=== PATIENT | female | born 1950 | race Caucasian/White ===

== ENCOUNTER → 2016-07-30 | Outpatient (CLI) | payer BC ==
[2016-07-30 15:39] LABS: Blood Urea Nitrogen 6 mg/dL (7-17); Non-African American GFR(MDRD) >60 (>60 ml/min/1.73 sqM)
--- NOTE | 2016-07-30 16:38 | CT ---
EXAMINATION TYPE: CT abdomen wo/w con DATE OF EXAM: 07/30/2016 4:19 PM COMPARISON: NONE HISTORY: 65-year-old female, abdominal pain and renal mass. Renal mass seen on outside ultrasound. TECHNIQUE: Contiguous axial scanning of the abdomen and pelvis before and after administration of 100 ml Omnipaque 300 IV contrast. Delayed images through the kidneys and coronal/sagittal reconstructio ns performed. CT DLP: 669.9 mGycm Automated exposure control for dose reduction was used. FINDINGS: Heart is normal size without pericardial effusion. Coronary vessel calcifications are present and are remarkable for coronary artery disease. Lung bases clear without pleural effusion. Liver shows a lobulated 1.4 cm cyst in the left hepatic lobe. Otherwise, no focal liver lesion. No bi liary ductal dilatation. Portal venous system is patent. There is nearly peripheral calcification of the gallbladder fundus and body without any abnormal gall bladder distention. Adrenal glands, spleen, and pancreas appear within normal limits. There is delayed excretion of contrast from both kidneys. A couple subcentimeter hypodense lesions wi thin both kidneys are too small for accurate CT characterization and probably represent cysts. There is a 1.2 cm hypodensity medial upper to mid pole left kidney suggestive of a cyst. No suspicious kevin l mass. Bilateral extrarenal pelves are noted. No dilated small bowel, free fluid, or free air. Normal appendix. Mild diverticulosis within the transverse colon without pericolonic inflammatory change. Scattered nonenlarged and mildly enlarged mesenteric lymph nodes measure up to 8 mm, nonspecific. Postsurgical changes of prior ventral abdominal wall hernia repair with mesh. Bones: Degenerative changes in the lower lumbar spine. Grade 1 anterolisthesis at L4-L5 from hypertro phic facet arthropathy. No osseous destructive process. IMPRESSION: 1. DEVELOPING PORCELAIN GALLBLADDER. CONSIDER SURGICAL CONSULTATION FOR ANY POTENTIAL FURTHER MANAGEM ENT. 2. A 1.2 CM MEDIAL UPPER TO MID POLE LEFT RENAL CYST. 3. ADDITIONAL TINY SUBCENTIMETER HYPODENSITIES ARE PRESENT IN BOTH KIDNEYS AND ARE TOO SMALL FOR ACCU RATE CT CHARACTERIZATION BUT ALSO LIKELY REPRESENT CYSTS. NO SUSPICIOUS MASS SEEN. 4. MILD TRANSVERSE COLONIC DIVERTICULOSIS WITHOUT ACUTE DIVERTICULITIS IN 5. A FEW SCATTERED NONENLARGED AND MILDLY ENLARGED MESENTERIC LYMPH NODES ARE PROBABLY REACTIVE/POST INFLAMMATORY.
== END ==
LOC: RADCTMAIN 14:49
PROVIDERS: ATTEND Family Medicine
DX: N28.1 Cyst of kidney, acquired (principal); K57.30 Diverticulosis of large intestine without perforation or abscess without bleeding; R60.0 Localized edema
CPT/HCPCS: 82565; 84520; 74170; 36415; Q9967

== ENCOUNTER 2016-09-03 07:56 | Day surgery (SDC) | payer BC ==
[2016-08-31 16:20] VITALS: BMI 25.4
[~2016-09-03 07:56] MED LIST: DEXAMETHASONE SOD PHOSPHATE 10 MG/ML 1 ML VIAL IV ONE; HEPARIN SODIUM,PORCINE 5,000 UNIT/ML 1 ML VIAL SQ ONE; LACTATED RINGERS 1,000 ML IV SCH; MIDAZOLAM 2 MG/2 ML VIAL IV PRN; ONDANSETRON 4 MG/2 ML VIAL IVP ONE; ceFAZolin 2 GM in SODIUM CHLORIDE 0.9% 100 ML IVPB ONE
--- NOTE | 2016-09-03 07:59 | P.GSHP ---
History of Present Illness H&P Date: 09/03/16 Chief Complaint: Right upper quadrant pain This is a 65-year-old female who presents today for laparoscopic cholecystectomy. Patient had epigastric and right upper quadrant pain. Her recent CAT scan shows a porcelain gallbladder. Patient presents today for laparoscopic cholecystectomy for chronic cholecystitis. - Constitutional Constitutional: Reports as per HPI Past Medical History Past Medical History: Coronary Artery Disease (CAD), Chest Pain / Angina, Diabetes Mellitus, Eye Disorder, Hyperlipidemia, Hypertension, Osteoarthritis ( OA) Additional Past Medical History / Comment(s): GLAUCOMA, HX OF BELLS PALSY NIDDM , SKIN LESIONS REMOVED (UNSURE IF CANCER), RECENT LOW IRON. History of Any Multi-Drug Resistant Organisms: None Reported Past Surgical History: Heart Catheterization, Heart Catheterization With Stent, Hysterectomy Additional Past Surgical History / Comment(s): 05/07/15 PTCA with stent ., 04/07 Cardiac cath . INCISIONAL HERNIA REPAIR, SKIN LESIONS REMOVED, COLOLOSCOPY Past Anesthesia/Blood Transfusion Reactions: No Reported Reaction Additional Past Anesthesia/Blood Transfusion Reaction / Comment(s): Pt has never received blood. Date of Last Stent Placement:: 05/07/2015 Past Psychological History: No Psychological Hx Reported Additional Psychological History / Comment(s): . Smoking Status: Former smoker Past Alcohol Use History: None Reported Additional Past Alcohol Use History / Comment(s): QUIT SMOKING APPROX 30 YRS AGO. SMOKED 10-15 YRS, 1 PPD OR LESS. Past Drug Use History: None Reported - Past Family History Brother(s) Family Medical History: Cancer Additional Family Medical History / Comment(s): COLON CANCER Sister(s) Family Medical History: Cancer Additional Family Medical History / Comment(s): COLON CANCER Medications and Allergies Home Medications Medication Instructions Recorded Confirmed Type Atenolol 50 mg PO DAILY 04/03/15 08/31/16 History Lisinopril 20 mg PO DAILY 04/03/15 08/31/16 History [place]-3 Fatty Acids/Fish Oil [Fish 1 tab PO DAILY 04/03/15 08/31/16 History Oil 1,000 mg Softgel] Raloxifene HCl [Evista] 60 mg PO DAILY 04/03/15 08/31/16 History metFORMIN HCL [Metformin HCl] 850 mg PO DAILY@1000,2200 04/03/15 08/31/16 History sitaGLIPtin [Januvia] 50 mg PO QAM 04/03/15 08/31/16 History Aspirin [Adult Low Dose Aspirin EC] 81 mg PO DAILY 08/31/16 08/31/16 History Atorvastatin [Lipitor] 40 mg PO HS 08/31/16 08/31/16 History Clopidogrel Bisulfate [Plavix] 75 mg PO DAILY 08/31/16 08/31/16 History Ergocalciferol (Vitamin D2) 50,000 unit PO WEEKLY 08/31/16 08/31/16 History [Vitamin D2] Ferrous Sulfate [Feosol] 325 mg PO DAILY 08/31/16 08/31/16 History Naproxen Sodium [Aleve] 220 mg PO DAILY PRN 08/31/16 08/31/16 History Timolol 0.5% Ophth Soln [Timoptic 1 drop BOTH EYES DAILY 08/31/16 08/31/16 History 0.5% Ophth Soln] Allergies Allergy/AdvReac Type Severity Reaction Status Date / Time codeine Allergy Nausea & Verified 08/31/16 15:29 Vomiting Surgical - Exam - General well developed - Eyes PERRL - ENT normal pinna - Neck no masses - Respiratory normal expansion - Abdomen Abdomen: soft, non tender Assessment and Plan Plan: Chronic cholelithiasis, porcelain gallbladder. We'll perform laparoscopic cholecystectomy. The risk of open cholecystectomy is been discussed with patient.
[2016-09-03 08:41] LABS: Glucose,Whole Blood 131 mg/dL (75-99)
[2016-09-03] MEDS ORDERED: BUPIVACAIN-EPI 0.25%-1:200,000 30 ML VIAL SQ ONE ×3 (08:55→09:40)
[2016-09-03] MEDS ORDERED: fentaNYL (PF) 50 MCG/ML 2 ML AMP ONE (09:03)
[2016-09-03] MEDS ORDERED: LIDOCAINE 1% INJ 10MG/ML (20 ML MDV) ONE (09:03)
[2016-09-03] MEDS ORDERED: ROCURONIUM BROMIDE 10 MG/ML 10 ML VIAL IV ONE (09:03)
[2016-09-03] MEDS ORDERED: PROPOFOL 10 MG/ML 20 ML VIAL IV ONE (09:03)
[2016-09-03] MEDS ORDERED: ePHEDrine 50 MG/ML 1 ML AMP ONE (09:03)
[2016-09-03] MEDS ORDERED: GLYCOPYRROLATE 0.2 MG/ML 2 ML VIAL ONE (09:03)
[2016-09-03] MEDS ORDERED: MIDAZOLAM 2 MG/2 ML VIAL ONE (09:03)
[2016-09-03] MEDS ORDERED: NEOSTIGMINE 1 MG/ML 10 ML VIAL ONE (09:03)
[2016-09-03] MEDS ORDERED: SUCCINYLCHOLINE CHLORIDE 100 MG/5 ML SYR IV ONE (09:03)
--- NOTE | 2016-09-03 10:02 | P.OP ---
Date of Procedure: 09/03/16 Preoperative Diagnosis: Cholecystitis Postoperative Diagnosis: Cholecystitis Procedure(s) Performed: Laparoscopic cholecystectomy Anesthesia: DELMI Surgeon: Mao Austin Estimated Blood Loss (ml): 5 Pathology: other (Gallbladder) Condition: stable Disposition: PACU Description of Procedure: The patient was placed on the operating table. The patient received a general endotracheal tube anesthesia. The patients abdomen was prepped and draped in the usual sterile fashion. Through an infraumbilical stab incision, the fascia of the anterior abdominal wall was grasped with a pair of Kochers and then the Veress needle was placed in the peritoneal cavity. Position of the Veress needle was confirmed with positive drop test. The abdomen was then insufflated. After adequate insufflation, the 10 mm trocar was placed in the peritoneal cavity. Following this the laparoscope was placed in the peritoneal cavity. The patient was placed in the head-up, right side up position and then a 5 mm trocar was placed in the right lateral and right subcostal position under direct visualization. A 8 mm trocar was placed in the epigastric position. The gallbladder was grasped in the fundus and infundibulum. The gallbladder was calcified. Traction on the gallbladder was placed in the lateral and the cephalad positions. The triangle of Calot was visualized.. The cystic duct was bluntly dissected until the union of the cystic duct and common bile duct was seen. The cystic duct was then divided and sealed with the Harmonic scissors. A PDS Endoloop was then placed throughout the cystic duct stump. The cystic artery divided and sealed with the Harmonic scissors. The gallbladder was then removed from the liver bed using Harmonic scissors. The gallbladder was then extracted through the epigastric port site. Operative field was checked for any bleeding spots and Harmonic scissors was used to coagulate the liver bed. The abdomen was irrigated. The trocars were removed. The skin was closed using interrupted 3- 0 Vicryl suture. Dermabond dressing were applied. The patient tolerated the procedure well.
[2016-09-03 10:26] VITALS: TEMP 97.4
[2016-09-03] MEDS: HYDROmorphone 1 MG/ML 1 ML SYRINGE IVP PRN ×2 (10:33→10:48)
[2016-09-03] MEDS ORDERED: HYDROcodone/APAP 7.5-325MG 1 EACH TAB PO ONE (12:16)
[2016-09-03 12:18] VITALS: RESP 16
[2016-09-03 13:34] VITALS: PULSE 83
[2016-09-03 14:01] VITALS: BP 150/68
== END 2016-09-03 14:21 | disposition home or self-care (01) ==
LOC: OR 07:56
PROVIDERS: ATTEND Surgery
DX: K80.10 Calculus of gallbladder with chronic cholecystitis without obstruction (principal); K82.8 Other specified diseases of gallbladder; I25.119 Atherosclerotic heart disease of native coronary artery with unspecified angina pectoris; Z95.5 Presence of coronary angioplasty implant and graft; I10 Essential (primary) hypertension; E78.00 Pure hypercholesterolemia, unspecified; E78.5 Hyperlipidemia, unspecified; E11.9 Type 2 diabetes mellitus without complications; Z79.84 Long term (current) use of oral hypoglycemic drugs; Z79.02 Long term (current) use of antithrombotics/antiplatelets; Z79.82 Long term (current) use of aspirin; Z79.1 Long term (current) use of non-steroidal anti-inflammatories (NSAID); Z79.899 Other long term (current) drug therapy; Z88.5 Allergy status to narcotic agent; Z87.891 Personal history of nicotine dependence
CPT/HCPCS: 88304; 47562; J2250; J1644; J1100; J2710; J0690; J2405; J2001; J3010; J1170; J0330; J2704

== ENCOUNTER → 2018-05-29 | Outpatient (CLI) | payer BC ==
--- NOTE | 2018-06-01 11:29 | MM ---
Reason for exam: screening (asymptomatic). Last mammogram was performed 2 years and 10 months ago. History: Patient is postmenopausal. Family history of breast cancer in maternal aunt. Excisional biopsy of the right breast, December 13, 2000. Physical Findings: A clinical breast exam by your physician is recommended on an annual basis and results should be correlated with mammographic findings. MG Screening Mammo w CAD Bilateral CC and MLO view(s) were taken. Prior study comparison: July 24, 2015, bilateral MG 3d screening mammo w/cad. November 08, 2013, bilateral MG screening mammo w CAD. There are benign appearing round dystrophic calcifications bilaterally. Asymmetric breast tissue in the left breast central position, stable. There is no discrete abnormality. ASSESSMENT: Benign, BI-RAD 2 RECOMMENDATION: Routine screening mammogram of both breasts in 1 year.
== END | disposition home or self-care (01) ==
LOC: RADMAMWWP 09:48
PROVIDERS: ATTEND Family Medicine
DX: Z12.31 Encounter for screening mammogram for malignant neoplasm of breast (principal)
CPT/HCPCS: 77067

== ENCOUNTER 2019-05-28 16:00 | Emergency (ER) | payer BC, MEDICARE ==
[2019-05-28 16:25] VITALS: RESP 18; TEMP 97.9
--- NOTE | 2019-05-28 16:50 | ED ---
General Adult HPI - General Chief complaint: Extremity Injury, Lower Stated complaint: rt ankle pain Time Seen by Provider: 05/28/19 16:29 Source: patient, RN notes reviewed Mode of arrival: wheelchair Limitations: no limitations - History of Present Illness Initial comments: 68-year-old female presents to the emergency department for a chief complaint of right ankle pain. Patient states that several years ago she had a hairline fracture of the right ankle. States that from time to time her ankle "acts up." Patient states it seems to be doing it again. States this started about 4 days ago. There was any better but then seemed to worsen again. States it is painful to walk on. States is causing pain in the lateral aspect of her foot as well. She denies fevers or chills.Patient has no other complaints at this time including shortness of breath, chest pain, abdominal pain, nausea or vomiting, headache, or visual changes. - Related Data Home Medications Medication Instructions Recorded Confirmed Atenolol 50 mg PO DAILY 04/03/15 05/07/19 Lisinopril 20 mg PO DAILY 04/03/15 05/07/19 [place]-3 Fatty Acids/Fish Oil [Fish 1 tab PO DAILY 04/03/15 05/07/19 Oil 1,000 mg Softgel] Raloxifene HCl [Evista] 60 mg PO DAILY 04/03/15 05/07/19 metFORMIN HCL [Metformin HCl] 850 mg PO DAILY@1000,2200 04/03/15 05/07/19 sitaGLIPtin [Januvia] 50 mg PO DAILY 04/03/15 05/07/19 Aspirin [Adult Low Dose Aspirin EC] 81 mg PO DAILY 08/31/16 05/07/19 Atorvastatin [Lipitor] 40 mg PO HS 08/31/16 05/07/19 Clopidogrel Bisulfate [Plavix] 75 mg PO DAILY 08/31/16 05/07/19 Ferrous Sulfate [Feosol] 325 mg PO DAILY 08/31/16 05/07/19 Tretinoin [Tretinoin 0.05%] 1 applic TOPICAL HS 05/07/19 05/07/19 Vitamin D3 50,000iu 50,000 unit PO COOK 05/07/19 05/07/19 Previous Rx's Medication Instructions Recorded Cephalexin [Keflex] 500 mg PO Q6HR 10 Days #40 cap 05/28/19 Allergies Allergy/AdvReac Type Severity Reaction Status Date / Time codeine Allergy Nausea & Verified 05/28/19 16:25 Vomiting Review of Systems ROS Statement: Those systems with pertinent positive or pertinent negative responses have been documented in the HPI. ROS Other: All systems not noted in ROS Statement are negative. Past Medical History Past Medical History: Coronary Artery Disease (CAD), Chest Pain / Angina, Diabetes Mellitus, Eye Disorder, Hyperlipidemia, Hypertension, Osteoarthritis (OA) Additional Past Medical History / Comment(s): HX OF BELLS PALSY, anemia, frequent diarrhea recently, not as much recently, thinks might have a "blockage" History of Any Multi-Drug Resistant Organisms: None Reported Past Surgical History: Heart Catheterization, Heart Catheterization With Stent, Hernia Repair, Hysterectomy Additional Past Surgical History / Comment(s): INCISIONAL HERNIA REPAIR, SKIN LESIONS REMOVED, COLOLOSCOPY, Bilateral cataract surgery 2016 Past Anesthesia/Blood Transfusion Reactions: No Reported Reaction Additional Past Anesthesia/Blood Transfusion Reaction / Comment(s): Pt has never received blood. Date of Last Stent Placement:: 05/07/2015 Past Psychological History: No Psychological Hx Reported Smoking Status: Former smoker Past Alcohol Use History: None Reported Past Drug Use History: None Reported - Past Family History Brother(s) Family Medical History: Cancer Additional Family Medical History / Comment(s): COLON CANCER Sister(s) Family Medical History: Cancer Additional Family Medical History / Comment(s): COLON CANCER Father Family Medical History: Coronary Artery Disease (CAD), Myocardial Infarction (SC) Additional Family Medical History / Comment(s): Father at age 67yrs and pt thinks cause of was a SC. Mother Family Medical History: Coronary Artery Disease (CAD) Additional Family Medical History / Comment(s): Mother at age 78 or 79yrs of heart disease. General Exam Limitations: no limitations General appearance: alert, in no apparent distress Head exam: Present: atraumatic, normocephalic, normal inspection Eye exam: Present: normal appearance, PERRL, EOMI. Absent: scleral icterus, conjunctival injection, periorbital swelling ENT exam: Present: normal exam, mucous membranes moist Neck exam: Present: normal inspection, full ROM. Absent: tenderness, meningismus, lymphadenopathy Respiratory exam: Present: normal lung sounds bilaterally. Absent: respiratory distress, wheezes, rales, rhonchi, stridor Cardiovascular Exam: Present: regular rate, normal rhythm, normal heart sounds. Absent: systolic murmur, diastolic murmur, rubs, gallop, clicks Extremities exam: Present: full ROM (patient has some limited plantar and dorsiflexion of the irght ankle senconday to pain but is able to plantar and dorsi flex about 20 degrees), normal capillary refill (cap refill < 2 seconds, DP pulse 2+ in RLE), other (sensation intact RLE). Absent: tenderness, pedal edema, joint swelling (mild edema of the lateral right ankle with minimal erythema. ), calf tenderness Course Vital Signs 05/28/19 16:23 Temperature 97.9 F Pulse Rate 79 Respiratory 18 Rate Blood Pressure 154/77 O2 Sat by Pulse 100 Oximetry Medical Decision Making - Medical Decision Making X-ray of the right foot shows some osteoarthritis without fracture. X-ray of the right ankle shows minimal soft tissue swelling over the lateral malleolus without fracture seen. I think this is likely an exacerbation of patient's ongoing chronic intermittent ankle pain. However there is some erythema. Patient is afebrile, I do not think this is a septic joint as it is minimally edematous, minimally erythematous through however patient will be treated for a possible cellulitis. She will follow up with primary care in 1-2 days. She'll return here if she has any worsening symptoms. Disposition Clinical Impression: Ankle pain, right Disposition: HOME SELF-CARE Condition: Good Instructions (If sedation given, give patient instructions): Ankle Sprain (ED) Additional Instructions: please follow up with your doctor this week. Please take antibiotic as directed. Take Motrin and Tylenol for pain. Return to the emergency department if you have any worsening symptoms. Prescriptions: Cephalexin [Keflex] 500 mg PO Q6HR 10 Days #40 cap Is patient prescribed a controlled substance at d/c from ED?: No Referrals: Dariela Sofia DO [Primary Care Provider] - 1-2 days Time of Disposition: 17:51
--- NOTE | 2019-05-28 17:14 | XR ---
EXAMINATION TYPE: XR foot complete RT DATE OF EXAM: 05/28/2019 COMPARISON: NONE HISTORY: Foot and ankle pain TECHNIQUE: 3 views FINDINGS: There is moderate plantar calcaneal spurring. There is spurring at the talonavicular joint. Metatarsals are intact. There is mild spurring at the first MP joint. I see no fracture nor dislocat ion. IMPRESSION: There is some osteoarthritis. Calcaneal spurring. No fracture seen.
--- NOTE | 2019-05-28 17:15 | XR ---
EXAMINATION TYPE: XR ankle complete RT DATE OF EXAM: 05/28/2019 COMPARISON: NONE HISTORY: Ankle pain TECHNIQUE: 3 views FINDINGS: Ankle mortise is anatomic. I see no fracture nor dislocation. Joint spaces are fairly kaylee l. IMPRESSION: Minimal soft tissue swelling over the lateral malleolus. No fracture seen.
[2019-05-28 18:08] VITALS: BP 148/70; PULSE 72
== END 2019-05-28 18:08 | disposition home or self-care (01) ==
LOC: EC 16:00
DX: M25.571 Pain in right ankle and joints of right foot (principal); M25.471 Effusion, right ankle; M19.071 Primary osteoarthritis, right ankle and foot; I25.10 Atherosclerotic heart disease of native coronary artery without angina pectoris; E11.9 Type 2 diabetes mellitus without complications; E78.5 Hyperlipidemia, unspecified; I10 Essential (primary) hypertension; D64.9 Anemia, unspecified; Z87.81 Personal history of (healed) traumatic fracture; Z95.818 Presence of other cardiac implants and grafts; Z95.5 Presence of coronary angioplasty implant and graft; Z87.891 Personal history of nicotine dependence; Z79.84 Long term (current) use of oral hypoglycemic drugs; Z79.82 Long term (current) use of aspirin; Z79.02 Long term (current) use of antithrombotics/antiplatelets; Z79.899 Other long term (current) drug therapy; Z88.5 Allergy status to narcotic agent
CPT/HCPCS: 99283

== ENCOUNTER → 2020-03-10 | Outpatient (CLI) | payer BC ==
--- NOTE | 2020-03-11 11:01 | MM ---
Reason for exam: screening (asymptomatic). Last mammogram was performed 1 year and 9 months ago. History: Patient is postmenopausal. Family history of breast cancer in maternal aunt. Excisional biopsy of the right breast, December 13, 2000. Physical Findings: A clinical breast exam by your physician is recommended on an annual basis and results should be correlated with mammographic findings. MG Screening Mammo w CAD Bilateral CC and MLO view(s) were taken. Prior study comparison: May 29, 2018, bilateral MG screening mammo w CAD. July 24, 2015, bilateral MG 3d screening mammo w/cad. There are scattered fibroglandular densities. Finding #1: There is a 20 mm irregular mass located 7 cm from the nipple in the lower inner quadrant, middle position of the right breast. Finding #2: There are typically benign round calcifications in both breasts. Asymmetric breast tissue left breast is stable. New finding since May 29, 2018 and July 24, 2015. ASSESSMENT: Incomplete: need additional imaging evaluation, BI-RAD 0 RECOMMENDATION: Special view mammogram and ultrasound of the right breast. [facility] will attempt to contact patient to return for supplemental views and ultrasound.
== END | disposition home or self-care (01) ==
LOC: RADMAMWWP 11:19
PROVIDERS: ATTEND Family Medicine
DX: Z12.31 Encounter for screening mammogram for malignant neoplasm of breast (principal)
CPT/HCPCS: 77067

== ENCOUNTER → 2020-03-27 | Outpatient (CLI) | payer BC ==
--- NOTE | 2020-04-01 10:36 | MM ---
Reason for exam: additional evaluation requested from abnormal screening. Last mammogram was performed 1 month ago. History: Patient is postmenopausal. Family history of breast cancer in maternal aunt. Excisional biopsy of the right breast, December 13, 2000. Physical Findings: Nurse did not find any significant physical abnormalities on exam. MG Work Up Mamm w CAD RT Spot compression CC, spot compression MLO, and LM view(s) were taken of the right breast. Prior study comparison: March 10, 2020, bilateral MG screening mammo w CAD. May 29, 2018, bilateral MG screening mammo w CAD. Focal asymmetry 20mm lower inner quadrant middle depth persists on additional spot views well seen on true lateral. New from 2018 and older. These results were verbally communicated with the patient and result sheet given to the patient on 03/27/20. ASSESSMENT: Incomplete: need additional imaging evaluation, BI-RAD 0 RECOMMENDATION: Ultrasound of the right breast.
--- NOTE | 2020-04-01 10:38 | USB ---
Reason for exam: additional evaluation requested from abnormal screening. History: Patient is postmenopausal. Family history of breast cancer in maternal aunt. Excisional biopsy of the right breast, December 13, 2000. US Breast Workup Limited RT Right limited breast ultrasound including focal area of concern, retroareolar and axilla demonstrates no cystic or solid lesion seen. Area increased density suspected skin based lateral view. Patient history of trauma and bruise resolving. Suspect resolved bruise. These results were verbally communicated with the patient and result sheet given to the patient on 03/27/20. ASSESSMENT: Probably benign, BI-RAD 3 RECOMMENDATION: Follow-up diagnostic mammogram of the right breast in 3 months.
== END | disposition home or self-care (01) ==
LOC: RADMAMWWP 10:26
PROVIDERS: ATTEND Family Medicine
DX: R92.8 Other abnormal and inconclusive findings on diagnostic imaging of breast (principal)
CPT/HCPCS: 77065

== ENCOUNTER → 2020-07-01 | Outpatient (CLI) | payer BC ==
--- NOTE | 2020-07-01 10:51 | MM ---
Reason for exam: follow-up at short interval from prior study. Last mammogram was performed 3 months ago. History: Patient is postmenopausal. Family history of breast cancer in maternal aunt. Excisional biopsy of the right breast, December 13, 2000. Took hormonal contraceptives for 3 years beginning at age 22. Physical Findings: Nurse did not find any significant physical abnormalities on exam. MG Diagnostic Mammo w CAD JYOTI Bilateral CC and MLO view(s) were taken. Prior study comparison: March 27, 2020, right breast MG work up mamm w CAD RT. March 10, 2020, bilateral MG screening mammo w CAD. The breast tissue is heterogeneously dense. This may lower the sensitivity of mammography. Density right breast is improved. Stable appearance left breast. No significant new findings when compared with previous films. These results were verbally communicated with the patient and result sheet given to the patient on 07/01/20. ASSESSMENT: Benign, BI-RAD 2 RECOMMENDATION: Return to routine screening mammogram schedule for both breasts. Back on schedule for March 2021. Manage patient on a clinical basis.
== END | disposition home or self-care (01) ==
LOC: RADMAMWWP 09:24
PROVIDERS: ATTEND Family Medicine
DX: R92.8 Other abnormal and inconclusive findings on diagnostic imaging of breast (principal)
CPT/HCPCS: 77066

== ENCOUNTER 2021-01-01 09:32 | Inpatient (IN) | payer BC ==
[2021-01-01] MEDS ORDERED: SODIUM CHLORIDE 0.9% 1,000 ML IV STA ×2 (09:55)
--- NOTE | 2021-01-01 10:10 | ED ---
Nausea/Vomiting/Diarrhea HPI - General Chief complaint: Nausea/Vomiting/Diarrhea Stated complaint: Vomiting&Diarrhea/not able to urinate Time Seen by Provider: 01/01/21 09:39 Source: patient, RN notes reviewed Mode of arrival: ambulatory Limitations: no limitations - History of Present Illness Initial comments: This is a 70-year-old female who presents with complaints of 2-3 days of nausea vomiting and diarrhea decreased oral intake she states she had decreased bowel movements no decreased urine output no abdominal pains this time she is not nauseated at this time. She did have some episodes of lightheadedness when she tries to walk or get up from a sitting or supine position. She has had some chills feeling hot and cold but no overt sweats he recently just finished antibiotics for a nasal infection. Other current complaints or modifying fa ctors MD complaint: nausea, vomiting, diarrhea - Related Data Home Medications Medication Instructions Recorded Confirmed Raloxifene HCl [Evista] 60 mg PO DAILY 04/03/15 01/01/21 atenoloL [Atenolol] 50 mg PO DAILY 04/03/15 01/01/21 lisinopriL [Lisinopril] 20 mg PO DAILY 04/03/15 01/01/21 metFORMIN HCL [Metformin HCl] 425 mg PO BID 04/03/15 01/01/21 sitaGLIPtin [Januvia] 50 mg PO DAILY 04/03/15 01/01/21 Aspirin [Adult Low Dose Aspirin EC] 81 mg PO DAILY 08/31/16 01/01/21 Atorvastatin [Lipitor] 40 mg PO HS 08/31/16 01/01/21 Clopidogrel Bisulfate [Plavix] 75 mg PO DAILY 08/31/16 01/01/21 Ferrous Sulfate [Feosol] 325 mg PO DAILY 08/31/16 01/01/21 Tretinoin [Tretinoin 0.05%] 1 applic TOPICAL HS 05/07/19 01/01/21 Ergocalciferol [Vitamin D2 (1250 1,250 mcg PO COOK 01/01/21 01/01/21 Mcg = 44972 Iu)] Allergies Allergy/AdvReac Type Severity Reaction Status Date / Time codeine AdvReac Nausea & Verified 01/01/21 11:08 Vomiting Review of Systems ROS Statement: Those systems with pertinent positive or pertinent negative responses have been documented in the HPI. ROS Other: All systems not noted in ROS Statement are negative. Past Medical History Past Medical History: Coronary Artery Disease (CAD), Chest Pain / Angina, Diabetes Mellitus, Eye Disorder, Hyperlipidemia, Hypertension, Osteoarthritis (OA) Additional Past Medical History / Comment(s): HX OF BELLS PALSY, anemia, frequent diarrhea recently, not as much recently, thinks might have a "blockage" History of Any Multi-Drug Resistant Organisms: None Reported Past Surgical History: Heart Catheterization, Heart Catheterization With Stent, Hernia Repair, Hysterectomy Additional Past Surgical History / Comment(s): INCISIONAL HERNIA REPAIR, SKIN LESIONS REMOVED, COLOLOSCOPY, Bilateral cataract surgery 2017 Past Anesthesia/Blood Transfusion Reactions: No Reported Reaction Additional Past Anesthesia/Blood Transfusion Reaction / Comment(s): Pt has never received blood. Date of Last Stent Placement:: 05/07/2015 Past Psychological History: No Psychological Hx Reported Smoking Status: Former smoker Past Alcohol Use History: None Reported Past Drug Use History: None Reported - Past Family History Brother(s) Family Medical History: Cancer Additional Family Medical History / Comment(s): COLON CANCER Sister(s) Family Medical History: Cancer Additional Family Medical History / Comment(s): COLON CANCER Father Family Medical History: Coronary Artery Disease (CAD), Myocardial Infarction ([place]) Additional Family Medical History / Comment(s): Father at age 67yrs and pt thinks cause of was a [place]. Mother Family Medical History: Coronary Artery Disease (CAD) Additional Family Medical History / Comment(s): Mother at age 78 or 79yrs of heart disease. General Exam - General Exam Comments Initial Comments: This is a well-developed well-nourished awake alert oriented 3 female Limitations: no limitations General appearance: alert, in no apparent distress Head exam: Present: atraumatic, normocephalic, normal inspection Eye exam: Present: normal appearance, PERRL, EOMI. Absent: scleral icterus, co njunctival injection, periorbital swelling ENT exam: Present: mucous membranes dry Neck exam: Present: normal inspection. Absent: tenderness, meningismus, lymphadenopathy Respiratory exam: Present: normal lung sounds bilaterally. Absent: respiratory distress, wheezes, rales, rhonchi, stridor Cardiovascular Exam: Present: regular rate, normal rhythm, normal heart sounds. Absent: systolic murmur, diastolic murmur, rubs, gallop, clicks GI/Abdominal exam: Present: soft, normal bowel sounds. Absent: distended, tenderness, guarding, rebound, rigid, bruit, pulsatile mass Extremities exam: Present: normal inspection, full ROM, normal capillary refill. Absent: tenderness, pedal edema, joint swelling, calf tenderness Back exam: Present: normal inspection Neurological exam: Present: alert, oriented X3, CN II-XII intact Psychiatric exam: Present: normal affect, normal mood Skin exam: Present: warm, dry, intact, normal color. Absent: rash Course Vital Signs 01/01/21 01/01/21 01/01/21 09:34 11:01 11:57 Temperature 97.7 F Pulse Rate 80 71 69 Respiratory 18 18 22 Rate Blood Pressure 124/78 124/55 118/61 O2 Sat by Pulse 97 98 100 Oximetry Medical Decision Making - Medical Decision Making I did discuss findings with patient family and with Dr. Zamora. Patient will be admitted for IV fluids and further inpatient care she does demonstrate evidence of dehydration and pancreatitis as well as hyponatremia - Lab Data Result diagrams: 01/01/21 10:06 01/01/21 10:06 Lab Results 01/01/21 01/01/21 01/01/21 Range/Units 10:06 10:06 10:06 WBC 7.4 (3.8-10.6) k/uL RBC 4.45 (3.80-5.40) m/uL Hgb 13.3 (11.4-16.0) gm/dL Hct 38.9 (34.0-46.0) % MCV 87.4 (80.0-100.0) fL MCH 29.8 (25.0-35.0) pg MCHC 34.1 (31.0-37.0) g/dL RDW 13.2 (11.5-15.5) % Plt Count 313 (150-450) k/uL MPV 7.0 Neutrophils % 72 % Lymphocytes % 21 % Monocytes % 5 % Eosinophils % 1 % Basophils % 1 % Neutrophils # 5.4 (1.3-7.7) k/uL Lymphocytes # 1.5 (1.0-4.8) k/uL Monocytes # 0.3 (0-1.0) k/uL Eosinophils # 0.1 (0-0.7) k/uL Basophils # 0.1 (0-0.2) k/uL Sodium 124 L (137-145) mmol/L Potassium 5.0 (3.5-5.1) mmol/L Chloride 95 L (98-107) mmol/L Carbon Dioxide 15 L (22-30) mmol/L Anion Gap 14 mmol/L BUN 16 (7-17) mg/dL Creatinine 1.28 H (0.52-1.04) mg/dL Est GFR (CKD-EPI)AfAm 49 (>60 ml/min/1.73 sqM) Est GFR (CKD-EPI)NonAf 42 (>60 ml/min/1.73 sqM) Glucose 131 H (74-99) mg/dL Calcium 10.0 (8.4-10.2) mg/dL Total Bilirubin 0.3 (0.2-1.3) mg/dL AST 32 (14-36) U/L ALT 22 (4-34) U/L Alkaline Phosphatase 93 (38-126) U/L Total Protein 7.4 (6.3-8.2) g/dL Albumin 4.5 (3.5-5.0) g/dL Amylase 152 H (30-110) U/L Lipase 1202 H (23-300) U/L Urine Color Yellow Urine Appearance Turbid H (Clear) Urine pH 6.0 (5.0-8.0) Ur Specific [place] 1.016 (1.001-1.035) Urine Protein Negative (Negative) Urine Glucose (UA) Negative (Negative) Urine Ketones 1+ H (Negative) Urine Blood Moderate H (Negative) Urine Nitrite Negative (Negative) Urine Bilirubin Negative (Negative) Urine Urobilinogen <2.0 (<2.0) mg/dL Ur Leukocyte Esterase Small H (Negative) Urine RBC 1 (0-5) /hpf Urine WBC 6 H (0-5) /hpf Ur Squamous Epith Cells <1 (0-4) /hpf Uric Acid Crystals Many H (None) /hpf Urine Mucus Rare H (None) /hpf - Radiology Data Radiology results: report reviewed (Imaging and report reviewed no acute findings), image reviewed Disposition Clinical Impression: Acute pancreatitis, Gastroenteritis, Hyponatremia syndrome, Dehydration Disposition: ADMITTED IP TO THIS [facility] Condition: Fair Referrals: Dariela Sofia DO [Primary Care Provider] - 1-2 days
[2021-01-01 10:22] LABS: Basophils # (A) 0.1 k/uL (0-0.2); Basophils % (A) 1 %; Eosinophils # (A) 0.1 k/uL (0-0.7); Eosinophils % (A) 1 %; HCT 38.9 % (34.0-46.0); HGB 13.3 gm/dL (11.4-16.0); Lymphocytes # (A) 1.5 k/uL (1.0-4.8); Lymphocytes % (A) 21 %; MCH 29.8 pg (25.0-35.0); MCHC 34.1 g/dL (31.0-37.0); MCV 87.4 fL (80.0-100.0); Monocytes # (A) 0.3 k/uL (0-1.0); Monocytes % (A) 5 %; Neutrophils # (A) 5.4 k/uL (1.3-7.7); Neutrophils % (A) 72 %; Platelet Count 313 k/uL (150-450); RBC 4.45 m/uL (3.80-5.40); RDW 13.2 % (11.5-15.5); WBC 7.4 k/uL (3.8-10.6)
[2021-01-01 10:34] LABS: Albumin 4.5 g/dL (3.5-5.0); Total Bilirubin 0.3 mg/dL (0.2-1.3); Total Protein 7.4 g/dL (6.3-8.2)
[2021-01-01 10:46] LABS: Appearance,Urine Turbid (Clear); Bilirubin,Urine Negative (Negative); Blood,Urine Moderate (Negative); Color,Urine Yellow; Glucose,Urine (UA) Negative (Negative); Ketones,Urine 1+ (Negative); Leukocyte Esterase,Urine Small (Negative); Mucus,Urine Rare /hpf; Nitrite,Urine Negative (Negative); Protein,Urine Negative (Negative); RBC,Urine 1 /hpf (0-5); Specific Gravity,Urine 1.016 (1.001-1.035); Squamous Epithelial Cell,Urine <1 /hpf (0-4); Uric Acid Crystals,Urine Many /hpf; Urobilinogen,Urine <2.0 mg/dL (<2.0); WBC,Urine 6 /hpf (0-5)
--- NOTE | 2021-01-01 10:59 | XR ---
EXAMINATION TYPE: XR KUB DATE OF EXAM: 01/01/2021 Comparison: 05/06/2019 Clinical History: 70 year-old female abdominal pain Findings: No evidence for free intraperitoneal air. A few scattered air-fluid levels within the colon without significant stool burden. No dilated small bowel loops or differential air-fluid levels. Multiple coils from prior mesh repair. Impression: A few scattered air-fluid levels within the colon suggesting liquid stool possibly from enteritis or ileus. No evidence for free air or bowel obstruction.
[2021-01-01] MEDS ORDERED: ONDANSETRON 4 MG/2 ML VIAL IVP PRN (12:30)
[2021-01-01] MEDS ORDERED: NALOXONE 0.4 MG/ML 1 ML VIAL IV PRN (12:30)
[2021-01-01] MEDS: SODIUM CHLORIDE 0.9% 1,000 ML IV SCH ×2 (12:38→21:29)
[2021-01-01 16:40] LABS: Glucose,Whole Blood 90 mg/dL (75-99)
[2021-01-01] MEDS: INSULIN ASPART (NovoLOG) 100 UNIT/ML VIAL SQ SCH ×2 (17:04→21:29)
[2021-01-01 20:37] LABS: Glucose,Whole Blood 120 mg/dL (75-99)
[2021-01-01] MEDS: ATORVASTATIN 40 MG TAB PO SCH (21:29)
[2021-01-01] MEDS: TRETINOIN TOPICAL SCH (21:30)
[2021-01-02] MEDS: SODIUM CHLORIDE 0.9% 1,000 ML IV SCH ×3 (01:08→19:07)
[2021-01-02 07:22] LABS: Glucose,Whole Blood 86 mg/dL (75-99)
[2021-01-02] MEDS: INSULIN ASPART (NovoLOG) 100 UNIT/ML VIAL SQ SCH ×4 (08:49→20:42)
[2021-01-02] MEDS: FERROUS SULFATE 325 MG TAB PO SCH (08:55)
[2021-01-02] MEDS: ASPIRIN 81 MG PO SCH (08:55)
[2021-01-02] MEDS: RALOXIFENE 60 MG TAB PO SCH (08:56)
[2021-01-02] MEDS: CLOPIDOGREL 75 MG TAB PO SCH (08:56)
[2021-01-02] MEDS ORDERED: atenoloL 50 MG TAB PO SCH (09:00)
[2021-01-02] MEDS ORDERED: lisinopriL 20 MG TAB PO SCH (09:00)
[2021-01-02 11:35] LABS: Glucose,Whole Blood 87 mg/dL (75-99)
[2021-01-02 16:26] LABS: Glucose,Whole Blood 78 mg/dL (75-99)
[2021-01-02 20:36] LABS: Glucose,Whole Blood 136 mg/dL (75-99)
[2021-01-02] MEDS: ATORVASTATIN 40 MG TAB PO SCH (20:59)
[2021-01-02] MEDS: TRETINOIN TOPICAL SCH (20:59)
--- NOTE | 2021-01-03 01:07 | P.HPIM ---
History of Present Illness H&P Date: 01/02/21 Chief Complaint: nausea, vomiting, diarrhea Sangeeta Reid is a 70 yo F with PMH of CAD, HTN, T2DM who presented to the ED complaining of continued nausea, vomiting and diarrhea over the past few days. She complains that ever since she was treated for a sinus infection with bactrim she had become nauseated and has had diarrhea multiple times daily. She became concerned about dehydration and persistent vomiting and diarrhea so came to the ED. She denies fever, chills, sweats, bloody stool or hematemesis. On presentation vitals stable, labs with Cr 1.30, lipase 1500, Na 124. Review of Systems All systems: negative Constitutional: Reports malaise, Reports weakness, Denies chills, Denies fever Eyes: denies blurred vision, denies pain Ears, nose, mouth and throat: Denies headache, Denies sore throat Cardiovascular: Denies chest pain, Denies shortness of breath Respiratory: Denies cough Gastrointestinal: Reports as per HPI, Reports diarrhea, Reports nausea, Reports vomiting, Denies abdominal pain Genitourinary: Denies dysuria, Denies hematuria Musculoskeletal: Denies myalgias Integumentary: Denies pruritus, Denies rash Neurological: Denies numbness, Denies weakness Psychiatric: Denies anxiety, Denies depression Endocrine: Denies fatigue, Denies weight change Past Medical History Past Medical History: Coronary Artery Disease (CAD), Chest Pain / Angina, Diabetes Mellitus, Eye Disorder, Hyperlipidemia, Hypertension, Osteoarthritis (OA) Additional Past Medical History / Comment(s): HX OF BELLS PALSY, anemia, frequent diarrhea recently, not as much recently, thinks might have a "blockage" History of Any Multi-Drug Resistant Organisms: None Reported Past Surgical History: Heart Catheterization, Heart Catheterization With Stent, Hernia Repair, Hysterectomy Additional Past Surgical History / Comment(s): INCISIONAL HERNIA REPAIR, SKIN LESIONS REMOVED, COLOLOSCOPY, Bilateral cataract surgery 2017 Past Anesthesia/Blood Transfusion Reactions: No Reported Reaction Additional Past Anesthesia/Blood Transfusion Reaction / Comment(s): Pt has never received blood. Date of Last Stent Placement:: 05/07/2015 Past Psychological History: No Psychological Hx Reported Additional Psychological History / Comment(s): . Smoking Status: Former smoker Past Alcohol Use History: None Reported Additional Past Alcohol Use History / Comment(s): QUIT SMOKING APPROX 30 YRS AGO. SMOKED 10-15 YRS, 1 PPD OR LESS. Past Drug Use History: None Reported - Past Family History Brother(s) Family Medical History: Cancer Additional Family Medical History / Comment(s): COLON CANCER Sister(s) Family Medical History: Cancer Additional Family Medical History / Comment(s): COLON CANCER Father Family Medical History: Coronary Artery Disease (CAD), Myocardial Infarction ([place]) Additional Family Medical History / Comment(s): Father at age 67yrs and pt thinks cause of was a [place]. Mother Family Medical History: Coronary Artery Disease (CAD) Additional Family Medical History / Comment(s): Mother at age 78 or 79yrs of heart disease. Medications and Allergies Home Medications Medication Instructions Recorded Confirmed Type Raloxifene HCl [Evista] 60 mg PO DAILY 04/03/15 01/01/21 History atenoloL [Atenolol] 50 mg PO DAILY 04/03/15 01/01/21 History lisinopriL [Lisinopril] 20 mg PO DAILY 04/03/15 01/01/21 History metFORMIN HCL [Metformin HCl] 425 mg PO BID 04/03/15 01/01/21 History sitaGLIPtin [Januvia] 50 mg PO DAILY 04/03/15 01/01/21 History Aspirin [Adult Low Dose Aspirin EC] 81 mg PO DAILY 08/31/16 01/01/21 History Atorvastatin [Lipitor] 40 mg PO HS 08/31/16 01/01/21 History Clopidogrel Bisulfate [Plavix] 75 mg PO DAILY 08/31/16 01/01/21 History Ferrous Sulfate [Feosol] 325 mg PO DAILY 08/31/16 01/01/21 History Tretinoin [Tretinoin 0.05%] 1 applic TOPICAL HS 05/07/19 01/01/21 History Ergocalciferol [Vitamin D2 (1250 1,250 mcg PO COOK 01/01/21 01/01/21 History Mcg = 92840 Iu)] Allergies Allergy/AdvReac Type Severity Reaction Status Date / Time codeine AdvReac Nausea & Verified 01/01/21 11:08 Vomiting Physical Exam Vitals: Vital Signs Temp Pulse Resp BP Pulse Ox 01/02/21 19:44 70 16 01/02/21 19:23 97.9 F 72 18 102/64 98 01/02/21 14:00 97.6 F 70 16 112/70 99 01/02/21 07:53 97.8 F 66 16 112/67 99 01/02/21 02:15 97.5 F L 64 18 100/45 100 Intake and Output 01/02/21 01/02/21 01/03/21 14:59 22:59 06:59 Intake Total 200 Balance 200 Intake: Oral 200 Other: Voiding Method Toilet # Voids 1 1 # Bowel Movements 1 Gen: well developed, well nourished, NAD. Vitals reviewed HEENT: normocephalic, atraumatic, mucus membranes moist Neck: supple, no JVD, no thyromegaly CV: RRR, no murmur. Pulses 2+ Lungs: normal effort, clear throughout Abd: soft, nontender, non distended Neuro: alert and oriented x3, no focal deficit Skin: warm and dry Results CBC & Chem 7: 01/01/21 10:06 01/01/21 10:06 Labs: Abnormal Lab Results - Last 24 Hours (Table) 01/02/21 Range/Units 20:34 POC Glucose (mg/dL) 136 H (75-99) mg/dL Thrombosis Risk Factor Assmnt - Choose All That Apply Each Factor Represents 1 point: Obesity (BMI >25) Each Risk Factor Represents 2 Points: Age 61-74 years Thrombosis Risk Factor Assessment Total Risk Factor Score: 3 Thrombosis Risk Factor Assessment Level: Moderate Risk Assessment and Plan Plan: 1. Acute kidney injury, secondary to volume depletion. Admit, start IV fluids, check C diff antigen. Zofran prn. Clear liquid diet. Follow labs 2. Acute pancreatitis. Suspect secondary to vomiting. Continue to monitor 3. T2DM. Accucheck, sliding scale 4. HTN. Continue atenolol
[2021-01-03] MEDS: SODIUM CHLORIDE 0.9% 1,000 ML IV SCH ×3 (05:03→16:13)
[2021-01-03 06:47] LABS: Glucose,Whole Blood 92 mg/dL (75-99)
[2021-01-03] MEDS: INSULIN ASPART (NovoLOG) 100 UNIT/ML VIAL SQ SCH ×4 (07:23→20:47)
[2021-01-03 07:41] LABS: Basophils % (A) 0 %; Eosinophils # (A) 0.1 k/uL (0-0.7); Eosinophils % (A) 2 %; HGB 11.4 gm/dL (11.4-16.0); Lymphocytes # (A) 1.2 k/uL (1.0-4.8); Lymphocytes % (A) 26 %; MCHC 34.5 g/dL (31.0-37.0); MCV 89.8 fL (80.0-100.0); Monocytes # (A) 0.3 k/uL (0-1.0); Monocytes % (A) 7 %; Neutrophils # (A) 2.8 k/uL (1.3-7.7); Neutrophils % (A) 64 %; Platelet Count 197 k/uL (150-450); RBC 3.67 m/uL (3.80-5.40); RDW 13.4 % (11.5-15.5); WBC 4.5 k/uL (3.8-10.6)
[2021-01-03 07:50] LABS: African American GFR (CKD) >90 (>60 ml/min/1.73 sqM); Anion Gap 6 mmol/L; Blood Urea Nitrogen 3 mg/dL (7-17); Calcium 8.6 mg/dL (8.4-10.2); Carbon Dioxide 19 mmol/L (22-30); Chloride 108 mmol/L (98-107); Glucose 109 mg/dL (74-99); Lipase 1205 U/L (23-300); Magnesium 1.2 mg/dL (1.6-2.3); Non-African American GFR(CKD) >90 (>60 ml/min/1.73 sqM); Potassium 4.5 mmol/L (3.5-5.1); Sodium 133 mmol/L (137-145)
[2021-01-03] MEDS ORDERED: Magnesium Replacement Protocol 1 EACH MISC MISCELLANE PRN (08:15)
[2021-01-03] MEDS: CLOPIDOGREL 75 MG TAB PO SCH (08:52)
[2021-01-03] MEDS: RALOXIFENE 60 MG TAB PO SCH (08:52)
[2021-01-03] MEDS: ASPIRIN 81 MG PO SCH (08:52)
[2021-01-03] MEDS: atenoloL 25 MG TAB PO SCH (08:52)
[2021-01-03] MEDS: FERROUS SULFATE 325 MG TAB PO SCH (08:52)
[2021-01-03 11:40] LABS: Glucose,Whole Blood 100 mg/dL (75-99)
[2021-01-03 16:39] LABS: Glucose,Whole Blood 86 mg/dL (75-99)
[2021-01-03 20:45] LABS: Glucose,Whole Blood 139 mg/dL (75-99)
[2021-01-03] MEDS: TRETINOIN TOPICAL SCH (21:08)
[2021-01-03] MEDS: ATORVASTATIN 40 MG TAB PO SCH (21:08)
--- NOTE | 2021-01-03 23:01 | P.PN ---
Subjective This is a pleasant 70 years old female with past medical history of hypertension, hyperlipidemia, coronary artery disease status post stent placemen t. Osteoarthritis. She is a patient of Dr. Zamora Presents because of vomiting and diarrhea. She had 2 loose stool yesterday but no bowel movement this morning no vomiting. No abdominal pain and her abdomen looks soft. Patient reports history of recent sinusitis infection where she was treated with Bactrim for 10 days. On admission her KUB was showing enteritis versus ileus Patient's is already tolerating liquid diet which we will continue Repeat KUB in the morning Low magnesium replaced per protocol. No fever or leukocytosis of so far C. diff is negative Objective - Vital Signs Vital signs: Vital Signs Temp 97.5 F L 01/03/21 20:00 Pulse 75 01/03/21 20:15 Resp 16 01/03/21 20:15 BP 112/68 01/03/21 20:00 Pulse Ox 99 01/03/21 20:00 Intake & Output 01/03/21 01/03/21 01/04/21 06:59 18:59 06:59 Intake Total 200 200 Balance 200 200 Intake: Oral 200 200 Other: Voiding Method Toilet Toilet # Voids 2 2 2 - Exam GENERAL: The patient is alert and oriented x3, not in any acute distress. Well developed, well nourished. HEENT: Pupils are round and equally reacting to light. EOMI. No scleral icterus. No conjunctival pallor. Normocephalic, atraumatic. No pharyngeal erythema. No thyromegaly. CARDIOVASCULAR: S1 and S2 present. No murmurs, rubs, or gallops. PULMONARY: Chest is clear to auscultation, no wheezing or crackles. ABDOMEN: Soft, nontender, nondistended, normoactive bowel sounds. No palpable organomegaly. MUSCULOSKELETAL: No joint swelling or deformity. EXTREMITIES: No cyanosis, clubbing, or pedal edema. NEUROLOGICAL: Gross neurological examination did not reveal any focal deficits. SKIN: No rashes. no petechiae. - Labs CBC & Chem 7: 01/03/21 07:28 01/03/21 07:28 Labs: Abnormal Lab Results - Last 24 Hours (Table) 01/03/21 01/03/21 01/03/21 Range/Units 07: 07: 11:39 RBC 3.67 L (3.80-5.40) m/uL Hct 33.0 L (34.0-46.0) % Sodium 133 L (137-145) mmol/L Chloride 108 H (98-107) mmol/L Carbon Dioxide 19 L (22-30) mmol/L BUN 3 L (7-17) mg/dL Glucose 109 H (74-99) mg/dL POC Glucose (mg/dL) 100 H (75-99) mg/dL Magnesium 1.2 L (1.6-2.3) mg/dL Lipase 1205 H (23-300) U/L 01/03/21 Range/Units 20:44 RBC (3.80-5.40) m/uL Hct (34.0-46.0) % Sodium (137-145) mmol/L Chloride (98-107) mmol/L Carbon Dioxide (22-30) mmol/L BUN (7-17) mg/dL Glucose (74-99) mg/dL POC Glucose (mg/dL) 139 H (75-99) mg/dL Magnesium (1.6-2.3) mg/dL Lipase (23-300) U/L Assessment and Plan Assessment: Acute gastroenteritis, possible ileus Hypomagnesemia Recent history of sinusitis treated with Bactrim for 10 days Patient Hyperlipidemia History of osteoarthritis Diabetes mellitus History of coronary artery disease status post stenting Plan: A pleasant 70 trace old female who presents with acute gastroenteritis, possible ileus, she is tolerating liquid diet Abdomen soft with no pain and we will repeat KUB in the morning Labs the morning Labs and medication were reviewed.. Continue same treatment. Continue with symptomatic treatment. Resume home medication. Monitor lytes and vitals. DVT and GI prophylaxis. Further recommendationsas per clinical course of the patient DVT prophylaxis: Subcutaneous heparin GI Prophylaxis: Pepcid PT/OT: Pending Prognosis is guarded
[2021-01-04] MEDS: SODIUM CHLORIDE 0.9% 1,000 ML IV SCH ×2 (03:43→20:28)
[2021-01-04 06:48] LABS: Glucose,Whole Blood 131 mg/dL (75-99)
--- NOTE | 2021-01-04 07:26 | XR ---
EXAMINATION TYPE: XR KUB DATE OF EXAM: 01/04/2021 COMPARISON: 01/01/2021 HISTORY: Enteritis TECHNIQUE: One view abdominal series FINDINGS: The osseous structures are intact. The bowel gas pattern is nonspecific. Lung bases are clear. Posts urgical changes are seen. IMPRESSION: 1. Nonspecific abdomen.
[2021-01-04] MEDS: INSULIN ASPART (NovoLOG) 100 UNIT/ML VIAL SQ SCH ×4 (08:26→20:34)
[2021-01-04] MEDS: CLOPIDOGREL 75 MG TAB PO SCH (08:39)
[2021-01-04] MEDS: atenoloL 25 MG TAB PO SCH (08:39)
[2021-01-04] MEDS: FERROUS SULFATE 325 MG TAB PO SCH (08:39)
[2021-01-04] MEDS: ASPIRIN 81 MG PO SCH (08:39)
[2021-01-04] MEDS: HEPARIN SODIUM,PORCINE/PF 5,000 UNIT/0.5 ML SYRINGE SQ SCH ×2 (08:39→20:35)
[2021-01-04] MEDS: FAMOTIDINE 20 MG/2 ML VIAL IV SCH ×2 (08:39→20:34)
[2021-01-04] MEDS: RALOXIFENE 60 MG TAB PO SCH (08:40)
[2021-01-04] MEDS ORDERED: ERGOCALCIFEROL 1,250 MCG (50,000 IU) CAPSULE PO SCH (09:00)
[2021-01-04 10:17] LABS: Basophils # (A) 0.03 X 10*3/uL (0.00-0.10); Basophils % (A) 0.7 %; Eosinophils # (A) 0.07 X 10*3/uL (0.04-0.35); Eosinophils % (A) 1.6 %; HCT 30.9 % (37.2-46.3); HGB 10.2 g/dL (12.0-15.0); Lymphocytes # (A) 1.48 X 10*3/uL (0.90-5.00); Lymphocytes % (A) 34.8 %; MCH 29.5 pg (27.0-32.0); MCV 89.3 fL (80.0-97.0); Mean Platelet Volume 9.4 fL (9.5-12.2); Monocytes # (A) 0.27 X 10*3/uL (0.20-1.00); Monocytes % (A) 6.4 %; Neutrophils # (A) 2.39 X 10*3/uL (1.80-7.70); Neutrophils % (A) 56.3 %; Platelet Count 176 X 10*3/uL (140-440); RBC 3.46 X 10*6/uL (4.10-5.20); RDW 13.5 % (11.5-14.5); WBC 4.25 X 10*3/uL (4.50-10.00)
[2021-01-04 11:44] LABS: Glucose,Whole Blood 104 mg/dL (75-99)
[2021-01-04 11:47] LABS: ALT 16 U/L (8-44); AST 17 U/L (13-35); African American GFR (CKD) 106.3 (60.0-200.0); Alkaline Phosphatase 69 U/L (41-126); Blood Urea Nitrogen <5.0 mg/dL (9.0-27.0); Calcium 8.6 mg/dL (8.7-10.3); Carbon Dioxide 24.1 mmol/L (21.6-31.8); Chloride 107 mmol/L (96-109); Glucose 129 mg/dL (70-110); Magnesium 1.1 mg/dL (1.5-2.4); Non-African American GFR(CKD) 91.7 (60.0-200.0); Potassium 4.2 mmol/L (3.5-5.5); Sodium 136 mmol/L (135-145); Total Bilirubin 0.2 mg/dL (0.3-1.2); Total Protein 5.4 g/dL (6.2-8.2)
[2021-01-04 17:24] LABS: Glucose,Whole Blood 105 mg/dL (75-99)
[2021-01-04 20:25] LABS: Glucose,Whole Blood 165 mg/dL (75-99)
[2021-01-04] MEDS: ATORVASTATIN 40 MG TAB PO SCH (20:34)
[2021-01-04] MEDS: TRETINOIN TOPICAL SCH (20:35)
--- NOTE | 2021-01-04 21:29 | P.PN ---
Subjective This is a pleasant 70 years old female with past medical history of hypertension, hyperlipidemia, coronary artery disease status post stent placemen t. Osteoarthritis. She is a patient of Dr. Zamora Presents because of vomiting and diarrhea. She had 2 loose stool yesterday but no bowel movement this morning no vomiting. No abdominal pain and her abdomen looks soft. Patient reports history of recent sinusitis infection where she was treated with Bactrim for 10 days. On admission her KUB was showing enteritis versus ileus Patient's is already tolerating liquid diet which we will continue Repeat KUB in the morning Low magnesium replaced per protocol. No fever or leukocytosis of so far C. diff is negative 01/05/2021 Patient with no abdominal pain or vomiting, she is tolerating liquid diet and can be advanced further today. She does still have to lose bowel movement yesterday. KUB is unremarkable Labs showed low magnesium at 1.1. Lipase ordered and is pending. Hemoglobin is slightly trending down 13, 11, 10. Patient remains on normal sinus at 50 mL/h however patient has no IV line as staff tried to reinitiating and she has difficulty veins. No PICC line staff available on the weekend . Discussed with staff to keep trying However patient looks currently stable vitals. Check labs in the morning Objective - Vital Signs Vital signs: Vital Signs Temp 95.9 F L 01/04/21 14:27 Pulse 76 01/04/21 14:27 Resp 18 01/04/21 14:27 BP 138/80 01/04/21 14:27 Pulse Ox 99 01/04/21 14:27 Intake & Output 01/03/21 01/04/21 01/04/21 18:59 06:59 18:59 Intake Total 200 200 Balance 200 200 Intake: Oral 200 200 Other: Voiding Method Toilet # Voids 2 1 - Exam GENERAL: The patient is alert and oriented x3, not in any acute distress. Well developed, well nourished. HEENT: Pupils are round and equally reacting to light. EOMI. No scleral icterus. No conjunctival pallor. Normocephalic, atraumatic. No pharyngeal erythema. No thyromegaly. CARDIOVASCULAR: S1 and S2 present. No murmurs, rubs, or gallops. PULMONARY: Chest is clear to auscultation, no wheezing or crackles. ABDOMEN: Soft, nontender, nondistended, normoactive bowel sounds. No palpable organomegaly. MUSCULOSKELETAL: No joint swelling or deformity. EXTREMITIES: No cyanosis, clubbing, or pedal edema. NEUROLOGICAL: Gross neurological examination did not reveal any focal deficits. SKIN: No rashes. no petechiae. - Labs CBC & Chem 7: 01/04/21 06:33 01/04/21 06:33 Labs: Abnormal Lab Results - Last 24 Hours (Table) 01/03/21 01/04/21 01/04/21 Range/Units 20:44 06:33 06:33 WBC 4.25 L (4.50-10.00) X 10*3/uL RBC 3.46 L (4.10-5.20) X 10*6/uL Hgb 10.2 L (12.0-15.0) g/dL Hct 30.9 L (37.2-46.3) % MPV 9.4 L (9.5-12.2) fL BUN <5.0 L (9.0-27.0) mg/dL Glucose 129 H (70-110) mg/dL POC Glucose (mg/dL) 139 H (75-99) mg/dL Calcium 8.6 L (8.7-10.3) mg/dL Magnesium 1.1 L (1.5-2.4) mg/dL Total Bilirubin 0.2 L (0.3-1.2) mg/dL Total Protein 5.4 L (6.2-8.2) g/dL Albumin 3.40 L (3.80-4.90) g/dL 01/04/21 01/04/21 Range/Units 06:47 11:42 WBC (4.50-10.00) X 10*3/uL RBC (4.10-5.20) X 10*6/uL Hgb (12.0-15.0) g/dL Hct (37.2-46.3) % MPV (9.5-12.2) fL BUN (9.0-27.0) mg/dL Glucose (70-110) mg/dL POC Glucose (mg/dL) 131 H 104 H (75-99) mg/dL Calcium (8.7-10.3) mg/dL Magnesium (1.5-2.4) mg/dL Total Bilirubin (0.3-1.2) mg/dL Total Protein (6.2-8.2) g/dL Albumin (3.80-4.90) g/dL Assessment and Plan Assessment: Acute gastroenteritis, possible ileus Hypomagnesemia Recent history of sinusitis treated with Bactrim for 10 days Patient Hyperlipidemia History of osteoarthritis Diabetes mellitus History of coronary artery disease status post stenting Plan: A pleasant 70 trace old female who presents with acute gastroenteritis, possible ileus, she is tolerating liquid diet Abdomen soft with no pain and we will repeat KUB in the morning Labs the morning Labs and medication were reviewed.. Continue same treatment. Continue with symptomatic treatment. Resume home medication. Monitor lytes and vitals. DVT and GI prophylaxis. Further recommendationsas per clinical course of the patient DVT prophylaxis: Subcutaneous heparin GI Prophylaxis: Pepcid PT/OT: Pending Prognosis is guarded
[2021-01-05 07:38] LABS: Glucose,Whole Blood 134 mg/dL (75-99)
[2021-01-05] MEDS: ASPIRIN 81 MG PO SCH (08:14)
[2021-01-05] MEDS: FERROUS SULFATE 325 MG TAB PO SCH (08:14)
[2021-01-05] MEDS: atenoloL 25 MG TAB PO SCH (08:14)
[2021-01-05] MEDS: CLOPIDOGREL 75 MG TAB PO SCH (08:14)
[2021-01-05] MEDS: RALOXIFENE 60 MG TAB PO SCH (08:14)
[2021-01-05] MEDS: INSULIN ASPART (NovoLOG) 100 UNIT/ML VIAL SQ SCH ×4 (08:14→20:14)
[2021-01-05] MEDS: FAMOTIDINE 20 MG/2 ML VIAL IV SCH ×2 (08:14→20:15)
[2021-01-05] MEDS: HEPARIN SODIUM,PORCINE/PF 5,000 UNIT/0.5 ML SYRINGE SQ SCH ×2 (08:15→20:04)
[2021-01-05 11:29] LABS: Anion Gap 5.1 mmol/L (4.00-12.00); Calcium 8.8 mg/dL (8.7-10.3); Carbon Dioxide 25.9 mmol/L (21.6-31.8); Non-African American GFR(CKD) 87.2 (60.0-200.0); Potassium 4.3 mmol/L (3.5-5.5)
[2021-01-05 11:54] LABS: Glucose,Whole Blood 109 mg/dL (75-99)
[2021-01-05 12:50] LABS: Basophils # (A) 0.05 X 10*3/uL (0.00-0.10); Basophils % (A) 0.9 %; Eosinophils # (A) 0.12 X 10*3/uL (0.04-0.35); Eosinophils % (A) 2.3 %; HCT 33.2 % (37.2-46.3); HGB 10.6 g/dL (12.0-15.0); Lymphocytes # (A) 1.67 X 10*3/uL (0.90-5.00); Lymphocytes % (A) 31.5 %; MCH 28.4 pg (27.0-32.0); MCHC 31.9 g/dL (32.0-37.0); Mean Platelet Volume 9.8 fL (9.5-12.2); Monocytes # (A) 0.34 X 10*3/uL (0.20-1.00); Monocytes % (A) 6.4 %; Neutrophils % (A) 58.5 %; Platelet Count 178 X 10*3/uL (140-440); RBC 3.73 X 10*6/uL (4.10-5.20); RDW 13.4 % (11.5-14.5)
--- NOTE | 2021-01-05 12:55 | P.PN ---
Subjective This is a pleasant 70 years old female with past medical history of hypertension, hyperlipidemia, coronary artery disease status post stent placemen t. Osteoarthritis. She is a patient of Dr. Zamora Presents because of vomiting and diarrhea. She had 2 loose stool yesterday but no bowel movement this morning no vomiting. No abdominal pain and her abdomen looks soft. Patient reports history of recent sinusitis infection where she was treated with Bactrim for 10 days. On admission her KUB was showing enteritis versus ileus Patient's is already tolerating liquid diet which we will continue Repeat KUB in the morning Low magnesium replaced per protocol. No fever or leukocytosis of so far C. diff is negative 01/04/2021 Patient with no abdominal pain or vomiting, she is tolerating liquid diet and can be advanced further today. She does still have to lose bowel movement yesterday. KUB is unremarkable Labs showed low magnesium at 1.1. Lipase ordered and is pending. Hemoglobin is slightly trending down 13, 11, 10. Patient remains on normal sinus at 50 mL/h however patient has no IV line as staff tried to reinitiating and she has difficulty veins. No PICC line staff available on the weekend . Discussed with staff to keep trying However patient looks currently stable vitals. Check labs in the morning 01/05/2021 Patient still with diarrhea yesterday although it's i less loose . No abdominal pain. Tolerating diet well. Labs from today showing stable BMP, lipase is improved down to 189. cbc was done and her hemoglobin was trending down 13 down to 10 yesterday. Also no magnesium done. Add magnesium to the lab, yesterday was 1.[address] staff to place an IV line. So we can replace magnesium Monitor hemoglobin and magnesium tomorrow Possible discharge in 24-48 hours if she keeps improving Objective - Vital Signs Vital signs: Vital Signs Temp 97.9 F 01/05/21 07:00 Pulse 66 01/05/21 07:00 Resp 16 01/05/21 07:00 BP 124/65 01/05/21 07:00 Pulse Ox 99 01/05/21 07:00 Intake & Output 01/04/21 01/05/21 01/05/21 18:59 06:59 18:59 Intake Total 200 200 Balance 200 200 Intake: Oral 200 200 Other: Voiding Method Toilet # Voids 1 # Bowel Movements 1 - Exam GENERAL: The patient is alert and oriented x3, not in any acute distress. Well developed, well nourished. HEENT: Pupils are round and equally reacting to light. EOMI. No scleral icterus. No conjunctival pallor. Normocephalic, atraumatic. No pharyngeal erythema. No thyromegaly. CARDIOVASCULAR: S1 and S2 present. No murmurs, rubs, or gallops. PULMONARY: Chest is clear to auscultation, no wheezing or crackles. ABDOMEN: Soft, nontender, nondistended, normoactive bowel sounds. No palpable organomegaly. MUSCULOSKELETAL: No joint swelling or deformity. EXTREMITIES: No cyanosis, clubbing, or pedal edema. NEUROLOGICAL: Gross neurological examination did not reveal any focal deficits. SKIN: No rashes. no petechiae. - Labs CBC & Chem 7: 01/05/21 06:55 01/05/21 06:55 Labs: Abnormal Lab Results - Last 24 Hours (Table) 01/04/21 01/04/21 01/05/21 Range/Units 17:23 20:23 06:55 RBC 3.73 L (4.10-5.20) X 10*6/uL Hgb 10.6 L (12.0-15.0) g/dL Hct 33.2 L (37.2-46.3) % MCHC 31.9 L (32.0-37.0) g/dL Sodium (135-145) mmol/L BUN (9.0-27.0) mg/dL BUN/Creatinine Ratio (12.00-20.00) Ratio Glucose (70-110) mg/dL POC Glucose (mg/dL) 105 H 165 H (75-99) mg/dL Lipase (14-63) U/L 01/05/21 01/05/21 01/05/21 Range/Units 06:55 07:25 11:45 RBC (4.10-5.20) X 10*6/uL Hgb (12.0-15.0) g/dL Hct (37.2-46.3) % MCHC (32.0-37.0) g/dL Sodium 134 L (135-145) mmol/L BUN 7.0 L (9.0-27.0) mg/dL BUN/Creatinine Ratio 10.00 L (12.00-20.00) Ratio Glucose 128 H (70-110) mg/dL POC Glucose (mg/dL) 134 H 109 H (75-99) mg/dL Lipase 189 H (14-63) U/L Assessment and Plan Assessment: Acute gastroenteritis, possible ileus Hypomagnesemia Recent history of sinusitis treated with Bactrim for 10 days Patient Hyperlipidemia History of osteoarthritis Diabetes mellitus History of coronary artery disease status post stenting Plan: A pleasant 70 trace old female who presents with acute gastroenteritis, possible ileus, she is tolerating liquid diet Get the IV line and replace magnesium intravenously via discussed with staff Monitor hemoglobin and magnesium/potassium and creatinine tomorrow Labs the morning Labs and medication were reviewed.. Continue same treatment. Continue with symptomatic treatment. Resume home medication. Monitor lytes and vitals. DVT and GI prophylaxis. Further recommendationsas per clinical course of the patient DVT prophylaxis: Subcutaneous heparin GI Prophylaxis: Pepcid PT/OT: Pending Prognosis is guarded
[2021-01-05] MEDS: MAGNESIUM SULFATE-D5W PMX 1 GM in DEXTROSE/WATER 1 100ML.BAG IVPB SCH ×3 (15:20→18:57)
[2021-01-05 17:17] LABS: Glucose,Whole Blood 97 mg/dL (75-99)
[2021-01-05] MEDS: SODIUM CHLORIDE 0.9% 1,000 ML IV SCH (18:58)
[2021-01-05] MEDS: TRETINOIN TOPICAL SCH (20:04)
[2021-01-05 20:08] LABS: Glucose,Whole Blood 223 mg/dL (75-99)
[2021-01-05] MEDS: ATORVASTATIN 40 MG TAB PO SCH (20:30)
[2021-01-06 05:31] LABS: Potassium 4.1 mmol/L (3.5-5.1)
[2021-01-06 05:32] LABS: African American GFR (CKD) >90 (>60 ml/min/1.73 sqM); Anion Gap 5 mmol/L; Blood Urea Nitrogen 9 mg/dL (7-17); Calcium 8.6 mg/dL (8.4-10.2); Carbon Dioxide 24 mmol/L (22-30); Chloride 102 mmol/L (98-107); Glucose 116 mg/dL (74-99); Magnesium 1.9 mg/dL (1.6-2.3); Non-African American GFR(CKD) >90 (>60 ml/min/1.73 sqM); Sodium 131 mmol/L (137-145)
[2021-01-06 05:46] LABS: Basophils % (A) 1 %; Eosinophils # (A) 0.1 k/uL (0-0.7); Eosinophils % (A) 2 %; HCT 31.2 % (34.0-46.0); HGB 10.7 gm/dL (11.4-16.0); Lymphocytes # (A) 1.6 k/uL (1.0-4.8); Lymphocytes % (A) 36 %; MCH 30.4 pg (25.0-35.0); MCHC 34.3 g/dL (31.0-37.0); MCV 88.5 fL (80.0-100.0); Mean Platelet Volume 6.6; Monocytes # (A) 0.2 k/uL (0-1.0); Monocytes % (A) 3 %; Neutrophils # (A) 2.5 k/uL (1.3-7.7); Neutrophils % (A) 57 %; Platelet Count 189 k/uL (150-450); RBC 3.52 m/uL (3.80-5.40); RDW 14.4 % (11.5-15.5); WBC 4.5 k/uL (3.8-10.6)
[2021-01-06 06:47] LABS: Glucose,Whole Blood 108 mg/dL (75-99)
[2021-01-06] MEDS: INSULIN ASPART (NovoLOG) 100 UNIT/ML VIAL SQ SCH (06:47)
[2021-01-06] MEDS: ASPIRIN 81 MG PO SCH (08:49)
[2021-01-06] MEDS: FERROUS SULFATE 325 MG TAB PO SCH (08:49)
[2021-01-06] MEDS: RALOXIFENE 60 MG TAB PO SCH (08:49)
[2021-01-06] MEDS: FAMOTIDINE 20 MG/2 ML VIAL IV SCH (08:50)
[2021-01-06 08:51] VITALS: BP 154/79; RESP 18; TEMP 98.7
[2021-01-06] MEDS: HEPARIN SODIUM,PORCINE/PF 5,000 UNIT/0.5 ML SYRINGE SQ SCH (08:55)
[2021-01-06 09:25] VITALS: PULSE 65
[2021-01-06] MEDS: atenoloL 25 MG TAB PO SCH (09:25)
[2021-01-06] MEDS: CLOPIDOGREL 75 MG TAB PO SCH (09:25)
[2021-01-06] MEDS ORDERED: SODIUM CHLORIDE TAB 1 GM TAB PO STA (10:50)
--- NOTE | 2021-01-07 16:20 | P.DS ---
Providers Date of admission: 01/01/21 12:30 Expected date of discharge: 01/06/21 Attending physician: Drew Zamora MD Primary care physician: Dariela Sofia [facility] Course: Final Diagnoses: Acute pancreatitis, suspect secondary to vomiting, improved Acute gastroenteritis, improved Acute renal failure secondary to volume depletion, resolved Diabetes mellitus type 2 Hypertension Hypomagnesemia, currently 1.9 post supplement. CAD, history of stent Hospital course:Sangeeta Reid is a 70 yo F with PMH of CAD, HTN, T2DM who presented to the ED complaining of continued nausea, vomiting and diarrhea over the past few days. She complains that ever since she was treated for a sinus infection with bactrim she had become nauseated and has had diarrhea multiple times daily. She became concerned about dehydration and persistent vomiting and diarrhea so came to the ED. She denies fever, chills, sweats, bloody stool or hematemesis. On presentation vitals stable, labs with Cr 1.30, lipase 1500, Na 124. C. difficile colitis ruled out. Maintained on IV fluid hydration. Lipase down to 189, sodium 131. Tolerating diet, denies nausea vomiting or diarrhea. Denies abdominal pain. Denies chest pain, palpitations or shortness of breath. Significant clinical improvement. Patient will be discharged home today in a stable condition with guarded prognosis. The impression and plan of care has been dictated as directed. : I performed a history and examination of this patient, discussed the same with the dictator. I agree with the dictator's note ,documented as a scribe. Any additional findings or plans will be noted. Patient Condition at Discharge: Stable Plan - Discharge Summary New Discharge Prescriptions: New atenoloL [Tenormin] 25 mg PO DAILY #30 tab Lactobacillus Acidophilus [Acidophilus Probiotic] 1 each PO DAILY #30 capsule Continue sitaGLIPtin [Januvia] 50 mg PO DAILY metFORMIN HCL [Metformin HCl] 425 mg PO BID Raloxifene HCl [Evista] 60 mg PO DAILY lisinopriL [Lisinopril] 20 mg PO DAILY atenoloL [Atenolol] 50 mg PO DAILY Atorvastatin [Lipitor] 40 mg PO HS Ferrous Sulfate [Feosol] 325 mg PO DAILY Clopidogrel Bisulfate [Plavix] 75 mg PO DAILY Aspirin [Adult Low Dose Aspirin EC] 81 mg PO DAILY Tretinoin [Tretinoin 0.05%] 1 applic TOPICAL HS Ergocalciferol [Vitamin D2 (1250 Mcg = 86301 Iu)] 1,250 mcg PO COOK Discharge Medication List Raloxifene HCl [Evista] 60 mg PO DAILY 04/03/15 [History] atenoloL [Atenolol] 50 mg PO DAILY 04/03/15 [History] lisinopriL [Lisinopril] 20 mg PO DAILY 04/03/15 [History] metFORMIN HCL [Metformin HCl] 425 mg PO BID 04/03/15 [History] sitaGLIPtin [Januvia] 50 mg PO DAILY 04/03/15 [History] Aspirin [Adult Low Dose Aspirin EC] 81 mg PO DAILY 08/31/16 [History] Atorvastatin [Lipitor] 40 mg PO HS 08/31/16 [History] Clopidogrel Bisulfate [Plavix] 75 mg PO DAILY 08/31/16 [History] Ferrous Sulfate [Feosol] 325 mg PO DAILY 08/31/16 [History] Tretinoin [Tretinoin 0.05%] 1 applic TOPICAL HS 05/07/19 [History] Ergocalciferol [Vitamin D2 (1250 Mcg = 37405 Iu)] 1,250 mcg PO COOK 01/01/21 [History] Lactobacillus Acidophilus [Acidophilus Probiotic] 1 each PO DAILY #30 capsule 01/06/21 [Rx] atenoloL [Tenormin] 25 mg PO DAILY #30 tab 01/06/21 [Rx] Follow up Appointment(s)/Referral(s): Drew Zamora MD [STAFF PHYSICIAN] - 01/09/21 10:30 am Patient Instructions/Handouts: High Fiber Diet (DC) Activity/Diet/Wound Care/Special Instructions: Fiber intake, increase, ( see Fiber DIet sheet) drink fliuds. activity as tolerated. follow up as planned. call the office earlier for return or worsening of the symptoms that brought you here, or any concerns. good hand washing Discharge Disposition: HOME SELF-CARE
== END 2021-01-06 11:53 | disposition home or self-care (01) | DRG 388 ==
LOC: EC 09:32 → 4SSUR 12:30 → 6NMEDSUR 13:20 → 4SSUR 13:22 → 6PED 01-05 17:50
PROVIDERS: ADMIT Family Medicine; ATTEND Family Medicine
DX: K56.7 Ileus, unspecified (principal); K85.90 Acute pancreatitis without necrosis or infection, unspecified; E87.1 Hypo-osmolality and hyponatremia; N17.9 Acute kidney failure, unspecified; I25.10 Atherosclerotic heart disease of native coronary artery without angina pectoris; E11.9 Type 2 diabetes mellitus without complications; E78.5 Hyperlipidemia, unspecified; E83.42 Hypomagnesemia; K43.2 Incisional hernia without obstruction or gangrene; K52.9 Noninfective gastroenteritis and colitis, unspecified; I10 Essential (primary) hypertension; M19.90 Unspecified osteoarthritis, unspecified site; E86.0 Dehydration; Z95.5 Presence of coronary angioplasty implant and graft; Z90.710 Acquired absence of both cervix and uterus; Z87.891 Personal history of nicotine dependence; Z82.49 Family history of ischemic heart disease and other diseases of the circulatory system; Z80.0 Family history of malignant neoplasm of digestive organs; Z79.899 Other long term (current) drug therapy; Z79.84 Long term (current) use of oral hypoglycemic drugs; Z79.82 Long term (current) use of aspirin; Z79.02 Long term (current) use of antithrombotics/antiplatelets
CPT/HCPCS: 36415; 74018; 80048; 80053; 81001; 82150; 83690; 83735; 85025; 87324; 96360; 96361; 99285

== ENCOUNTER 2021-06-14 23:57 | Emergency (ER) | payer BC, OTHER ==
[2021-06-15 01:22] VITALS: TEMP 98.6
[2021-06-15] MEDS ORDERED: ONDANSETRON 4 MG/2 ML VIAL IVP STA (01:59)
[2021-06-15] MEDS ORDERED: PANTOPRAZOLE 40 MG/10 ML VIAL IVP STA (01:59)
[2021-06-15] MEDS ORDERED: SODIUM CHLORIDE 0.9% 1,000 ML IV STA (01:59)
[2021-06-15 03:07] LABS: Basophils % (A) 0 %; Eosinophils # (A) 0.2 k/uL (0-0.7); Eosinophils % (A) 2 %; HCT 34.2 % (34.0-46.0); HGB 11.2 gm/dL (11.4-16.0); Lymphocytes # (A) 1.5 k/uL (1.0-4.8); Lymphocytes % (A) 15 %; MCH 30.3 pg (25.0-35.0); MCHC 32.9 g/dL (31.0-37.0); MCV 92.1 fL (80.0-100.0); Mean Platelet Volume 7.3; Monocytes # (A) 0.5 k/uL (0-1.0); Monocytes % (A) 5 %; Neutrophils # (A) 7.6 k/uL (1.3-7.7); Neutrophils % (A) 78 %; Platelet Count 254 k/uL (150-450); RBC 3.71 m/uL (3.80-5.40); RDW 12.1 % (11.5-15.5); WBC 9.8 k/uL (3.8-10.6)
[2021-06-15 03:12] LABS: Appearance,Urine Clear (Clear); Bacteria,Urine Rare /hpf; Bilirubin,Urine Negative (Negative); Blood,Urine Moderate (Negative); Color,Urine Light Yellow; Glucose,Urine (UA) Negative (Negative); Ketones,Urine Negative (Negative); Leukocyte Esterase,Urine Moderate (Negative); Nitrite,Urine Negative (Negative); Protein,Urine Negative (Negative); RBC,Urine 3 /hpf (0-5); Specific Gravity,Urine 1.003 (1.001-1.035); Squamous Epithelial Cell,Urine 1 /hpf (0-4); Urobilinogen,Urine <2.0 mg/dL (<2.0); WBC,Urine 7 /hpf (0-5)
[2021-06-15] MEDS ORDERED: cefTRIAXone IN SWFI 1,000 MG/10 ML SYRINGE IVP STA (03:16)
[2021-06-15 03:20] LABS: INR 0.9 (<1.2); Partial Thromboplastin Time 22.5 sec (22.0-30.0); Prothrombin Time 9.5 sec (9.0-12.0)
[2021-06-15 03:54] LABS: ALT 18 U/L (4-34); AST 24 U/L (14-36); African American GFR (CKD) >90 (>60 ml/min/1.73 sqM); Albumin 3.9 g/dL (3.5-5.0); Alkaline Phosphatase 88 U/L (38-126); Anion Gap 10 mmol/L; Blood Urea Nitrogen 6 mg/dL (7-17); Calcium 9.5 mg/dL (8.4-10.2); Carbon Dioxide 23 mmol/L (22-30); Chloride 98 mmol/L (98-107); Glucose 135 mg/dL (74-99); Lipase 357 U/L (23-300); Non-African American GFR(CKD) 88 (>60 ml/min/1.73 sqM); Potassium 3.9 mmol/L (3.5-5.1); Sodium 131 mmol/L (137-145); Total Bilirubin 0.8 mg/dL (0.2-1.3); Total Protein 6.8 g/dL (6.3-8.2)
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
[2021-06-15 04:21] VITALS: BP 148/84; PULSE 78; RESP 18
== END 2021-06-15 04:25 | disposition home or self-care (01) ==
LOC: EC 23:57
DX: Z04.3 Encounter for examination and observation following other accident (principal); G89.11 Acute pain due to trauma; I25.10 Atherosclerotic heart disease of native coronary artery without angina pectoris; E11.9 Type 2 diabetes mellitus without complications; E78.5 Hyperlipidemia, unspecified; I10 Essential (primary) hypertension; M19.90 Unspecified osteoarthritis, unspecified site; Z79.84 Long term (current) use of oral hypoglycemic drugs; Z79.82 Long term (current) use of aspirin; Z79.02 Long term (current) use of antithrombotics/antiplatelets; Z88.5 Allergy status to narcotic agent; Z90.710 Acquired absence of both cervix and uterus; Z87.891 Personal history of nicotine dependence
CPT/HCPCS: 99283; 96374; 96375; 96361; 36415; 86900; 86901; 80053; 83690; 84484; 85025; 85610; 85730; 86850; 82272; 81001; J2405; C9113

== ENCOUNTER → 2022-03-03 | Outpatient (CLI) | payer BC, MEDICARE ==
--- NOTE | 2022-03-04 08:25 | MM ---
Reason for Exam: Screening (asymptomatic). Last mammogram was performed 1 year(s) and 8 month(s) ago. Patient History: Menarche at age 13. First Full-Term at age 27. Left ovary removed at age 58. Right ovary removed at age 58. Hysterectomy at age 58. Postmenopausal. Hormonal Contraceptives for 3 years from age 22 until age 24. Maternal aunt had breast cancer, age 45. Maternal aunt had breast cancer, age 55. Risk Values: Jaja 5 year model risk: 1.8%. NCI Lifetime model risk: 4.6%. Prior Study Comparison: 03/10/2020 Bilateral Screening Mammogram, [facility]. 03/27/2020 Right Diagnostic Mammogram, [facility]. 07/01/2020 Bilateral Diagnostic Mammogram, [facility]. Tissue Density: The breast tissue is heterogeneously dense. This may lower the sensitivity of mammography. Findings: Analyzed By CAD. There is no suspicious group of microcalcifications or new suspicious mass in either breast. Overall Assessment: Negative, BI-RAD 1 Management: Screening Mammogram of both breasts in 1 year. A clinical breast exam by your physician is recommended on an annual basis and results should be correlated with mammographic findings. Electronically signed and approved by: Genaro Chahal M.D. Radiologis
== END | disposition home or self-care (01) ==
LOC: RADMAMWWP 14:29
PROVIDERS: ATTEND Family Medicine
DX: Z12.31 Encounter for screening mammogram for malignant neoplasm of breast (principal)
CPT/HCPCS: 77067

== ENCOUNTER 2023-10-17 20:07 | Observation (INO) | payer BC, MEDICARE ==
--- NOTE | 2023-10-17 20:31 | ED ---
Chest Pain HPI - General Source: patient, RN notes reviewed Mode of arrival: ambulatory Limitations: no limitations <Pat Kurtz - Last Filed: 10/17/23 20:31> <Deborah Moctezuma - Last Filed: 10/18/23 15:49> - General Chief Complaint: Chest Pain Stated Complaint: Chest pains Time Seen by Provider: 10/17/23 20:31 - History of Present Illness Initial Comments: Note: 73-year-old female presenting to the ER with a chief complaint of chest pain. She states she woke up with this chest pain this morning. Denies any shortness of breath, nausea, vomiting, diaphoresis, dizziness or lightheadedness. She does have a history of cardiac stents and follows up with Dr. Flores. (Pat Kurtz) 73-year-old female past medical history of coronary artery disease who presents emergency department reporting chest pain. Patient states she awoke this morning and had chest pain. It is located substernally and radiates through to her back. States that it has been intermittent throughout the day. She does have a history of coronary disease and follows with Dr. Flores. States that she is never had a heart attack or any chest pain previously. She denies associated fevers, chills or cough. No shortness of breath. She has not taken anything for the pain. She does take a baby aspirin a day. Patient's is currently in the ICU. She is unsure if the stress from her is what is causing her to have pain. She denies any numbness, tingling or weakness in her extremities. No provocative factors. No other alleviating, precipitating or modifying factors (Deborah Moctezuma) - Related Data Home Medications Medication Instructions Recorded Confirmed Raloxifene HCl [Evista] 60 mg PO DAILY 04/03/15 10/18/23 atenoloL [Atenolol] 50 mg PO DAILY 04/03/15 10/18/23 lisinopriL [Lisinopril] 20 mg PO DAILY 04/03/15 10/18/23 sitaGLIPtin [Januvia] 50 mg PO DAILY 04/03/15 10/18/23 Atorvastatin [Lipitor] 40 mg PO HS 08/31/16 10/18/23 Clopidogrel Bisulfate [Plavix] 75 mg PO DAILY 08/31/16 10/18/23 Ferrous Sulfate [Feosol] 325 mg PO DAILY 08/31/16 10/18/23 Tretinoin [Tretinoin 0.05%] 1 applic TOPICAL HS 05/07/19 10/18/23 Ergocalciferol [Vitamin D2 (1250 1,250 mcg PO WEEKLY 01/01/21 10/18/23 Mcg = 88771 Iu)] Aspirin 81 mg PO DAILY 10/18/23 10/18/23 Fish Oil/Dha/Epa [Fish Oil 1,200 1 cap PO DAILY 10/18/23 10/18/23 mg Fish Oil] Lactobacillus Acidophilus 1 cap PO DAILY 10/18/23 10/18/23 [Acidophilus Probiotic] metFORMIN HCL 500 mg PO AC-BID 10/18/23 10/18/23 Allergies Allergy/AdvReac Type Severity Reaction Status Date / Time codeine AdvReac Nausea & Verified 10/18/23 11:22 Vomiting Review of Systems ROS Other: All systems not noted in ROS Statement are negative. <Pat Kurtz - Last Filed: 10/17/23 20:31> ROS Other: All systems not noted in ROS Statement are negative. <Deborah Moctezuma - Last Filed: 10/18/23 15:49> ROS Statement: Those systems with pertinent positive or pertinent negative responses have been documented in the HPI. Past Medical History Past Medical History: Coronary Artery Disease (CAD), Chest Pain / Angina, Diabetes Mellitus, Eye Disorder, Hyperlipidemia, Hypertension, Osteoarthritis (OA) Additional Past Medical History / Comment(s): HX OF BELLS PALSY, anemia, frequent diarrhea recently, not as much recently, thinks might have a "blockage" History of Any Multi-Drug Resistant Organisms: None Reported Past Surgical History: Heart Catheterization, Heart Catheterization With Stent, Hernia Repair, Hysterectomy Additional Past Surgical History / Comment(s): INCISIONAL HERNIA REPAIR, SKIN LESIONS REMOVED, COLOLOSCOPY, Bilateral cataract surgery 2017 Past Anesthesia/Blood Transfusion Reactions: No Reported Reaction Additional Past Anesthesia/Blood Transfusion Reaction / Comment(s): Pt has never received blood. Date of Last Stent Placement:: 05/07/2015 Past Psychological History: No Psychological Hx Reported Smoking Status: Former smoker Past Alcohol Use History: None Reported Past Drug Use History: None Reported - Past Family History Brother(s) Family Medical History: Cancer Additional Family Medical History / Comment(s): COLON CANCER Sister(s) Family Medical History: Cancer Additional Family Medical History / Comment(s): COLON CANCER Father Family Medical History: Coronary Artery Disease (CAD), Myocardial Infarction (MS) Additional Family Medical History / Comment(s): Father at age 67yrs and pt thinks cause of was a MS. Mother Family Medical History: Coronary Artery Disease (CAD) Additional Family Medical History / Comment(s): Mother at age 78 or 79yrs of heart disease. <Pat Kurtz - Last Filed: 10/17/23 20:31> General Exam Limitations: no limitations <Pat Kurtz - Last Filed: 10/17/23 20:31> General appearance: alert, in no apparent distress Head exam: Present: atraumatic, normocephalic, normal inspection Eye exam: Present: normal appearance, PERRL, EOMI. Absent: scleral icterus, conjunctival injection, periorbital swelling ENT exam: Present: normal exam, mucous membranes moist Neck exam: Present: normal inspection. Absent: tenderness, meningismus, lymphadenopathy Respiratory exam: Present: normal lung sounds bilaterally. Absent: respiratory distress, wheezes, rales, rhonchi, stridor Cardiovascular Exam: Present: regular rate, normal rhythm, normal heart sounds. Absent: systolic murmur, diastolic murmur, rubs, gallop, clicks GI/Abdominal exam: Present: soft, normal bowel sounds. Absent: distended, tenderness, guarding, rebound, rigid Extremities exam: Present: normal inspection, full ROM, normal capillary refill. Absent: tenderness, pedal edema, joint swelling, calf tenderness Back exam: Present: normal inspection Neurological exam: Present: alert, oriented X3, CN II-XII intact Psychiatric exam: Present: normal affect, normal mood Skin exam: Present: warm, dry, intact, normal color. Absent: rash <Deborah Moctezuma - Last Filed: 10/18/23 15:49> - General Exam Comments Initial Comments: Visual Physical Exam Vital signs reviewed General: Well-appearing, nontoxic, no acute distress. Head: Normocephalic, atraumatic Eyes: PERRLA, EOMI ENT: Airway patent Chest: Nonlabored breathing Skin: No visual rash, normal skin tone Neuro: Alert and oriented 3 Musculoskeletal: No gross abnormalities (Pat Kurtz) Course Vital Signs 10/17/23 10/18/23 10/18/23 20:24 02:47 03:30 Temperature 98.8 F Pulse Rate 75 60 65 Respiratory 18 12 22 Rate Blood Pressure 116/102 103/53 137/66 O2 Sat by Pulse 98 95 95 Oximetry 10/18/23 10/18/23 10/18/23 04:30 05:30 06:26 Temperature Pulse Rate 58 L 57 L 56 L Respiratory 12 12 17 Rate Blood Pressure 126/63 135/60 136/59 O2 Sat by Pulse 95 95 98 Oximetry 10/18/23 10/18/23 10/18/23 07:00 08:00 09:00 Temperature Pulse Rate 64 62 63 Respiratory 16 18 16 Rate Blood Pressure 136/59 136/59 161/68 O2 Sat by Pulse 97 98 Oximetry Chest Pain MDM <Pat Kurtz - Last Filed: 10/17/23 20:31> <Deborah Moctezuma - Last Filed: 10/18/23 15:49> - MDM I performed the quick note portion of this chart. Electronically signed by Pat Kurtz PA-C (Pat Kurtz) Was pt. sent in by a medical professional or institution ([facility], ORTHOTIST/PROSTHETIST, urgent care, hospital, or retirement...) When possible be specific @ -No Did you speak to anyone other than the patient for history (EMS, parent, family, police, friend...)? What history was obtained from this source @ -No Did you review nursing and triage notes (agree or disagree)? Why? @ -I reviewed and agree with nursing and triage notes Were old charts reviewed (outside hosp., previous admission, EMS record, old EKG, old radiological studies, urgent care reports/EKG's, retirement records)? Report findings @ -I reviewed a cardiac catheterization that the patient had in 2014. It did demonstrate multivessel disease Differential Diagnosis (chest pain, altered mental status, abdominal pain women, abdominal pain men, vaginal bleeding, weakness, fever, dyspnea, syncope, headache, dizziness, GI bleed, back pain, seizure, CVA, palpatations, mental health, musculoskeletal)? @ -Differential Chest Pain: Stable Angina, Unstable Angina, STEMI, NSTEMI Aortic Dissection, Pneumothorax, Musculoskeletal, Esophageal Spasm GERD, Cholecystitis, Pancreatitis, Zoster, this is not meant to be an all-inclusive list. EKG interpreted by me (3pts min.). @ -Yes and demonstrates sinus rhythm with a rate of 65. [place] interval 182. QRS 119. QTc of 386. No acute ST segment elevations. Mild ST depression in lead II. Incomplete right bundle kalpana block X-rays interpreted by me (1pt min.). @ -Yes and demonstrates no acute process CT interpreted by me (1pt min.). @ -None done U/S interpreted by me (1pt. min.). @ -None done What testing was considered but not performed or refused? (CT, X-rays, U/S, labs)? Why? @ -None What meds were considered but not given or refused? Why? @ -None Did you discuss the management of the patient with other professionals (professionals i.e. , PA, ORTHOTIST/PROSTHETIST, lab, RT, psych nurse, forensic social worker, system development manager, teacher, department of natural resources officer, case monitor)? Give summary @ -I spoke with Dr. Bangura in regards to the patient. He will accept the patient as an admission for chest pain rule out. I also spoke with the live in housekeeper to ensure that the patient would not be able to go visit her in the ICU. She will not be allowed after hours to see him as he is stable and therefore do feel that the patient should be admitted to the hospital for management of her own symptoms Was smoking cessation discussed for >3mins.? @ -No Was critical care preformed (if so, how long)? @ -No Were there social determinants of health that impacted care today? How? (Homelessness, low income, unemployed, alcoholism, drug addiction, transportation, low edu. Level, literacy, decrease access to med. care, senior living, rehab)? @ -No Was there de-escalation of care discussed even if they declined (Discuss DNR or withdrawal of care, Hospice)? DNR status @ -No What co-morbidities impacted this encounter? (DM, HTN, Smoking, COPD, CAD, Cancer, CVA, ARF, Chemo, Hep., AIDS, mental health diagnosis, sleep apnea, morbid obesity)? @ -Coronary artery disease Was patient admitted / discharged? Hospital course, mention meds given and route, prescriptions, significant lab abnormalities, going to OR and other pertinent info. @ -Upon arrival patient was seen and evaluated in room 11. Thorough history and physical exam was performed. IV is established. Laboratory studies are conducted. Chest x-ray was performed. Patient does have intermittent pain. She was given 324 mg of chewable aspirin. Due to patient's advanced coronary disease known in the past I did recommend admission for cardiology evaluation. Patient was agreeable to this. I spoke with Dr. Bangura who is willing to admit the patient. Cardiology will be placed on consult Undiagnosed new problem with uncertain prognosis? @ -Yes Drug Therapy requiring intensive monitoring for toxicity (Heparin, Nitro, Insulin, Cardizem)? @ -No Were any procedures done? @ -No Diagnosis/symptom? @ -Acute chest pain, possible ACS, history of coronary artery disease Acute, or Chronic, or Acute on Chronic? @Acute Uncomplicated (without systemic symptoms) or Complicated (systemic symptoms)? @Complicated Side effects of treatment? @ -No Exacerbation, Progression, or Severe Exacerbation? @ -No Poses a threat to life or bodily function? How? (Chest pain, [place], MS, pneumonia, PE, COPD, DKA, ARF, appy, cholecystitis, CVA, Diverticulitis, Homicidal, Suicidal, threat to staff... and all critical care pts) @ -Yes as patient does present with chest pain which may be due to acute coronary disease (Deborah Moctezuma) Disposition <Pat Kurtz - Last Filed: 10/17/23 20:31> Is patient prescribed a controlled substance at d/c from ED?: No Time of Disposition: 02:47 Decision to Admit Reason: Admit from EC Decision Date: 10/18/23 Decision Time: 02:47 <Deborah Moctezuma - Last Filed: 10/18/23 15:49> Clinical Impression: Hypomagnesemia, Chest pain Disposition: ADMITTED IP TO THIS HOSP Condition: Stable
[2023-10-17 20:51] LABS: Basophils % (A) 1 %; Eosinophils # (A) 0.1 k/uL (0-0.7); Eosinophils % (A) 2 %; HCT 36.6 % (34.0-46.0); Lymphocytes # (A) 1.9 k/uL (1.0-4.8); Lymphocytes % (A) 27 %; MCH 30.2 pg (25.0-35.0); MCHC 32.9 g/dL (31.0-37.0); MCV 91.8 fL (80.0-100.0); Mean Platelet Volume 7.6; Monocytes # (A) 0.4 k/uL (0-1.0); Monocytes % (A) 6 %; Neutrophils # (A) 4.5 k/uL (1.3-7.7); Neutrophils % (A) 64 %; Platelet Count 191 k/uL (150-450); RBC 3.98 m/uL (3.80-5.40); RDW 12.5 % (11.5-15.5)
[2023-10-17 21:08] LABS: ALT 18 U/L (4-34); AST 25 U/L (14-36); African American GFR (CKD) >90 (>60 ml/min/1.73 sqM); Albumin 3.8 g/dL (3.5-5.0); Alkaline Phosphatase 75 U/L (38-126); Anion Gap 8 mmol/L; Blood Urea Nitrogen 9 mg/dL (7-17); Calcium 9.6 mg/dL (8.4-10.2); Carbon Dioxide 22 mmol/L (22-30); Chloride 102 mmol/L (98-107); Glucose 86 mg/dL (74-99); INR 0.9 (<1.2); Magnesium 1.4 mg/dL (1.6-2.3); Non-African American GFR(CKD) 85 (>60 ml/min/1.73 sqM); Partial Thromboplastin Time 23.8 sec (22.0-30.0); Potassium 3.7 mmol/L (3.5-5.1); Prothrombin Time 10.3 sec (10.0-12.5); Sodium 132 mmol/L (137-145); Total Bilirubin 0.6 mg/dL (0.2-1.3); Total Protein 6.7 g/dL (6.3-8.2)
--- NOTE | 2023-10-17 21:31 | XR ---
EXAMINATION TYPE: XR chest 2V DATE OF EXAM: 10/17/2023 9:10 PM CLINICAL INDICATION:Female, 73 years old with history of Chest Pain; [facility] COMPARISON: Chest radiographs from 05/06/2019 TECHNIQUE: XR chest 2V Frontal and lateral views of the chest. FINDINGS: Lungs/Pleura: There is no evidence of pleural effusion, focal consolidation, or pneumothorax. Pulmonary vascularity: Unremarkable. Heart/mediastinum: Cardiomediastinal silhouette is unremarkable. Musculoskeletal: No acute osseous pathology. IMPRESSION: No acute cardiopulmonary disease/process.
[2023-10-18] MEDS ORDERED: NALOXONE 0.4 MG/ML 1 ML VIAL IV PRN (02:47)
[2023-10-18] MEDS: ASPIRIN 81 MG PO STA (04:09)
[2023-10-18] MEDS: MAGNESIUM SULFATE-D5W PMX 1 GM in DEXTROSE/WATER 1 100ML.BAG IVPB SCH (04:10)
[2023-10-18] MEDS ORDERED: CAFFEINE CITRATE 60 MG/3 ML VIAL IV PRN (08:08)
[2023-10-18] MEDS ORDERED: AMINOPHYLLINE 500 MG/20 ML VIAL IV PRN (08:08)
[2023-10-18] MEDS ORDERED: REGADENOSON 0.4 MG/5 ML SYRINGE IV PRN (08:08)
[2023-10-18 08:31] LABS: Glucose,Whole Blood 111 mg/dL (70-110)
--- NOTE | 2023-10-18 12:21 | NM ---
EXAMINATION TYPE: NM stress lexiscan cardiolite DATE OF EXAM: 10/18/2023 COMPARISON: NONE CLINICAL INDICATION: Female, 73 years old with history of chest pain; TECHNIQUE: After the intravenous administration of 10.03 mCi Tc 99m Sestamibi - Cardiolite resting S PECT images acquired 70 minutes post injection. The patient received 0.4mg Lexiscan, 24.9 mCi Tc 99m Sestamibi - Stress images obtained [address] injection FINDINGS: Review of stress and rest SPECT images demonstrates a small area of reversible ischemia apical septal wall. Otherwise homogeneous distribution radiotracer. Gated analysis shows normal wall motion with a n estimated left ventricular ejection fraction of 59 %. IMPRESSION: small area of reversible ischemia apical septal wall.
--- NOTE | 2023-10-18 13:53 | CA ---
Lexiscan Nuclear Stress Test Report Name: Sangeeta Reid Exam Date: 10/18/2023 10:22 Exam Location: [facility] Stress Ht (in): 61 Wt (lb): 134 BSA: 1.59 Ordering Phys: Janett Quinones Referring Phys: [id number], Technologist: Lorenzo Bhatia Age: 73 Gender: F : 1950 Procedure CPT: Indications: Reflex order-Stress test ICD-10 Codes: Patient History: Medications: SEE CHART Meds past 24 hrs: Pretest Chest Pain: STRESS TEST Lexiscan Protocol Exercise Duration (min:sec): 02:[address] Depressions (mm): Angina Score: Durán Score: Resting HR (bpm): 64 Peak HR (bpm): 82 Resting BP (mmHg): 141 / 67 Peak BP (mmHg): 172 / 92 MPHR: 146 Target HR: 124 % MPHR: 56 METS: 1.0 Total Dose: Peak Dose: Atropine: Double Product: 57353 BP Response: Stress Termination: PROTOCOL COMPLETE Stress Symptoms: NO SYMPTOMS Stress Summary: ECG ANALYSIS Resting ECG: Sinus rhythm. Right bundle branch block. No arrhythmias. Nonspecific ST-T abnormality. Stress ECG: No ECG changes from baseline with Lexiscan infusion. CONCLUSIONS No ECG evidence of ischemia with Lexiscan infusion. Nuclear test results to follow. Dr. Casimiro Albright MD (Electronically Signed) Final Date: 18 Oct 2023 13:52
[2023-10-18] MEDS ORDERED: NITROGLYCERIN SL TABS 0.4 MG TAB SUBLINGUAL PRN (14:27)
[2023-10-18] MEDS ORDERED: ALPRAZolam 0.5 MG TAB PO PRN (14:27)
[2023-10-18] MEDS ORDERED: ALPRAZolam 0.25 MG TAB PO PRN (14:27)
--- NOTE | 2023-10-18 14:33 | P.CRDCN ---
History of Present Illness Consult date: 10/18/23 Consult reason: chest pain History of present illness: History of present illness: This is a 73-year-old female patient of Dr. JT Flores with past medical history of coronary artery disease status post PCI, hypertension, hyperlipidemia, diabetes mellitus type 2. We have been asked to evaluate the patient for chest pain. Patient gives history that she woke up yesterday with chest pain that lasted all day. She spends her day visiting her in the intensive care unit and she continued to have the pain and it did not seem to change. She can feel it with deep breathing and later in the day she could feel it into her back. She denies shortness of breath. No dizziness or lightheadedness, no syncopal episodes, no palpitations, no lower extremity edema. No PND. She denies having any wheezing. No blood in her stools. No history of stroke or seizure. She denies having pain with activity. She feels that the pain may be related to stress. She is never had this type pain before. Patient states that she was visiting her who is currently in the intensive care unit. Patient is seen today in the emergency center waiting for bed on the observation unit. EKG sinus rhythm with right bundle branch block Chest x-ray: No acute finding. Lexiscan Cardiolite stress test revealed small area of reversible ischemia in the apical septal wall. Laboratory studies: Sodium 132, BUN 9, creatinine 0.71. Magnesium 1.4. Troponin negative x 3. Home cardiac medications: Aspirin 81 mg daily, atenolol 50 mg daily, atorvastatin 40 mg at bedtime, Plavix 75 mg daily, ferrous sulfate 325 mg daily, lisinopril 20 mg daily Cardiolite stress test performed in the office on 10/20/2021 revealed fair exercise capacity with inconclusive stress test by EKG criteria because of resting EKG changes. Normal MPI with normal ejection fraction without stress- induced ischemia. Echocardiogram performed in the office on 08/03/2021 revealed EF 55%. Trace aortic regurgitation. Trace to mild mitral regurgitation. Trace tricuspid regurgitation. PASP 21 mmHg. Cardiac catheterization on 04/07/2015 revealed EF 65%. RCA stenosis 50%. LAD free of significant disease. Circumflex marginal 70% stenosis and continuation of circumflex at the OM origin has 50% stenosis. On 05/07/2015, patient underwent PTCA and stenting of the complex bifurcation lesion in circumflex. Drug-eluting stent in the OM and PTCA of the main circumflex. FFR of the ostial RCA lesion was normal at 0.84. Review Of Systems: At the time of my exam: CONSTITUTIONAL: Denies fever or chills. HEENT: Denies blurred vision, vision changes, or eye pain. Denies hemoptysis CARDIOVASCULAR: Denies chest pain. Denies orthopnea. Denies PND. Denies palpitations RESPIRATORY: Denies shortness of breath. GASTROINTESTINAL: Denies abdominal pain. Denies nausea or vomiting. HEMATOLOGIC: Denies bleeding disorders. GENITOURINARY: Denies any blood in urine. SKIN: Denies pruitis. Denies rash. Physical examination: Gen: This is a 73-year-old female in no acute distress. VS: reviewed, blood pressure 136/59, heart rate 56, pulse ox 95% on room air. HEENT: Head is atraumatic, normocephalic. Pupils equal, round. Sclerae is anicteric. NECK: Supple. No JVD. LUNGS: Clear to auscultation. No wheezes or rhonchi. No intercostal retractions. HEART: Regular rate and rhythm. soft systolic murmur. ABDOMEN: Soft No tenderness. EXTREMITIES: No pedal edema. No calf tenderness. NEUROLOGICAL: Patient is awake, alert and oriented x3. Assessment: Chest pain, acute coronary syndrome ruled out Abnormal Lexiscan stress test History of coronary artery disease status post PCI Hypertension Hyperlipidemia Diabetes mellitus type 2 Plan: Resume patient's home cardiac medications Obtain 2-D echocardiogram and Doppler study to assess cardiac structure and function Schedule patient for cardiac catheterization tomorrow with Dr. JT Flores. N.p.o. after midnight Start patient on IV fluids 0.9 normal saline at 75 cc/h Further recommendations to follow based upon clinical course Nurse practitioner note has been reviewed, I agree with documented findings and plan of care. Patient was seen and examined. Past Medical History Past Medical History: Coronary Artery Disease (CAD), Chest Pain / Angina, Diabetes Mellitus, Eye Disorder, Hyperlipidemia, Hypertension, Osteoarthritis (OA) Additional Past Medical History / Comment(s): HX OF BELLS PALSY, anemia, frequent diarrhea recently, not as much recently, thinks might have a "blockage" History of Any Multi-Drug Resistant Organisms: None Reported Past Surgical History: Heart Catheterization, Heart Catheterization With Stent, Hernia Repair, Hysterectomy Additional Past Surgical History / Comment(s): INCISIONAL HERNIA REPAIR, SKIN LESIONS REMOVED, COLOLOSCOPY, Bilateral cataract surgery 2016 Past Anesthesia/Blood Transfusion Reactions: No Reported Reaction Additional Past Anesthesia/Blood Transfusion Reaction / Comment(s): Pt has never received blood. Date of Last Stent Placement:: 05/07/2015 Past Psychological History: No Psychological Hx Reported Smoking Status: Former smoker Past Alcohol Use History: None Reported Past Drug Use History: None Reported - Past Family History Brother(s) Family Medical History: Cancer Additional Family Medical History / Comment(s): COLON CANCER Sister(s) Family Medical History: Cancer Additional Family Medical History / Comment(s): COLON CANCER Father Family Medical History: Coronary Artery Disease (CAD), Myocardial Infarction (PR) Additional Family Medical History / Comment(s): Father at age 67yrs and pt thinks cause of was a PR. Mother Family Medical History: Coronary Artery Disease (CAD) Additional Family Medical History / Comment(s): Mother at age 78 or 79yrs of heart disease. Medications and Allergies Home Medications Medication Instructions Recorded Confirmed Type Raloxifene HCl [Evista] 60 mg PO DAILY 04/03/15 10/18/23 History atenoloL [Atenolol] 50 mg PO DAILY 04/03/15 10/18/23 History lisinopriL [Lisinopril] 20 mg PO DAILY 04/03/15 10/18/23 History sitaGLIPtin [Januvia] 50 mg PO DAILY 04/03/15 10/18/23 History Atorvastatin [Lipitor] 40 mg PO HS 08/31/16 10/18/23 History Clopidogrel Bisulfate [Plavix] 75 mg PO DAILY 08/31/16 10/18/23 History Ferrous Sulfate [Feosol] 325 mg PO DAILY 08/31/16 10/18/23 History Tretinoin [Tretinoin 0.05%] 1 applic TOPICAL HS 05/07/19 10/18/23 History Ergocalciferol [Vitamin D2 (1250 1,250 mcg PO WEEKLY 01/01/21 10/18/23 History Mcg = 74011 Iu)] Aspirin 81 mg PO DAILY 10/18/23 10/18/23 History Fish Oil/Dha/Epa [Fish Oil 1,200 1 cap PO DAILY 10/18/23 10/18/23 History mg Fish Oil] Lactobacillus Acidophilus 1 cap PO DAILY 10/18/23 10/18/23 History [Acidophilus Probiotic] metFORMIN HCL 500 mg PO AC-BID 10/18/23 10/18/23 History Allergies Allergy/AdvReac Type Severity Reaction Status Date / Time codeine AdvReac Nausea & Verified 10/18/23 11:22 Vomiting Physical Exam Vitals: Vital Signs Temp Pulse Resp BP Pulse Ox 10/18/23 06:26 56 L 17 136/59 98 10/18/23 05:30 57 L 12 135/60 95 10/18/23 04:30 58 L 12 126/63 95 10/18/23 03:30 65 22 137/66 95 10/18/23 02:47 60 12 103/53 95 10/17/23 20:24 98.8 F 75 18 116/102 98 Intake and Output 10/17/23 10/18/23 10/18/23 22:59 06:59 14:59 Other: Weight 60.781 kg Results 10/17/23 20:43 10/17/23 20:43 Cardiac Enzymes 10/17/23 10/17/23 10/18/23 Range/Units 20:43 20:43 00:19 AST 25 (14-36) U/L Troponin I <0.012 <0.012 (0.000-0.034) ng/mL Coagulation 10/17/23 Range/Units 20:43 PT 10.3 (10.0-12.5) sec APTT 23.8 (22.0-30.0) sec CBC 10/17/23 Range/Units 20:43 WBC 7.0 (3.8-10.6) k/uL RBC 3.98 (3.80-5.40) m/uL Hgb 12.0 (11.4-16.0) gm/dL Hct 36.6 (34.0-46.0) % Plt Count 191 (150-450) k/uL Comprehensive Metabolic Panel 10/17/23 Range/Units 20:43 Sodium 132 L (137-145) mmol/L Potassium 3.7 (3.5-5.1) mmol/L Chloride 102 (98-107) mmol/L Carbon Dioxide 22 (22-30) mmol/L BUN 9 (7-17) mg/dL Creatinine 0.71 (0.52-1.04) mg/dL Glucose 86 (74-99) mg/dL Calcium 9.6 (8.4-10.2) mg/dL AST 25 (14-36) U/L ALT 18 (4-34) U/L Alkaline Phosphatase 75 (38-126) U/L Total Protein 6.7 (6.3-8.2) g/dL Albumin 3.8 (3.5-5.0) g/dL Current Medications Generic Name Dose Route Start Last Admin Trade Name Freq PRN Reason Stop Dose Admin Naloxone HCl 0.2 mg 10/18/23 02:47 Naloxone 0.4 Mg/Ml 1 Ml Vial IV Q2M PRN Opioid Reversal Intake and Output 10/17/23 10/18/23 10/18/23 22:59 06:59 14:59 Other: Weight 60.781 kg 10/17/23 20:43 10/17/23 20:43
[2023-10-18] MEDS ORDERED: DEXTROSE 50% SYRINGE 50 ML IVP PRN ×2 (14:41)
[2023-10-18] MEDS: HEPARIN SODIUM,PORCINE 5,000 UNIT/ML 1 ML VIAL SQ SCH (14:43)
[2023-10-18] MEDS: SODIUM CHLORIDE 0.9% 1,000 ML IV SCH (14:46)
[2023-10-18] MEDS: PANTOPRAZOLE 40 MG/10 ML VIAL IVP SCH (14:52)
--- NOTE | 2023-10-18 14:55 | P.HPIM ---
History of Present Illness H&P Date: 10/18/23 Chief Complaint: Chest pain This is a 73-year-old female presented to the ER with complaints of chest pain in a patient with family history of CAD, history of CAD with stents x 2, prior nicotine dependence quit 20 to 30 years ago, hypertension, hyperlipidemia, diabetes mellitus type 2. Reports she has been under enormous stress as her patient is hospitalized, in the ICU. Reports she woke up yesterday morning with midsternal chest pain yesterday, worsened with deep inspiration lasting throughout the day,eventually radiated to her back. Chest pain is reproducible. Denies worsening with exertion. denies lightheadedness dizziness or focal deficits. Denies shortness of breath. Denies palpitations. EKG sinus rhythm with bundle branch block, chest x-ray nonacute, troponins negative x 3. Hematology, coagulation panels unremarkable. Magnesium 1.4, supplemented. S odium 132, potassium 3.7, renal function stable. Evaluated by cardiology and scheduled for stress test. Review of Systems ROS Statement: Those systems with pertinent positive or pertinent negative responses have been documented in the HPI. ROS Other: All systems not noted in ROS Statement are negative. Past Medical History Past Medical History: Coronary Artery Disease (CAD), Chest Pain / Angina, Diabetes Mellitus, Eye Disorder, Hyperlipidemia, Hypertension, Osteoarthritis (O A) Additional Past Medical History / Comment(s): HX OF [place], anemia, frequent diarrhea recently, not as much recently, thinks might have a "blockage" History of Any Multi-Drug Resistant Organisms: None Reported Past Surgical History: Heart Catheterization, Heart Catheterization With Stent, Hernia Repair, Hysterectomy Additional Past Surgical History / Comment(s): INCISIONAL HERNIA REPAIR, SKIN LESIONS REMOVED, COLOLOSCOPY, Bilateral cataract surgery 2017 Past Anesthesia/Blood Transfusion Reactions: No Reported Reaction Additional Past Anesthesia/Blood Transfusion Reaction / Comment(s): Pt has never received blood. Date of Last Stent Placement:: 05/07/2015 Past Psychological History: No Psychological Hx Reported Smoking Status: Former smoker Past Alcohol Use History: None Reported Past Drug Use History: None Reported - Past Family History Brother(s) Family Medical History: Cancer Additional Family Medical History / Comment(s): COLON CANCER Sister(s) Family Medical History: Cancer Additional Family Medical History / Comment(s): COLON CANCER Father Family Medical History: Coronary Artery Disease (CAD), Myocardial Infarction (SC) Additional Family Medical History / Comment(s): Father at age 67yrs and pt thinks cause of was a SC. Mother Family Medical History: Coronary Artery Disease (CAD) Additional Family Medical History / Comment(s): Mother at age 78 or 79yrs of heart disease. Medications and Allergies Home Medications Medication Instructions Recorded Confirmed Type Raloxifene HCl [Evista] 60 mg PO DAILY 04/03/15 10/18/23 History atenoloL [Atenolol] 50 mg PO DAILY 04/03/15 10/18/23 History lisinopriL [Lisinopril] 20 mg PO DAILY 04/03/15 10/18/23 History sitaGLIPtin [Januvia] 50 mg PO DAILY 04/03/15 10/18/23 History Atorvastatin [Lipitor] 40 mg PO HS 08/31/16 10/18/23 History Clopidogrel Bisulfate [Plavix] 75 mg PO DAILY 08/31/16 10/18/23 History Ferrous Sulfate [Feosol] 325 mg PO DAILY 08/31/16 10/18/23 History Tretinoin [Tretinoin 0.05%] 1 applic TOPICAL HS 05/07/19 10/18/23 History Ergocalciferol [Vitamin D2 (1250 1,250 mcg PO WEEKLY 01/01/21 10/18/23 History Mcg = 47104 Iu)] Aspirin 81 mg PO DAILY 10/18/23 10/18/23 History Fish Oil/Dha/Epa [Fish Oil 1,200 1 cap PO DAILY 10/18/23 10/18/23 History mg Fish Oil] Lactobacillus Acidophilus 1 cap PO DAILY 10/18/23 10/18/23 History [Acidophilus Probiotic] metFORMIN HCL 500 mg PO AC-BID 10/18/23 10/18/23 History Allergies Allergy/AdvReac Type Severity Reaction Status Date / Time codeine AdvReac Nausea & Verified 10/18/23 11:22 Vomiting Physical Exam Vitals: Vital Signs Temp Pulse Resp BP Pulse Ox 10/18/23 09:00 63 16 161/68 98 10/18/23 08:00 62 18 136/59 10/18/23 07:00 64 16 136/59 97 10/18/23 06:26 56 L 17 136/59 98 10/18/23 05:30 57 L 12 135/60 95 10/18/23 04:30 58 L 12 126/63 95 10/18/23 03:30 65 22 137/66 95 10/18/23 02:47 60 12 103/53 95 10/17/23 20:24 98.8 F 75 18 116/102 98 Intake and Output 10/17/23 10/18/23 10/18/23 22:59 06:59 14:59 Other: Weight 60.781 kg Gen: Alert and oriented x 3, sitting up in chair, teary-eyed ,NAD. Vitals reviewed HEENT: normocephalic, atraumatic, mucus membranes moist Neck: supple, no JVD, no thyromegaly CV: RRR, systolic murmur. Pulses 2+ Lungs: normal effort, clear throughout Abd: soft, nontender, non distended Neuro: alert and oriented x3, no focal deficit Skin: warm and dry Results CBC & Chem 7: 10/17/23 20:43 10/17/23 20:43 Labs: Abnormal Lab Results - Last 24 Hours (Table) 10/17/23 10/18/23 Range/Units 20:43 08:30 Sodium 132 L (137-145) mmol/L POC Glucose (mg/dL) 111 H (70-110) mg/dL Magnesium 1.4 L (1.6-2.3) mg/dL Assessment and Plan Assessment: Chest pain, reproducible, troponins negative x 3, stress test pending CAD history of stents x 2 Family history of CAD Prior nicotine dependence, quit 20 to 30 years ago Significant stress, patient is admitted in the ICU Hypertension Diabetes mellitus type 2 Plan: Continue on current medication regimen ,monitoring and symptomatic treatment. Evaluated by cardiology, echo ordered, scheduled for stress test thi s morning. Potential discharge home later today pending stress test results, final DC recommendations and clearance per cardiology. The impression and plan of care has been dictated as directed. : I performed a history and examination of this patient, discussed the same with the dictator. I agree with the dictator's note ,documented as a scribe. Any additional findings or plans will be noted.
[2023-10-18 14:59] LABS: Glucose,Whole Blood 121 mg/dL (70-110)
[2023-10-18] MEDS: INSULIN ASPART (NovoLOG) 100 UNIT/ML VIAL SQ SCH (15:06)
[2023-10-18] MEDS ORDERED: metFORMIN 500 MG TAB PO SCH (17:30)
[2023-10-18 20:57] LABS: Glucose,Whole Blood 137 mg/dL (70-110)
[2023-10-18] MEDS: ATORVASTATIN 40 MG TAB PO SCH (21:46)
[2023-10-18] MEDS ORDERED: SODIUM CHLORIDE 0.9% 1,000 ML IV SCH (22:00)
[2023-10-19 03:17] LABS: Glucose,Whole Blood 89 mg/dL (70-110)
[2023-10-19 05:52] LABS: Glucose,Whole Blood 110 mg/dL (70-110)
[2023-10-19] MEDS: ASPIRIN 325 MG TAB PO ONE (06:47)
[2023-10-19] MEDS: ATORVASTATIN 80 MG TAB PO ONE (06:47)
[2023-10-19] MEDS ORDERED: HEPARIN SODIUM,PORCINE (1 ML) 2,500 UNIT in SODIUM CHLORIDE 0.9% 250 ML IRRIGATION PRN (07:00)
[2023-10-19] MEDS ORDERED: HEPARIN SODIUM,PORCINE 10,000 UNIT in SODIUM CHLORIDE 0.9% 1,000 ML IRRIGATION PRN (07:00)
--- NOTE | 2023-10-19 07:05 | CA ---
Transthoracic Echo Report Name: Sangeeta Reid Age: 73 Gender: F : 1950 Exam Date: 10/18/2023 11:59 Exam Location: [facility] Ht (in): 61 Wt (lb): 134 Ordering Physician: Janett Quinones Attending/Referring Phys: [id number], Joni Director Print Porsha Crabtree RDCS Procedure CPT: Indications: LVF Cardiac Hx: Technical Quality: Fair Contrast 1: Total Dose (mL): Contrast 2: Total Dose (mL): MEASUREMENTS (Male / Female) Normal Values 2D ECHO LV Diastolic Diameter PLAX 3.4 cm 4.2 - 5.9 / 3.9 - 5.3 cm LV Systolic Diameter PLAX 2.4 cm IVS Diastolic Thickness 1.2 cm 0.6 - 1.0 / 0.6 - 0.9 cm LVPW Diastolic Thickness 1.2 cm 0.6 - 1.0 / 0.6 - 0.9 cm LV Relative Wall Thickness 0.7 RV Internal Dim ED PLAX 2.8 cm LVOT Diameter 1.5 cm LA Volume 54.9 cm??? 18 - 58 / 22 - 52 cm??? LA Volume Index 33.6 cm???/m??? 16 - 28 cm???/m??? M-MODE Aortic Root Diameter MM 2.5 cm LA Systolic Diameter MM 4.0 cm LA Ao Ratio MM 1.6 AV Cusp Separation MM 1.4 cm DOPPLER AV Peak Velocity 160.2 cm/s AV Peak Gradient 10.3 mmHg AV Mean Velocity 100.7 cm/s AV Mean Gradient 4.7 mmHg AV Velocity Time Integral 37.9 cm LVOT Peak Velocity 97.0 cm/s LVOT Peak Gradient 3.8 mmHg LVOT Velocity Time Integral 27.6 cm LVOT Stroke Volume 46.7 cm??? LVOT Stroke Volume Index 29.3 ml/m??? LVOT Cardiac Index 1660.3 cm???/min???m??? AV Area Cont Eq vti 1.2 cm??? AV Area Cont Eq pk 1.0 cm??? MV Area PHT 4.4 cm??? Mitral E Point Velocity 80.8 cm/s Mitral A Point Velocity 94.8 cm/s Mitral E to A Ratio 0.9 MV Deceleration Time 174.3 ms MV E' Velocity 8.3 cm/s Mitral E to MV E' Ratio 9.8 TR Peak Velocity 212.3 cm/s TR Peak Gradient 18.0 mmHg Right Ventricular Systolic Press 23.0 mmHg FINDINGS Left Ventricle Mildly increased left ventricular wall thickness. Left ventricular cavity size normal. No obvious regional wall motion abnormalities. Left ventricular ejection fraction is estimated at 55-60 %. Normal left ventricular diastolic filling pattern. Right Ventricle Normal right ventricular size and function. Right ventricular systolic pressure within normal limits. Right Atrium Normal right atrial size. Left Atrium Mildly increased left atrial volume. Mitral Valve Structurally normal mitral valve. Mitral valve thickened. Mitral annular calcification. Mild mitral regurgitation. Aortic Valve Trileaflet aortic valve. No aortic valve stenosis or regurgitation. Thickened aortic valve without stenosis. Tricuspid Valve Structurally normal tricuspid valve. Mild tricuspid regurgitation. Pulmonic Valve Structurally normal pulmonic valve. Pericardium No thickening/calcification of the pericardium. Aorta Normal size aortic root and proximal ascending aorta. CONCLUSIONS 1. Normal left ventricular size and systolic function 2. Mild mitral and tricuspid regurgitation Previewed by: Dr. Casimiro Albright MD (Electronically Signed) Final Date: 19 Oct 2023 07:04
[2023-10-19] MEDS: RALOXIFENE 60 MG TAB PO SCH (09:26)
[2023-10-19] MEDS: CLOPIDOGREL 75 MG TAB PO SCH (09:27)
[2023-10-19] MEDS: atenoloL 50 MG TAB PO SCH (09:27)
[2023-10-19] MEDS: lisinopriL 20 MG TAB PO SCH (09:27)
[2023-10-19] MEDS: ASPIRIN 81 MG PO SCH (09:31)
[2023-10-19] MEDS: IV FLUID CONTINUATION 1,000 ML IV ONE (10:26)
[2023-10-19] MEDS ORDERED: VERAPAMIL 2.5 MG/ML 2 ML AMP ONE (10:29)
[2023-10-19] MEDS ORDERED: LIDOCAINE 1% INJ 10MG/ML (20 ML MDV) ONE (10:29)
[2023-10-19] MEDS ORDERED: HEPARIN SODIUM 1,000 UN/ML (10ML VL) ONE (10:37)
[2023-10-19] MEDS: MIDAZOLAM 2 MG/2 ML VIAL IVP ONE (10:41)
[2023-10-19] MEDS: LIDOCAINE 1% INJ 10MG/ML (20 ML MDV) SQ ONE (10:47)
[2023-10-19] MEDS: VERAPAMIL SYRINGE (5 MG/10 ML) INTRAARTER ONE (10:50)
[2023-10-19] MEDS: HEPARIN SODIUM 1,000 UN/ML (10ML VL) IVP ONE (10:56)
[2023-10-19] MEDS: IOPAMIDOL-370 100ML BTL INJ ONE (11:17)
--- NOTE | 2023-10-19 11:42 | P.PN ---
Subjective Progress Note Date: 10/19/23 10/18/23 This is a 73-year-old female presented to the ER with complaints of chest pain in a patient with family history of CAD, history of CAD with stents x 2, prior nicotine dependence quit 20 to 30 years ago, hypertension, hyperlipidemia, diabetes mellitus type 2. Reports she has been under enormous s tress as her patient is hospitalized, in the ICU. Reports she woke up yesterday morning with midsternal chest pain yesterday, worsened with deep inspiration lasting throughout the day,eventually radiated to her back. Chest pain is reproducible. Denies worsening with exertion. denies lightheadedness dizziness or focal deficits. Denies shortness of breath. Denies palpitations. EKG sinus rhythm with bundle branch block, chest x-ray nonacute, troponins negative x 3. Hematology, coagulation panels unremarkable. Magnesium 1.4, supplemented. Sodium 132, potassium 3.7, renal function stable. Evaluated by cardiology and scheduled for stress test. 10/19/2023 Lexiscan stress test reported small area of reversible ischemia in the apical septal wall, scheduled for cardiac catheterization this morning. Mild left chest pain. Family at bedside. Significant stress, as is in the ICU. Offered antianxiety medication, Xanax, patient declined. Afebrile. Maintaining O2 sats in the high 90s on room air. Labs pending. Objective - Vital Signs Vital signs: Vital Signs Temp 98.0 F 10/19/23 07:00 Pulse 65 10/19/23 07:00 Resp 16 10/19/23 07:00 BP 159/65 10/19/23 07:00 Pulse Ox 99 10/19/23 07:00 FiO2 Intake & Output 10/18/23 10/19/23 10/19/23 18:59 06:59 18:59 Intake Total 350 Balance 350 Weight 60.781 kg Intake: IV 350 Other: # Voids 2 - Exam Gen: Alert and oriented x 3, sitting up in bed, teary-eyed ,NAD. Vitals reviewed HEENT: normocephalic, atraumatic, conjunctivae normal Neck: supple, no JVD CV: RRR, systolic murmur. Pulses 2+ Lungs: normal effort, clear throughout Abd: soft, nontender, non distended Neuro: Cranial nerves II through XII grossly intact, no focal deficit Skin: warm and dry - Labs CBC & Chem 7: 10/17/23 20:43 10/17/23 20:43 Labs: Abnormal Lab Results - Last 24 Hours (Table) 10/18/23 10/18/23 Range/Units 14:58 20:55 POC Glucose (mg/dL) 121 H 137 H (70-110) mg/dL Assessment and Plan Assessment: Chest pain, reproducible, troponins negative x 3, abnormal Lexiscan stress test, cardiac catheterization pending. CAD history of stents x 2 Family history of CAD Prior nicotine dependence, quit 20 to 30 years ago Significant stress, patient is admitted in the ICU Hypertension Diabetes mellitus type 2 Plan: Continue on current medication regimen ,monitoring and symptomatic treatment. Cardiac catheterization pending. Labs pending. Family at bedside, questions and support given. The impression and plan of care has been dictated as directed. : I performed a history and examination of this patient, discussed the same with the dictator. I agree with the dictator's note ,documented as a scribe. Any additional findings or plans will be noted.
--- NOTE | 2023-10-19 11:46 | P.CARDCATH ---
Date of Procedure: 10/19/23 Description of Procedure: History: This patient is 73 years of age and has type 2 diabetes hypertension hyperlipidemia and known CAD for which he underwent stenting of the obtuse marginal branch of the circumflex and PTCA of the groove branch of the circumflex. This was in May 2015. She has done well since then and had a negative stress test about 2 years ago. She came into the hospital with episodes of chest pain with negative troponins and stress test revealed anteroapical septal reversible defect with preserved contractility. She was advised to cardiac catheter given her previous PCI and significant risk factor profile and an abnormal stress test. Risks and benefits options were discussed with the patient at length. She understood all details and wished to proceed with the procedure Patient was referred for cardiac catheterization to evaluate for CAD. Procedure Details: The risks, benefits, complications, treatment options, and expected outcomes were discussed with the patient. The patient and/or family concurred with the proposed plan, giving informed consent. Patient was brought to the ammunition assembly laborer after IV hydration was begun and oral premedication was given. Patient was further sedated with midazolam. Patient was prepped and draped in the usual manner. Under strict aseptic precautions and local anesthesia a 6 [place] introducer was placed in the right radial artery. Using a JL 3/5 and a JR 4/0 catheters I performed coronary angiography and the same JR catheter was used to check LV pressures and LV gram was not performed. After the procedure was completed the sheaths and catheters were all removed. Hemostasis was achieved with TR band. Saturation in the fingers of the right hand was about 94%. Moderate conscious sedation time was 24 minutes. Patient's oxygen saturation hemodynamics and EKG were monitored closely. Findings: Hemodynamics: Left ventricle end-diastolic pressure was about 10 mmHg without any gradient across aortic valve Left Main: This is a short vessel the ostium and proximal portion has a 70% narrowing. With a 6 [place] catheter there was significant dampening noted and also in the cranial projection there is a 70% lesion immediately after the ostium. Additionally the size and caliber of left main is actually less than the LAD or circumflex. All these 3 findings suggest that we have not at least a 70% left main lesion and would require surgery. LAD: Fair caliber vessel extends along the anterior wall in the midportion gives off a good-sized diagonal branch and after the diagonal branch there is about a 60% narrowing in the LAD and the caliber then improves and runs all the way to the apex. Just before the origin of the diagonal branch also there is mild narrowing noted. LAD therefore has a 60% mid lesion after the diagonal branch. CIRC: Nondominant vessel previously stented in the obtuse marginal and the groove branch was dilated. Obtuse marginal that was stented 9 years ago is widely patent and the mid circumflex after the groove branch which continues as a posterolateral branch has about a 60% narrowing. This independent lesion in the mid circumflex that supplies the posterolateral branch argues that another graft may be necessary to the circumflex.. RCA: Dominant vessel with a to 50% lesions in the mid and distal portion just before bifurcation. These tandem lesions are moderate. LV: Not performed Closure Device: TR band Complications: None Estimated Blood Loss: Minimal Impression: Normal left frontal end-diastolic pressure. No gradient across aortic valve. Right dominant system with to 50% tandem lesions in the mid and distal RCA. Left main has a 70% ostial and proximal lesion with 60% mid LAD lesion and a 60 to 70% mid circumflex lesion after the obtuse marginal branch. Pre Procedure Diagnosis: Unstable angina with CAD Final Post Procedure Diagnosis: Unstable angina with CAD Recommendation: I am recommending urgent aortocoronary bypass surgery with a PACHECO to LAD, probably vein graft to the 2 branches of circumflex the obtuse marginal and the distal posterolateral branch and also graft to the RCA branch probably the PDA. Advised urgent aortocoronary bypass surgery and consult placed for Dr. Schmitt. I spoke to the nurse practitioner Lurdes Ybarra. I will hold Plavix, continue aspirin increase the statin and also seek pulmonary input prior to her surgery. I discussed the findings in detail with the patient and her [id number]. Patient's unfortunately is in the ICU. Complications: None; patient tolerated the procedure well. Disposition: 6 N.- hemodynamically stable. Condition: Stable Discharge Disposition: Aortocoronary bypass surgery urgently on this hospitalization. Will hold Plavix.
[2023-10-19 12:22] LABS: Glucose,Whole Blood 170 mg/dL (70-110)
[2023-10-19] MEDS: LINAGLIPTIN 5 MG TABLET PO SCH (12:40)
[2023-10-19] MEDS: POTASSIUM CHLORIDE ER 20 MEQ TAB.ER PO STA (12:40)
--- NOTE | 2023-10-19 14:00 | US ---
EXAMINATION TYPE: US vein mapping BIL DATE OF EXAM: 10/19/2023 1:41 PM COMPARISON: NONE CLINICAL INDICATION: Female, 73 years old with history of preop cardiac surgery; SIDE PERFORMED: Bilateral TECHNIQUE: Lower extremity saphenous vein is examined and measured utilizing real time linear array sonography. Patient History: Heart Disease: Yes Previous DVT: Unknown Vascular Surgery: No Discoloration: No Hypertension: Yes Diabetes: Unknown Paralysis: No Varicosities: No Edema: No DUPLEX FINDINGS: Greater Saphenous: Color flow seen Lesser Saphenous: Color flow seen Measurements in mm: Right Greater Saphenous: Groin: 5.6 x 4.6 mm High Thigh: 3.7 x 2.8 mm Mid Thigh: 1.9 x 1.9 mm Above Knee: 1.8 x 1.8 mm Knee: 1.8 x 1.5 mm Below Knee: 2.1 x 2.0 mm Mid Calf: 1.5 x 1.0 mm At Ankle: Too small to measure Right Lesser Saphenous: Knee: 4.2 x 3.7 mm Below Knee: 3.9 x 3.8 mm Left Greater Saphenous: Groin: 3.9 x 3.4 mm High Thigh: 2.8 x 2.4 mm Mid Thigh: 2.4 x 2.3 mm Above Knee: 2.6 x 1.8 mm Knee: 2.3 x 1.7 mm Below Knee: 1.6 x 0.9 mm Mid Calf: Too small to measure At Ankle: Too small to measure Left Lesser Saphenous: Knee: 2.9 x 2.9 mm IMPRESSION: 1. Bilateral GSV measurements listed above. 2. Performing surgeon to determine viability as conduit.
--- NOTE | 2023-10-19 14:02 | US ---
EXAMINATION TYPE: Pre-Operative Non-Invasive Evaluation of the hand for Potential Radial Artery Chana , Measurements only DATE OF EXAM: 10/19/2023 1:41 PM CLINICAL INDICATION: Female, 73 years old with history of measurements only; SIDE PERFORMED: Left TECHNIQUE: Radial artery is measured utilizing real time linear array sonography. Dominant hand: Right Duplex Findings: Radial Artery: Color flow seen Measurements in mm, transverse view: Left Radial: Proximal: 1.9 x 1.4 mm Mid: 1.9 x 1.3 mm Distal: 2.2 x 1.7 mm IMPRESSION: 1. Bilateral Radial artery measurements listed above. 2. Performing surgeon to determine viability as conduit.
--- NOTE | 2023-10-19 14:02 | US ---
EXAMINATION TYPE: US carotid duplex BILAT DATE OF EXAM: 10/19/2023 COMPARISON: NONE CLINICAL INDICATION: Female, 73 years old with history of preop cardiac surgery; HTN- controlled with meds TECHNIQUE: Carotid duplex ultrasound examination. Indirect Doppler criteria was utilized. FINDINGS: EXAM MEASUREMENTS: RIGHT: Peak Systolic Velocity (PSV) cm/sec ----- Right CCA: 62.5 ----- Right ICA: 136.6 ----- Right ECA: 123.7 ICA/CCA ratio: 2.2 RIGHT: End Diastole cm/sec ----- Right CCA: 16.2 ----- Right ICA: 38.1 ----- Right ECA: 13.7 LEFT: Peak Systolic Velocity (PSV) cm/sec ----- Left CCA: 55.5 ----- Left ICA: 215.1 ----- Left ECA: 106.0 ICA/CCA ratio: 3.9 LEFT: End Diastole cm/sec ----- Left CCA: 10.1 ----- Left ICA: 43.2 ----- Left ECA: 18.7 VERTEBRALS (direction of flow): Right Vertebral: Antegrade Left Vertebral: Antegrade Rhythm: Normal REGULATOR TESTER NOTES: Plaque in right bulb and ECA. Wall thickening seen. Bilateral distal ICA curves. IMPRESSION: 50-69% stenosis bilateral internal carotid arteries suggested Criteria for Assigning % of Stenosis / Diameter reduction (Estimation based on the indirect measurements of the internal carotid artery velocities (ICA PSV). 1. Normal (no stenosis)=ICA PSV < 125 cm/s: ratio < 2.0: ICA EDV<40 cm/s. 2. Less than 50% stenosis=ICA PSV < 125 cm/s: ratio < 2.0: ICA EDV<40 cm/s. 3. 50 to 69% stenosis=ICA PSV of 125 to 230 cm/s: ration 2.0 ? 4.0: ICA EDV 40-100 cm/s. 4. Greater than 70% stenosis to near occlusion= ICA PSV > 230 cm/s: ratio > 4.0: ICA EDV > 100 cm/s. 5. Near occlusion= ICA PSV velocities may be low or undetectable: variable ratio and ICA EDV. 6. Total occlusion=unable to detect flow.
--- NOTE | 2023-10-19 14:31 | P.CNPUL ---
History of Present Illness Consult date: 10/19/23 Requesting physician: Yevgeniy Richardson Reason for consult: other (Mechanical ventilator/critical care management) Chief complaint: Chest pain History of present illness: This is a 73-year-old female patient with a known history of coronary artery disease and previous stent placement, diabetes mellitus, hypertension, hyperlipidemia, former smoker who presented to the emergency room on 10/17/2023 with complaints of chest pain. Echocardiogram revealed preserved left ventricular systolic function and no significant valvular abnormalities. Troponins were negative. She did undergo stress testing which revealed reversible ischemia and a subsequent cardiac catheterization was performed today and she was found to have 50% tandem lesions in the mid and distal RCA. Left main with a 70% ostial and proximal lesion, 60% mid LAD lesion and 60 to 70% mid circumflex lesion. She was recommended urgent coronary artery bypass surgery. She is currently on a heparin drip. Normal saline at 75 MLS per hour. She is seen today in consultation on the regular medical floor. She is awake and alert in no acute distress. Sitting up in bed. Maintaining good O2 saturations in the 90s on room air. She denies any chest pain currently. No shortness of breath, cough or congestion. She is not on any inhalers or oxygen in the outpatient setting. White count 7.0. Hemoglobin 12.0. Platelets 191. Sodium 132. Potassium 3.7. Bicarb 22. BUN 9. Creatinine 0.71. Glucose 170. Chest x-ray revealed no acute cardiopulmonary process. Further workup is pending. Review of Systems REVIEW OF SYSTEMS: CONSTITUTIONAL: Denies any recent significant weight loss or weight gain. EYES: Denies change in vision. EARS, NOSE, MOUTH, THROAT: Denies headaches, denies sore throat. CARDIOVASCULAR: Positive for chest pain, no palpitations or syncopal episodes. RESPIRATORY: Denies shortness of breath, cough, congestion or hemoptysis. GASTROINTESTINAL: Denies change in appetite, denies abdominal pain GENITOURINARY: Denies hematuria, denies infections. MUSKULOSKELETAL: Denies pain, denies swelling. INTEGUMENTARY: Denies rash, denies eczema. NEUROLOGICAL: Denies recent memory loss, no recent seizure activity. PSYCHIATRIC: Denies anxiety, denies depression. HEMATOLOGIC/LYMPHATIC: Denies anemia, denies enlarged lymph nodes. Past Medical History Past Medical History: Coronary Artery Disease (CAD), Chest Pain / Angina, Diabetes Mellitus, Eye Disorder, Hyperlipidemia, Hypertension, Osteoarthritis (OA) Additional Past Medical History / Comment(s): HX OF BELLS PALSY, anemia, frequent diarrhea recently, not as much recently, thinks might have a "blockage" History of Any Multi-Drug Resistant Organisms: None Reported Past Surgical History: Heart Catheterization With Stent, Hernia Repair, Hysterectomy Additional Past Surgical History / Comment(s): INCISIONAL HERNIA REPAIR, SKIN LESIONS REMOVED, COLOLOSCOPY, Bilateral cataract surgery 2016 Past Anesthesia/Blood Transfusion Reactions: No Reported Reaction Additional Past Anesthesia/Blood Transfusion Reaction / Comment(s): Pt has never received blood. Date of Last Stent Placement:: 05/07/2015 Past Psychological History: No Psychological Hx Reported Additional Psychological History / Comment(s): . Smoking Status: Former smoker Past Alcohol Use History: None Reported Additional Past Alcohol Use History / Comment(s): QUIT SMOKING APPROX 30 YRS AGO. SMOKED 10-15 YRS, 1 PPD OR LESS. Past Drug Use History: None Reported - Past Family History Brother(s) Family Medical History: Cancer Additional Family Medical History / Comment(s): COLON CANCER Sister(s) Family Medical History: Cancer Additional Family Medical History / Comment(s): COLON CANCER Father Family Medical History: Coronary Artery Disease (CAD), Myocardial Infarction ([place]) Additional Family Medical History / Comment(s): Father at age 67yrs and pt thinks cause of was a [place]. Mother Family Medical History: Coronary Artery Disease (CAD) Additional Family Medical History / Comment(s): Mother at age 78 or 79yrs of heart disease. Medications and Allergies Home Medications Medication Instructions Recorded Confirmed Type Raloxifene HCl [Evista] 60 mg PO DAILY 04/03/15 10/18/23 History atenoloL [Atenolol] 50 mg PO DAILY 04/03/15 10/18/23 History lisinopriL [Lisinopril] 20 mg PO DAILY 04/03/15 10/18/23 History sitaGLIPtin [Januvia] 50 mg PO DAILY 04/03/15 10/18/23 History Atorvastatin [Lipitor] 40 mg PO HS 08/31/16 10/18/23 History Clopidogrel Bisulfate [Plavix] 75 mg PO DAILY 08/31/16 10/18/23 History Ferrous Sulfate [Feosol] 325 mg PO DAILY 08/31/16 10/18/23 History Tretinoin [Tretinoin 0.05%] 1 applic TOPICAL HS 05/07/19 10/18/23 History Ergocalciferol [Vitamin D2 (1250 1,250 mcg PO WEEKLY 01/01/21 10/18/23 History Mcg = 62363 Iu)] Aspirin 81 mg PO DAILY 10/18/23 10/18/23 History Fish Oil/Dha/Epa [Fish Oil 1,200 1 cap PO DAILY 10/18/23 10/18/23 History mg Fish Oil] Lactobacillus Acidophilus 1 cap PO DAILY 10/18/23 10/18/23 History [Acidophilus Probiotic] metFORMIN HCL 500 mg PO AC-BID 10/18/23 10/18/23 History Allergies Allergy/AdvReac Type Severity Reaction Status Date / Time codeine AdvReac Nausea & Verified 10/18/23 11:22 Vomiting Physical Exam Vitals: Vital Signs Temp Pulse Pulse Resp BP BP Pulse Ox 10/19/23 07:00 98.0 F 65 16 159/65 99 10/19/23 02:39 97.6 F 63 16 148/71 98 10/18/23 18:51 97.5 F L 66 16 157/75 98 10/18/23 18:49 77 18 128/70 98 Intake and Output 10/18/23 10/19/23 10/19/23 22:59 06:59 14:59 Intake Total 350 Balance 350 Intake: IV 350 Other: # Voids 1 2 Weight 60.781 kg GENERAL EXAM: Alert, very pleasant 73-year-old female, on room air, currently comfortable in no apparent distress. HEAD: Normocephalic. EYES: Normal reaction of pupils, equal size. NOSE: Clear with pink turbinates. THROAT: No erythema or exudates. NECK: No masses, no JVD. CHEST: No chest wall deformity. LUNGS: Equal air entry with no crackles, wheeze, rhonchi or dullness. CVS: S1 and S2 normal with no audible murmur, regular rhythm. ABDOMEN: No hepatosplenomegaly, normal bowel sounds, no guarding or rigidity. SPINE: No scoliosis or deformity SKIN: No rashes CENTRAL NERVOUS SYSTEM: No focal deficits, tone is normal in all 4 extremities. EXTREMITIES: There is no peripheral edema. No clubbing, no cyanosis. Peripheral pulses are intact. Results - Laboratory Findings CBC and BMP: 10/17/23 20:43 10/17/23 20:43 PT/INR, D-dimer PT 10.3 sec (10.0-12.5) 10/17/23 20:43 INR 0.9 (<1.2) 10/17/23 20:43 Abnormal lab findings: Abnormal Labs 10/17/23 10/18/23 10/18/23 20:43 08:30 14:58 Sodium 132 L POC Glucose (mg/dL) 111 H 121 H Magnesium 1.4 L 10/18/23 10/19/23 20:55 12:20 Sodium POC Glucose (mg/dL) 137 H 170 H Magnesium - Diagnostic Findings Chest x-ray: image reviewed Assessment and Plan Assessment: Chest pain in a patient found to have significant triple-vessel disease and plan is for coronary artery bypass surgery History of coronary disease with previous stent placement of the circumflex 2014 Former smoker of approximately 15 years at 1 pack/day Hypertension Hyperlipidemia Diabetes mellitus Plan: The patient was seen and evaluated Chest x-ray, labs and medications reviewed Bedside spirometry pending Former smoker, not on inhalers or oxygen Educated regarding the importance of the incentive spirometer We will continue to follow and make further recommendations based on her clinical status I have personally seen and examined the patient, performed the documentation and the assessment and plan as written. Number of minutes spent on the visit: 20.
--- NOTE | 2023-10-19 15:02 | P.GSCN ---
History of Present Illness Consult date: 10/19/23 Reason for Consult: Coronary artery disease with left main disease Requesting physician: Finesse Flores History of present illness: This is a 73-year-old female who follows outpatient with nurse practitioner Jaelyn Maciel for primary care and Dr. Flores for cardiology. She has a previous medical history of coronary artery disease with previous PCI, hypertension, hyperlipidemia, type 2 diabetes, previous tobacco dependence, and family history of coronary artery disease. She presented to [facility] with complaints of midsternal intermittent chest pain with radiation to her back. Denies shortness of breath, nausea, lightheadedness, or any other associated aggravating or alleviating symptoms. Denies ever having this type of chest pain before. Chest x-ray demonstrated no acute cardiopulmonary process. EKG demonstrated sinus rhythm, rate 65 bpm. Lab work on admission was unremarkable except magnesium 1.4 and sodium 132. Troponins were negative x 3. She was admitted for evaluation and treatment with consultation placed to cardiology. Stress test was completed which demonstrated a small area of reversible ischemia on the apical septal wall. In addition she had an echocardiogram which revealed normal left ventricular systolic function with EF 55 to 60%, mild mitral regurgitation and mild tricuspid regurgitation. She was recommended to undergo heart catheterization which was completed today by Dr. Flores and which revealed ostial and proximal left main stenosis 70%, mid LAD stenosis 60% after the diagonal branch, posterolateral branch of the circumflex with 66% stenosis, OM branch stent from 9 years ago was widely patent, and mid and distal RCA lesions of 50%. Due to the significant finding of left main disease consultation was placed to Dr. Schmitt from cardiothoracic surgery for surgical revascularization recommendations. Review of Systems Review of systems was completed and was negative except as noted - Cardiovascular Reports as per HPI, Reports chest pain Past Medical History Past Medical History: Coronary Artery Disease (CAD), Chest Pain / Angina, Diabetes Mellitus, Eye Disorder, Hyperlipidemia, Hypertension, Osteoarthritis (OA) Additional Past Medical History / Comment(s): HX OF BELLS PALSY, anemia, frequent diarrhea recently, not as much recently, thinks might have a "blockage" History of Any Multi-Drug Resistant Organisms: None Reported Past Surgical History: Heart Catheterization With Stent, Hernia Repair, Hysterectomy Additional Past Surgical History / Comment(s): INCISIONAL HERNIA REPAIR, SKIN LESIONS REMOVED, COLOLOSCOPY, Bilateral cataract surgery 2017 Past Anesthesia/Blood Transfusion Reactions: No Reported Reaction Additional Past Anesthesia/Blood Transfusion Reaction / Comm: Pt has never rece ived blood. Date of Last Stent Placement:: 05/07/2015 Past Psychological History: No Psychological Hx Reported Additional Psychological History / Comment(s): . Smoking Status: Former smoker Past Alcohol Use History: None Reported Additional Past Alcohol Use History / Comment(s): QUIT SMOKING APPROX 30 YRS AGO. SMOKED 10-15 YRS, 1 PPD OR LESS. Past Drug Use History: None Reported - Past Family History Brother(s) Family Medical History: Cancer Additional Family Medical History / Comment(s): COLON CANCER Sister(s) Family Medical History: Cancer Additional Family Medical History / Comment(s): COLON CANCER Father Family Medical History: Coronary Artery Disease (CAD), Myocardial Infarction ([place]) Additional Family Medical History / Comment(s): Father at age 67yrs and pt thinks cause of was a [place]. Mother Family Medical History: Coronary Artery Disease (CAD) Additional Family Medical History / Comment(s): Mother at age 78 or 79yrs of heart disease. Medications and Allergies Home Medications Medication Instructions Recorded Confirmed Type Raloxifene HCl [Evista] 60 mg PO DAILY 04/03/15 10/18/23 History atenoloL [Atenolol] 50 mg PO DAILY 04/03/15 10/18/23 History lisinopriL [Lisinopril] 20 mg PO DAILY 04/03/15 10/18/23 History sitaGLIPtin [Januvia] 50 mg PO DAILY 04/03/15 10/18/23 History Atorvastatin [Lipitor] 40 mg PO HS 08/31/16 10/18/23 History Clopidogrel Bisulfate [Plavix] 75 mg PO DAILY 08/31/16 10/18/23 History Ferrous Sulfate [Feosol] 325 mg PO DAILY 08/31/16 10/18/23 History Tretinoin [Tretinoin 0.05%] 1 applic TOPICAL HS 05/07/19 10/18/23 History Ergocalciferol [Vitamin D2 (1250 1,250 mcg PO WEEKLY 01/01/21 10/18/23 History Mcg = 02616 Iu)] Aspirin 81 mg PO DAILY 10/18/23 10/18/23 History Fish Oil/Dha/Epa [Fish Oil 1,200 1 cap PO DAILY 10/18/23 10/18/23 History mg Fish Oil] Lactobacillus Acidophilus 1 cap PO DAILY 10/18/23 10/18/23 History [Acidophilus Probiotic] metFORMIN HCL 500 mg PO AC-BID 10/18/23 10/18/23 History Allergies Allergy/AdvReac Type Severity Reaction Status Date / Time codeine AdvReac Nausea & Verified 10/18/23 11:22 Vomiting Surgical - Exam Vital Signs Temp Pulse Resp BP Pulse Ox 98.8 F 75 18 116/102 98 10/17/23 20:24 10/17/23 20:24 10/17/23 20:24 10/17/23 20:24 10/17/23 20:24 CONSTITUTIONAL: Awake and alert, appears comfortable, cooperative, well- developed, well-nourished, no pain, no acute distress EYES: Pupils equal, round, reactive to light, normal ocular movement ENT: Moist mucous membranes without oral lesions present NECK: No masses, no bruits, trachea midline RESPIRATORY: Lungs sounds clear to auscultation bilaterally. Respirations even, nonlabored. Currently on room air with oxygen saturation 99%. Strong cough. No chest wall deformities. No clubbing or cyanosis present CARDIOVASCULAR: S1, S2 present. Regular rate and rhythm, sinus rhythm on telemetry. Palpable peripheral pulses bilaterally. No edema present. No calf pain or tenderness noted GASTROINTESTINAL: Abdomen soft, nontender, nondistended without masses or organomegaly noted. There is no rebound or guarding present. Active bowel sounds present 4 quadrants. GENITOURINARY: Deferred INTEGUMENTARY: Skin is warm and dry with evidence of good perfusion. NEUROLOGIC: Cranial nerves II through XII intact, normal coordination, no obvious motor or sensory deficits, speech is normal MUSKULOSKELETAL: Able to move all extremities, strength equal bilaterally, normal posture PSYCHIATRIC: Alert and oriented to person place and time, appropriate affect, intact judgment and insight CLINICAL FRAILTY SCORE: 3 Results - Labs 10/17/23 20:43 10/17/23 20:43 Abnormal Lab Results - Last 24 Hours (Table) 10/18/23 10/18/23 10/19/23 Range/Units 14:58 20:55 12:20 POC Glucose (mg/dL) 121 H 137 H 170 H (70-110) mg/dL - Imaging Chest x-ray: report reviewed, image reviewed EKG: image reviewed Additional studies: Heart catheterization films reviewed Assessment and Plan Assessment: Coronary artery disease with previous PCI, on chronic Plavix, last dose 10/19/23 Chest pain, secondary to above History of hypertension Hyperlipidemia, treated Type 2 diabetes Previous tobacco dependence Family history of coronary artery disease Plan: The patient was seen and examined sitting up in the bed on the observation unit with multiple family members present. Chart/diagnostics reviewed. The case will be discussed in detail with Dr. Schmitt. The usual perioperative course of open-heart surgery was discussed with the patient and her family, risks and mike efits were reviewed, all questions were answered. The patient does consent to surgery. Preoperative testing was initiated. Once completed we will calculate STS risk score and discuss with the patient. Will complete 5 m walk test. Continue aspirin, statin, beta-leo therapy. Patient is on chronic Plavix, last dose this morning, will need to be off of Plavix for 5 to 7 days prior to any surgical intervention. Aggressive risk factor management. Medical management of other comorbidities per internal medicine, cardiology. Will consult pulmonology for clearance. More recommendations to follow. Thank you Dr. Flores for this consult. We will continue to follow along with you and make further recommendations as appropriate. I have personally seen and examined the patient, performed the documentation and the assessment and plan as written. Number of minutes spent on the visit: 30. KYLE Peres
--- NOTE | 2023-10-19 15:52 | CT ---
EXAMINATION TYPE: CT chest wo con DATE OF EXAM: 10/19/2023 COMPARISON: HISTORY: pre-op CT DLP: 288.[address] of the chest was performed with lung and mediastinal window settings submitted. The la ck of contrast limits evaluation of the vascular, mediastinal and parenchymal structures including th e upper abdomen. LUNGS: The lungs are clear and free of infiltrate. No atelectasis. No pulmonary nodule or mass is de tected. No pleural effusion. No CT evidence of interstitial lung disease. MEDIASTINUM/AKI: Thoracic aorta is of normal caliber with limited evaluation given lack of contrast . The heart is mildly enlarged. Mild aortic valvular calcifications. Coronary artery calcification seen moderate in degree. No evidence for mediastinal mass. No lymph nodes greater than 1cm. UPPER ABDOMEN: No significant abnormality is seen. OTHER: No significant other abnormality. IMPRESSION: 1. The heart is mildly enlarged. Mild aortic valvular calcifications.
[2023-10-19 17:22] LABS: Glucose,Whole Blood 111 mg/dL (70-110)
[2023-10-19] MEDS: INSULIN ASPART (NovoLOG) 100 UNIT/ML VIAL SQ SCH (17:26)
--- NOTE | 2023-10-19 20:06 | US ---
EXAMINATION TYPE: US arterial LE single level DATE OF EXAM: 10/19/2023 7:54 PM CLINICAL INDICATION: Female, 73 years old with history of Preop; Preop open heart History of: Smoker: Prev 37yrs ago Hypertension: Yes Diabetic: Yes Hyperlipidemia: Yes TIA/CVA: No Previous Vascular Surgery: 2 stents in heart CAD: No [place]: No Vascular Ulcers: No Claudication: No Gangrene: No Right Brachial Pressure: deferred due to heart cath Left Brachial Pressure: 152 Ankle-Brachial Indices: Right: 1.2 Left: 1.26 (Vessel hardening > 1.4; Normal 0.9 - 1.4, Moderate 0.7 - 0.9, Severe 0.5-0.7) IMPRESSION: Normal ABIs bilaterally.
[2023-10-19 21:09] LABS: Glucose,Whole Blood 116 mg/dL (70-110)
[2023-10-19] MEDS: ATORVASTATIN 80 MG TAB PO SCH (21:16)
[2023-10-20 05:04] LABS: Basophils % (A) 0 %; Eosinophils # (A) 0.1 k/uL (0-0.7); Eosinophils % (A) 1 %; HCT 33.8 % (34.0-46.0); HGB 11.3 gm/dL (11.4-16.0); Lymphocytes # (A) 1.1 k/uL (1.0-4.8); Lymphocytes % (A) 18 %; MCH 30.9 pg (25.0-35.0); MCHC 33.5 g/dL (31.0-37.0); MCV 92.2 fL (80.0-100.0); Mean Platelet Volume 7.7; Monocytes # (A) 0.4 k/uL (0-1.0); Monocytes % (A) 6 %; Neutrophils # (A) 4.4 k/uL (1.3-7.7); Neutrophils % (A) 74 %; Platelet Count 127 k/uL (150-450); RBC 3.66 m/uL (3.80-5.40); RDW 12.7 % (11.5-15.5); WBC 5.9 k/uL (3.8-10.6)
[2023-10-20 05:23] LABS: African American GFR (CKD) >90 (>60 ml/min/1.73 sqM); Anion Gap 4 mmol/L; Blood Urea Nitrogen 6 mg/dL (7-17); Calcium 8.5 mg/dL (8.4-10.2); Carbon Dioxide 24 mmol/L (22-30); Chloride 106 mmol/L (98-107); Glucose 120 mg/dL (74-99); Non-African American GFR(CKD) >90 (>60 ml/min/1.73 sqM); Potassium 3.6 mmol/L (3.5-5.1); Sodium 134 mmol/L (137-145)
--- NOTE | 2023-10-20 07:24 | P.PN ---
Progress Note - Text Progress Note Date: 10/20/23 HPI: [This lady came into the hospital with chest pain and had a positive stress test with anteroapical septal ischemia. Coronary angiogram revealed a left main stenosis of 70% both at the ostium and in the proximal portion. Additionally she has a 50 to 60% mid LAD lesion. There is also a lesion involving the mid circumflex after the obtuse marginal that was stented. Right coronary artery has 2 tandem 50% lesions and is a dominant vessel. I recommended aortocoronary bypass surgery urgently but patient is on Plavix we will therefore wait 4 days and I will await input from Dr. Schmitt who will see the patient today. She is hemodynamically stable no chest pain resting comfortably. Platelet count is slightly low at 127. I do not think this is an issue we will continue subcu heparin and other antianginal medications. Will increase activity in the room. Patient has diabetes hypertension hyperlipidemia previous PCI of circumflex. PHYSICIAL EXAM: [Vitals are stable no JVD S1-S2 heard normally short systolic murmur lungs are clear abdomen and lower extremities exam is unremarkable. Central nervous system grossly within normal limits.]. IMPRESSION: 1. [Unstable angina with left main lesion advised urgent aortocoronary bypass surgery]. 2. [History of circumflex marginal PCI in 2015]. 3. [Benign hypertension]. 4. [Type 2 diabetes on oral agents with a hemoglobin A1c of less than 7.0]. 5. [Hypercholesterolemia]. RECOMMENDATIONS: [Await input from Dr. Schmitt. I have requested pulmonary evaluation as well. Will continue current medications and proceed with aortocoronary bypass surgery with grafts to LAD, 2 graft to the circumflex and possibly to the RCA. LV function is normal by echo. Same medical regimen].
--- NOTE | 2023-10-20 07:26 | P.PN ---
Subjective Progress Note Date: 10/20/23 Principal diagnosis: Coronary artery disease/left main disease with previous PCI on chronic Plavix, bilateral internal carotid stenosis 50 to 69%. History of hypertension, hyperli pidemia, type 2 diabetes, previous tobacco dependence and family history of coronary artery disease The patient was seen and examined this morning ambulating in her room without difficulty. Denies any further chest pain, denies shortness of breath. She was able to spend several hours in her 's room yesterday who was made hospice last night. She is very teary-eyed when talking about him and is concerned about having surgery during what might be his demise. 5 m walk test completed this morning, #1 4.72 sec, # 2 4.28 sec, #3 3.68 sec which patient tolerated well. STS risk was calculated and patient would be considered low risk for operative mortality, however due to family and social issues with her being made hospice her risk for significant depression and grieving does increase her risk. Remains in sinus rhythm, hemodynamically stable although a bit on the hypertensive side. No other new concerns. Objective - Vital Signs Vital signs: Vital Signs Temp 98.0 F 10/20/23 04:00 Pulse 65 10/20/23 04:00 Resp 19 10/20/23 04:00 BP 166/76 10/20/23 04:00 Pulse Ox 94 L 10/20/23 04:00 FiO2 Intake & Output 10/19/23 10/20/23 10/20/23 18:59 06:59 18:59 Intake Total 1068 1330 Output Total 22 Balance 1068 1308 Weight 57.3 kg Intake: IV 350 Intake, IV Titration 600 600 Amount Sodium Chloride 0.9% 1, 600 600 000 ml @ 75 mls/hr IV . [id number] ANAHI Rx#:[id number] Oral 118 730 Output: Urine 22 Other: Voiding Method Toilet # Voids 1 - Exam CONSTITUTIONAL: Appears comfortable, cooperative, no acute distress RESPIRATORY: Lungs sounds diminished bilaterally. Respirations even, nonlabored. Currently on room air with oxygen saturation 94%. Able to achieve 1500 mL on incentive spirometry. Strong cough. CARDIOVASCULAR: S1, S2 present. Regular rate and rhythm, sinus rhythm on telemetry. Palpable peripheral pulses bilaterally. No edema present. No calf pain or tenderness noted GASTROINTESTINAL: Abdomen soft, nontender, nondistended. Active bowel sounds present 4 quadrants. Tolerating diet. GENITOURINARY: Continues to void INTEGUMENTARY: Skin is warm and dry NEUROLOGIC: Cranial nerves II through XII intact MUSKULOSKELETAL: Able to move all extremities, strength equal bilaterally, gait normal PSYCHIATRIC: Alert and oriented to person place and time, appropriate affect, intact judgment and insight - Allied health notes Allied health notes reviewed: nursing - Labs CBC & Chem 7: 10/20/23 04:14 10/20/23 04:14 Labs: Abnormal Lab Results - Last 24 Hours (Table) 10/19/23 10/19/23 10/19/23 Range/Units 11:43 12:20 17:20 RBC (3.80-5.40) m/uL Hgb (11.4-16.0) gm/dL Hct (34.0-46.0) % Plt Count (150-450) k/uL Sodium (137-145) mmol/L BUN (7-17) mg/dL Glucose (74-99) mg/dL POC Glucose (mg/dL) 170 H 111 H (70-110) mg/dL Hemoglobin A1c 6.2 H (<=6.0) % 10/19/23 10/20/23 10/20/23 Range/Units 21:06 04:14 04:14 RBC 3.66 L (3.80-5.40) m/uL Hgb 11.3 L (11.4-16.0) gm/dL Hct 33.8 L (34.0-46.0) % Plt Count 127 L (150-450) k/uL Sodium 134 L (137-145) mmol/L BUN 6 L (7-17) mg/dL Glucose 120 H (74-99) mg/dL POC Glucose (mg/dL) 116 H (70-110) mg/dL Hemoglobin A1c (<=6.0) % - Imaging and Cardiology CT scan - chest: report reviewed, image reviewed All preoperative testing reviewed Assessment and Plan Assessment: Coronary artery disease with previous PCI, on chronic Plavix, last dose 10/19/23 Chest pain, secondary to above Bilateral internal carotid stenosis 50 to 69% History of hypertension Hyperlipidemia, treated Type 2 diabetes, hemoglobin A1c 6.2% Previous tobacco dependence, FEV1 78% of predicted Family history of coronary artery disease Plan: Continue to maximize medical therapy with aspirin, statin, beta-leo. Needs tighter blood pressure control, would want patient off CESILIA/ARB for 48 hours preoperative to reduce risk of vasoplegia Continue to hold Plavix, patient needs to be off Plavix for 7 days prior to surgical intervention Increase activity, ambulate as tolerated Encourage incentive spirometry use Pulmonology consulted for clearance, appreciate recommendations Aggressive risk factor management Medical management of other comorbidities per internal medicine, cardiology More recommendations to follow once Dr. Schmitt has seen the patient
[2023-10-20 08:56] LABS: Hepatitis A Antibody IgM Nonreactive (Nonreactive); Hepatitis B Core IgM Nonreactive (Nonreactive); Hepatitis B Surface Antigen Nonreactive (Nonreactive); Hepatitis C IgG Antibody Nonreactive (Nonreactive)
[2023-10-20 09:17] LABS: Chol/HDL Ratio 2.53 Ratio; LDL Cholesterol,Calculated 45.8 mg/dL (0.0-131.0); VLDL Calculation 14.12 mg/dL (5.00-40.00)
--- NOTE | 2023-10-20 09:53 | P.PN ---
Subjective Progress Note Date: 10/20/23 This is a 73-year-old female patient with a known history of coronary artery disease and previous stent placement, diabetes mellitus, hypertension, hyperlipidemia, former smoker who presented to the emergency room on 10/17/2023 with complaints of chest pain. Echocardiogram revealed preserved left ventricu lar systolic function and no significant valvular abnormalities. Troponins were negative. She did undergo stress testing which revealed reversible ischemia and a subsequent cardiac catheterization was performed today and she was found to have 50% tandem lesions in the mid and distal RCA. Left main with a 70% ostial and proximal lesion, 60% mid LAD lesion and 60 to 70% mid circumflex lesion. Sh e was recommended urgent coronary artery bypass surgery. She is currently on a heparin drip. Normal saline at 75 MLS per hour. She is seen today in consultation on the regular medical floor. She is awake and alert in no acute distress. Sitting up in bed. Maintaining good O2 saturations in the 90s on room air. She denies any chest pain currently. No shortness of breath, cough or congestion. She is not on any inhalers or oxygen in the outpatient setting. White count 7.0. Hemoglobin 12.0. Platelets 191. Sodium 132. Potassium 3.7. Bicarb 22. BUN 9. Creatinine 0.71. Glucose 170. Chest x-ray revealed no acute cardiopulmonary process. Further workup is pending. The patient is seen today October 20, 2023 in follow-up in the intensive care unit. She was transferred there so she could be near her who is in the ICU and was placed in hospice yesterday. She is currently sitting up in a chair. Awake and alert in no acute distress. Maintaining O2 saturations in the 90s on room air. She denies any chest pain, shortness of breath cough or congestion. White count 5.9. Hemoglobin 11.3. Platelets 127. Sodium 134. Potassium 3.6. Bicarb 24. BUN 6. Creatinine 0.60. Hepatitis screen was negative. Revealed mild cardiomegaly and mild aortic valvular calcifications. Lung shaffer were clear. Heparin for DVT prophylaxis. Bedside spirometry revealed an FEV1 value of 1.48 L which is 78% of predicted. Inhaling approximately 1500 mL on the incentive spirometer. Objective - Vital Signs Vital signs: Vital Signs Temp 98.4 F 10/20/23 08:00 Pulse 68 10/20/23 08:00 Resp 18 10/20/23 08:00 BP 152/70 10/20/23 08:00 Pulse Ox 98 10/20/23 08:00 FiO2 Intake & Output 10/19/23 10/20/23 10/20/23 18:59 06:59 18:59 Intake Total 1068 1330 Output Total 22 Balance 1068 1308 Weight 57.3 kg Intake: IV 350 Intake, IV Titration 600 600 Amount Sodium Chloride 0.9% 1, 600 600 000 ml @ 75 mls/hr IV . [id number] ANAHI Rx#:[id number] Oral 118 730 Output: Urine 22 Other: Voiding Method Toilet # Voids 1 - Exam GENERAL EXAM: Alert, pleasant 73-year-old female, on room air, sitting up in a chair, comfortable in no apparent distress. HEAD: Normocephalic. EYES: Normal reaction of pupils, equal size. NOSE: Clear with pink turbinates. THROAT: No erythema or exudates. NECK: No masses, no JVD. CHEST: No chest wall deformity. LUNGS: Equal air entry with no crackles, wheeze, rhonchi or dullness. CVS: S1 and S2 normal with no audible murmur, regular rhythm. ABDOMEN: No hepatosplenomegaly, normal bowel sounds, no guarding or rigidity. SPINE: No scoliosis or deformity SKIN: No rashes CENTRAL NERVOUS SYSTEM: No focal deficits, tone is normal in all 4 extremities. EXTREMITIES: There is no peripheral edema. No clubbing, no cyanosis. Peripheral pulses are intact. - Labs CBC & Chem 7: 10/20/23 04:14 10/20/23 04:14 Labs: Abnormal Lab Results - Last 24 Hours (Table) 10/19/23 10/19/23 10/19/23 Range/Units 11:43 12:20 17:20 RBC (3.80-5.40) m/uL Hgb (11.4-16.0) gm/dL Hct (34.0-46.0) % Plt Count (150-450) k/uL Sodium (137-145) mmol/L BUN (7-17) mg/dL Glucose (74-99) mg/dL POC Glucose (mg/dL) 170 H 111 H (70-110) mg/dL Hemoglobin A1c 6.2 H (<=6.0) % HDL Cholesterol (40.00-60.00) mg/dL 10/19/23 10/20/23 10/20/23 Range/Units 21:06 04:14 04:14 RBC 3.66 L (3.80-5.40) m/uL Hgb 11.3 L (11.4-16.0) gm/dL Hct 33.8 L (34.0-46.0) % Plt Count 127 L (150-450) k/uL Sodium 134 L (137-145) mmol/L BUN 6 L (7-17) mg/dL Glucose 120 H (74-99) mg/dL POC Glucose (mg/dL) 116 H (70-110) mg/dL Hemoglobin A1c (<=6.0) % HDL Cholesterol 39.10 L (40.00-60.00) mg/dL Assessment and Plan Assessment: Chest pain in a patient found to have significant triple-vessel disease and plan is for coronary artery bypass surgery History of coronary disease with previous stent placement of the circumflex 2015 Former smoker of approximately 15 years at 1 pack/day. FEV1 value 1.48 L or 78% of predicted Hypertension Hyperlipidemia Diabetes mellitus Plan: The patient was seen and evaluated CT scan of the chest, labs and medications reviewed Bedside spirometry reviewed Working well with the incentive spirometer We will continue to follow I have personally seen and examined the patient, performed the documentation and the assessment and plan as written. Number of minutes spent on the visit: 10.
[2023-10-20 12:54] LABS: Glucose,Whole Blood 108 mg/dL (70-110)
[2023-10-20] MEDS: amLODIPine 5 MG TAB PO STA (13:46)
[2023-10-20 17:10] LABS: Glucose,Whole Blood 118 mg/dL (70-110)
[2023-10-20 20:41] LABS: Glucose,Whole Blood 129 mg/dL (70-110)
[2023-10-21 06:19] LABS: HCT 36.3 % (34.0-46.0); HGB 11.6 gm/dL (11.4-16.0); MCH 29.6 pg (25.0-35.0); MCV 92.4 fL (80.0-100.0); Mean Platelet Volume 7.5; Platelet Count 164 k/uL (150-450); RBC 3.93 m/uL (3.80-5.40); RDW 12.6 % (11.5-15.5)
[2023-10-21 06:33] LABS: African American GFR (CKD) >90 (>60 ml/min/1.73 sqM); Anion Gap 5 mmol/L; Blood Urea Nitrogen 7 mg/dL (7-17); Calcium 8.8 mg/dL (8.4-10.2); Carbon Dioxide 23 mmol/L (22-30); Chloride 105 mmol/L (98-107); Glucose 127 mg/dL (74-99); Non-African American GFR(CKD) >90 (>60 ml/min/1.73 sqM); Potassium 3.7 mmol/L (3.5-5.1); Sodium 133 mmol/L (137-145)
[2023-10-21 06:51] LABS: Glucose,Whole Blood 139 mg/dL (70-110)
--- NOTE | 2023-10-21 07:25 | P.PN ---
Subjective Progress Note Date: 10/21/23 Principal diagnosis: Coronary artery disease/left main disease with previous PCI on chronic Plavix, bilateral internal carotid stenosis 50 to 69%. History of hypertension, hyperli pidemia, type 2 diabetes, previous tobacco dependence and family history of coronary artery disease The patient was seen and examined this morning sitting up in a chair about to eat breakfast. Denies any further chest pain, denies shortness of breath, does complain of some left sided back pain which she attributes to sleeping in such an uncomfortable bed. She has able to spend time with in her who was made hospice. She is very teary-eyed when talking about him and is concerned about having surgery during what might be his demise. Remains in sinus rhythm, hemodynamically stable although hypertensive. The patient was seen yesterday by Dr. Schmitt with recommendations for surgery, however he is going to reevaluate every day as to timing of surgery due to patient's concern over her 's current poor health status. No other new concerns. Objective - Vital Signs Vital signs: Vital Signs Temp 98 F 10/21/23 04:00 Pulse 75 10/21/23 04:00 Resp 16 10/21/23 04:00 BP 160/81 10/21/23 04:00 Pulse Ox 98 10/21/23 04:00 FiO2 Intake & Output 10/20/23 10/21/23 10/21/23 18:59 06:59 18:59 Intake Total 500 240 Balance 500 240 Weight 59.1 kg Intake: Oral 500 240 Other: Voiding Method Toilet Toilet # Voids 3 1 - Exam CONSTITUTIONAL: Appears comfortable, cooperative, no acute distress RESPIRATORY: Lungs sounds diminished bilaterally. Respirations even, nonlabored. Currently on room air with oxygen saturation 98%. Able to achieve 1000 mL on incentive spirometry. Strong cough. CARDIOVASCULAR: S1, S2 present. Regular rate and rhythm, sinus rhythm on telemetry. Palpable peripheral pulses bilaterally. No edema present. No calf pain or tenderness noted GASTROINTESTINAL: Abdomen soft, nontender, nondistended. Active bowel sounds present 4 quadrants. Tolerating diet. GENITOURINARY: Continues to void INTEGUMENTARY: Skin is warm and dry NEUROLOGIC: Cranial nerves II through XII intact MUSKULOSKELETAL: Able to move all extremities, strength equal bilaterally, gait normal PSYCHIATRIC: Alert and oriented to person place and time, appropriate affect, intact judgment and insight - Labs CBC & Chem 7: 10/21/23 05:58 10/21/23 05:58 Labs: Abnormal Lab Results - Last 24 Hours (Table) 10/20/23 10/20/23 10/20/23 Range/Units 04:14 17:08 20:39 Sodium (137-145) mmol/L Glucose (74-99) mg/dL POC Glucose (mg/dL) 118 H 129 H (70-110) mg/dL HDL Cholesterol 39.10 L (40.00-60.00) mg/dL 10/21/23 10/21/23 Range/Units 05:58 06:49 Sodium 133 L (137-145) mmol/L Glucose 127 H (74-99) mg/dL POC Glucose (mg/dL) 139 H (70-110) mg/dL HDL Cholesterol (40.00-60.00) mg/dL Microbiology - Last 24 Hours (Table) 10/19/23 16:00 Nasal Screen MRSA/MSSA - Final Nasal Swab Assessment and Plan Assessment: Coronary artery disease with previous PCI, on chronic Plavix, last dose 10/19/23 Chest pain, secondary to above Bilateral internal carotid stenosis 50 to 69% History of hypertension Hyperlipidemia, treated Type 2 diabetes, hemoglobin A1c 6.2% Previous tobacco dependence, FEV1 78% of predicted Family history of coronary artery disease Plan: Continue to maximize medical therapy with aspirin, statin, beta-leo. Needs tighter blood pressure control, however would want patient off CESILIA/ARB for 48 hours preoperative to reduce risk of vasoplegia Continue to hold Plavix, patient needs to be off Plavix for 7 days prior to surgical intervention Increase activity, ambulate as tolerated Encourage incentive spirometry use Aggressive risk factor management Medical management of other comorbidities per internal medicine, cardiology Timing of surgery to be determined
[2023-10-21] MEDS: amLODIPine 5 MG TAB PO SCH (09:01)
--- NOTE | 2023-10-21 09:06 | P.PN ---
Subjective Progress Note Date: 10/21/23 HPI: [This lady has hypertension hyperlipidemia type 2 diabetes previous stenting of circumflex marginal. She also has developed chest pain and has an abnormal stress test cardiac cath revealed left main disease in addition to stenosis in the mid LAD as well as in the mid circumflex. Advised multivessel bypass discussed with the Dr. Schmitt. Patient's unfortunately is not doing well he is in hospice. She is also on Plavix and surgery hopefully will be performed on Tuesday or so. Hemodynamically stable same medical regimen platelet count has improved]. PHYSICIAL EXAM: [Vitals are stable no JVD S1-S2 heard normally short systolic murmur clear lungs abdomen and lower EXTR exam is unremarkable]. IMPRESSION: 1. [CAD with significant progression with left main disease as well]. 2. [Benign hypertension]. 3. [Type 2 diabetes]. 4. [Hypercholesterolemia]. 5. []. RECOMMENDATIONS: [Continue current medications and aortocoronary bypass surgery hopefully on Tuesday.]. Objective - Vital Signs Vital signs: Vital Signs Temp 98 F 10/21/23 04:00 Pulse 75 10/21/23 04:00 Resp 16 10/21/23 04:00 BP 160/81 10/21/23 04:00 Pulse Ox 98 10/21/23 04:00 FiO2 Intake & Output 10/20/23 10/21/23 10/21/23 18:59 06:59 18:59 Intake Total 500 240 Balance 500 240 Weight 59.1 kg Intake: Oral 500 240 Other: Voiding Method Toilet Toilet # Voids 3 1 - Labs CBC & Chem 7: 10/21/23 05:58 10/21/23 05:58 Labs: Abnormal Lab Results - Last 24 Hours (Table) 10/20/23 10/20/23 10/20/23 Range/Units 04:14 17:08 20:39 Sodium (137-145) mmol/L Glucose (74-99) mg/dL POC Glucose (mg/dL) 118 H 129 H (70-110) mg/dL HDL Cholesterol 39.10 L (40.00-60.00) mg/dL 10/21/23 10/21/23 Range/Units 05:58 06:49 Sodium 133 L (137-145) mmol/L Glucose 127 H (74-99) mg/dL POC Glucose (mg/dL) 139 H (70-110) mg/dL HDL Cholesterol (40.00-60.00) mg/dL Microbiology - Last 24 Hours (Table) 10/19/23 16:00 Nasal Screen MRSA/MSSA - Final Nasal Swab
--- NOTE | 2023-10-21 10:52 | P.PN ---
Subjective Progress Note Date: 10/21/23 This is a 73-year-old female patient with a known history of coronary artery disease and previous stent placement, diabetes mellitus, hypertension, hyperlipidemia, former smoker who presented to the emergency room on 10/17/2023 with complaints of chest pain. Echocardiogram revealed preserved left ventricu lar systolic function and no significant valvular abnormalities. Troponins were negative. She did undergo stress testing which revealed reversible ischemia and a subsequent cardiac catheterization was performed today and she was found to have 50% tandem lesions in the mid and distal RCA. Left main with a 70% ostial and proximal lesion, 60% mid LAD lesion and 60 to 70% mid circumflex lesion. Sh e was recommended urgent coronary artery bypass surgery. She is currently on a heparin drip. Normal saline at 75 MLS per hour. She is seen today in consultation on the regular medical floor. She is awake and alert in no acute distress. Sitting up in bed. Maintaining good O2 saturations in the 90s on room air. She denies any chest pain currently. No shortness of breath, cough or congestion. She is not on any inhalers or oxygen in the outpatient setting. White count 7.0. Hemoglobin 12.0. Platelets 191. Sodium 132. Potassium 3.7. Bicarb 22. BUN 9. Creatinine 0.71. Glucose 170. Chest x-ray revealed no acute cardiopulmonary process. Further workup is pending. The patient is seen today October 20, 2023 in follow-up in the intensive care unit. She was transferred there so she could be near her who is in the ICU and was placed in hospice yesterday. She is currently sitting up in a chair. Awake and alert in no acute distress. Maintaining O2 saturations in the 90s on room air. She denies any chest pain, shortness of breath cough or congestion. White count 5.9. Hemoglobin 11.3. Platelets 127. Sodium 134. Potassium 3.6. Bicarb 24. BUN 6. Creatinine 0.60. Hepatitis screen was negative. Revealed mild cardiomegaly and mild aortic valvular calcifications. Lung shaffer were clear. Heparin for DVT prophylaxis. Bedside spirometry revealed an FEV1 value of 1.48 L which is 78% of predicted. Inhaling approximately 1500 mL on the incentive spirometer. The patient is seen today October 21, 2023 in follow-up in the intensive care unit. She is currently up in a chair. Awake and alert in no acute distress. Maintaining O2 saturations in the 90s on room air. White count 6.0. Hemoglobin 11.6. Platelets 164. Sodium 133. Potassium 3.7. Bicarb 23. BUN 7. Creatinine 0.57. Glucose 127. Objective - Vital Signs Vital signs: Vital Signs Temp 98 F 10/21/23 04:00 Pulse 75 10/21/23 04:00 Resp 16 10/21/23 04:00 BP 160/81 10/21/23 04:00 Pulse Ox 98 10/21/23 04:00 FiO2 Intake & Output 10/20/23 10/21/23 10/21/23 18:59 06:59 18:59 Intake Total 500 240 Balance 500 240 Weight 59.1 kg Intake: Oral 500 240 Other: Voiding Method Toilet Toilet # Voids 3 1 - Exam GENERAL EXAM: Alert, 73-year-old female, on room air, up in a chair, in no apparent distress. HEAD: Normocephalic. EYES: Normal reaction of pupils, equal size. NOSE: Clear with pink turbinates. THROAT: No erythema or exudates. NECK: No masses, no JVD. CHEST: No chest wall deformity. LUNGS: Equal air entry with no crackles, wheeze, rhonchi or dullness. CVS: S1 and S2 normal with no audible murmur, regular rhythm. ABDOMEN: No hepatosplenomegaly, normal bowel sounds, no guarding or rigidity. SPINE: No scoliosis or deformity SKIN: No rashes CENTRAL NERVOUS SYSTEM: No focal deficits, tone is normal in all 4 extremities. EXTREMITIES: There is no peripheral edema. No clubbing, no cyanosis. Peripheral pulses are intact. - Labs CBC & Chem 7: 10/21/23 05:58 10/21/23 05:58 Labs: Abnormal Lab Results - Last 24 Hours (Table) 10/20/23 10/20/23 10/21/23 Range/Units 17:08 20:39 05:58 Sodium 133 L (137-145) mmol/L Glucose 127 H (74-99) mg/dL POC Glucose (mg/dL) 118 H 129 H (70-110) mg/dL 10/21/23 Range/Units 06:49 Sodium (137-145) mmol/L Glucose (74-99) mg/dL POC Glucose (mg/dL) 139 H (70-110) mg/dL Microbiology - Last 24 Hours (Table) 10/19/23 16:00 Nasal Screen MRSA/MSSA - Final Nasal Swab Assessment and Plan Assessment: Chest pain in a patient found to have significant triple-vessel disease and plan is for coronary artery bypass surgery History of coronary disease with previous stent placement of the circumflex 2015 Former smoker of approximately 15 years at 1 pack/day. FEV1 value 1.48 L or 78% of predicted Hypertension Hyperlipidemia Diabetes mellitus Plan: The patient was seen and evaluated Labs and medications reviewed Working well with the incentive spirometer Plan is for bypass surgery next week We will continue to follow I have personally seen and examined the patient, performed the documentation and the assessment and plan as written. Number of minutes spent on the visit: 10.
[2023-10-21 11:42] LABS: Glucose,Whole Blood 156 mg/dL (70-110)
--- NOTE | 2023-10-21 13:58 | P.PN ---
Subjective Progress Note Date: 10/20/23 10/18/23 This is a 73-year-old female presented to the ER with complaints of chest pain in a patient with family history of CAD, history of CAD with stents x 2, prior nicotine dependence quit 20 to 30 years ago, hypertension, hyperlipidemia, diabetes mellitus type 2. Reports she has been under enormous s tress as her patient is hospitalized, in the ICU. Reports she woke up yesterday morning with midsternal chest pain yesterday, worsened with deep inspiration lasting throughout the day,eventually radiated to her back. Chest pain is reproducible. Denies worsening with exertion. denies lightheadedness dizziness or focal deficits. Denies shortness of breath. Denies palpitations. EKG sinus rhythm with bundle branch block, chest x-ray nonacute, troponins negative x 3. Hematology, coagulation panels unremarkable. Magnesium 1.4, supplemented. Sodium 132, potassium 3.7, renal function stable. Evaluated by cardiology and scheduled for stress test. 10/19/2023 Lexiscan stress test reported small area of reversible ischemia in the apical septal wall, scheduled for cardiac catheterization this morning. Mild left chest pain. Family at bedside. Significant stress, as is in the ICU. Offered antianxiety medication, Xanax, patient declined. Afebrile. Maintaining O2 sats in the high 90s on room air. Labs pending. 10/20/2023 echo reported normal LV function, EF 55 to 60%, completed cardiac catheterization yesterday reporting ostial and proximal left main stenosis 70%, mid LAD stenosis 60% after the diagonal branch, posterolateral branch of the circumflex with 66% stenosis, OM branch stent from 9 years ago was widely patent, and mid and distal RCA lesions of 50%, recommended urgent CABG. Evaluated by cardiothoracic surgery, recommendations noted. Plavix remains on hold, sitting up in chair, telemetry sinus rhythm. Ongoing minimal chest pain, denies shortness of breath. Incentive spirometer up to 1500. maintaining O2 sats in the 90s on room air. Chest CT reported mildly enlarged heart, mild aortic valvular calcifications.Actively grieving, was made hospice last night, residing in the ICU-a couple rooms over from patient, facilitating her to visit. Currently being evaluated for CABG. afebrile, normal WBC, hemoglobin 11.3, platelets 127, electrolytes and renal function stable. Hepatitis screen negative. Objective - Vital Signs Vital signs: Vital Signs Temp 98.2 F 10/20/23 16:00 Pulse 72 10/20/23 16:00 Resp 18 10/20/23 16:00 BP 144/80 10/20/23 16:00 Pulse Ox 98 10/20/23 08:00 FiO2 Intake & Output 10/19/23 10/20/23 10/20/23 18:59 06:59 18:59 Intake Total 1068 1330 500 Output Total 22 Balance 1068 1308 500 Weight 57.3 kg Intake: IV 350 Intake, IV Titration 600 600 Amount Sodium Chloride 0.9% 1, 600 600 000 ml @ 75 mls/hr IV . [id number] ANAHI Rx#:[id number] Oral 118 730 500 Output: Urine 22 Other: Voiding Method Toilet Toilet # Voids 1 3 - Exam Gen: Alert and oriented x 3, sitting up in chair, teary-eyed ,NAD. Vitals r eviewed HEENT: normocephalic, atraumatic, conjunctivae normal Neck: supple, no JVD CV: RRR, systolic murmur. Pulses 2+ Lungs: normal effort, clear throughout Abd: soft, nontender, non distended Neuro: Cranial nerves II through XII grossly intact, no focal deficit Skin: warm and dry - Labs CBC & Chem 7: 10/21/23 05:58 10/21/23 05:58 Labs: Abnormal Lab Results - Last 24 Hours (Table) 10/19/23 10/19/23 10/20/23 Range/Units 11:43 21:06 04:14 RBC (3.80-5.40) m/uL Hgb (11.4-16.0) gm/dL Hct (34.0-46.0) % Plt Count (150-450) k/uL Sodium 134 L (137-145) mmol/L BUN 6 L (7-17) mg/dL Glucose 120 H (74-99) mg/dL POC Glucose (mg/dL) 116 H (70-110) mg/dL Hemoglobin A1c 6.2 H (<=6.0) % HDL Cholesterol 39.10 L (40.00-60.00) mg/dL 10/20/23 10/20/23 Range/Units 04:14 17:08 RBC 3.66 L (3.80-5.40) m/uL Hgb 11.3 L (11.4-16.0) gm/dL Hct 33.8 L (34.0-46.0) % Plt Count 127 L (150-450) k/uL Sodium (137-145) mmol/L BUN (7-17) mg/dL Glucose (74-99) mg/dL POC Glucose (mg/dL) 118 H (70-110) mg/dL Hemoglobin A1c (<=6.0) % HDL Cholesterol (40.00-60.00) mg/dL Microbiology - Last 24 Hours (Table) 10/19/23 16:00 Nasal Screen MRSA/MSSA - Final Nasal Swab Assessment and Plan Assessment: Chest pain, reproducible, troponins negative x 3, abnormal Lexiscan stress test, cardiac catheterization reported significant triple-vessel disease including 70% left main stenosis, Actively grieving, in ICU, transitioned into hospice last night. CAD history of stents x 2 Family history of CAD Prior nicotine dependence, quit 20 to 30 years ago Significant stress, patient is admitted in the ICU Hypertension Diabetes mellitus type 2 Plan: Continue on current medication regimen ,monitoring and symptomatic treatment. Aggressive pulmonary toileting. Continue holding Plavix. Maintain supportive care. Cardiothoracic surgery evaluating timing of surgery secondary to 's poor prognosis. The impression and plan of care has been dictated as directed. : I performed a history and examination of this patient, discussed the same with the dictator. I agree with the dictator's note ,documented as a scribe. Any additional findings or plans will be noted.
[2023-10-21 16:37] LABS: Glucose,Whole Blood 180 mg/dL (70-110)
[2023-10-21] MEDS: ACETAMINOPHEN TAB 325 MG TAB PO PRN (17:09)
--- NOTE | 2023-10-21 17:51 | P.PN ---
Subjective Progress Note Date: 10/21/23 10/18/23 This is a 73-year-old female presented to the ER with complaints of chest pain in a patient with family history of CAD, history of CAD with stents x 2, prior nicotine dependence quit 20 to 30 years ago, hypertension, hyperlipidemia, diabetes mellitus type 2. Reports she has been under enormous s tress as her patient is hospitalized, in the ICU. Reports she woke up yesterday morning with midsternal chest pain yesterday, worsened with deep inspiration lasting throughout the day,eventually radiated to her back. Chest pain is reproducible. Denies worsening with exertion. denies lightheadedness dizziness or focal deficits. Denies shortness of breath. Denies palpitations. EKG sinus rhythm with bundle branch block, chest x-ray nonacute, troponins negative x 3. Hematology, coagulation panels unremarkable. Magnesium 1.4, supplemented. Sodium 132, potassium 3.7, renal function stable. Evaluated by cardiology and scheduled for stress test. 10/19/2023 Lexiscan stress test reported small area of reversible ischemia in the apical septal wall, scheduled for cardiac catheterization this morning. Mild left chest pain. Family at bedside. Significant stress, as is in the ICU. Offered antianxiety medication, Xanax, patient declined. Afebrile. Maintaining O2 sats in the high 90s on room air. Labs pending. 10/20/2023 echo reported normal LV function, EF 55 to 60%, completed cardiac catheterization yesterday reporting ostial and proximal left main stenosis 70%, mid LAD stenosis 60% after the diagonal branch, posterolateral branch of the circumflex with 66% stenosis, OM branch stent from 9 years ago was widely patent, and mid and distal RCA lesions of 50%, recommended urgent CABG. Evaluated by cardiothoracic surgery, recommendations noted. Plavix remains on hold, sitting up in chair, telemetry sinus rhythm. Ongoing minimal chest pain, denies shortness of breath. Incentive spirometer up to 1500. maintaining O2 sats in the 90s on room air. Chest CT reported mildly enlarged heart, mild aortic valvular calcifications.Actively grieving, was made hospice last night, residing in the ICU-a couple rooms over from patient, facilitating her to visit. Currently being evaluated for CABG. afebrile, normal WBC, hemoglobin 11.3, platelets 127, electrolytes and renal function stable. Hepatitis screen negative. 10/21/2023 hemodynamically stable. Denies chest pain, palpitations or shortness of breath. Maintaining O2 sats in the 90s on room air. Afebrile, normal WBC. Hemoglobin 11.6, platelets 164, electrolytes within normal limits, bicarb 23, BUN 7, creatinine 0.57. Blood sugars controlled. CABG date not yet set. Patient's continues on hospice in the ICU. Objective - Vital Signs Vital signs: Vital Signs Temp 98 F 10/21/23 04:00 Pulse 75 10/21/23 04:00 Resp 16 10/21/23 04:00 BP 160/81 10/21/23 04:00 Pulse Ox 98 10/21/23 04:00 FiO2 Intake & Output 10/20/23 10/21/23 10/21/23 18:59 06:59 18:59 Intake Total 500 240 Balance 500 240 Weight 59.1 kg Intake: Oral 500 240 Other: Voiding Method Toilet Toilet Toilet # Voids 3 1 - Exam Gen: Alert and oriented x 3, sitting up in chair, teary-eyed ,NAD. Vitals reviewed HEENT: normocephalic, atraumatic, conjunctivae normal Neck: supple, no JVD CV: RRR, systolic murmur. Pulses 2+ Lungs: normal effort, clear throughout Abd: soft, nontender, non distended Neuro: Cranial nerves II through XII grossly intact, no focal deficit Skin: warm and dry - Labs CBC & Chem 7: 10/21/23 05:58 10/21/23 05:58 Labs: Abnormal Lab Results - Last 24 Hours (Table) 10/20/23 10/21/23 10/21/23 Range/Units 20:39 05:58 06:49 Sodium 133 L (137-145) mmol/L Glucose 127 H (74-99) mg/dL POC Glucose (mg/dL) 129 H 139 H (70-110) mg/dL 10/21/23 10/21/23 Range/Units 11:40 16:34 Sodium (137-145) mmol/L Glucose (74-99) mg/dL POC Glucose (mg/dL) 156 H 180 H (70-110) mg/dL Microbiology - Last 24 Hours (Table) 10/19/23 16:00 Nasal Screen MRSA/MSSA - Final Nasal Swab Assessment and Plan Assessment: Chest pain, reproducible, troponins negative x 3, abnormal Lexiscan stress test, cardiac catheterization reported significant triple-vessel disease, left main, LAD, circumflex. Actively grieving, in ICU, transitioned into hospice last night. CAD history of stents x 2 Family history of CAD Prior nicotine dependence, quit 20 to 30 years ago Significant stress, patient is admitted in the ICU Hypertension Diabetes mellitus type 2 Plan: Continue on current medication regimen ,monitoring and symptomatic treatment. Aggressive pulmonary toileting, incentive spirometer reinforced. Continue holding Plavix. Maintain supportive care. Patient is actively grieving -cardiothoracic surgery evaluating timing of surgery secondary to 's poor prognosis. The impression and plan of care has been dictated as directed. : I performed a history and examination of this patient, discussed the same with the dictator. I agree with the dictator's note ,documented as a scribe. Any additional findings or plans will be noted.
[2023-10-21 21:17] LABS: Glucose,Whole Blood 177 mg/dL (70-110)
[2023-10-21] MEDS: SENNOSIDES-DOCUSATE SODIUM 1 EACH TAB PO SCH (21:17)
[2023-10-22 06:47] LABS: Glucose,Whole Blood 132 mg/dL (70-110)
--- NOTE | 2023-10-22 07:22 | P.PN ---
Subjective Progress Note Date: 10/22/23 Principal diagnosis: Coronary artery disease/left main disease with previous PCI on chronic Plavix, bilateral internal carotid stenosis 50 to 69%. History of hypertension, hyperli pidemia, type 2 diabetes, previous tobacco dependence and family history of coronary artery disease The patient was seen and examined this morning sitting up in a chair about to eat breakfast. Denies any further chest pain, denies shortness of breath, does complain of some left sided back pain which she attributes to sleeping in such an uncomfortable bed. She has able to spend time with in her who was made hospice and was started on morphine drip this morning. She is very teary- eyed when talking about him and is concerned about having surgery during what might be his demise. Remains in sinus rhythm, hemodynamically stable. The patient was seen by Dr. Schmitt with recommendations for surgery, at this time we are tentatively planning on surgery Tuesday, however he is going to reevaluate every day due to patient's concern over her 's current poor health status. No other new concerns. Objective - Vital Signs Vital signs: Vital Signs Temp 97.7 F 10/22/23 04:00 Pulse 67 10/22/23 04:00 Resp 16 10/22/23 04:00 BP 139/65 10/22/23 04:00 Pulse Ox 94 L 10/22/23 04:00 FiO2 Intake & Output 10/21/23 10/22/23 10/22/23 18:59 06:59 18:59 Intake Total 600 Balance 600 Weight 58.06 kg Intake: Oral 600 Other: Voiding Method Toilet Toilet # Voids 3 2 - Exam CONSTITUTIONAL: Appears comfortable, cooperative, no acute distress RESPIRATORY: Lungs sounds diminished bilaterally. Respirations even, nonlab ored. Currently on room air with oxygen saturation 94%. Able to achieve 1000- 1500 mL on incentive spirometry. Strong cough. CARDIOVASCULAR: S1, S2 present. Regular rate and rhythm, sinus rhythm on telemetry. Palpable peripheral pulses bilaterally. No edema present. No calf pain or tenderness noted GASTROINTESTINAL: Abdomen soft, nontender, nondistended. Active bowel sounds present 4 quadrants. Tolerating diet. GENITOURINARY: Continues to void INTEGUMENTARY: Skin is warm and dry NEUROLOGIC: Cranial nerves II through XII intact MUSKULOSKELETAL: Able to move all extremities, strength equal bilaterally, gait normal PSYCHIATRIC: Alert and oriented to person place and time, appropriate affect, intact judgment and insight - Labs CBC & Chem 7: 10/21/23 05:58 10/21/23 05:58 Labs: Abnormal Lab Results - Last 24 Hours (Table) 10/21/23 10/21/23 10/21/23 Range/Units 11:40 16:34 21:16 POC Glucose (mg/dL) 156 H 180 H 177 H (70-110) mg/dL 10/22/23 Range/Units 06:46 POC Glucose (mg/dL) 132 H (70-110) mg/dL Assessment and Plan Assessment: Coronary artery disease with previous PCI, on chronic Plavix, last dose 10/19/23 Chest pain, secondary to above Bilateral internal carotid stenosis 50 to 69% History of hypertension Hyperlipidemia, treated Type 2 diabetes, hemoglobin A1c 6.2% Previous tobacco dependence, FEV1 78% of predicted Family history of coronary artery disease Plan: Continue to maximize medical therapy with aspirin, statin, beta-leo. Needs tighter blood pressure control, however would want patient off CESILIA/ARB for 48 hours preoperative to reduce risk of vasoplegia Continue to hold Plavix, patient needs to be off Plavix for 7 days prior to surgical intervention Increase activity, ambulate as tolerated Encourage incentive spirometry use Aggressive risk factor management Medical management of other comorbidities per internal medicine, cardiology Tentatively anticipate surgery Tuesday, but will reevaluate every day based on condition of the patient's
--- NOTE | 2023-10-22 11:22 | P.PN ---
Subjective Progress Note Date: 10/22/23 This is a 73-year-old female patient with a known history of coronary artery disease and previous stent placement, diabetes mellitus, hypertension, hyperlipidemia, former smoker who presented to the emergency room on 10/17/2023 with complaints of chest pain. Echocardiogram revealed preserved left ventricu lar systolic function and no significant valvular abnormalities. Troponins were negative. She did undergo stress testing which revealed reversible ischemia and a subsequent cardiac catheterization was performed today and she was found to have 50% tandem lesions in the mid and distal RCA. Left main with a 70% ostial and proximal lesion, 60% mid LAD lesion and 60 to 70% mid circumflex lesion. Sh e was recommended urgent coronary artery bypass surgery. She is currently on a heparin drip. Normal saline at 75 MLS per hour. She is seen today in consultation on the regular medical floor. She is awake and alert in no acute distress. Sitting up in bed. Maintaining good O2 saturations in the 90s on room air. She denies any chest pain currently. No shortness of breath, cough or congestion. She is not on any inhalers or oxygen in the outpatient setting. White count 7.0. Hemoglobin 12.0. Platelets 191. Sodium 132. Potassium 3.7. Bicarb 22. BUN 9. Creatinine 0.71. Glucose 170. Chest x-ray revealed no acute cardiopulmonary process. Further workup is pending. The patient is seen today October 20, 2023 in follow-up in the intensive care unit. She was transferred there so she could be near her who is in the ICU and was placed in hospice yesterday. She is currently sitting up in a chair. Awake and alert in no acute distress. Maintaining O2 saturations in the 90s on room air. She denies any chest pain, shortness of breath cough or congestion. White count 5.9. Hemoglobin 11.3. Platelets 127. Sodium 134. Potassium 3.6. Bicarb 24. BUN 6. Creatinine 0.60. Hepatitis screen was negative. Revealed mild cardiomegaly and mild aortic valvular calcifications. Lung shaffer were clear. Heparin for DVT prophylaxis. Bedside spirometry revealed an FEV1 value of 1.48 L which is 78% of predicted. Inhaling approximately 1500 mL on the incentive spirometer. The patient is seen today October 21, 2023 in follow-up in the intensive care unit. She is currently up in a chair. Awake and alert in no acute distress. Maintaining O2 saturations in the 90s on room air. White count 6.0. Hemoglobin 11.6. Platelets 164. Sodium 133. Potassium 3.7. Bicarb 23. BUN 7. Creatinine 0.57. Glucose 127. The patient is seen today October 22, 2023 in follow-up in the intensive care unit. She is sitting up in a chair. Awake and alert in no acute distress. Continues to maintain good O2 saturations in the 90s on room air. Glucose 132. Continues to work with the incentive spirometer. She remains on heparin for DVT prophylaxis. Objective - Vital Signs Vital signs: Vital Signs Temp 98.5 F 10/22/23 08:00 Pulse 73 10/22/23 08:00 Resp 18 10/22/23 08:00 BP 139/54 10/22/23 08:00 Pulse Ox 97 10/22/23 08:00 FiO2 Intake & Output 10/21/23 10/22/23 10/22/23 18:59 06:59 18:59 Intake Total 600 Balance 600 Weight 58.06 kg Intake: Oral 600 Other: Voiding Method Toilet Toilet Toilet # Voids 3 2 - Exam GENERAL EXAM: Alert, pleasant 73-year-old female, on room air, up in a chair, in no distress. HEAD: Normocephalic. EYES: Normal reaction of pupils, equal size. NOSE: Clear with pink turbinates. THROAT: No erythema or exudates. NECK: No masses, no JVD. CHEST: No chest wall deformity. LUNGS: Equal air entry with no crackles, wheeze, rhonchi or dullness. CVS: S1 and S2 normal with no audible murmur, regular rhythm. ABDOMEN: No hepatosplenomegaly, normal bowel sounds, no guarding or rigidity. SPINE: No scoliosis or deformity SKIN: No rashes CENTRAL NERVOUS SYSTEM: No focal deficits, tone is normal in all 4 extremities. EXTREMITIES: There is no peripheral edema. No clubbing, no cyanosis. Pe ripheral pulses are intact. - Labs CBC & Chem 7: 10/21/23 05:58 10/21/23 05:58 Labs: Abnormal Lab Results - Last 24 Hours (Table) 10/21/23 10/21/23 10/21/23 Range/Units 11:40 16:34 21:16 POC Glucose (mg/dL) 156 H 180 H 177 H (70-110) mg/dL 10/22/23 Range/Units 06:46 POC Glucose (mg/dL) 132 H (70-110) mg/dL Assessment and Plan Assessment: Chest pain in a patient found to have significant triple-vessel disease and plan is for coronary artery bypass surgery History of coronary disease with previous stent placement of the circumflex 2014 Former smoker of approximately 15 years at 1 pack/day. FEV1 value 1.48 L or 78% of predicted Hypertension Hyperlipidemia Diabetes mellitus Plan: The patient was seen and evaluated Medications reviewed Plan is for bypass surgery possibly October 26, 2023 Remains stable and on room air We will continue to follow I have personally seen and examined the patient, performed the documentation and the assessment and plan as written. Number of minutes spent on the visit: 10.
[2023-10-22 11:41] LABS: Glucose,Whole Blood 124 mg/dL (70-110)
[2023-10-22 16:46] LABS: Glucose,Whole Blood 119 mg/dL (70-110)
--- NOTE | 2023-10-22 18:11 | P.PN ---
Subjective Progress Note Date: 10/22/23 HPI: [This lady has hypertension hyperlipidemia type 2 diabetes previous stenting of circumflex marginal. She also has developed chest pain and has an abnormal stress test cardiac cath revealed left main disease in addition to stenosis in the mid LAD as well as in the mid circumflex. Advised multivessel bypass discussed with the Dr. Schmitt. Patient's unfortunately is not doing well he is in hospice. She is also on Plavix and surgery hopefully will be performed on Tuesday or so. Progress note 10/22/2023 Patient is doing well from cardiovascular standpoint. No reported chest pain chest pressure at this time. Hemodynamically stable on current medical regimen. PHYSICIAL EXAM: [Vitals are stable no JVD S1-S2 heard normally short systolic murmur clear lungs abdomen and lower EXTR exam is unremarkable]. IMPRESSION: 1. [CAD with significant progression with left main disease as well]. 2. [Benign hypertension]. 3. [Type 2 diabetes]. 4. [Hypercholesterolemia]. RECOMMENDATIONS: [Continue current medications and aortocoronary bypass surgery hopefully on Tuesday.]. Objective - Vital Signs Vital signs: Vital Signs Temp 98.4 F 10/22/23 16:00 Pulse 77 10/22/23 16:00 Resp 16 10/22/23 16:00 BP 128/65 10/22/23 16:00 Pulse Ox 100 10/22/23 16:00 FiO2 Intake & Output 10/21/23 10/22/23 10/22/23 18:59 06:59 18:59 Intake Total 600 300 Balance 600 300 Weight 58.06 kg Intake: Oral 600 300 Other: Voiding Method Toilet Toilet Toilet # Voids 3 2 2 - Labs CBC & Chem 7: 10/21/23 05:58 10/21/23 05:58 Labs: Abnormal Lab Results - Last 24 Hours (Table) 10/21/23 10/22/23 10/22/23 Range/Units 21:16 06:46 11:39 POC Glucose (mg/dL) 177 H 132 H 124 H (70-110) mg/dL 10/22/23 Range/Units 16:44 POC Glucose (mg/dL) 119 H (70-110) mg/dL
[2023-10-22 21:05] LABS: Glucose,Whole Blood 130 mg/dL (70-110)
--- NOTE | 2023-10-23 05:21 | P.PN ---
Subjective Progress Note Date: 10/23/23 HPI: [This lady has hypertension hyperlipidemia type 2 diabetes previous stenting of circumflex marginal. She also has developed chest pain and has an abnormal stress test cardiac cath revealed left main disease in addition to stenosis in the mid LAD as well as in the mid circumflex. Advised multivessel bypass discussed with the Dr. Schmitt. Patient's unfortunately is not doing well he is in hospice. She is also on Plavix and surgery hopefully will be performed on Tuesday or so. Progress note 10/22/2023 Patient is doing well from cardiovascular standpoint. No reported chest pain chest pressure at this time. Hemodynamically stable on current medical regimen. 10/23/23 Patient seen and examined at bedside this a.m. Patient denies any chest pain chest pressure. Patient is hemodynamically stable. PHYSICIAL EXAM: [Vitals are stable no JVD S1-S2 heard normally short systolic murmur clear lungs abdomen and lower EXTR exam is unremarkable]. IMPRESSION: 1. [CAD with significant progression with left main disease as well]. 2. [Benign hypertension]. 3. [Type 2 diabetes]. 4. [Hypercholesterolemia]. RECOMMENDATIONS: Continue current cardiac medications without any changes Tentative plan to have CT surgery on Tuesday Objective - Vital Signs Vital signs: Vital Signs Temp 98.4 F 10/23/23 04:00 Pulse 57 L 10/23/23 04:00 Resp 16 10/23/23 04:00 BP 143/60 10/23/23 04:00 Pulse Ox 98 10/23/23 04:00 FiO2 Intake & Output 10/22/23 10/22/23 10/23/23 06:59 18:59 06:59 Intake Total 300 Balance 300 Weight 58.06 kg Intake: Oral 300 Other: Voiding Method Toilet Toilet Toilet # Voids 2 2 1 - Labs CBC & Chem 7: 10/21/23 05:58 10/21/23 05:58 Labs: Abnormal Lab Results - Last 24 Hours (Table) 10/22/23 10/22/23 10/22/23 Range/Units 06:46 11:39 16:44 POC Glucose (mg/dL) 132 H 124 H 119 H (70-110) mg/dL 10/22/23 Range/Units 21:03 POC Glucose (mg/dL) 130 H (70-110) mg/dL
[2023-10-23 06:28] LABS: Glucose,Whole Blood 123 mg/dL (70-110)
--- NOTE | 2023-10-23 07:20 | P.PN ---
Subjective Progress Note Date: 10/23/23 Principal diagnosis: Coronary artery disease/left main disease with previous PCI on chronic Plavix, bilateral internal carotid stenosis 50 to 69%. History of hypertension, hyperli pidemia, type 2 diabetes, previous tobacco dependence and family history of coronary artery disease The patient was seen and examined this morning sitting up in a chair about to eat breakfast. Denies any chest pain, denies shortness of breath, does complain of some left sided back pain which she attributes to sleeping in such an uncomfortable bed but which is a little better today. She has able to spend time with in her who was made hospice. She is very teary-eyed when talking about him and is concerned about having surgery during what might be his demise. Remains in sinus rhythm, hemodynamically stable. The patient was seen by Dr. Schmitt with recommendations for surgery, at this time we are tentatively planning on surgery Tuesday, however he is going to reevaluate every day due to patient's concern over her 's current poor health status. No other new concerns. Objective - Vital Signs Vital signs: Vital Signs Temp 98.4 F 10/23/23 04:00 Pulse 57 L 10/23/23 04:00 Resp 16 10/23/23 04:00 BP 143/60 10/23/23 04:00 Pulse Ox 98 10/23/23 04:00 FiO2 Intake & Output 10/22/23 10/23/23 10/23/23 18:59 06:59 18:59 Intake Total 300 Balance 300 Weight 58.513 kg Intake: Oral 300 Other: Voiding Method Toilet Toilet # Voids 2 1 - Exam CONSTITUTIONAL: Appears comfortable, cooperative, no acute distress RESPIRATORY: Lungs sounds diminished bilaterally. Respirations even, nonlabored. Currently on room air with oxygen saturation 98%. Able to achieve 1251-8911 mL on incentive spirometry. Strong cough. CARDIOVASCULAR: S1, S2 present. Regular rate and rhythm, sinus rhythm on telemetry. Palpable peripheral pulses bilaterally. No edema present. No calf pain or tenderness noted GASTROINTESTINAL: Abdomen soft, nontender, nondistended. Active bowel sounds present 4 quadrants. Tolerating diet. GENITOURINARY: Continues to void INTEGUMENTARY: Skin is warm and dry NEUROLOGIC: Cranial nerves II through XII intact MUSKULOSKELETAL: Able to move all extremities, strength equal bilaterally, gait normal PSYCHIATRIC: Alert and oriented to person place and time, appropriate affect, intact judgment and insight - Allied health notes Allied health notes reviewed: nursing - Labs CBC & Chem 7: 10/21/23 05:58 10/21/23 05:58 Labs: Abnormal Lab Results - Last 24 Hours (Table) 10/22/23 10/22/23 10/22/23 Range/Units 11:39 16:44 21:03 POC Glucose (mg/dL) 124 H 119 H 130 H (70-110) mg/dL 10/23/23 Range/Units 06:27 POC Glucose (mg/dL) 123 H (70-110) mg/dL Assessment and Plan Assessment: Coronary artery disease with previous PCI, on chronic Plavix, last dose 10/19/23 Chest pain, secondary to above Bilateral internal carotid stenosis 50 to 69% History of hypertension Hyperlipidemia, treated Type 2 diabetes, hemoglobin A1c 6.2% Previous tobacco dependence, FEV1 78% of predicted Family history of coronary artery disease Plan: Continue to maximize medical therapy with aspirin, statin, beta-leo. Needs tighter blood pressure control, however would want patient off CESILIA/ARB for 48 hours preoperative to reduce risk of vasoplegia Continue to hold Plavix, patient needs to be off Plavix for 7 days prior to surgical intervention, last dose 10/19/23 Increase activity, ambulate as tolerated Encourage incentive spirometry use Aggressive risk factor management Medical management of other comorbidities per internal medicine, cardiology Tentatively anticipate surgery Tuesday, but will reevaluate every day based on condition of the patient's
--- NOTE | 2023-10-23 11:12 | P.PN ---
Subjective Progress Note Date: 10/23/23 Principal diagnosis: Coronary artery disease. This is a 73-year-old female patient with a known history of coronary artery disease and previous stent placement, diabetes mellitus, hypertension, hyperlipidemia, former smoker who presented to the emergency room on 10/17/2023 with complaints of chest pain. Echocardiogram revealed preserved left ventricular systolic function and no significant valvular abnormalities. Troponins were negative. She did undergo stress testing which revealed reversible ischemia and a subsequent cardiac catheterization was performed today and she was found to have 50% tandem lesions in the mid and distal RCA. Left main with a 70% ostial and proximal lesion, 60% mid LAD lesion and 60 to 70% mid circumflex lesion. She was recommended urgent coronary artery bypass surgery. She is currently on a heparin drip. Normal saline at 75 MLS per hour. She is seen today in consultation on the regular medical floor. She is awake and alert in no acute distress. Sitting up in bed. Maintaining good O2 saturations in the 90s on room air. She denies any chest pain currently. No shortness of breath, cough or congestion. She is not on any inhalers or oxygen in the outpatient setting. White count 7.0. Hemoglobin 12.0. Platelets 191. Sodium 132. Potassium 3.7. Bicarb 22. BUN 9. Creatinine 0.71. Glucose 170. Chest x-ray revealed no acute cardiopulmonary process. Further workup is pending. The patient is seen today October 20, 2023 in follow-up in the intensive care unit. She was transferred there so she could be near her who is in the ICU and was placed in hospice yesterday. She is currently sitting up in a chair. Awake and alert in no acute distress. Maintaining O2 saturations in the 90s on room air. She denies any chest pain, shortness of breath cough or congestion. White count 5.9. Hemoglobin 11.3. Platelets 127. Sodium 134. Potassium 3.6. Bicarb 24. BUN 6. Creatinine 0.60. Hepatitis screen was negative. Revealed mild cardiomegaly and mild aortic valvular calcifications. Lung shaffer were clear. Heparin for DVT prophylaxis. Bedside spirometry revealed an FEV1 value of 1.48 L which is 78% of predicted. Inhaling approximately 1500 mL on the incentive spirometer. The patient is seen today October 21, 2023 in follow-up in the intensive care unit. She is currently up in a chair. Awake and alert in no acute distress. Maintaining O2 saturations in the 90s on room air. White count 6.0. Hemoglobin 11.6. Platelets 164. Sodium 133. Potassium 3.7. Bicarb 23. BUN 7. Creatinine 0.57. Glucose 127. The patient is seen today October 22, 2023 in follow-up in the intensive care unit. She is sitting up in a chair. Awake and alert in no acute distress. Continues to maintain good O2 saturations in the 90s on room air. Glucose 132. Continues to work with the incentive spirometer. She remains on heparin for DVT prophylaxis. Progress note dated October 23, 2023. The patient is seen today in room 259. She is on room air. No IV fluids. The patient will likely have open heart surgery this week, maybe on Tuesday. Her , is currently in hospice care, in the intensive care unit, but has not yet passed. The patient herself is doing very well. She has no specific complaints. She denies any shortness of breath, cough, wheezing, chest tightness, phlegm production, chest pain, chest pressure, palpitations, etc. No new labs today other than a glucose of 123. Objective - Vital Signs Vital signs: Vital Signs Temp 98.6 F 10/23/23 08:00 Pulse 76 10/23/23 08:00 Resp 16 10/23/23 08:00 BP 131/52 10/23/23 08:00 Pulse Ox 99 10/23/23 08:00 FiO2 Intake & Output 10/22/23 10/23/23 10/23/23 18:59 06:59 18:59 Intake Total 300 Balance 300 Weight 58.513 kg Intake: Oral 300 Other: Voiding Method Toilet Toilet Toilet # Voids 2 1 - Exam No acute distress, oriented 3. Room air saturation is 99%. HEENT examination is grossly unremarkable. Mucous membranes are moist. No oral lesions. Neck supple. Full range of motion. No adenopathy thyromegaly or neck vein distention. Cardiovascular examination reveals regular rhythm rate. S1-S2 normal. No S3 or S4. No discernible murmur noted. Heart rate is 76 bpm. Lungs reveal clear breath sounds. Breath sounds are equal bilaterally. No adventitious lung sounds including wheezes rhonchi or crackles. Abdomen soft bowel sounds are heard. No masses or tenderness. Extremities are intact. No cyanosis clubbing or edema. Skin is without rash or lesion. Neurologic examination is brief but nonfocal. - Labs CBC & Chem 7: 10/21/23 05:58 10/21/23 05:58 Labs: Abnormal Lab Results - Last 24 Hours (Table) 10/22/23 10/22/23 10/22/23 Range/Units 11:39 16:44 21:03 POC Glucose (mg/dL) 124 H 119 H 130 H (70-110) mg/dL 10/23/23 Range/Units 06:27 POC Glucose (mg/dL) 123 H (70-110) mg/dL Assessment and Plan Assessment: Chest pain in a patient found to have significant triple-vessel disease. History of coronary disease with previous stent placement of the circumflex 2015. Former smoker of approximately 15 years at 1 pack/day. FEV1 value 1.48 L or 78% of predicted. Hypertension. Hyperlipidemia. Diabetes mellitus. Plan: Plan dated October 23, 2023. The patient herself is doing very well. She denies any cardiac symptoms, or respiratory symptoms. She is waiting for surgery, which may occur on Tuesday. Her , is in room 261, and hospice care, i.e. comfort care. The patient's has not yet . Labs, x-rays, and medications are reviewed. We will continue to follow the patient. No additional recommendations are made. Prognosis is guarded. Time with Patient: Less than 30
[2023-10-23 11:35] LABS: Glucose,Whole Blood 102 mg/dL (70-110)
[2023-10-23 16:13] LABS: Glucose,Whole Blood 124 mg/dL (70-110)
[2023-10-23 20:14] LABS: Glucose,Whole Blood 166 mg/dL (70-110)
[2023-10-23 20:31] VITALS: RESP 16
[2023-10-24 06:47] LABS: Glucose,Whole Blood 130 mg/dL (70-110)
[2023-10-24 07:18] LABS: African American GFR (CKD) >90 (>60 ml/min/1.73 sqM); Anion Gap 6 mmol/L; Blood Urea Nitrogen 9 mg/dL (7-17); Calcium 9.1 mg/dL (8.4-10.2); Carbon Dioxide 25 mmol/L (22-30); Chloride 102 mmol/L (98-107); Glucose 117 mg/dL (74-99); Magnesium 1.6 mg/dL (1.6-2.3); Non-African American GFR(CKD) >90 (>60 ml/min/1.73 sqM); Potassium 3.8 mmol/L (3.5-5.1); Sodium 133 mmol/L (137-145)
--- NOTE | 2023-10-24 08:51 | P.PN ---
Subjective Progress Note Date: 10/24/23 Principal diagnosis: Coronary artery disease The patient is a pleasant 73-year-old female patient with coronary artery disease as well as hypertension and dyslipidemia who was diagnosed recently with severe symptomatic disease based on heart catheterization was performed by Dr. Flores and the initial plan is to undergo an open heart surgery/CABG this coming Tuesday but unfortunately the patient has been dealing with her who is not doing well. November 01, 2023 The patient was seen and evaluated this morning. She is asymptomatic. She is hemodynamically stable. She has been getting up and around with no cardiac symptoms of any chest pain or chest discomfort or shortness of breath. Currently she is on aspirin and she is on statin and she is on beta-leo. The initial plan is to undergo the open heart surgery this coming Tuesday but I think now the plan has changed for the patient tentatively to go home and have it done as an outpatient because she has been dealing with her who is not doing well. The examination is remarkable for regular rhythm with a systolic murmur and clear breathing sounds bilaterally and no edema was noted Assessment Coronary artery disease as described above Hypertension Dyslipidemia Plan Continue the current medical regimen Open heart surgery probably as an outpatient Objective - Vital Signs Vital signs: Vital Signs Temp 98.4 F 10/24/23 04:00 Pulse 64 10/24/23 04:00 Resp 16 10/24/23 04:00 BP 132/54 10/24/23 04:00 Pulse Ox 98 10/24/23 04:00 FiO2 Intake & Output 10/23/23 10/24/23 10/24/23 18:59 06:59 18:59 Weight 55.7 kg Other: Voiding Method Toilet Toilet # Voids 2 2 # Bowel Movements 1 1 - Labs CBC & Chem 7: 10/21/23 05:58 10/24/23 05:52 Labs: Abnormal Lab Results - Last 24 Hours (Table) 10/23/23 10/23/23 10/24/23 Range/Units 16:11 20:13 05:52 Sodium 133 L (137-145) mmol/L Glucose 117 H (74-99) mg/dL POC Glucose (mg/dL) 124 H 166 H (70-110) mg/dL 10/24/23 Range/Units 06:45 Sodium (137-145) mmol/L Glucose (74-99) mg/dL POC Glucose (mg/dL) 130 H (70-110) mg/dL
[2023-10-24 09:14] LABS: HCT 34.5 % (34.0-46.0); MCH 30.8 pg (25.0-35.0); MCV 96.3 fL (80.0-100.0); Mean Platelet Volume 8.2; Platelet Count 149 k/uL (150-450); RBC 3.59 m/uL (3.80-5.40); RDW 12.6 % (11.5-15.5); WBC 5.9 k/uL (3.8-10.6)
--- NOTE | 2023-10-24 09:46 | P.PN ---
Subjective Progress Note Date: 10/22/23 10/18/23 This is a 73-year-old female presented to the ER with complaints of chest pain in a patient with family history of CAD, history of CAD with stents x 2, prior nicotine dependence quit 20 to 30 years ago, hypertension, hyperlipidemia, diabetes mellitus type 2. Reports she has been under enormous s tress as her patient is hospitalized, in the ICU. Reports she woke up yesterday morning with midsternal chest pain yesterday, worsened with deep inspiration lasting throughout the day,eventually radiated to her back. Chest pain is reproducible. Denies worsening with exertion. denies lightheadedness dizziness or focal deficits. Denies shortness of breath. Denies palpitations. EKG sinus rhythm with bundle branch block, chest x-ray nonacute, troponins negative x 3. Hematology, coagulation panels unremarkable. Magnesium 1.4, supplemented. Sodium 132, potassium 3.7, renal function stable. Evaluated by cardiology and scheduled for stress test. 10/19/2023 Lexiscan stress test reported small area of reversible ischemia in the apical septal wall, scheduled for cardiac catheterization this morning. Mild left chest pain. Family at bedside. Significant stress, as is in the ICU. Offered antianxiety medication, Xanax, patient declined. Afebrile. Maintaining O2 sats in the high 90s on room air. Labs pending. 10/20/2023 echo reported normal LV function, EF 55 to 60%, completed cardiac catheterization yesterday reporting ostial and proximal left main stenosis 70%, mid LAD stenosis 60% after the diagonal branch, posterolateral branch of the circumflex with 66% stenosis, OM branch stent from 9 years ago was widely patent, and mid and distal RCA lesions of 50%, recommended urgent CABG. Evaluated by cardiothoracic surgery, recommendations noted. Plavix remains on hold, sitting up in chair, telemetry sinus rhythm. Ongoing minimal chest pain, denies shortness of breath. Incentive spirometer up to 1500. maintaining O2 sats in the 90s on room air. Chest CT reported mildly enlarged heart, mild aortic valvular calcifications.Actively grieving, was made hospice last night, residing in the ICU-a couple rooms over from patient, facilitating her to visit. Currently being evaluated for CABG. afebrile, normal WBC, hemoglobin 11.3, platelets 127, electrolytes and renal function stable. Hepatitis screen negative. 10/21/2023 hemodynamically stable. Denies chest pain, palpitations or shortness of breath. Maintaining O2 sats in the 90s on room air. Afebrile, normal WBC. Hemoglobin 11.6, platelets 164, electrolytes within normal limits, bicarb 23, BUN 7, creatinine 0.57. Blood sugars controlled. CABG date not yet set. Patient's continues on hospice in the ICU. 10/22/2023 Patient is in the MICU. Currently able to sit in the chair. Complains of back soreness. No complaints of chest pain or shortness of breath. No nausea vomiting or abdominal pain. Was able to ambulate in the room. Currently on room air. No fever no chills. No other acute overnight issues. CT surgery and cardiology and pulmonary is on board. No new laboratory data today. Current medications reviewed. Objective - Vital Signs Vital signs: Vital Signs Temp 98.5 F 10/22/23 08:00 Pulse 73 10/22/23 08:00 Resp 18 10/22/23 08:00 BP 139/54 10/22/23 08:00 Pulse Ox 97 10/22/23 08:00 FiO2 Intake & Output 10/21/23 10/22/23 10/22/23 18:59 06:59 18:59 Intake Total 600 Balance 600 Weight 58.06 kg Intake: Oral 600 Other: Voiding Method Toilet Toilet Toilet # Voids 3 2 - Exam - Exam Gen: Alert and oriented x 3, sitting up in chair, teary-eyed ,NAD. Vitals reviewed HEENT: normocephalic, atraumatic, conjunctivae normal Neck: supple, no JVD CV: RRR, systolic murmur. Pulses 2+ Lungs: normal effort, clear throughout Abd: soft, nontender, non distended Neuro: Cranial nerves II through XII grossly intact, no focal deficit Skin: warm and dry - Labs CBC & Chem 7: 10/24/23 05:52 10/24/23 05:52 Labs: Abnormal Lab Results - Last 24 Hours (Table) 10/21/23 10/21/23 10/21/23 Range/Units 11:40 16:34 21:16 POC Glucose (mg/dL) 156 H 180 H 177 H (70-110) mg/dL 10/22/23 Range/Units 06:46 POC Glucose (mg/dL) 132 H (70-110) mg/dL Assessment and Plan Assessment: Cardiac chest pain, troponins negative x 3, abnormal Lexiscan stress test, cardiac catheterization reported significant triple-vessel disease, left main, LAD, circumflex. Actively grieving, in ICU, transitioned into hospice last night. CAD history of stents x 2 Family history of CAD Prior nicotine dependence, quit 20 to 30 years ago Significant stress, patient is admitted in the ICU Hypertension Diabetes mellitus type 2 Plan: Continue on current medication regimen ,monitoring and symptomatic treatment. Aggressive pulmonary toileting, incentive spirometer reinforced. Continue holding Plavix. Maintain supportive care. Patient is actively grievin g -cardiothoracic surgery evaluating timing of surgery secondary to 's poor prognosis.
--- NOTE | 2023-10-24 09:48 | P.PN ---
Subjective Progress Note Date: 10/23/23 10/18/23 This is a 73-year-old female presented to the ER with complaints of chest pain in a patient with family history of CAD, history of CAD with stents x 2, prior nicotine dependence quit 20 to 30 years ago, hypertension, hyperlipidemia, diabetes mellitus type 2. Reports she has been under enormous s tress as her patient is hospitalized, in the ICU. Reports she woke up yesterday morning with midsternal chest pain yesterday, worsened with deep inspiration lasting throughout the day,eventually radiated to her back. Chest pain is reproducible. Denies worsening with exertion. denies lightheadedness dizziness or focal deficits. Denies shortness of breath. Denies palpitations. EKG sinus rhythm with bundle branch block, chest x-ray nonacute, troponins negative x 3. Hematology, coagulation panels unremarkable. Magnesium 1.4, supplemented. Sodium 132, potassium 3.7, renal function stable. Evaluated by cardiology and scheduled for stress test. 10/19/2023 Lexiscan stress test reported small area of reversible ischemia in the apical septal wall, scheduled for cardiac catheterization this morning. Mild left chest pain. Family at bedside. Significant stress, as is in the ICU. Offered antianxiety medication, Xanax, patient declined. Afebrile. Maintaining O2 sats in the high 90s on room air. Labs pending. 10/20/2023 echo reported normal LV function, EF 55 to 60%, completed cardiac catheterization yesterday reporting ostial and proximal left main stenosis 70%, mid LAD stenosis 60% after the diagonal branch, posterolateral branch of the circumflex with 66% stenosis, OM branch stent from 9 years ago was widely patent, and mid and distal RCA lesions of 50%, recommended urgent CABG. Evaluated by cardiothoracic surgery, recommendations noted. Plavix remains on hold, sitting up in chair, telemetry sinus rhythm. Ongoing minimal chest pain, denies shortness of breath. Incentive spirometer up to 1500. maintaining O2 sats in the 90s on room air. Chest CT reported mildly enlarged heart, mild aortic valvular calcifications.Actively grieving, was made hospice last night, residing in the ICU-a couple rooms over from patient, facilitating her to visit. Currently being evaluated for CABG. afebrile, normal WBC, hemoglobin 11.3, platelets 127, electrolytes and renal function stable. Hepatitis screen negative. 10/21/2023 hemodynamically stable. Denies chest pain, palpitations or shortness of breath. Maintaining O2 sats in the 90s on room air. Afebrile, normal WBC. Hemoglobin 11.6, platelets 164, electrolytes within normal limits, bicarb 23, BUN 7, creatinine 0.57. Blood sugars controlled. CABG date not yet set. Patient's continues on hospice in the ICU. 10/22/2023 Patient is in the MICU. Currently able to sit in the chair. Complains of back soreness. No complaints of chest pain or shortness of breath. No nausea vomiting or abdominal pain. Was able to ambulate in the room. Currently on room air. No fever no chills. No other acute overnight issues. CT surgery and cardiology and pulmonary is on board. No new laboratory data today. 10/23/2023 Patient is able to walk in the room. Awake alert and orient x 3. No chest pain or shortness of breath. Currently on room air. No nausea vomiting or abdominal pain or diarrhea. No other acute overnight issues. Cardiac surgery is planning for CABG tentatively on Tuesday. Patient's is also in the ICU and currently in hospice care. Laboratory data reviewed. Blood sugar is controlled. Current medications reviewed. Objective - Vital Signs Vital signs: Vital Signs Temp 98.6 F 10/23/23 08:00 Pulse 76 10/23/23 08:00 Resp 16 10/23/23 08:00 BP 131/52 10/23/23 08:00 Pulse Ox 99 10/23/23 08:00 FiO2 Intake & Output 10/22/23 10/23/23 10/23/23 18:59 06:59 18:59 Intake Total 300 Balance 300 Weight 58.513 kg Intake: Oral 300 Other: Voiding Method Toilet Toilet Toilet # Voids 2 1 - Exam - Exam Gen: Alert and oriented x 3, sitting up in chair, teary-eyed ,NAD. Vitals reviewed HEENT: normocephalic, atraumatic, conjunctivae normal Neck: supple, no JVD CV: RRR, systolic murmur. Pulses 2+ Lungs: normal effort, clear throughout Abd: soft, nontender, non distended Neuro: Cranial nerves II through XII grossly intact, no focal deficit Skin: warm and dry - Labs CBC & Chem 7: 10/24/23 05:52 10/24/23 05:52 Labs: Abnormal Lab Results - Last 24 Hours (Table) 10/22/23 10/22/23 10/23/23 Range/Units 16:44 21:03 06:27 POC Glucose (mg/dL) 119 H 130 H 123 H (70-110) mg/dL Assessment and Plan Assessment: Cardiac chest pain, troponins negative x 3, abnormal Lexiscan stress test, cardiac catheterization reported significant triple-vessel disease, left main, LAD, circumflex. Actively grieving, in ICU, transitioned into hospice last night. CAD history of stents x 2 Family history of CAD Prior nicotine dependence, quit 20 to 30 years ago Significant stress, patient is admitted in the ICU Hypertension Diabetes mellitus type 2 Plan: Continue on current medication regimen ,monitoring and symptomatic treatment. Aggressive pulmonary toileting, incentive spirometer reinforced. Continue holding Plavix. Continue with insulin sliding scale. Maintain supportive care. Patient is actively grieving -cardiothoracic surgery evaluating timing of surgery secondary to 's poor prognosis. Continue to monitor closely.
--- NOTE | 2023-10-24 09:56 | XR ---
EXAMINATION TYPE: XR chest 1V portable DATE OF EXAM: 10/24/2023 COMPARISON: 10/17/2023 INDICATION: Preop CABG TECHNIQUE: Single frontal view of the chest is obtained. FINDINGS: The heart size is normal. The pulmonary vasculature is normal. The lungs are clear. IMPRESSION: 1. No acute pulmonary process.
--- NOTE | 2023-10-24 10:00 | P.PN ---
Subjective Progress Note Date: 10/24/23 Principal diagnosis: Coronary artery disease/left main disease with previous PCI on chronic Plavix, bilateral internal carotid stenosis 50 to 69%. History of hypertension, hyperli pidemia, type 2 diabetes, previous tobacco dependence and family history of coronary artery disease. The patient was seen and examined in follow-up today October 24, 2023 at her bedside in the intensive care unit. She is currently sitting up to the bedside chair, is awake, alert, oriented x 3 and is in no acute apparent distress. Denies any complaints of chest pain or shortness of breath at this time, although complains of some lower back pain which she contributes to being less active and sitting in the chair. She remains hemodynamically stable and is currently on no inotropic or pressor support. Her is on hospice and is currently in the room across the dahl from her room. She is quite emotional about her and is concerned about having surgery on Tuesday not knowing her will make it to Tuesday. She is tentatively scheduled for coronary artery bypass grafting surgery on Thursday, October 26, 2023 to be performed by Dr. Schmitt. The surgery will be reevaluated according to her 's health status. Oxygen saturations are 98% on room air and she has been afebrile in the last 24 hours. Objective - Vital Signs Vital signs: Vital Signs Temp 98.4 F 10/24/23 04:00 Pulse 64 10/24/23 04:00 Resp 16 10/24/23 04:00 BP 132/54 10/24/23 04:00 Pulse Ox 98 10/24/23 04:00 FiO2 Intake & Output 10/23/23 10/24/23 10/24/23 18:59 06:59 18:59 Weight 55.7 kg Other: Voiding Method Toilet Toilet # Voids 2 2 # Bowel Movements 1 1 - Exam CONSTITUTIONAL: Appears comfortable, cooperative, no acute distress RESPIRATORY: Lungs sounds essentially clear throughout. Respirations symmetrical, nonlabored. Currently on room air with oxygen saturation 98%. Able to achieve 8805-8039 mL on her incentive spirometry. Strong cough. CARDIOVASCULAR: S1, S2 present. Regular rate and rhythm, sinus rhythm on telem etry. Palpable peripheral pulses bilaterally. No edema present. No calf pain or tenderness noted GASTROINTESTINAL: Abdomen soft, nontender, nondistended. Active bowel sounds present 4 quadrants. Tolerating diet. GENITOURINARY: Continues to void INTEGUMENTARY: Skin is warm and dry, no evidence of clubbing or cyanosis. NEUROLOGIC: Cranial nerves II through XII intact, no focal deficits. MUSKULOSKELETAL: Able to move all extremities, strength equal bilaterally, gait normal. PSYCHIATRIC: Alert and oriented to person place and time, appropriate affect, intact judgment and insight. - Allied health notes Allied health notes reviewed: nursing - Labs CBC & Chem 7: 10/24/23 05:52 10/24/23 05:52 Labs: Abnormal Lab Results - Last 24 Hours (Table) 10/23/23 10/23/23 10/24/23 Range/Units 16:11 20:13 05:52 RBC 3.59 L (3.80-5.40) m/uL Hgb 11.0 L (11.4-16.0) gm/dL Plt Count 149 L (150-450) k/uL Sodium (137-145) mmol/L Glucose (74-99) mg/dL POC Glucose (mg/dL) 124 H 166 H (70-110) mg/dL 10/24/23 10/24/23 Range/Units 05:52 06:45 RBC (3.80-5.40) m/uL Hgb (11.4-16.0) gm/dL Plt Count (150-450) k/uL Sodium 133 L (137-145) mmol/L Glucose 117 H (74-99) mg/dL POC Glucose (mg/dL) 130 H (70-110) mg/dL - Imaging and Cardiology Chest x-ray: report reviewed, image reviewed Assessment and Plan Assessment: Coronary artery disease with previous PCI, on chronic Plavix, last dose 10/19/23 Chest pain, secondary to above Bilateral internal carotid stenosis 50 to 69% History of hypertension Hyperlipidemia, treated Type 2 diabetes, hemoglobin A1c 6.2% Previous tobacco dependence, FEV1 78% of predicted Family history of coronary artery disease Plan: Continue to maximize medical therapy with aspirin, statin, and beta-leo. Needs tight blood pressure control, however would want patient off CESILIA/ARB for 48 hours preoperative to reduce risk of vasoplegia. Continue to hold Plavix, patient needs to be off Plavix for 7 days prior to surgical intervention, last dose 10/19/23. Increase activity, ambulate as tolerated. Out of bed for all meals. Encourage incentive spirometry use 10 times every hour while awake. Aggressive risk factor management. Medical management of other comorbidities per internal medicine, and cardiology. Tentatively anticipate surgery Tuesday, but will reevaluate every day based on condition of the patient's . More recommendations to follow based on patient's clinical course. Time with Patient: Greater than 30
[2023-10-24 12:21] VITALS: BP 134/58; TEMP 97.4
[2023-10-24 12:23] VITALS: BMI 23.2
--- NOTE | 2023-10-24 13:54 | P.PN ---
Subjective Progress Note Date: 10/24/23 This is a 73-year-old female patient with a known history of coronary artery disease and previous stent placement, diabetes mellitus, hypertension, hyperlipidemia, former smoker who presented to the emergency room on 10/17/2023 with complaints of chest pain. Echocardiogram revealed preserved left ventric ular systolic function and no significant valvular abnormalities. Troponins were negative. She did undergo stress testing which revealed reversible ischemia and a subsequent cardiac catheterization was performed today and she was found to have 50% tandem lesions in the mid and distal RCA. Left main with a 70% ostial and proximal lesion, 60% mid LAD lesion and 60 to 70% mid circumflex lesion. She was recommended urgent coronary artery bypass surgery. On today's evaluation of 10/24/2023, the patient has no specific complaints. She is on room air oxygen. Awake and alert and she is free of any chest pain. Denies having any chest pain or shortness of breath. She is having some lower back pain. She is able to ambulate. She is hemodynamically stable and she is on no pressors at this point in time. The patient is scheduled to undergo coronary bypass surgery on 10/26/2023. The patient has multivessel coronary artery disease and the patient has undergone previous PCI and the patient was taking Plavix and the last dose was on 10/19/2023. She has bilateral internal carotid artery stenosis in the range of 50 to 69% the patient also has hypertension hyperlipidemia and diabetes mellitus with an HbA1c of 6.2. Preop FEV1 is more than 70% of predicted. Labs from today show a white cell count of 5.9 with a hemoglobin of 11, BUN is 9 with a creatinine of 0.7 and sodium is at 133. No other complaints otherwise for now. She remains on aspirin 81 mg p.o. daily, atenolol 50 mg p.o. daily, high-dose statin with Lipitor 80 mg p.o. daily, and she is also on Zestril 20 mg p.o. daily and NovoLog/scale coverage. Objective - Vital Signs Vital signs: Vital Signs Temp 98.4 F 10/24/23 04:00 Pulse 64 10/24/23 04:00 Resp 16 10/24/23 04:00 BP 132/54 10/24/23 04:00 Pulse Ox 98 10/24/23 04:00 FiO2 Intake & Output 10/23/23 10/24/23 10/24/23 18:59 06:59 18:59 Weight 55.7 kg Other: Voiding Method Toilet Toilet # Voids 2 2 # Bowel Movements 1 1 - Exam GENERAL EXAM: Alert, pleasant 73-year-old female, on room air, up in a chair, in no distress. HEAD: Normocephalic. EYES: Normal reaction of pupils, equal size. NOSE: Clear with pink turbinates. THROAT: No erythema or exudates. NECK: No masses, no JVD. CHEST: No chest wall deformity. LUNGS: Equal air entry with no crackles, wheeze, rhonchi or dullness. CVS: S1 and S2 normal with no audible murmur, regular rhythm. ABDOMEN: No hepatosplenomegaly, normal bowel sounds, no guarding or rigidity. SPINE: No scoliosis or deformity SKIN: No rashes CENTRAL NERVOUS SYSTEM: No focal deficits, tone is normal in all 4 extremities. EXTREMITIES: There is no peripheral edema. No clubbing, no cyanosis. Peripheral pulses are intact. - Labs CBC & Chem 7: 10/24/23 05:52 10/24/23 05:52 Labs: Abnormal Lab Results - Last 24 Hours (Table) 10/23/23 10/23/23 10/24/23 Range/Units 16:11 20:13 05:52 RBC 3.59 L (3.80-5.40) m/uL Hgb 11.0 L (11.4-16.0) gm/dL Plt Count 149 L (150-450) k/uL Sodium (137-145) mmol/L Glucose (74-99) mg/dL POC Glucose (mg/dL) 124 H 166 H (70-110) mg/dL 10/24/23 10/24/23 Range/Units 05:52 06:45 RBC (3.80-5.40) m/uL Hgb (11.4-16.0) gm/dL Plt Count (150-450) k/uL Sodium 133 L (137-145) mmol/L Glucose 117 H (74-99) mg/dL POC Glucose (mg/dL) 130 H (70-110) mg/dL Assessment and Plan Plan: Chest pain in a patient found to have significant triple-vessel disease and plan is for coronary artery bypass surgery, surgery is being planned on 10/26/2023. Clinically stable. Hemodynamically stable. She is free of any chest pain. History of coronary disease with previous stent placement of the circumflex 2015 Former smoker of approximately 15 years at 1 pack/day. FEV1 value 1.48 L or 78% of predicted Hypertension Hyperlipidemia Diabetes mellitus type II Bilateral carotid artery stenosis in the order of 50 to 69%, asymptomatic Plan: Keep the patient off Plavix Continue aspirin Continue atenolol and Zestril Continue statins and the patient is currently on 80 mg of Lipitor Plan is for bypass surgery possibly October 26, 2023 Remains stable and on room air We will continue to follow
[2023-10-24 15:19] VITALS: PULSE 72
== END 2023-10-24 15:37 | disposition home or self-care (01) ==
LOC: EC 20:07 → 6NMEDSUR 10-18 02:49 → 2SICU 10-19 17:05
PROVIDERS: ADMIT Family Medicine; ATTEND Family Medicine
DX: I25.110 Atherosclerotic heart disease of native coronary artery with unstable angina pectoris (principal); E83.42 Hypomagnesemia; I45.10 Unspecified right bundle-branch block; Z79.899 Other long term (current) drug therapy; Z80.0 Family history of malignant neoplasm of digestive organs; Z82.49 Family history of ischemic heart disease and other diseases of the circulatory system; Z90.710 Acquired absence of both cervix and uterus; Z95.1 Presence of aortocoronary bypass graft; Z95.5 Presence of coronary angioplasty implant and graft; Z79.84 Long term (current) use of oral hypoglycemic drugs; Z79.82 Long term (current) use of aspirin; Z79.02 Long term (current) use of antithrombotics/antiplatelets
CPT/HCPCS: 96365; 96366; 96372 ×11; 96375 ×2; 99285; 36415 ×2; 94150; 93005; 93017; 93306; 93458; 80061; 80053; 80048 ×3; 80074; 84443; 83690; 83735 ×3; 84484 ×2; 85025 ×2; 85027 ×2; 85610; 85730; 87070; 83036; 71045; 71046; 93931; 93970; 93922; 93880; 71250; 78452; G0378 ×8; C1769 ×3; C1894; A9500; J2250; J1644 ×8; J2001; J3475; J2785; C9113 ×7; Q9967

== ENCOUNTER 2023-10-29 08:07 | Observation (INO) | payer MEDICARE ==
--- NOTE | 2023-10-29 08:15 | ED ---
General Adult HPI - General Chief complaint: Back Pain/Injury Stated complaint: Chest Pain Time Seen by Provider: 10/29/23 08:15 Source: patient Mode of arrival: ambulatory Limitations: no limitations - History of Present Illness Initial comments: 73-year-old female with past medical history of coronary artery disease, diabetes who presents emergency department reporting back pain radiating to her left arm. States that she had pain previously like this and was hospitalized. Cardiac workup demonstrated that she had triple-vessel disease and required bypass. Patient was scheduled for surgery on the however her and she had to plan his . States that he was buried yesterday. States that the pain that was previously intermittent has now become constant. It is not reproducible with movement. She has not taken anything for the pain. Patient has a follow-up appointment on the however is concerned that as the pain has become constant that she needed to be evaluated sooner. She denies any shortness of breath. No other alleviating, precipitating or modifying factors - Related Data Home Medications Medication Instructions Recorded Confirmed Raloxifene HCl [Evista] 60 mg PO DAILY 04/03/15 10/29/23 atenoloL [Atenolol] 50 mg PO DAILY 04/03/15 10/29/23 lisinopriL [Lisinopril] 20 mg PO DAILY 04/03/15 10/29/23 sitaGLIPtin [Januvia] 50 mg PO DAILY 04/03/15 10/29/23 Atorvastatin [Lipitor] 40 mg PO HS 08/31/16 10/29/23 Clopidogrel Bisulfate [Plavix] 75 mg PO DAILY 08/31/16 10/29/23 Ferrous Sulfate [Feosol] 325 mg PO DAILY 08/31/16 10/29/23 Tretinoin [Tretinoin 0.05%] 1 applic TOPICAL HS 05/07/19 10/29/23 Ergocalciferol [Vitamin D2 (1250 1,250 mcg PO Q7D 01/01/21 10/29/23 Mcg = 53090 Iu)] Aspirin 81 mg PO DAILY 10/18/23 10/29/23 Fish Oil/Dha/Epa [Fish Oil 1,200 1 cap PO DAILY 10/18/23 10/29/23 mg Fish Oil] Lactobacillus Acidophilus 1 cap PO DAILY 10/18/23 10/29/23 [Acidophilus Probiotic] metFORMIN HCL 500 mg PO AC-BID 10/18/23 10/29/23 Allergies Allergy/AdvReac Type Severity Reaction Status Date / Time codeine AdvReac Nausea & Verified 10/29/23 12:57 Vomiting Review of Systems ROS Statement: Those systems with pertinent positive or pertinent negative responses have been documented in the HPI. ROS Other: All systems not noted in ROS Statement are negative. Past Medical History Past Medical History: Coronary Artery Disease (CAD), Chest Pain / Angina, Di abetes Mellitus, Eye Disorder, Hyperlipidemia, Hypertension, Osteoarthritis (OA) Additional Past Medical History / Comment(s): HX OF [place], anemia, frequent diarrhea recently, not as much recently, thinks might have a "blockage" History of Any Multi-Drug Resistant Organisms: None Reported Past Surgical History: Heart Catheterization With Stent, Hernia Repair, Hysterectomy Additional Past Surgical History / Comment(s): INCISIONAL HERNIA REPAIR, SKIN LESIONS REMOVED, COLOLOSCOPY, Bilateral cataract surgery 2016 Past Anesthesia/Blood Transfusion Reactions: No Reported Reaction Additional Past Anesthesia/Blood Transfusion Reaction / Comment(s): Pt has never received blood. Date of Last Stent Placement:: 05/07/2015 Past Psychological History: No Psychological Hx Reported Smoking Status: Former smoker Past Alcohol Use History: None Reported Past Drug Use History: None Reported - Past Family History Brother(s) Family Medical History: Cancer Additional Family Medical History / Comment(s): COLON CANCER Sister(s) Family Medical History: Cancer Additional Family Medical History / Comment(s): COLON CANCER Father Family Medical History: Coronary Artery Disease (CAD), Myocardial Infarction (KS) Additional Family Medical History / Comment(s): Father at age 67yrs and pt thinks cause of was a [place]. Mother Family Medical History: Coronary Artery Disease (CAD) Additional Family Medical History / Comment(s): Mother at age 78 or 79yrs of heart disease. General Exam Limitations: no limitations General appearance: alert, in no apparent distress Head exam: Present: atraumatic, normocephalic, normal inspection Eye exam: Present: normal appearance, PERRL, EOMI. Absent: scleral icterus, conjunctival injection, periorbital swelling ENT exam: Present: normal exam, mucous membranes moist Neck exam: Present: normal inspection. Absent: tenderness, meningismus, lymphadenopathy Respiratory exam: Present: normal lung sounds bilaterally. Absent: respiratory distress, wheezes, rales, rhonchi, stridor Cardiovascular Exam: Present: regular rate, normal rhythm, normal heart sounds. Absent: systolic murmur, diastolic murmur, rubs, gallop, clicks GI/Abdominal exam: Present: soft, normal bowel sounds. Absent: distended, tenderness, guarding, rebound, rigid Extremities exam: Present: normal inspection, full ROM, normal capillary refill. Absent: tenderness, pedal edema, joint swelling, calf tenderness Back exam: Present: normal inspection Neurological exam: Present: alert, oriented X3, CN II-XII intact Psychiatric exam: Present: normal affect, normal mood Skin exam: Present: warm, dry, intact, normal color. Absent: rash Course Vital Signs 10/29/23 10/29/23 10/29/23 08:08 08:34 08:53 Temperature 98.1 F 98.2 F Pulse Rate 84 84 76 Respiratory 18 16 16 Rate Blood Pressure 118/53 131/64 O2 Sat by Pulse 90 L 98 99 Oximetry 10/29/23 10/29/23 10/29/23 10:08 12:00 14:32 Temperature 97.9 F Pulse Rate 81 76 74 Respiratory 16 16 16 Rate Blood Pressure 126/68 136/75 135/74 O2 Sat by Pulse 100 100 98 Oximetry Medical Decision Making - Medical Decision Making Was pt. sent in by a medical professional or institution (Dr. PA, RESEARCH LAB ASSISTANT, urgent care, hospital, or penitentiary...) When possible be specific @ -No Did you speak to anyone other than the patient for history (EMS, parent, family, police, friend...)? What history was obtained from this source @ -No Did you review nursing and triage notes (agree or disagree)? Why? @ -I reviewed and agree with nursing and triage notes Were old charts reviewed (outside hosp., previous admission, EMS record, old EKG, old radiological studies, urgent care reports/EKG's, penitentiary records)? Report findings @ -I reviewed patient's previous admission to include her surgical consult on the which demonstrated that she needed a bypass Differential Diagnosis (chest pain, altered mental status, abdominal pain women, abdominal pain men, vaginal bleeding, weakness, fever, dyspnea, syncope, headache, dizziness, GI bleed, back pain, seizure, CVA, palpatations, mental health, musculoskeletal)? @ -Differential Back Pain: Strain, zoster, cauda equina syndrome, epidural abscess, vertebral osteomyelitis, discitis, fracture, subluxation, disc herniation, DJD, spinal stenosis, dissection, AAA, pancreatitis, peptic ulcer disease, pyelonephritis, kidney stone, this is not meant to be an all-inclusive list. Differential Chest Pain: Stable Angina, Unstable Angina, STEMI, NSTEMI Aortic Dissection, Pneumothorax, Musculoskeletal, Esophageal Spasm GERD, Cholecystitis, Pancreatitis, Zoster, this is not meant to be an all-inclusive list. EKG interpreted by me (3pts min.). @ -Yes and demonstrates sinus rhythm with a rate of 88. OK interval 155. QRS 122. QTc of 409. No acute ST segment elevations or depressions X-rays interpreted by me (1pt min.). @ -None done CT interpreted by me (1pt min.). @ -None done U/S interpreted by me (1pt. min.). @ -None done What testing was considered but not performed or refused? (CT, X-rays, U/S, labs)? Why? @ -None What meds were considered but not given or refused? Why? @ -None Did you discuss the management of the patient with other professionals (professionals i.e. , PA, RESEARCH LAB ASSISTANT, lab, RT, psych nurse, social worker health services, boiler plant operator, teacher, chief accounting officer, welfare case worker)? Give summary @ -Spoke with Dr. Ernst. Will have cardiothoracic's and cardiology see the patient to see if they want to do the procedure any such sooner Was smoking cessation discussed for >3mins.? @ -No Was critical care preformed (if so, how long)? @ -No Were there social determinants of health that impacted care today? How? (Homelessness, low income, unemployed, alcoholism, drug addiction, transportation, low edu. Level, literacy, decrease access to med. care, correction, rehab)? @ -No Was there de-escalation of care discussed even if they declined (Discuss DNR or withdrawal of care, Hospice)? DNR status @ -No What co-morbidities impacted this encounter? (DM, HTN, Smoking, COPD, CAD, Cancer, CVA, ARF, Chemo, Hep., AIDS, mental health diagnosis, sleep apnea, morbid obesity)? @ -Coronary artery disease Was patient admitted / discharged? Hospital course, mention meds given and route, prescriptions, significant lab abnormalities, going to OR and other pe rtinent info. @ -Upon arrival patient seen and evaluated in room 23. Thorough history and physical exam was performed. Patient reports stating that she is having persistent pain in her back which radiates to her arm. States her arm is throbbing. States that she has had the symptoms with her recent evaluation and was told that she needed bypass surgery. She had a lead to plan her 's . Patient was yesterday and she is now available to have the surgery. States that her symptoms have become constant where previously they were intermittent. I did repeat laboratory studies. Offered admission to see if they want to proceed with her surgery at this time. Patient agreeable to this plan and was admitted Undiagnosed new problem with uncertain prognosis? @ -No Drug Therapy requiring intensive monitoring for toxicity (Heparin, Nitro, Insulin, Cardizem)? @ -No Were any procedures done? @ -No Diagnosis/symptom? @ -Acute back pain, acute left arm pain, known coronary disease Acute, or Chronic, or Acute on Chronic? @ -Acute Uncomplicated (without systemic symptoms) or Complicated (systemic symptoms)? @ -Complicated Side effects of treatment? @ -No Exacerbation, Progression, or Severe Exacerbation? @ -No Poses a threat to life or bodily function? How? (Chest pain, [place], [place], pneumonia, PE, COPD, DKA, ARF, appy, cholecystitis, CVA, Diverticulitis, Homicidal, Suicida l, threat to staff... and all critical care pts) @ -Yes as patient is awaiting bypass at this time - Lab Data Result diagrams: 10/30/23 06:13 10/30/23 06:13 Lab Results 10/29/23 10/29/23 10/29/23 Range/Units 09:16 09:16 09:16 WBC 10.7 H (3.8-10.6) k/uL RBC 3.55 L (3.80-5.40) m/uL Hgb 10.6 L (11.4-16.0) gm/dL Hct 32.3 L (34.0-46.0) % MCV 90.8 D (80.0-100.0) fL MCH 29.9 (25.0-35.0) pg MCHC 33.0 (31.0-37.0) g/dL RDW 12.3 (11.5-15.5) % Plt Count 230 (150-450) k/uL MPV 7.5 Neutrophils % 90 % Lymphocytes % 5 % Monocytes % 4 % Eosinophils % 0 % Basophils % 0 % Neutrophils # 9.6 H (1.3-7.7) k/uL Lymphocytes # 0.6 L (1.0-4.8) k/uL Monocytes # 0.4 (0-1.0) k/uL Eosinophils # 0.0 (0-0.7) k/uL Basophils # 0.0 (0-0.2) k/uL PT 11.0 (10.0-12.5) sec INR 1.0 (<1.2) APTT 23.9 (22.0-30.0) sec Sodium 130 L (137-145) mmol/L Potassium 3.4 L (3.5-5.1) mmol/L Chloride 101 (98-107) mmol/L Carbon Dioxide 22 (22-30) mmol/L Anion Gap 7 mmol/L BUN 10 (7-17) mg/dL Creatinine 0.61 (0.52-1.04) mg/dL Est GFR (CKD-EPI)AfAm >90 (>60 ml/min/1.73 sqM) Est GFR (CKD-EPI)NonAf 90 (>60 ml/min/1.73 sqM) Glucose 152 H (74-99) mg/dL Calcium 8.9 (8.4-10.2) mg/dL Magnesium 1.1 L (1.6-2.3) mg/dL Total Bilirubin 0.7 (0.2-1.3) mg/dL AST 21 (14-36) U/L ALT 19 (4-34) U/L Alkaline Phosphatase 72 (38-126) U/L Troponin I (0.000-0.034) ng/mL NT-Pro-B Natriuret Pep 370 pg/mL Total Protein 6.1 L (6.3-8.2) g/dL Albumin 3.4 L (3.5-5.0) g/dL Lipase 231 (23-300) U/L 10/29/23 Range/Units 09:16 WBC (3.8-10.6) k/uL RBC (3.80-5.40) m/uL Hgb (11.4-16.0) gm/dL Hct (34.0-46.0) % MCV (80.0-100.0) fL MCH (25.0-35.0) pg MCHC (31.0-37.0) g/dL RDW (11.5-15.5) % Plt Count (150-450) k/uL MPV Neutrophils % % Lymphocytes % % Monocytes % % Eosinophils % % Basophils % % Neutrophils # (1.3-7.7) k/uL Lymphocytes # (1.0-4.8) k/uL Monocytes # (0-1.0) k/uL Eosinophils # (0-0.7) k/uL Basophils # (0-0.2) k/uL PT (10.0-12.5) sec INR (<1.2) APTT (22.0-30.0) sec Sodium (137-145) mmol/L Potassium (3.5-5.1) mmol/L Chloride (98-107) mmol/L Carbon Dioxide (22-30) mmol/L Anion Gap mmol/L BUN (7-17) mg/dL Creatinine (0.52-1.04) mg/dL Est GFR (CKD-EPI)AfAm (>60 ml/min/1.73 sqM) Est GFR (CKD-EPI)NonAf (>60 ml/min/1.73 sqM) Glucose (74-99) mg/dL Calcium (8.4-10.2) mg/dL Magnesium (1.6-2.3) mg/dL Total Bilirubin (0.2-1.3) mg/dL AST (14-36) U/L ALT (4-34) U/L Alkaline Phosphatase (38-126) U/L Troponin I <0.012 (0.000-0.034) ng/mL NT-Pro-B Natriuret Pep pg/mL Total Protein (6.3-8.2) g/dL Albumin (3.5-5.0) g/dL Lipase (23-300) U/L Disposition Clinical Impression: Chest pain Disposition: ADMITTED IP TO THIS HOSP Condition: Stable Is patient prescribed a controlled substance at d/c from ED?: No Time of Disposition: 10:37 Decision to Admit Reason: Admit from EC Decision Date: 10/29/23 Decision Time: 10:37
[2023-10-29 09:34] LABS: Partial Thromboplastin Time 23.9 sec (22.0-30.0)
[2023-10-29 09:39] LABS: ALT 19 U/L (4-34); AST 21 U/L (14-36); African American GFR (CKD) >90 (>60 ml/min/1.73 sqM); Albumin 3.4 g/dL (3.5-5.0); Alkaline Phosphatase 72 U/L (38-126); Anion Gap 7 mmol/L; Blood Urea Nitrogen 10 mg/dL (7-17); Calcium 8.9 mg/dL (8.4-10.2); Carbon Dioxide 22 mmol/L (22-30); Chloride 101 mmol/L (98-107); Glucose 152 mg/dL (74-99); Lipase 231 U/L (23-300); Magnesium 1.1 mg/dL (1.6-2.3); Non-African American GFR(CKD) 90 (>60 ml/min/1.73 sqM); Potassium 3.4 mmol/L (3.5-5.1); Sodium 130 mmol/L (137-145); Total Bilirubin 0.7 mg/dL (0.2-1.3); Total Protein 6.1 g/dL (6.3-8.2)
[2023-10-29 09:47] LABS: NT-Pro-B-Type Natriuretic Pept 370 pg/mL
[2023-10-29 10:04] LABS: Basophils % (A) 0 %; Eosinophils % (A) 0 %; HCT 32.3 % (34.0-46.0); HGB 10.6 gm/dL (11.4-16.0); Lymphocytes # (A) 0.6 k/uL (1.0-4.8); Lymphocytes % (A) 5 %; MCH 29.9 pg (25.0-35.0); MCV 90.8 fL (80.0-100.0); Mean Platelet Volume 7.5; Monocytes # (A) 0.4 k/uL (0-1.0); Monocytes % (A) 4 %; Neutrophils # (A) 9.6 k/uL (1.3-7.7); Neutrophils % (A) 90 %; Platelet Count 230 k/uL (150-450); RBC 3.55 m/uL (3.80-5.40); RDW 12.3 % (11.5-15.5); WBC 10.7 k/uL (3.8-10.6)
[2023-10-29] MEDS ORDERED: NALOXONE 0.4 MG/ML 1 ML VIAL IV PRN (10:37)
[2023-10-29] MEDS: MAGNESIUM SULFATE-D5W PMX 1 GM in DEXTROSE/WATER 1 100ML.BAG IVPB SCH (13:55)
--- NOTE | 2023-10-29 13:58 | P.CRDCN ---
History of Present Illness Consult date: 10/29/23 Consult reason: chest pain Chief complaint: back pain, left arm pain History of present illness: History of present illness: Patient is a pleasant 73-year-old female with significant past medical history of multivessel CAD currently awaiting CABG, hypertension, and hyperlipidemia who presents for back and left elbow pain. She is a patient of Dr. Bolaños. She was initially scheduled for CABG October 25 however her was ill and therefore she wanted to hold off on procedure. Her spouse did recently . His was yesterday. She reports that today she was having back pain as well as left arm pain. In regards to the left arm it is mostly left elbow pain and swelling, she cannot fully extend this and it is tender on exam. She denies any injury or trauma. She denies any actual chest pain or pressure. Her back pain has improved. She does feel just general aches and pains. Denies any shortness of breath. Symptoms are not worse with activity. Labs reviewed: WBC 10.7, hemoglobin 10.6, sodium 130, potassium 3.4, troponin negative x 1. She does have an appointment with Dr. Schmitt, cardiothoracic surgery, on November 02. REVIEW OF SYSTEMS: No fever or chills. No cough or expectoration. No diaphoresis. Patient denies headache, dizziness, blurred vision, double vision. Patient denies any stomach discomfort. No nausea, vomiting. No hematochezia. No hematemesis. Denies any black stools or blood in his stools. Denies dysuria or hematuria. No muscle weakness or numbness. No chest pain or pressure. Reports back pain and left elbow pain. PHYSICAL EXAMINATION: This is a 73-year-old female in no apparent distress at the time of my examination. HEENT: Head is atraumatic, normocephalic. Pupils are equal, round. Sclerae anicteric. Conjunctivae are clear. Mucous membranes of the mouth are moist. Neck is supple. There is no jugular venous distention. No carotid bruit is heard. CHEST EXAMINATION: Lungs are clear to auscultation. No chest wall tenderness is noted on palpation or with deep breathing. HEART EXAMINATION: Heart regular rate and rhythm. S1, S2 heard. No murmurs, gallops or rub. ABDOMEN: Soft, nontender. Bowel sounds are heard. EXTREMITIES: 2+ peripheral pulses with no evidence of peripheral edema and no calf tenderness noted. Left elbow swelling and tenderness with decreased range of motion extending. NEUROLOGIC EXAMINATION: Patient is awake, alert and oriented x3. IMPRESSION AND PLAN: Coronary artery disease, multivessel, awaiting CABG Hypertension Hyperlipidemia Back pain Left elbow pain, likely related to tennis elbow PLAN: Her back pain and left arm pain are atypical. Will trend troponin and if remains negative okay to discharge from a cardiology standpoint and follow-up in the outpatient clinic with Dr. Schmitt as scheduled. Strict precautions to return to ER if symptoms worsen were provided to patient. Left elbow pain likely related to tennis elbow, further management as per medicine team. Continue with current regimen. Please call with any questions or concerns. I am dictating on behalf of Dr. Soham Baird's history/physical and assessment/plan. Past Medical History Past Medical History: Coronary Artery Disease (CAD), Chest Pain / Angina, Diabetes Mellitus, Eye Disorder, Hyperlipidemia, Hypertension, Osteoarthritis (OA) Additional Past Medical History / Comment(s): HX OF BELLS PALSY, anemia, frequent diarrhea recently, not as much recently, thinks might have a "blockage" History of Any Multi-Drug Resistant Organisms: None Reported Past Surgical History: Heart Catheterization With Stent, Hernia Repair, Hysterectomy Additional Past Surgical History / Comment(s): INCISIONAL HERNIA REPAIR, SKIN LESIONS REMOVED, COLOLOSCOPY, Bilateral cataract surgery 2016 Past Anesthesia/Blood Transfusion Reactions: No Reported Reaction Additional Past Anesthesia/Blood Transfusion Reaction / Comment(s): Pt has never received blood. Date of Last Stent Placement:: 05/07/2015 Past Psychological History: No Psychological Hx Reported Smoking Status: Former smoker Past Alcohol Use History: None Reported Past Drug Use History: None Reported - Past Family History Brother(s) Family Medical History: Cancer Additional Family Medical History / Comment(s): COLON CANCER Sister(s) Family Medical History: Cancer Additional Family Medical History / Comment(s): COLON CANCER Father Family Medical History: Coronary Artery Disease (CAD), Myocardial Infarction ([place]) Additional Family Medical History / Comment(s): Father at age 67yrs and pt thinks cause of was a [place]. Mother Family Medical History: Coronary Artery Disease (CAD) Additional Family Medical History / Comment(s): Mother at age 78 or 79yrs of heart disease. Medications and Allergies Home Medications Medication Instructions Recorded Confirmed Type Raloxifene HCl [Evista] 60 mg PO DAILY 04/03/15 10/29/23 History atenoloL [Atenolol] 50 mg PO DAILY 04/03/15 10/29/23 History lisinopriL [Lisinopril] 20 mg PO DAILY 04/03/15 10/29/23 History sitaGLIPtin [Januvia] 50 mg PO DAILY 04/03/15 10/29/23 History Atorvastatin [Lipitor] 40 mg PO HS 08/31/16 10/29/23 History Clopidogrel Bisulfate [Plavix] 75 mg PO DAILY 08/31/16 10/29/23 History Ferrous Sulfate [Feosol] 325 mg PO DAILY 08/31/16 10/29/23 History Tretinoin [Tretinoin 0.05%] 1 applic TOPICAL HS 05/07/19 10/29/23 History Ergocalciferol [Vitamin D2 (1250 1,250 mcg PO Q7D 01/01/21 10/29/23 History Mcg = 81415 Iu)] Aspirin 81 mg PO DAILY 10/18/23 10/29/23 History Fish Oil/Dha/Epa [Fish Oil 1,200 1 cap PO DAILY 10/18/23 10/29/23 History mg Fish Oil] Lactobacillus Acidophilus 1 cap PO DAILY 10/18/23 10/29/23 History [Acidophilus Probiotic] metFORMIN HCL 500 mg PO AC-BID 10/18/23 10/29/23 History Allergies Allergy/AdvReac Type Severity Reaction Status Date / Time codeine AdvReac Nausea & Verified 10/29/23 12:57 Vomiting Physical Exam Vitals: Vital Signs Temp Pulse Resp BP Pulse Ox 10/29/23 12:00 76 16 136/75 100 10/29/23 10:08 81 16 126/68 100 10/29/23 08:53 98.2 F 76 16 131/64 99 10/29/23 08:34 84 16 118/53 98 10/29/23 08:08 98.1 F 84 18 90 L Intake and Output 10/28/23 10/29/23 10/29/23 22:59 06:59 14:59 Other: Weight 58.06 kg Results 10/29/23 09:16 10/29/23 09:16 Cardiac Enzymes 10/29/23 10/29/23 Range/Units 09:16 09:16 AST 21 (14-36) U/L Troponin I <0.012 (0.000-0.034) ng/mL Coagulation 10/29/23 Range/Units 09:16 PT 11.0 (10.0-12.5) sec APTT 23.9 (22.0-30.0) sec CBC 10/29/23 Range/Units 09:16 WBC 10.7 H (3.8-10.6) k/uL RBC 3.55 L (3.80-5.40) m/uL Hgb 10.6 L (11.4-16.0) gm/dL Hct 32.3 L (34.0-46.0) % Plt Count 230 (150-450) k/uL Comprehensive Metabolic Panel 10/29/23 Range/Units 09:16 Sodium 130 L (137-145) mmol/L Potassium 3.4 L (3.5-5.1) mmol/L Chloride 101 (98-107) mmol/L Carbon Dioxide 22 (22-30) mmol/L BUN 10 (7-17) mg/dL Creatinine 0.61 (0.52-1.04) mg/dL Glucose 152 H (74-99) mg/dL Calcium 8.9 (8.4-10.2) mg/dL AST 21 (14-36) U/L ALT 19 (4-34) U/L Alkaline Phosphatase 72 (38-126) U/L Total Protein 6.1 L (6.3-8.2) g/dL Albumin 3.4 L (3.5-5.0) g/dL Current Medications Generic Name Dose Route Start Last Admin Trade Name Freq PRN Reason Stop Dose Admin Magnesium Sulfate/Dextrose 1 100 mls @ 100 mls/hr 10/29/23 13:00 gm/ IV Solution IVPB 10/29/23 14:59 Q1H ANAHI Naloxone HCl 0.2 mg 10/29/23 10:37 Naloxone 0.4 Mg/Ml 1 Ml Vial IV Q2M PRN Opioid Reversal Intake and Output 10/28/23 10/29/23 10/29/23 22:59 06:59 14:59 Other: Weight 58.06 kg Patient Weight 10/30/23 06:59 Weight 58.06 kg 10/29/23 09:16 10/29/23 09:16
[2023-10-29] MEDS: CLOPIDOGREL 75 MG TAB PO SCH (14:37)
[2023-10-29] MEDS: metFORMIN 500 MG TAB PO SCH (16:21)
[2023-10-29] MEDS: ERGOCALCIFEROL 1,250 MCG (50,000 IU) CAPSULE PO SCH (16:21)
[2023-10-29] MEDS: ACETAMINOPHEN TAB 325 MG TAB PO PRN (17:11)
[2023-10-29] MEDS: ATORVASTATIN 40 MG TAB PO SCH (21:45)
[2023-10-30] MEDS: lisinopriL 20 MG TAB PO SCH (08:52)
[2023-10-30] MEDS: FERROUS SULFATE 325 MG TAB PO SCH (08:52)
[2023-10-30] MEDS: RALOXIFENE 60 MG TAB PO SCH (08:53)
[2023-10-30] MEDS: atenoloL 50 MG TAB PO SCH (08:53)
[2023-10-30] MEDS: ASPIRIN 81 MG PO SCH (08:53)
[2023-10-30] MEDS: LINAGLIPTIN 5 MG TABLET PO SCH (08:53)
[2023-10-30 09:12] VITALS: PULSE 76; RESP 16
[2023-10-30 09:31] LABS: Basophils # (A) 0.04 X 10*3/uL (0.00-0.10); Basophils % (A) 0.7 %; Eosinophils # (A) 0.06 X 10*3/uL (0.04-0.35); HCT 34.1 % (37.2-46.3); HGB 11.5 g/dL (12.0-15.0); Lymphocytes # (A) 1.49 X 10*3/uL (0.90-5.00); Lymphocytes % (A) 25.6 %; MCH 30.3 pg (27.0-32.0); MCHC 33.7 g/dL (32.0-37.0); MCV 89.7 FL (80.0-97.0); Mean Platelet Volume 9.6 FL (9.5-12.2); Monocytes # (A) 0.52 X 10*3/uL (0.20-1.00); Monocytes % (A) 8.9 %; NRBC Per 100 WBC 0 X 10*3/uL (0.00-0.01); Neutrophils # (A) 3.68 X 10*3/uL (1.80-7.70); Neutrophils % (A) 63.1 %; Platelet Count 277 X 10*3/uL (140-440); WBC 5.83 X 10*3/uL (4.50-10.00)
[2023-10-30 10:43] LABS: BUN/Creat Ratio 8.86 Ratio (12.00-20.00); Blood Urea Nitrogen 6.2 mg/dL (9.0-27.0); Calcium 8.9 mg/dL (8.7-10.3); Carbon Dioxide 24.5 mmol/L (21.6-31.8); Chloride 99 mmol/L (96-109); Glucose 143 mg/dL (70-110); Potassium 3.6 mmol/L (3.5-5.5); Sodium 135 mmol/L (135-145)
--- NOTE | 2023-10-30 12:34 | P.PN ---
Subjective Progress Note Date: 10/30/23 History of present illness: Patient is a pleasant 73-year-old female with significant past medical history of multivessel CAD currently awaiting CABG, hypertension, and hyperlipidemia who presents for back and left elbow pain. She is a patient of Dr. Bolaños. She was initially scheduled for CABG October 25 however her was ill and therefore she wanted to hold off on procedure. Her spouse did recently . His was yesterday. She reports that today she was having back pain as well as left arm pain. In regards to the left arm it is mostly left elbow pain and swelling, she cannot fully extend this and it is tender on exam. She denies any injury or trauma. She denies any actual chest pain or pressure. Her back pain has improved. She does feel just general aches and pains. Denies any shortness of breath. Symptoms are not worse with activity. Labs reviewed: WBC 10.7, hemoglobin 10.6, sodium 130, potassium 3.4, troponin negative x 1. She does have an appointment with Dr. Schmitt, cardiothoracic surgery, on November 02. 10/30/2023 Denies having any back pain or chest pain. Main complaint is still her left elbow pain, currently on ice pack. Troponins were negative x 3. She would like to go home. PHYSICAL EXAMINATION: This is a 73-year-old female in no apparent distress at the time of my examination. HEENT: Head is atraumatic, normocephalic. Pupils are equal, round. Sclerae anicteric. Conjunctivae are clear. Mucous membranes of the mouth are moist. Neck is supple. There is no jugular venous distention. No carotid bruit is heard. CHEST EXAMINATION: Lungs are clear to auscultation. No chest wall tenderness is noted on palpation or with deep breathing. HEART EXAMINATION: Heart regular rate and rhythm. S1, S2 heard. No murmurs, gallops or rub. ABDOMEN: Soft, nontender. Bowel sounds are heard. EXTREMITIES: 2+ peripheral pulses with no evidence of peripheral edema and no calf tenderness noted. Left elbow swelling and tenderness with decreased range of motion extending. NEUROLOGIC EXAMINATION: Patient is awake, alert and oriented x3. IMPRESSION AND PLAN: Coronary artery disease, multivessel, awaiting CABG Hypertension Hyperlipidemia Back pain Left elbow pain, likely related to tennis elbow PLAN: No further chest or back pain. Troponins have been negative, okay to discharge from a cardiology standpoint and follow-up in the outpatient clinic [facility] Dr. Schmitt as scheduled. Strict precautions to return to ER if symptoms worsen were provided to patient. Left elbow pain likely related to tennis elbow, further management as per medicine team. Continue with current regimen. Please call with any questions or concerns. I am dictating on behalf of Dr. Soham Baird's history/physical and assessment/plan. Objective - Vital Signs Vital signs: Vital Signs Temp 98.5 F 10/30/23 07:18 Pulse 76 10/30/23 07:18 Resp 16 10/30/23 07:18 BP 126/59 10/30/23 07:18 Pulse Ox 97 10/30/23 07:18 FiO2 Intake & Output 10/29/23 10/30/23 10/30/23 18:59 06:59 18:59 Intake Total 120 236 Balance 120 236 Weight 58.06 kg Intake: Oral 120 236 Other: Voiding Method Toilet Toilet # Voids 1 - Labs CBC & Chem 7: 10/30/23 06:13 10/30/23 06:13 Labs: Abnormal Lab Results - Last 24 Hours (Table) 10/30/23 Range/Units 06:13 RBC 3.80 L (4.10-5.20) X 10*6/uL Hgb 11.5 L (12.0-15.0) g/dL Hct 34.1 L (37.2-46.3) %
--- NOTE | 2023-10-30 15:07 | P.HPIM ---
History of Present Illness H&P Date: 10/29/23 Chief Complaint: Chest pain 73-year-old female with past medical history of coronary artery disease, diabetes who presents emergency department reporting back pain radiating to her left arm. States that she had pain previously like this and was hospitalized. Cardiac workup demonstrated that she had triple-vessel disease and required bypass. Patient was scheduled for surgery on the however her and she had to plan his . States that he was buried yesterday. States that the pain that was previously intermittent has now become constant. It is not reproducible with movement. She has not taken anything for the pain. Patient has a follow-up appointment on the however is concerned that as the pain has become constant that she needed to be evaluated sooner. She denies any shortness of breath. No other alleviating, precipitating or modifying factors Review of Systems REVIEW OF SYSTEMS: CONSTITUTIONAL: No fever, no malaise, no fatigue. HEENT: No recent visual problems or hearing problems. Denied any sore throat. CARDIOVASCULAR: No chest pain, orthopnea, PND, no palpitations, no syncope. PULMONARY: No shortness of breath, no cough, no hemoptysis. GASTROINTESTINAL: No diarrhea, no nausea, no vomiting, no abdominal pain. NEUROLOGICAL: No headaches, no weakness, no numbness. HEMATOLOGICAL: Denies any bleeding or petechiae. GENITOURINARY: Denies any burning micturition, frequency, or urgency. MUSCULOSKELETAL/RHEUMATOLOGICAL: Denies any joint pain, swelling, or any muscle pain. ENDOCRINE: Denies any polyuria or polydipsia. The rest of the 14-point review of systems is negative. Past Medical History Past Medical History: Coronary Artery Disease (CAD), Chest Pain / Angina, Diabetes Mellitus, Eye Disorder, Hyperlipidemia, Hypertension, Osteoarthritis (OA) Additional Past Medical History / Comment(s): HX OF BELLS PALSY, anemia, frequent diarrhea recently, not as much recently, thinks might have a "blockage" History of Any Multi-Drug Resistant Organisms: None Reported Past Surgical History: Heart Catheterization With Stent, Hernia Repair, Hysterectomy Additional Past Surgical History / Comment(s): INCISIONAL HERNIA REPAIR, SKIN LESIONS REMOVED, COLOLOSCOPY, Bilateral cataract surgery 2017 Past Anesthesia/Blood Transfusion Reactions: No Reported Reaction Additional Past Anesthesia/Blood Transfusion Reaction / Comment(s): Pt has never received blood. Date of Last Stent Placement:: 05/07/2015 Past Psychological History: No Psychological Hx Reported Smoking Status: Former smoker Past Alcohol Use History: None Reported Past Drug Use History: None Reported - Past Family History Brother(s) Family Medical History: Cancer Additional Family Medical History / Comment(s): COLON CANCER Sister(s) Family Medical History: Cancer Additional Family Medical History / Comment(s): COLON CANCER Father Family Medical History: Coronary Artery Disease (CAD), Myocardial Infarction ([place]) Additional Family Medical History / Comment(s): Father at age 67yrs and pt thinks cause of was a [place]. Mother Family Medical History: Coronary Artery Disease (CAD) Additional Family Medical History / Comment(s): Mother at age 78 or 79yrs of heart disease. Medications and Allergies Home Medications Medication Instructions Recorded Confirmed Type Raloxifene HCl [Evista] 60 mg PO DAILY 04/03/15 10/29/23 History atenoloL [Atenolol] 50 mg PO DAILY 04/03/15 10/29/23 History lisinopriL [Lisinopril] 20 mg PO DAILY 04/03/15 10/29/23 History sitaGLIPtin [Januvia] 50 mg PO DAILY 04/03/15 10/29/23 History Atorvastatin [Lipitor] 40 mg PO HS 08/31/16 10/29/23 History Clopidogrel Bisulfate [Plavix] 75 mg PO DAILY 08/31/16 10/29/23 History Ferrous Sulfate [Feosol] 325 mg PO DAILY 08/31/16 10/29/23 History Tretinoin [Tretinoin 0.05%] 1 applic TOPICAL HS 05/07/19 10/29/23 History Ergocalciferol [Vitamin D2 (1250 1,250 mcg PO Q7D 01/01/21 10/29/23 History Mcg = 65084 Iu)] Aspirin 81 mg PO DAILY 10/18/23 10/29/23 History Fish Oil/Dha/Epa [Fish Oil 1,200 1 cap PO DAILY 10/18/23 10/29/23 History mg Fish Oil] Lactobacillus Acidophilus 1 cap PO DAILY 10/18/23 10/29/23 History [Acidophilus Probiotic] metFORMIN HCL 500 mg PO AC-BID 10/18/23 10/29/23 History Allergies Allergy/AdvReac Type Severity Reaction Status Date / Time codeine AdvReac Nausea & Verified 10/29/23 12:57 Vomiting Physical Exam Vitals: Vital Signs Temp Pulse Resp BP Pulse Ox 10/29/23 12:00 76 16 136/75 100 10/29/23 10:08 81 16 126/68 100 10/29/23 08:53 98.2 F 76 16 131/64 99 10/29/23 08:34 84 16 118/53 98 10/29/23 08:08 98.1 F 84 18 90 L Intake and Output 10/28/23 10/29/23 10/29/23 22:59 06:59 14:59 Other: Weight 58.06 kg - Constitutional General appearance: Present: average body habitus, cooperative, no acute distress - EENT Eyes: Present: anicteric sclerae, EOMI, PERRLA, normal appearance ENT: Present: hearing grossly normal, normal oropharynx Ears: bilateral: normal - Neck Neck: Present: normal ROM. Absent: lymphadenopathy, rigidity, thyromegaly Carotids: negative: bruit present Thyroid: bilateral: normal size, negative: enlarged, nodule - Respiratory Respiratory: bilateral: CTA, negative: rales, rhonchi, wheezing - Cardiovascular Rhythm: regular Heart sounds: normal: S1, S2 Abnormal Heart Sounds: Absent: systolic murmur, diastolic murmur - Gastrointestinal General gastrointestinal: Present: normal bowel sounds, soft. Absent: distended, organomegaly, tenderness - Genitourinary Genitourinary Comment(s): deferred - Integumentary Integumentary: Present: normal turgor. Absent: jaundiced, rash, ulcer - Neurologic Neurologic: Present: CNII-XII intact. Absent: focal deficits - Musculoskeletal Musculoskeletal: Present: gait normal, strength equal bilaterally - Psychiatric Psychiatric: Present: A&O x's 3, appropriate affect, intact judgment & insight Results CBC & Chem 7: 10/30/23 06:13 10/30/23 06:13 Labs: Abnormal Lab Results - Last 24 Hours (Table) 10/29/23 10/29/23 Range/Units 09:16 09:16 WBC 10.7 H (3.8-10.6) k/uL RBC 3.55 L (3.80-5.40) m/uL Hgb 10.6 L (11.4-16.0) gm/dL Hct 32.3 L (34.0-46.0) % Neutrophils # 9.6 H (1.3-7.7) k/uL Lymphocytes # 0.6 L (1.0-4.8) k/uL Sodium 130 L (137-145) mmol/L Potassium 3.4 L (3.5-5.1) mmol/L Glucose 152 H (74-99) mg/dL Magnesium 1.1 L (1.6-2.3) mg/dL Total Protein 6.1 L (6.3-8.2) g/dL Albumin 3.4 L (3.5-5.0) g/dL Assessment and Plan Assessment: 1. Chest pain rule out acute coronary syndrome -Patient has history of multi-vessel coronary artery disease and awaits CABG -Patient is admitted to telemetry; monitor EKG and trend troponin -Patient remains on aspirin, Plavix, atenolol and Lipitor -Consult cardiology for further evaluation 2. Hypertension; atenolol 50 mg daily; lisinopril 20 mg daily 3. Hyperlipidemia; Lipitor 80 mg p.o. nightly 4. Diabetes mellitus type 2; patient takes metformin 500 mg twice daily, Januvia 50 mg daily 5. Vitamin D deficiency; continue with vitamin D2 5000 units every 7 days DVT prophylaxis; SCDs CODE STATUS; full code
[2023-10-30 15:12] VITALS: BP 122/65; TEMP 97.8
== END 2023-10-30 15:50 | disposition home or self-care (01) ==
LOC: EC 08:07 → 6NMEDSUR 10:37
PROVIDERS: ADMIT Hospitalist; ATTEND Hospitalist
DX: I25.10 Atherosclerotic heart disease of native coronary artery without angina pectoris (principal); E11.9 Type 2 diabetes mellitus without complications; M25.522 Pain in left elbow; R22.32 Localized swelling, mass and lump, left upper limb; I10 Essential (primary) hypertension; E78.5 Hyperlipidemia, unspecified; E55.9 Vitamin D deficiency, unspecified; Z79.84 Long term (current) use of oral hypoglycemic drugs; Z79.02 Long term (current) use of antithrombotics/antiplatelets; Z79.82 Long term (current) use of aspirin; Z79.899 Other long term (current) drug therapy; Z88.5 Allergy status to narcotic agent; Z87.891 Personal history of nicotine dependence
CPT/HCPCS: 96365; 96366; 99285; 36415; 93005; 83880; 80053; 80048; 83690; 83735; 84484; 85025 ×2; 85610; 85730; G0378 ×2; J3475

== ENCOUNTER → 2023-11-08 | Outpatient (CLI) | payer MEDICARE ==
[2023-11-08 11:50] LABS: INR 0.9 (<1.2); Partial Thromboplastin Time 25.1 sec (22.0-30.0); Prothrombin Time 10.4 sec (10.0-12.5)
[2023-11-08 15:11] LABS: HCT 34.2 % (37.2-46.3); HGB 11.3 g/dL (12.0-15.0); MCH 30.2 pg (27.0-32.0); MCV 91.4 FL (80.0-97.0); Mean Platelet Volume 9.6 FL (9.5-12.2); NRBC Per 100 WBC 0 X 10*3/uL (0.00-0.01); Platelet Count 228 X 10*3/uL (140-440); RBC 3.74 X 10*6/uL (4.10-5.20); RDW 12.3 % (11.5-14.5); WBC 4.32 X 10*3/uL (4.50-10.00)
[2023-11-08 15:41] LABS: ALT 15 U/L (8-44); AST 19 U/L (13-35); Albumin 3.7 g/dL (3.8-4.9); Albumin/Globulin Ratio 1.54 Ratio (1.60-3.17); Alkaline Phosphatase 74 U/L (41-126); Blood Urea Nitrogen 7.7 mg/dL (9.0-27.0); Calcium 9.3 mg/dL (8.7-10.3); Carbon Dioxide 25.5 mmol/L (21.6-31.8); Chloride 97 mmol/L (96-109); Globulin 2.4 g/dL (1.6-3.3); Glucose 170 mg/dL (70-110); Magnesium 1.4 mg/dL (1.5-2.4); Potassium 4.2 mmol/L (3.5-5.5); Sodium 134 mmol/L (135-145); Total Bilirubin 0.2 mg/dL (0.3-1.2); Total Protein 6.1 g/dL (6.2-8.2)
[2023-11-08 15:52] LABS: Appearance,Urine Clear (Clear); Bilirubin,Urine Negative (Negative); Blood,Urine Small (Negative); Color,Urine Yellow (Yellow); Ketones,Urine Negative (Negative); Nitrite,Urine Negative (Negative); Specific Gravity,Urine 1.006 (1.001-1.030); Urobilinogen,Urine 0.2 E.U./DL
[2023-11-08 16:01] LABS: Bacteria,Urine None Seen (None Seen)
== END | disposition home or self-care (01) ==
LOC: LABWHC1 10:56
PROVIDERS: ATTEND Thoracic Surgery (Cardiothoracic Vascular Surgery)
DX: I25.10 Atherosclerotic heart disease of native coronary artery without angina pectoris (principal)
CPT/HCPCS: 80053; 81001; 83735; 85027; 85610; 85730; 86850; 86900; 86901; 86920; 87086

== ENCOUNTER 2023-11-17 05:42 | Inpatient (IN) | payer MEDICARE ==
[~2023-11-17 05:42] MED LIST changes: +ALBUMIN HUMAN 25% 50 ML IV ONE; +ALBUMIN HUMAN 5% 500 ML IVPB ONE; +ASPIRIN 325 MG TAB PO ONE; +CALCIUM CHLORIDE 100 MG/ML 10 ML SYRINGE IV ONE; +CARDIOPLEGIC SOLN (K+ 16 MEQ/L 1,000 ML with SODIUM BICARB (1 MEQ/ML) 20 ML, LIDOCAINE ... PERFUSION ONE; +CHLORHEXIDINE GLUCONATE 15 ML CUP MUCOUS MEM ONE; +CLEVIDIPINE BUTYRATE 25 MG in EMPTY BAG 1 BAG IV ONE; -DEXAMETHASONE SOD PHOSPHATE 10 MG/ML 1 ML VIAL IV ONE; +DILTIAZEM 125 MG in SODIUM CHLORIDE 0.9% 100 ML IV ONE; +HEPARIN SODIUM 1,000 UN/ML (10ML VL) IV ONE; +HEPARIN SODIUM,PORCINE (1 ML) 5,000 UNIT in SODIUM CHLORIDE 0.9% 500 ML 500 ML IV ONE; -HEPARIN SODIUM,PORCINE 5,000 UNIT/ML 1 ML VIAL SQ ONE; +INSULIN REGULAR 100 UNIT in SODIUM CHLORIDE 0.9% 100 ML IV ONE; -LACTATED RINGERS 1,000 ML IV SCH; +MAGNESIUM SULFATE 16.24 MEQ in EMPTY SYRINGE 1 SYR IV ONE; +MANNITOL 25% 12.5 GM/50 ML VIAL IV ONE; -MIDAZOLAM 2 MG/2 ML VIAL IV PRN; +NITROGLYCERIN SL TABS 0.4 MG TAB SUBLINGUAL ONE; +NITROGLYCERIN-D5W PMX 25 MG/250 ML BTL IV ONE; +NITROGLYCERIN-D5W PMX 50 MG in DEXTROSE/WATER 1 250ML.BAG IV ONE; +NOREPINEPHRINE 4 MG in SODIUM CHLORIDE 0.9% 250 ML IV ONE; -ONDANSETRON 4 MG/2 ML VIAL IVP ONE; +PAPAVERINE 360 MG in SODIUM CHLORIDE 0.9% 90 ML IV ONE; +PHENYLEPHRINE 10 MG/ML VIAL IV ONE; +PHENYLEPHRINE 40 MG in SODIUM CHLORIDE 0.9% 250 ML IV ONE; +PROTAMINE SULFATE 10 MG/ML 25 ML VIAL IV ONE; +PROTAMINE SULFATE 250 MG in EMPTY BAG 1 BAG IV ONE; +SODIUM BICARB 8.4% 50 ML SYR (1 MEQ/ML) IV ONE; +SODIUM CHLORIDE 0.9% 1,000 ML IV ONE; +TRANEXAMIC ACID 2,000 MG in SODIUM CHLORIDE 0.9% 80 ML IV ONE; +ceFAZolin 1,000 MG in SODIUM CHLORIDE 0.9% IRRIGATIO 1,000 ML IRRIGATION ONE; -ceFAZolin 2 GM in SODIUM CHLORIDE 0.9% 100 ML IVPB ONE; +propofoL 1,000 MG/100 ML VIAL IV ONE
[2023-11-17] MEDS: IV FLUID CONTINUATION 1,000 ML IV ONE (05:56)
[2023-11-17 06:38] LABS: Glucose,Whole Blood 145 mg/dL (70-110)
[2023-11-17] MEDS: ASPIRIN 81 MG PO STA (06:41)
[2023-11-17] MEDS: METOPROLOL TARTRATE 12.5 MG TAB PO ONE (06:42)
[2023-11-17] MEDS: ATORVASTATIN 10 MG TAB PO ONE (06:42)
[2023-11-17] MEDS: LACTATED RINGERS 1,000 ML IV ONE (06:48)
[2023-11-17] MEDS ORDERED: PHENYLEPHRINE-0.9% NACL SYG 1,000 MCG/10 ML SYRINGE ONE (07:30)
[2023-11-17] MEDS ORDERED: VECURONIUM 10 MG VIAL IV ONE (07:30)
[2023-11-17] MEDS ORDERED: PROPOFOL 10 MG/ML 20 ML VIAL IV ONE (07:30)
[2023-11-17] MEDS ORDERED: MIDAZOLAM HCL 10 MG/10 ML VIAL ONE (07:30)
[2023-11-17] MEDS ORDERED: PROTAMINE SULFATE 10 MG/ML 25 ML VIAL IV ONE (07:30)
[2023-11-17] MEDS ORDERED: fentaNYL (PF) 50 MCG/ML 50 ML VIAL ONE (07:30)
[2023-11-17] MEDS ORDERED: HEPARIN SODIUM,PORCINE 10,000 UNIT/ML 1 ML VIAL ONE (07:30)
[2023-11-17] MEDS ORDERED: ALBUMIN HUMAN 5% (25gm) 500 ML VIAL IVPB ONE (07:30)
[2023-11-17] MEDS: SODIUM CHLORIDE 0.9% 50 ML with ceFAZolin 2,000 MG IV ONE (07:55)
--- NOTE | 2023-11-17 07:59 | P.ANPRN ---
Procedure Note - Anesthesia - Invasive Line Right [place] Time Out Performed: Yes Date of Procedure: 11/17/23 Time of Procedure: 07:30 Location of Patient: PreOp Preparation: Sterile Prep, Sterile Dressing Central Line Location: Internal Jugular Ultrasound Used: No Purpose - Visualization and Identification of Vasculature: No Image Stored and Saved: No Narrative: Invasive line placement per sterile protocol utilized.
--- NOTE | 2023-11-17 07:59 | P.ANPRN ---
Procedure Note - Anesthesia - Invasive Line Right Central Line Time Out Performed: Yes Date of Procedure: 11/17/23 Time of Procedure: 07:26 Location of Patient: PreOp Preparation: Sterile Prep, Sterile Dressing Central Line Location: Internal Jugular Ultrasound Used: No Purpose - Visualization and Identification of Vasculature: No Image Stored and Saved: No Narrative: Invasive line placement per sterile protocol utilized.
[2023-11-17] MEDS: PAPAVERINE 360 MG in SODIUM CHLORIDE 0.9% 90 ML IV ONE (08:45)
[2023-11-17] MEDS: SODIUM CHLORIDE 0.9% 500 ML 500 ML with HEPARIN SODIUM,PORCINE (1 ML) 5,000 UNIT IV ONE (08:45)
[2023-11-17] MEDS: ceFAZolin 1,000 MG in SODIUM CHLORIDE 0.9% 1,000 ML IRRIGATION ONE (08:46)
[2023-11-17 09:46] LABS: ABG Glucose Whole Blood 141 mg/dL (75-99); ABG Hematocrit 28 % (34.0-46.0); ABG Ionized Calcium 4.7 mg/dL (4.5-5.3); ABG Lactic Acid Whole Blood 0.7 mmol/L (0.5-1.6); ABG Oxygen Saturation 98.8 % (94-97); ABG PH 7.36 (7.35-7.45); ABG PO2 309 mmHg (83-108); ABG Potassium Whole Blood 3.9 mmol/L (3.4-4.5); ABG Sodium Whole Blood 133 mmol/L (135-146)
[2023-11-17 10:17] LABS: ABG Glucose Whole Blood 133 mg/dL (75-99); ABG Ionized Calcium 4.5 mg/dL (4.5-5.3); ABG Lactic Acid Whole Blood 0.5 mmol/L (0.5-1.6); ABG Oxygen Saturation 99.2 % (94-97); ABG PH 7.37 (7.35-7.45); ABG PO2 298 mmHg (83-108); ABG Potassium Whole Blood 3.6 mmol/L (3.4-4.5); ABG Sodium Whole Blood 134 mmol/L (135-146)
[2023-11-17 10:48] LABS: ABG Glucose Whole Blood 136 mg/dL (75-99); ABG Ionized Calcium 4.5 mg/dL (4.5-5.3); ABG Lactic Acid Whole Blood 0.5 mmol/L (0.5-1.6); ABG Oxygen Saturation 98.9 % (94-97); ABG PH 7.42 (7.35-7.45); ABG PO2 325 mmHg (83-108); ABG Potassium Whole Blood 4.4 mmol/L (3.4-4.5); ABG Sodium Whole Blood 133 mmol/L (135-146)
[2023-11-17] MEDS ORDERED: DEXTROSE 50% SYRINGE 50 ML IVP PRN ×2 (12:04)
[2023-11-17] MEDS ORDERED: DEXTROSE 5% IN WATER 100 ML with AMIODARONE 150 MG IV PRN (12:04)
[2023-11-17] MEDS ORDERED: CALCIUM GLUCONATE IN NACL 2 GM in SALINE 1 100ML.BAG IVPB PRN (12:04)
[2023-11-17] MEDS ORDERED: hydrALAZINE HCL 20 MG/ML 1 ML VIAL IVP PRN (12:04)
[2023-11-17] MEDS ORDERED: BENZOCAINE/MENTHOL LOZENG 1 EACH LOZENGE MUCOUS MEM PRN (12:04)
[2023-11-17] MEDS ORDERED: Potassium Replacement Protocol 1 EACH MISC MISCELLANE PRN (12:04)
[2023-11-17] MEDS ORDERED: IPRATROPIUM-ALBUTEROL 3 ML NEB INHALATION PRN (12:04)
[2023-11-17] MEDS ORDERED: Magnesium Replacement Protocol 1 EACH MISC MISCELLANE PRN (12:04)
[2023-11-17] MEDS ORDERED: DEXMEDETOMIDINE/0.9% NACL(PMX) 400 MCG in EMPTY BAG 1 BAG IV SCH (12:04)
[2023-11-17 12:20] LABS: Glucose,Whole Blood 140 mg/dL (70-110)
--- NOTE | 2023-11-17 12:29 | P.OP ---
Date of Procedure: 11/17/23 Preoperative Diagnosis: Coronary artery disease, unstable angina pectoralis Postoperative Diagnosis: Same Procedure(s) Performed: Off-pump CABG x 3 with PACHECO to LAD, saphenous vein graft to first obtuse marginal, saphenous vein graft to second obtuse marginal, endovascular vein harvest from the left thigh, ligation of the left atrial appendage with 35mm AtriCure clip. Implants: 35 mm AtriCure clip Anesthesia: GETA Surgeon: Richard Schmitt Gusset Folder #1: Erika Irving Gusset Folder #2: Enrrique Huffman Estimated Blood Loss (ml): 350 IV fluids (ml): 2,000 Urine output (ml): 250 Pathology: none sent Condition: stable Disposition: ICU Indications for Procedure: 73-year-old female presented 2 to 3 weeks ago with unstable angina symptoms. Her was concurrently hospitalized and was made hospice on the day of her cardiac catheterization and our consultation. We followed her for several days in the hospital, she had been on Plavix. This was being held. We did schedule her for surgery but subsequently canceled her when her . She was seen back in the office last week and it was agreed to proceed with surgery this week. She was asymptomatic since discharge from a cardiac standpoint. Operative Findings: Intraoperative echocardiography by anesthesia demonstrated normal valvular function and normal ventricular function. Left internal mammary artery was an excellent conduit. Saphenous vein was very limited. There was no saphenous vein visualized on ultrasonography below the knee on either side. Saphenous vein appeared somewhat larger on the left than the right based on ultrasound measurements. Following harvest of the saphenous vein there was a short piece of good diameter saphenous vein proximally in the thigh that blew up well. There were remaining saphenous vein from the mid thigh to below the knee was fairly small although was short segment of valveless vein of reasonable quality was present. Coronary targets were reasonable. Description of Procedure: Patient was brought to the OR and placed supine on the operating table. Preoperative monitoring lines have been placed in the preop holding area. General anesthesia was induced. Taylor catheter and MAI probe were placed. MAI evaluation was done by anesthesia. Anterior torso and bilateral lower extremities were sterilely prepped and draped in standard fashion. Left greater saphenous vein was harvested using endovascular vein harvest technique from just below the knee to the groin. Quality was as noted above. Simultaneous sternotomy was performed to the left hemisternum retracted upwards. The left internal mammary artery was harvested on a vascularized pedicle. Left pleural space was drained with a 32 Nepali chest tube. Standard sternal retractor was placed and the pericardium was opened in the midline, the heart was exposed with pericardial sutures. Patient was systemically heparinized and ACT's were maintained greater than 250 during grafting. We began with the PACHECO to the LAD. The LAD was grafted in its midportion just beyond the first diagonal branch. There was calcified proximal to this based on palpation. Was a good target at this level. Was opened and blood flow controlled with a 1.5 mm flow through, it was a 1.75 mm vessel. End-to-side anastomosis between the PACHECO and the LAD was performed with running 8-0 Prolene suture. On completion of the anastomosis the flow through was removed 50 from the proximal distal portion of the anastomosis. Suture was tied with good result and hemostasis in the inflow was opened. Hector filled well and there was no kinking. Next the lateral wall of the heart was exposed. First obtuse marginal was a large vessel 2 mm in diameter. It was stabilized and the thigh end of the saphenous vein was anastomosed in end-to-side fashion with running 7-0 Prolene suture. A 1.5 mm flow-through was used to control flow of blood during the anastomosis and was removed on completion of the anastomosis. Suture was tied with good result and hemostasis and good backbleeding into the vein graft was noted. Heart was lowered in anatomic position. The vein was not long enough for the large segment of vein to reach the ascending aorta and the small segment of vein that was subsequent to this was not appropriate for proximal anastomosis of the ascending aorta. Was decided to cut the vein short aluminating the narrow segments and jump it off the PACHECO. Bulldog clamps were placed on the PACHECO proximally distally and was opened longitudinally as it entered the pleural space. Proximal anastomosis was constructed with running 7-0 Prolene suture. On completion of the proximal anastomosis, it was de-aired by backbleeding and the suture was tied with good result hemostasis and the inflow was opened. The graft was noted to lay well. We now exposed the second obtuse marginal branch. It was a smaller branch but was felt to be graftable. There was clearly significant lesion between the first and second OM based on the cardiac catheterization. Second obtuse marginal was opened fairly proximally and the best piece of the small saphenous vein was used to anastomose an inside fashion. It was 1.5 mm vessel and blood flow was controlled with a 1.5 mm flow through. Anastomosis was constructed with running 7-0 Prolene suture in end-to-side fashion. On completion anastomosis the flow through was removed effective probing the proximal distal portion of the anastomosis. Suture was tied with good result and backbleeding into the vein graft with no evidence of kinking. It was decided to minimize the amount of small vein used by jumping it off the larger saphenous vein to the second obtuse marginal just proximal to the distal anastomosis. This allowed utilization of the valve with segment for the vein to the second obtuse marginal. Bulldog clamps were applied distally and proximally on the first OM graft and distally on the second OM graft. Side tach and anastomosis from OM1 to OM 2 was constructed with running 7-0 Prolene suture. On completion of the anastomosis it was de-aired by backbleeding and the suture was tied. Inflow was opened. The graft was noted to lay very well. The heart was lowered in anatomic position. Good Hemodynamics had been maintained throughout. Heparin was reversed with protamine and good hemostasis was obtained throughout. Mediastinum was drained with a 36 Nepali chest tube. The chest was irrigated with antibiotic solution and the sternum closed with 7 Mersilene bands. Fascia was closed with 0 Ethibond. Subcutaneous and subcuticular layers were closed with layers of Vicryl suture. Bilateral subpectoral pain pump catheters were placed dry sterile dressings were applied and the patient was transferred to ICU in stable hemodynamic condition. Blood loss was returned through the [facility].
[2023-11-17 12:42] LABS: ABG Base Excess 2.2 mmol/L; ABG HCO3 23 mmol/L (21-25); ABG PCO2 41 mmHg (35-45); ABG TCO2 22 mmol/L (19-24)
[2023-11-17 12:45] LABS: ABG Base Excess -3.4 mmol/L; ABG HCO3 22 mmol/L (21-25); ABG Hematocrit 23 % (34.0-46.0); ABG PCO2 38 mmHg (35-45); ABG TCO2 21 mmol/L (19-24)
[2023-11-17] MEDS: INSULIN REGULAR 100 UNIT in SODIUM CHLORIDE 0.9% 100 ML IV SCH (12:45)
[2023-11-17 12:46] LABS: ABG HCO3 22 mmol/L (21-25); ABG PCO2 34 mmHg (35-45); ABG TCO2 21 mmol/L (19-24)
[2023-11-17 12:47] LABS: ABG Base Excess -2.4 mmol/L; ABG Hematocrit 23 % (34.0-46.0)
[2023-11-17 12:51] LABS: INR 1.2 (<1.2); Partial Thromboplastin Time 27.6 sec (22.0-30.0); Prothrombin Time 13.1 sec (10.0-12.5)
[2023-11-17 12:53] LABS: Glucose,Whole Blood 126 mg/dL (70-110)
--- NOTE | 2023-11-17 12:53 | XR ---
EXAMINATION TYPE: XR chest 1V portable DATE OF EXAM: 11/17/2023 12:46 PM COMPARISON: Chest radiographs from 10/24/2023 TECHNIQUE: XR chest 1V portable Portable AP radiograph of the chest. CLINICAL INDICATION:Female, 73 years old with history of Post Operative Cardiac Surgery; FINDINGS: Lungs/Pleura: There is no evidence of pleural effusion, focal consolidation, or pneumothorax. Bibasi lar linear atelectasis. Pulmonary vascularity: Unremarkable. Heart/mediastinum: Cardiomediastinal silhouette is stable. Atherosclerotic calcifications are seen i n the aorta. Left atrial appendage occlusion devices present. Musculoskeletal: No acute osseous pathology. Other findings: None Lines/Tubes: Endotracheal tube with distal tip 1.4 cm above the gus Nasogastric tube with distal tip projecting off the inferior aspect of the radiograph. Right IJ [place]-Bette catheter identified with distal tip projecting over the right main pulmonary arter y. Mediastinal drain is identified. Left chest tube identified directed towards the left lung apex. IMPRESSION: 1. Postsurgical changes from cardiac surgery with lines and tubes as described above. Recommend retr action of endotracheal tube approximately 2 cm. 2. No sizable pneumothorax.
[2023-11-17 12:54] LABS: ABG Base Excess -1.8 mmol/L; ABG HCO3 23 mmol/L (21-25); ABG Oxygen Saturation 100.6 % (94-97); ABG PCO2 36 mmHg (35-45); ABG PH 7.41 (7.35-7.45); ABG TCO2 24 mmol/L (19-24)
[2023-11-17 12:57] LABS: ABG PO2 >420 mmHg (83-108); Allen Test Performed? no
[2023-11-17 12:57] LABS: Ionized Calcium 4.8 mg/dL (4.5-5.3)
[2023-11-17] MEDS: NITROGLYCERIN-D5W PMX 50 MG in DEXTROSE/WATER 1 250ML.BAG IV SCH (13:00)
[2023-11-17] MEDS: LACTATED RINGERS 1,000 ML IV SCH (13:01)
[2023-11-17 13:02] LABS: Basophils % (A) 0 %; Eosinophils # (A) 0.1 k/uL (0-0.7); Eosinophils % (A) 1 %; HCT 23.1 % (34.0-46.0); Lymphocytes # (A) 1.1 k/uL (1.0-4.8); Lymphocytes % (A) 15 %; MCH 30.7 pg (25.0-35.0); Mean Platelet Volume 8.3; Monocytes # (A) 0.2 k/uL (0-1.0); Monocytes % (A) 3 %; Neutrophils # (A) 5.9 k/uL (1.3-7.7); Neutrophils % (A) 80 %; RBC 2.49 m/uL (3.80-5.40); RDW 13.6 % (11.5-15.5); WBC 7.4 k/uL (3.8-10.6)
[2023-11-17 13:08] LABS: ALT 21 U/L (4-34); AST 37 U/L (14-36); African American GFR (CKD) >90 (>60 ml/min/1.73 sqM); Albumin 2.4 g/dL (3.5-5.0); Alkaline Phosphatase 38 U/L (38-126); Anion Gap 6 mmol/L; Blood Urea Nitrogen 8 mg/dL (7-17); Calcium 8.1 mg/dL (8.4-10.2); Carbon Dioxide 19 mmol/L (22-30); Chloride 106 mmol/L (98-107); Glucose 119 mg/dL (74-99); Magnesium 1.2 mg/dL (1.6-2.3); Non-African American GFR(CKD) >90 (>60 ml/min/1.73 sqM); Potassium 3.9 mmol/L (3.5-5.1); Sodium 131 mmol/L (137-145); Total Bilirubin 0.5 mg/dL (0.2-1.3); Total Protein 4.1 g/dL (6.3-8.2)
[2023-11-17] MEDS: IPRATROPIUM-ALBUTEROL 3 ML NEB INHALATION SCH ×2 (13:09→20:37)
[2023-11-17 13:23] LABS: HGB 7.6 gm/dL (11.4-16.0)
[2023-11-17] MEDS: ACETAMINOPHEN IV (For NPO) 1,000 MG in EMPTY BAG 1 BAG IVPB SCH (13:35)
[2023-11-17] MEDS: AMIODARONE 360 MG in DEXTROSE 5% IN WATER 200 ML IV ONE (13:41)
[2023-11-17 13:54] LABS: Glucose,Whole Blood 118 mg/dL (70-110)
[2023-11-17] MEDS: MAGNESIUM SULFATE-D5W PMX 1 GM in DEXTROSE/WATER 1 100ML.BAG IVPB SCH (13:58)
[2023-11-17 14:07] LABS: Platelet Count 104 k/uL (150-450)
[2023-11-17 14:56] LABS: Glucose,Whole Blood 157 mg/dL (70-110)
[2023-11-17 16:00] LABS: Glucose,Whole Blood 177 mg/dL (70-110)
[2023-11-17 16:27] LABS: ABG HCO3 22 mmol/L (21-25); ABG PCO2 40 mmHg (35-45); ABG PH 7.35 (7.35-7.45); ABG PO2 189 mmHg (83-108); ABG TCO2 24 mmol/L (19-24)
[2023-11-17 16:29] LABS: Allen Test Performed? no
[2023-11-17 16:39] LABS: Basophils % (A) 0 %; Eosinophils # (A) 0.1 k/uL (0-0.7); Eosinophils % (A) 1 %; HCT 23.1 % (34.0-46.0); HGB 7.5 gm/dL (11.4-16.0); Lymphocytes # (A) 1.3 k/uL (1.0-4.8); Lymphocytes % (A) 14 %; MCH 30.3 pg (25.0-35.0); MCHC 32.5 g/dL (31.0-37.0); MCV 93.2 fL (80.0-100.0); Mean Platelet Volume 7.7; Monocytes # (A) 0.3 k/uL (0-1.0); Monocytes % (A) 3 %; Neutrophils # (A) 7.5 k/uL (1.3-7.7); Neutrophils % (A) 82 %; Platelet Count 103 k/uL (150-450); RBC 2.48 m/uL (3.80-5.40); RDW 13.6 % (11.5-15.5); WBC 9.2 k/uL (3.8-10.6)
[2023-11-17] MEDS: CLEVIDIPINE BUTYRATE 25 MG in EMPTY BAG 1 BAG IV SCH (16:41)
[2023-11-17 17:01] LABS: Glucose,Whole Blood 165 mg/dL (70-110)
[2023-11-17] MEDS: HEPARIN SODIUM,PORCINE 5,000 UNIT/ML 1 ML VIAL SQ SCH (17:55)
[2023-11-17 18:01] LABS: Glucose,Whole Blood 131 mg/dL (70-110)
[2023-11-17] MEDS: AMIODARONE 450 MG in DEXTROSE 5% IN WATER 250 ML IV SCH (18:47)
[2023-11-17 18:58] LABS: Glucose,Whole Blood 173 mg/dL (70-110)
[2023-11-17 19:09] LABS: Basophils % (A) 0 %; Eosinophils % (A) 0 %; HCT 26.1 % (34.0-46.0); HGB 8.5 gm/dL (11.4-16.0); Lymphocytes # (A) 0.7 k/uL (1.0-4.8); Lymphocytes % (A) 6 %; MCH 30.6 pg (25.0-35.0); MCHC 32.5 g/dL (31.0-37.0); MCV 94.2 fL (80.0-100.0); Mean Platelet Volume 8.3; Monocytes # (A) 0.4 k/uL (0-1.0); Monocytes % (A) 3 %; Neutrophils # (A) 10.1 k/uL (1.3-7.7); Neutrophils % (A) 90 %; Platelet Count 122 k/uL (150-450); RBC 2.77 m/uL (3.80-5.40); RDW 13.4 % (11.5-15.5); WBC 11.3 k/uL (3.8-10.6)
[2023-11-17 20:04] LABS: Glucose,Whole Blood 149 mg/dL (70-110)
[2023-11-17] MEDS: SENNOSIDES-DOCUSATE SODIUM 1 EACH TAB PO SCH (20:23)
[2023-11-17] MEDS: ONDANSETRON 4 MG/2 ML VIAL IVP PRN (20:25)
[2023-11-17 21:02] LABS: Glucose,Whole Blood 139 mg/dL (70-110)
[2023-11-17] MEDS: ALBUMIN HUMAN 5% 250 ML in EMPTY BAG 1 BAG IVPB PRN (21:16)
[2023-11-17] MEDS: POTASSIUM CHLORIDE ER 20 MEQ TAB.ER PO SCH (21:23)
[2023-11-17] MEDS: hydrALAZINE HCL 20 MG/ML 1 ML VIAL IVP ONE (21:36)
[2023-11-17 22:02] LABS: Glucose,Whole Blood 147 mg/dL (70-110)
--- NOTE | 2023-11-17 22:19 | P.CNPUL ---
History of Present Illness Consult date: 11/17/23 History of present illness: 73-year-old female patient, underwent an off-pump three-vessel bypass surgery with PACHECO to LAD, SVG to first obtuse marginal and second obtuse marginal. Postop, the patient was brought into the intensive care unit. I saw the patient immediately after arrival to the intensive care unit. The patient was on propofol. The patient was on assist-control mode of mechanical ventilation at a rate of 14, tidal volume of 350, FiO2 of 100% and a PEEP of 5. Initial chest x- ray showed adequate expansion of both lungs. No evidence of any pneumothorax. The patient has mediastinal and left pleural chest tube. Postsurgical changes were noted on the chest x-ray and the tube was retracted by around 1 cm. There was no evidence of any pneumothorax. [place]-Bette catheter in place. The cardiac output was 3.7 with an index of 2.4. The patient was on amiodarone drip. Cardiac rhythm was sinus. The patient was on nitroglycerin drip running at 10 mcg/min and the patient was also on insulin drip at 3 units an hour. The FiO2 was gradually weaned off and subsequently, the patient was taken off sedation given a spontaneous breathing trial with a pressure support of 5 and a PEEP of 5 and subsequent blood gases were adequate and the patient was extubated accordingly. At this point in time, the patient is awake and alert, maintained on oxygen 2 L/min nasal cannula. No significant respiratory difficulties. Urine output is adequate. Hemodynamically stable. WBC count 11.3 hemoglobin 8.5 and a platelet count of 122 and the patient is afebrile. Review of Systems ROS unobtainable: due to endotracheal tube Past Medical History Past Medical History: Coronary Artery Disease (CAD), Cancer, Chest Pain / Angina, Diabetes Mellitus, GERD/Reflux, Hyperlipidemia, Hypertension Additional Past Medical History / Comment(s): Hx tennis elbow, hx sciatica, beginnings of neuropathy in feet, seems improved at this time. HX OF BELLS PALSY, hx anemia X1, frequent diarrhea recently, not as much recently, thinks might have a "blockage", hx skin cancer X1 2022 on right eyebrow. History of Any Multi-Drug Resistant Organisms: None Reported Past Surgical History: Section, Heart Catheterization With Stent, Hernia Repair, Hysterectomy Additional Past Surgical History / Comment(s): INCISIONAL HERNIA REPAIR, SKIN LESIONS REMOVED, COLOLOSCOPY, Bilateral cataract surgery 2017 Past Anesthesia/Blood Transfusion Reactions: No Reported Reaction Additional Past Anesthesia/Blood Transfusion Reaction / Comment(s): Pt has never received blood. Date of Last Stent Placement:: 05/07/2015 Past Psychological History: No Psychological Hx Reported Smoking Status: Former smoker Past Alcohol Use History: None Reported Additional Past Alcohol Use History / Comment(s): QUIT SMOKING APPROX 37 YRS AGO. SMOKED 10-15 YRS, 1 PPD OR LESS. Past Drug Use History: None Reported - Past Family History Brother(s) Family Medical History: Cancer Additional Family Medical History / Comment(s): COLON CANCER Sister(s) Family Medical History: Cancer Additional Family Medical History / Comment(s): COLON CANCER Father Family Medical History: Coronary Artery Disease (CAD), Myocardial Infarction (NE) Additional Family Medical History / Comment(s): Father at age 67yrs and pt thinks cause of was a NE. Mother Family Medical History: Coronary Artery Disease (CAD) Additional Family Medical History / Comment(s): Mother at age 78 or 79yrs of heart disease. Medications and Allergies Home Medications Medication Instructions Recorded Confirmed Type Raloxifene HCl [Evista] 60 mg PO DAILY 04/03/15 11/17/23 History atenoloL [Atenolol] 50 mg PO DAILY 04/03/15 11/17/23 History lisinopriL [Lisinopril] 20 mg PO DAILY 04/03/15 11/17/23 History sitaGLIPtin [Januvia] 50 mg PO DAILY 04/03/15 11/17/23 History Atorvastatin [Lipitor] 40 mg PO HS 08/31/16 11/17/23 History Clopidogrel Bisulfate [Plavix] 75 mg PO DAILY 08/31/16 11/17/23 History Ferrous Sulfate [Feosol] 325 mg PO DAILY 08/31/16 11/17/23 History Ergocalciferol [Vitamin D2 (1250 1,250 mcg PO COOK 01/01/21 11/17/23 History Mcg = 05595 Iu)] Aspirin 81 mg PO DAILY 10/18/23 11/17/23 History Fish Oil/Dha/Epa [Fish Oil 1,200 1 cap PO DAILY 10/18/23 11/17/23 History mg Fish Oil] Lactobacillus Acidophilus 1 cap PO DAILY 10/18/23 11/17/23 History [Acidophilus Probiotic] metFORMIN HCL 500 mg PO AC-BID 10/18/23 11/17/23 History Allergies Allergy/AdvReac Type Severity Reaction Status Date / Time codeine AdvReac Nausea & Verified 11/17/23 06:03 Vomiting Physical Exam Vitals: Vital Signs Temp Pulse Pulse Resp BP BP BP 11/17/23 15:48 11/17/23 15:26 11/17/23 15:10 60 14 11/17/23 15:03 11/17/23 15:01 11/17/23 15:00 58 L 14 117/59 11/17/23 14:50 58 L 14 11/17/23 14:40 59 L 14 11/17/23 14:30 59 L 14 117/59 11/17/23 14:20 60 14 148/68 11/17/23 14:10 62 14 148/68 11/17/23 14:00 61 14 148/68 11/17/23 13:50 64 14 148/68 11/17/23 13:40 14 132/65 11/17/23 13:30 64 14 132/65 11/17/23 13:20 64 14 124/64 11/17/23 13:10 63 12 124/64 11/17/23 13:00 63 14 124/64 11/17/23 12:57 11/17/23 12:50 62 14 124/64 11/17/23 12:40 62 14 124/64 11/17/23 12:30 60 14 124/64 11/17/23 12:20 61 14 11/17/23 06:30 168/71 11/17/23 06:13 97.6 F 71 16 163/67 Pulse Ox FiO2 11/17/23 15:48 40 11/17/23 15:26 40 11/17/23 15:10 100 11/17/23 15:03 40 11/17/23 15:01 100 11/17/23 15:00 100 11/17/23 14:50 100 11/17/23 14:40 100 11/17/23 14:30 100 11/17/23 14:20 92 L 11/17/23 14:10 100 11/17/23 14:00 100 11/17/23 13:50 100 11/17/23 13:40 100 11/17/23 13:30 100 11/17/23 13:20 100 11/17/23 13:10 100 11/17/23 13:00 100 11/17/23 12:57 50 11/17/23 12:50 100 11/17/23 12:40 100 11/17/23 12:30 100 11/17/23 12:20 100 100 11/17/23 06:30 11/17/23 06:13 97 Intake and Output 11/17/23 11/17/23 11/17/23 06:59 14:59 22:59 Intake Total 100 407.031 323.087 Output Total 774 81 Balance 100 -366.969 242.087 Intake: IV 100 391 319 ACETAMINOPHEN IV (For NPO 100 ) 1,000 mg In Empty Bag 1 bag @ 400 mls/hr IVPB Q6H ANAHI Rx#:[id number] CO/CI 120 60 Lactated Ringers 1,000 ml 100 50 @ 50 mls/hr IV .Q20H ANAHI Rx#:[id number] Magnesium Sulfate-D5w Pmx 200 1 gm In Dextrose/Water 1 100ml.bag @ 100 mls/hr IVPB Q1H ANAHI Rx#: [id number] Pressure bags 18 9 Intake, IV Titration 16.031 4.087 Amount Insulin Regular 100 unit 1.742 1.944 In Sodium Chloride 0.9% 100 ml @ Per Protocol IV .Q0M ANAHI Rx#:[id number] propofoL 1,000 mg In 14.289 2.143 Empty Bag 1 bag @ Titrate IV .Q0M ANAHI Rx#: [id number] Output: Chest Tube Drainage 82 41 Chest Tube Left 27 17 Chest Tube Mediastinal 55 24 Urine 342 40 Estimated Blood Loss 350 ABP, PAP, CO, CI - Last 8 Hours Arterial Blood Pressure 95/39 Arterial Blood Pressure 110/45 Arterial Blood Pressure 116/47 Arterial Blood Pressure 113/46 Arterial Blood Pressure 114/46 Arterial Blood Pressure 131/53 Arterial Blood Pressure 157/64 Arterial Blood Pressure 126/51 Arterial Blood Pressure 140/57 Arterial Blood Pressure 141/58 Arterial Blood Pressure 137/51 Arterial Blood Pressure 132/51 Arterial Blood Pressure 126/51 Arterial Blood Pressure 145/54 Arterial Blood Pressure 138/53 Arterial Blood Pressure 131/55 Arterial Blood Pressure 73/73 Pulmonary Artery Pressure 27/13 Pulmonary Artery Pressure 24/12 Pulmonary Artery Pressure 23/11 Pulmonary Artery Pressure 22/11 Pulmonary Artery Pressure 26/12 Pulmonary Artery Pressure 29/14 Pulmonary Artery Pressure 24/14 Pulmonary Artery Pressure 29/16 Pulmonary Artery Pressure 33/15 Pulmonary Artery Pressure 29/16 Pulmonary Artery Pressure 25/7 Pulmonary Artery Pressure 23/8 Pulmonary Artery Pressure 20/7 Pulmonary Artery Pressure 22/7 Pulmonary Artery Pressure 23/7 Pulmonary Artery Pressure 26/14 Pulmonary Artery Pressure 25/14 Cardiac Output 2.8 Cardiac Output 2.6 Cardiac Output 2.6 Cardiac Output 2.9 Cardiac Output 2.9 Cardiac Output 3.4 Cardiac Output 3.3 Cardiac Output 3.2 Cardiac Output 3.4 Cardiac Output 3.4 Cardiac Output 3.3 Cardiac Index 1.8 Cardiac Index 1.7 Cardiac Index 1.7 Cardiac Index 1.9 Cardiac Index 1.9 Cardiac Index 2.2 Cardiac Index 2.1 Cardiac Index 2.1 Cardiac Index 2.1 Cardiac Index 2.2 Cardiac Index 2.1 GENERAL EXAM: Alert, pleasant 73-year-old female, extubated on 2 L of oxygen by nasal cannula, calm and comfortable, no signs of any significant respiratory distress HEAD: Normocephalic. EYES: Normal reaction of pupils, equal size. NOSE: Clear with pink turbinates. THROAT: No erythema or exudates. NECK: No masses, no JVD. The patient has a right IJ [place]-Bette catheter in place CHEST: No chest wall deformity. LUNGS: Equal air entry with no crackles, wheeze, rhonchi or dullness. Thoracotomy scar is dry clean and intact and the patient has left lower chest tube and mediastinal chest tube and there is no evidence of any air leak and output is quite minimal at this point in time and this was serosanguineous/blood y. CVS: S1 and S2 normal with no audible murmur, regular rhythm. ABDOMEN: No hepatosplenomegaly, normal bowel sounds, no guarding or rigidity. SPINE: No scoliosis or deformity SKIN: No rashes CENTRAL NERVOUS SYSTEM: No focal deficits, tone is normal in all 4 extremities. EXTREMITIES: There is no peripheral edema. No clubbing, no cyanosis. Peripheral pulses are intact. Results - Laboratory Findings CBC and BMP: 11/17/23 18:57 11/17/23 12:00 ABG ABG pH 7.41 (7.35-7.45) 11/17/23 12:52 ABG pCO2 36 mmHg (35-45) 11/17/23 12:52 ABG pO2 >420 mmHg (83-108) H 11/17/23 12:52 ABG O2 Saturation 100.6 % (94-97) H 11/17/23 12:52 PT/INR, D-dimer PT 13.1 sec (10.0-12.5) H 11/17/23 12:00 INR 1.2 (<1.2) H 11/17/23 12:00 Abnormal lab findings: Abnormal Labs 11/08/23 11/17/23 11/17/23 11:05 06:37 09:48 RBC Hgb Hct Plt Count PT INR ABG pCO2 ABG pO2 309 H ABG O2 Saturation 98.8 H ABG Hematocrit 28 L ABG Sodium 133 L ABG Glucose 141 H Hemoglobin 9.1 L Sodium Carbon Dioxide Glucose POC Glucose (mg/dL) 145 H Calcium Magnesium AST Total Protein Albumin Arterial Blood Glucose 141 H Crossmatch See Detail 11/17/23 11/17/23 11/17/23 10:19 10:50 12:00 RBC Hgb Hct Plt Count PT 13.1 H INR 1.2 H ABG pCO2 34 L ABG pO2 298 H 325 H ABG O2 Saturation 99.2 H 98.9 H ABG Hematocrit 23 L 23 L ABG Sodium 134 L 133 L ABG Glucose 133 H 136 H Hemoglobin 7.4 L 7.5 L Sodium Carbon Dioxide Glucose POC Glucose (mg/dL) Calcium Magnesium AST Total Protein Albumin Arterial Blood Glucose 133 H 136 H Crossmatch 11/17/23 11/17/23 11/17/23 12:00 12:19 12:44 RBC 2.49 L Hgb 7.6 L D Hct 23.1 L Plt Count 104 L D PT INR ABG pCO2 ABG pO2 ABG O2 Saturation ABG Hematocrit ABG Sodium ABG Glucose Hemoglobin Sodium 131 L Carbon Dioxide 19 L Glucose 119 H POC Glucose (mg/dL) 140 H Calcium 8.1 L Magnesium 1.2 L AST 37 H Total Protein 4.1 L Albumin 2.4 L Arterial Blood Glucose Crossmatch 11/17/23 11/17/23 11/17/23 12:51 12:52 13:53 RBC Hgb Hct Plt Count PT INR ABG pCO2 ABG pO2 >420 H ABG O2 Saturation 100.6 H ABG Hematocrit ABG Sodium ABG Glucose Hemoglobin Sodium Carbon Dioxide Glucose POC Glucose (mg/dL) 126 H 118 H Calcium Magnesium AST Total Protein Albumin Arterial Blood Glucose Crossmatch 11/17/23 11/17/23 14:55 15:59 RBC Hgb Hct Plt Count PT INR ABG pCO2 ABG pO2 ABG O2 Saturation ABG Hematocrit ABG Sodium ABG Glucose Hemoglobin Sodium Carbon Dioxide Glucose POC Glucose (mg/dL) 157 H 177 H Calcium Magnesium AST Total Protein Albumin Arterial Blood Glucose Crossmatch - Diagnostic Findings Chest x-ray: image reviewed Assessment and Plan Plan: Coronary artery disease. The patient was hospitalized back in October 2023 for chest pain in a patient found to have significant triple-vessel disease and the patient underwent three-vessel bypass surgery, off-pump, currently postop day #0. Hemodynamically stable, the patient amiodarone drip for A-fib prophylaxis and the patient is on low-dose nitroglycerin drip. Cardiac output and index are adequate. Adequate urine output. No pressors. Postthoracotomy, extubated currently on 2 L of oxygen by nasal cannula. The patient is a pleural and mediastinal chest tube. No evidence of any pneumothorax. Chest x-ray shows postsurgical changes. Output from the chest tubes are minimal and there is no evidence of any air leak. History of coronary disease with previous stent placement of the circumflex 2015 Former smoker of approximately 15 years at 1 pack/day. FEV1 value 1.48 L or 78% of predicted Hypertension Hyperlipidemia Diabetes mellitus type II, currently on insulin drip for blood sugar control Bilateral carotid artery stenosis in the order of 50 to 69%, asymptomatic Plan Patient was extubated to nasal cannula successfully. Provide adequate pain control Incentive spirometer Monitor output from the chest tubes Monitor hemodynamic parameters Amiodarone drip for A-fib prophylaxis Monitor urine output Insulin drip for blood sugar control Will continue to follow-up postoperative care along with the rest of the consultants. Patient was extubated successfully
[2023-11-17 23:02] LABS: Glucose,Whole Blood 155 mg/dL (70-110)
[2023-11-17 23:59] LABS: Glucose,Whole Blood 147 mg/dL (70-110)
[2023-11-18 01:08] LABS: Glucose,Whole Blood 105 mg/dL (70-110)
[2023-11-18] MEDS: hydrALAZINE HCL 20 MG/ML 1 ML VIAL IVP STA (01:19)
[2023-11-18] MEDS: METOCLOPRAMIDE 5 MG/ML 2 ML VIAL IVP PRN (01:41)
[2023-11-18 02:08] LABS: Glucose,Whole Blood 151 mg/dL (70-110)
[2023-11-18 02:38] LABS: Glucose,Whole Blood 176 mg/dL (70-110)
[2023-11-18 03:01] LABS: Glucose,Whole Blood 162 mg/dL (70-110)
[2023-11-18 04:06] LABS: Glucose,Whole Blood 153 mg/dL (70-110)
[2023-11-18 04:33] LABS: Ionized Calcium 4.7 mg/dL (4.5-5.3)
[2023-11-18 04:37] LABS: Basophils % (A) 0 %; Eosinophils % (A) 0 %; HCT 24.8 % (34.0-46.0); HGB 7.8 gm/dL (11.4-16.0); Lymphocytes # (A) 0.2 k/uL (1.0-4.8); Lymphocytes % (A) 2 %; MCHC 31.7 g/dL (31.0-37.0); MCV 94.5 fL (80.0-100.0); Mean Platelet Volume 8.1; Monocytes # (A) 0.2 k/uL (0-1.0); Monocytes % (A) 2 %; Neutrophils # (A) 9.9 k/uL (1.3-7.7); Neutrophils % (A) 96 %; Platelet Count 130 k/uL (150-450); RBC 2.62 m/uL (3.80-5.40); RDW 13.5 % (11.5-15.5); WBC 10.4 k/uL (3.8-10.6)
[2023-11-18 04:41] LABS: ALT 20 U/L (4-34); AST 33 U/L (14-36); African American GFR (CKD) >90 (>60 ml/min/1.73 sqM); Albumin 3.2 g/dL (3.5-5.0); Alkaline Phosphatase 42 U/L (38-126); Anion Gap 7 mmol/L; Blood Urea Nitrogen 8 mg/dL (7-17); Carbon Dioxide 17 mmol/L (22-30); Chloride 103 mmol/L (98-107); Glucose 136 mg/dL (74-99); Magnesium 2.1 mg/dL (1.6-2.3); Non-African American GFR(CKD) >90 (>60 ml/min/1.73 sqM); Potassium 3.8 mmol/L (3.5-5.1); Sodium 127 mmol/L (137-145); Total Bilirubin 0.6 mg/dL (0.2-1.3); Total Protein 4.9 g/dL (6.3-8.2)
[2023-11-18 05:01] LABS: Glucose,Whole Blood 118 mg/dL (70-110)
[2023-11-18 06:11] LABS: Glucose,Whole Blood 87 mg/dL (70-110)
[2023-11-18] MEDS: POTASSIUM CHLORIDE ER 20 MEQ TAB.ER PO SCH (06:19)
[2023-11-18 07:06] LABS: Glucose,Whole Blood 151 mg/dL (70-110)
--- NOTE | 2023-11-18 07:50 | XR ---
EXAMINATION TYPE: XR chest 1V portable DATE OF EXAM: 11/18/2023 COMPARISON: 11/17/2023 HISTORY: Postop TECHNIQUE: Single frontal view of the chest is obtained. FINDINGS: A left-sided chest tube with bilateral consolidation and small effusion. No sizable pneumo thorax. Arthropathy of the shoulders. Heart size stable. Atherosclerotic change aorta. Atrial appenda ge clipping postsurgical changes noted. Mediastinal drain seen. IMPRESSION: Postsurgical changes with left-sided consolidation and small effusion slightly progresse d from prior exam. No sizable pneumothorax.
[2023-11-18] MEDS: PANTOPRAZOLE 40 MG/10 ML VIAL IVP SCH (07:54)
[2023-11-18] MEDS: ATORVASTATIN 40 MG TAB PO SCH (07:55)
[2023-11-18] MEDS: FERROUS SULFATE 325 MG TAB PO SCH (07:55)
[2023-11-18] MEDS: CLOPIDOGREL 75 MG TAB PO SCH (07:55)
[2023-11-18] MEDS: ASPIRIN 325 MG TAB PO SCH (07:55)
[2023-11-18] MEDS ORDERED: MD COMMUNICATION TO PHARMACY 1 EACH MISC PO PRN (08:15)
[2023-11-18 08:18] LABS: Glucose,Whole Blood 142 mg/dL (70-110)
[2023-11-18] MEDS: AMIODARONE 200 MG TAB PO SCH (08:47)
[2023-11-18] MEDS: DOPamine DRIP 800 MG in DEXTROSE/WATER 1 250ML.BAG IV SCH (08:47)
[2023-11-18] MEDS ORDERED: METOPROLOL TARTRATE 12.5 MG TAB PO SCH (09:00)
[2023-11-18] MEDS ORDERED: MAGNESIUM HYDROXIDE 2,400 MG/30 ML CUP PO PRN (09:00)
[2023-11-18] MEDS ORDERED: bisacodyL 10 MG SUPP RECTAL PRN (09:00)
[2023-11-18 09:01] LABS: Glucose,Whole Blood 147 mg/dL (70-110)
--- NOTE | 2023-11-18 09:11 | P.PN ---
Subjective Progress Note Date: 11/18/23 Principal diagnosis: Coronary artery disease, unstable angina pectoralis. History of coronary artery disease/left main disease with previous PCI on chronic Plavix, bilateral social media intern al carotid stenosis 50 to 69%, hypertension, hyperlipidemia, type 2 diabetes, chronic anemia, previous tobacco dependence and family history of coronary artery disease POD #1 off-pump CABG x 3 with PACHECO to LAD, saphenous vein graft to first obtuse marginal, saphenous vein graft to second obtuse marginal, endovascular vein harvest from the left thigh, ligation of the left atrial appendage with 35mm AtriCure clip Postoperative acute blood loss anemia, expected given hemodilution and preoperative chronic anemia The patient was seen and examined with Dr. Richardson sitting up in recliner in the intensive care unit in no acute distress. She was successfully extubated yesterday at 16:36. Remains in sinus rhythm, blood pressure soft with mean arterial pressure mostly in the 60s. Does endorse expected postoperative pain which is mostly controlled on current medication regimen, denies shortness of breath. Patient does admit to being sleepy but afraid to fall asleep as she is afraid she will not wake up. Urine output was marginal this morning which is somewhat expected given borderline blood pressures. She was given IV hydralazine last night for afterload reduction which has likely contributed somewhat to her soft blood pressures. Remains on IV amiodarone for A-fib prophylaxis, IV nitro. Will start dopamine for renal perfusion. Right internal jugular Brightwaters/Cordis, right radial arterial line, mediastinal/left pleural chest tubes present. Chest x-ray, labs reviewed. No other new concerns. Objective - Vital Signs Vital signs: Vital Signs Temp 98.1 F 11/18/23 04:01 Pulse 64 11/18/23 07:00 Resp 22 11/18/23 07:00 BP 95/48 11/18/23 07:00 Pulse Ox 97 11/18/23 07:00 FiO2 40 11/17/23 16:00 Intake & Output 11/17/23 11/18/23 11/18/23 18:59 06:59 18:59 Intake Total 2012.279 1692.257 59 Output Total 1075 950 125 Balance 938.279 742.257 -66 Weight 54.6 [place]: [place] [address] 59 ACETAMINOPHEN IV (For NPO 100 100 ) 1,000 mg In Empty Bag 1 bag @ 400 mls/hr IVPB Q6H [facility] Rx#:[id number] Albumin Human 5% 250 ml 250 500 In Empty Bag 1 bag @ 250 mls/hr IVPB Q1HR PRN Rx#: [id number] CO/CI 330 300 Lactated Ringers 1,000 ml 750 600 50 @ 20 mls/hr IV .Q24H [facility] Rx#:[id number] Magnesium Sulfate-D5w Pmx 400 1 gm In Dextrose/Water 1 100ml.bag @ 100 mls/hr IVPB Q1H [facility] Rx#: [id number] Pressure bags 54 108 9 ceFAZolin 2 gm In Sodium 50 50 Chloride 0.9% 50 ml @ 100 mls/hr IVPB Q8HR [facility] Rx# :[id number] Intake, IV Titration 26.279 34.257 0 Amount Insulin Regular 100 unit 9.847 34.257 0 In Sodium Chloride 0.9% 100 ml @ Per Protocol IV .Q0M [facility] Rx#:[id number] propofoL 1,000 mg In 16.432 Empty Bag 1 bag @ Titrate IV .Q0M [facility] Rx#: [id number] Output: Chest Tube Drainage 243 305 70 Chest Tube Left 98 140 30 Chest Tube Mediastinal 145 165 40 Drainage 50 25 Left Leg 50 25 Urine 482 585 30 Emesis 10 Estimated Blood Loss 350 Other: Voiding Method Indwelling Catheter Indwelling Catheter ABP, PAP, CO, CI - Last Documented Arterial Blood Pressure 113/49 Pulmonary Artery Pressure 32/8 Cardiac Output 3.2 Cardiac Index 2.1 - Exam CONSTITUTIONAL: Appears comfortable, cooperative, no acute distress RESPIRATORY: Lungs sounds diminished bilaterally. Respirations even, nonlabored. Currently on 2 L nasal cannula with oxygen saturation 98%. Able to achieve 750 mL on incentive spirometry. Strong cough. CARDIOVASCULAR: S1, S2 present. Regular rate and rhythm, sinus rhythm on telemetry. Sternum stable. Palpable peripheral pulses bilaterally. No edema present. No calf pain or tenderness noted. Heart hugger in place with patient demonstrating appropriate use. Antiembolism stockings, SCDs present. GASTROINTESTINAL: Abdomen soft, nontender, nondistended. Hypoactive bowel sounds present 4 quadrants. Tolerating clear liquids. Denies flatus GENITOURINARY: Taylor present draining clear, yellow urine. Output overnight 10-45 mL per hour INTEGUMENTARY: Skin is warm and dry with evidence of good perfusion. Anterior chest incision well approximated and covered with dry intact dressing. Left lower extremity EVH site well approximated without redness, minimal drainage in BOBBY drain NEUROLOGIC: Cranial nerves II through XII intact MUSKULOSKELETAL: Able to move all extremities, strength equal bilaterally PSYCHIATRIC: Alert and oriented to person place and time, appropriate affect, intact judgment and insight INVASIVE LINES AND TUBES: Mediastinal/left pleural chest tubes present and connected to wall suction, no air leaks present. Mediastinal tube with 115 mL serosanguineous drainage overnight, 350 mL in the last 24 hours. Left pleural chest tube with 70 mL serosanguineous drainage overnight, 250 mL in the last 24 hours. Right internal jugular Brightwaters/Cordis, right radial arterial line present. Last CO/CI 3.2/2.1, PA 30/8, CVP 7. - Allied health notes Allied health notes reviewed: nursing - Labs CBC & Chem 7: 11/18/23 04:02 11/18/23 04:02 Labs: Abnormal Lab Results - Last 24 Hours (Table) 11/08/23 11/17/23 11/17/23 Range/Units 11:05 09:48 10:19 WBC (3.8-10.6) k/uL RBC (3.80-5.40) m/uL Hgb (11.4-16.0) gm/dL Hct (34.0-46.0) % Plt Count (150-450) k/uL Neutrophils # (1.3-7.7) k/uL Lymphocytes # (1.0-4.8) k/uL PT (10.0-12.5) sec INR (<1.2) ABG pCO2 (35-45) mmHg ABG pO2 309 H 298 H (83-108) mmHg ABG O2 Saturation 98.8 H 99.2 H (94-97) % ABG Hematocrit 28 L 23 L (34.0-46.0) % ABG Sodium 133 L 134 L (135-146) mmol/L ABG Glucose 141 H 133 H (75-99) mg/dL Hemoglobin 9.1 L 7.4 L (11.4-16.0) gm/dL Sodium (137-145) mmol/L Carbon Dioxide (22-30) mmol/L Creatinine (0.52-1.04) mg/dL Glucose (74-99) mg/dL POC Glucose (mg/dL) (70-110) mg/dL Calcium (8.4-10.2) mg/dL Magnesium (1.6-2.3) mg/dL AST (14-36) U/L Total Protein (6.3-8.2) g/dL Albumin (3.5-5.0) g/dL Arterial Blood Glucose 141 H 133 H (75-99) mg/dL Crossmatch See Detail 11/17/23 11/17/23 11/17/23 Range/Units 10:50 12:00 12:00 WBC (3.8-10.6) k/uL RBC (3.80-5.40) m/uL Hgb (11.4-16.0) gm/dL Hct (34.0-46.0) % Plt Count (150-450) k/uL Neutrophils # (1.3-7.7) k/uL Lymphocytes # (1.0-4.8) k/uL PT 13.1 H (10.0-12.5) sec INR 1.2 H (<1.2) ABG pCO2 34 L (35-45) mmHg ABG pO2 325 H (83-108) mmHg ABG O2 Saturation 98.9 H (94-97) % ABG Hematocrit 23 L (34.0-46.0) % ABG Sodium 133 L (135-146) mmol/L ABG Glucose 136 H (75-99) mg/dL Hemoglobin 7.5 L (11.4-16.0) gm/dL Sodium 131 L (137-145) mmol/L Carbon Dioxide 19 L (22-30) mmol/L Creatinine (0.52-1.04) mg/dL Glucose 119 H (74-99) mg/dL POC Glucose (mg/dL) (70-110) mg/dL Calcium 8.1 L (8.4-10.2) mg/dL Magnesium 1.2 L (1.6-2.3) mg/dL AST 37 H (14-36) U/L Total Protein 4.1 L (6.3-8.2) g/dL Albumin 2.4 L (3.5-5.0) g/dL Arterial Blood Glucose 136 H (75-99) mg/dL Crossmatch 11/17/23 11/17/23 11/17/23 Range/Units 12:19 12:44 12:51 WBC (3.8-10.6) k/uL RBC 2.49 L (3.80-5.40) m/uL Hgb 7.6 L D (11.4-16.0) gm/dL Hct 23.1 L (34.0-46.0) % Plt Count 104 L D (150-450) k/uL Neutrophils # (1.3-7.7) k/uL Lymphocytes # (1.0-4.8) k/uL PT (10.0-12.5) sec INR (<1.2) ABG pCO2 (35-45) mmHg ABG pO2 (83-108) mmHg ABG O2 Saturation (94-97) % ABG Hematocrit (34.0-46.0) % ABG Sodium (135-146) mmol/L ABG Glucose (75-99) mg/dL Hemoglobin (11.4-16.0) gm/dL Sodium (137-145) mmol/L Carbon Dioxide (22-30) mmol/L Creatinine (0.52-1.04) mg/dL Glucose (74-99) mg/dL POC Glucose (mg/dL) 140 H 126 H (70-110) mg/dL Calcium (8.4-10.2) mg/dL Magnesium (1.6-2.3) mg/dL AST (14-36) U/L Total Protein (6.3-8.2) g/dL Albumin (3.5-5.0) g/dL Arterial Blood Glucose (75-99) mg/dL Crossmatch 11/17/23 11/17/23 11/17/23 Range/Units 12:52 13:53 14:55 WBC (3.8-10.6) k/uL RBC (3.80-5.40) m/uL Hgb (11.4-16.0) gm/dL Hct (34.0-46.0) % Plt Count (150-450) k/uL Neutrophils # (1.3-7.7) k/uL Lymphocytes # (1.0-4.8) k/uL PT (10.0-12.5) sec INR (<1.2) ABG pCO2 (35-45) mmHg ABG pO2 >420 H (83-108) mmHg ABG O2 Saturation 100.6 H (94-97) % ABG Hematocrit (34.0-46.0) % ABG Sodium (135-146) mmol/L ABG Glucose (75-99) mg/dL Hemoglobin (11.4-16.0) gm/dL Sodium (137-145) mmol/L Carbon Dioxide (22-30) mmol/L Creatinine (0.52-1.04) mg/dL Glucose (74-99) mg/dL POC Glucose (mg/dL) 118 H 157 H (70-110) mg/dL Calcium (8.4-10.2) mg/dL Magnesium (1.6-2.3) mg/dL AST (14-36) U/L Total Protein (6.3-8.2) g/dL Albumin (3.5-5.0) g/dL Arterial Blood Glucose (75-99) mg/dL Crossmatch 11/17/23 11/17/23 11/17/23 Range/Units 15:54 15:59 16:25 WBC (3.8-10.6) k/uL RBC 2.48 L (3.80-5.40) m/uL Hgb 7.5 L (11.4-16.0) gm/dL Hct 23.1 L (34.0-46.0) % Plt Count 103 L (150-450) k/uL Neutrophils # (1.3-7.7) k/uL Lymphocytes # (1.0-4.8) k/uL PT (10.0-12.5) sec INR (<1.2) ABG pCO2 (35-45) mmHg ABG pO2 189 H (83-108) mmHg ABG O2 Saturation 100.0 H (94-97) % ABG Hematocrit (34.0-46.0) % ABG Sodium (135-146) mmol/L ABG Glucose (75-99) mg/dL Hemoglobin (11.4-16.0) gm/dL Sodium (137-145) mmol/L Carbon Dioxide (22-30) mmol/L Creatinine (0.52-1.04) mg/dL Glucose (74-99) mg/dL POC Glucose (mg/dL) 177 H (70-110) mg/dL Calcium (8.4-10.2) mg/dL Magnesium (1.6-2.3) mg/dL AST (14-36) U/L Total Protein (6.3-8.2) g/dL Albumin (3.5-5.0) g/dL Arterial Blood Glucose (75-99) mg/dL Crossmatch 11/17/23 11/17/23 11/17/23 Range/Units 16:59 17:59 18:56 WBC (3.8-10.6) k/uL RBC (3.80-5.40) m/uL Hgb (11.4-16.0) gm/dL Hct (34.0-46.0) % Plt Count (150-450) k/uL Neutrophils # (1.3-7.7) k/uL Lymphocytes # (1.0-4.8) k/uL PT (10.0-12.5) sec INR (<1.2) ABG pCO2 (35-45) mmHg ABG pO2 (83-108) mmHg ABG O2 Saturation (94-97) % ABG Hematocrit (34.0-46.0) % ABG Sodium (135-146) mmol/L ABG Glucose (75-99) mg/dL Hemoglobin (11.4-16.0) gm/dL Sodium (137-145) mmol/L Carbon Dioxide (22-30) mmol/L Creatinine (0.52-1.04) mg/dL Glucose (74-99) mg/dL POC Glucose (mg/dL) 165 H 131 H 173 H (70-110) mg/dL Calcium (8.4-10.2) mg/dL Magnesium (1.6-2.3) mg/dL AST (14-36) U/L Total Protein (6.3-8.2) g/dL Albumin (3.5-5.0) g/dL Arterial Blood Glucose (75-99) mg/dL Crossmatch 11/17/23 11/17/23 11/17/23 Range/Units 18:57 20:03 21:01 WBC 11.3 H (3.8-10.6) k/uL RBC 2.77 L (3.80-5.40) m/uL Hgb 8.5 L (11.4-16.0) gm/dL Hct 26.1 L (34.0-46.0) % Plt Count 122 L (150-450) k/uL Neutrophils # 10.1 H (1.3-7.7) k/uL Lymphocytes # 0.7 L (1.0-4.8) k/uL PT (10.0-12.5) sec INR (<1.2) ABG pCO2 (35-45) mmHg ABG pO2 (83-108) mmHg ABG O2 Saturation (94-97) % ABG Hematocrit (34.0-46.0) % ABG Sodium (135-146) mmol/L ABG Glucose (75-99) mg/dL Hemoglobin (11.4-16.0) gm/dL Sodium (137-145) mmol/L Carbon Dioxide (22-30) mmol/L Creatinine (0.52-1.04) mg/dL Glucose (74-99) mg/dL POC Glucose (mg/dL) 149 H 139 H (70-110) mg/dL Calcium (8.4-10.2) mg/dL Magnesium (1.6-2.3) mg/dL AST (14-36) U/L Total Protein (6.3-8.2) g/dL Albumin (3.5-5.0) g/dL Arterial Blood Glucose (75-99) mg/dL Crossmatch 11/17/23 11/17/23 11/17/23 Range/Units 22:01 23:00 23:58 WBC (3.8-10.6) k/uL RBC (3.80-5.40) m/uL Hgb (11.4-16.0) gm/dL Hct (34.0-46.0) % Plt Count (150-450) k/uL Neutrophils # (1.3-7.7) k/uL Lymphocytes # (1.0-4.8) k/uL PT (10.0-12.5) sec INR (<1.2) ABG pCO2 (35-45) mmHg ABG pO2 (83-108) mmHg ABG O2 Saturation (94-97) % ABG Hematocrit (34.0-46.0) % ABG Sodium (135-146) mmol/L ABG Glucose (75-99) mg/dL Hemoglobin (11.4-16.0) gm/dL Sodium (137-145) mmol/L Carbon Dioxide (22-30) mmol/L Creatinine (0.52-1.04) mg/dL Glucose (74-99) mg/dL POC Glucose (mg/dL) 147 H 155 H 147 H (70-110) mg/dL Calcium (8.4-10.2) mg/dL Magnesium (1.6-2.3) mg/dL AST (14-36) U/L Total Protein (6.3-8.2) g/dL Albumin (3.5-5.0) g/dL Arterial Blood Glucose (75-99) mg/dL Crossmatch 11/18/23 11/18/23 11/18/23 Range/Units 02:06 02:36 02:59 WBC (3.8-10.6) k/uL RBC (3.80-5.40) m/uL Hgb (11.4-16.0) gm/dL Hct (34.0-46.0) % Plt Count (150-450) k/uL Neutrophils # (1.3-7.7) k/uL Lymphocytes # (1.0-4.8) k/uL PT (10.0-12.5) sec INR (<1.2) ABG pCO2 (35-45) mmHg ABG pO2 (83-108) mmHg ABG O2 Saturation (94-97) % ABG Hematocrit (34.0-46.0) % ABG Sodium (135-146) mmol/L ABG Glucose (75-99) mg/dL Hemoglobin (11.4-16.0) gm/dL Sodium (137-145) mmol/L Carbon Dioxide (22-30) mmol/L Creatinine (0.52-1.04) mg/dL Glucose (74-99) mg/dL POC Glucose (mg/dL) 151 H 176 H 162 H (70-110) mg/dL Calcium (8.4-10.2) mg/dL Magnesium (1.6-2.3) mg/dL AST (14-36) U/L Total Protein (6.3-8.2) g/dL Albumin (3.5-5.0) g/dL Arterial Blood Glucose (75-99) mg/dL Crossmatch 06/11/18/23 11/18/23 Range/Units 04:02 04:02 04:03 WBC (3.8-10.6) k/uL RBC 2.62 L (3.80-5.40) m/uL Hgb 7.8 L (11.4-16.0) gm/dL Hct 24.8 L (34.0-46.0) % Plt Count 130 L (150-450) k/uL Neutrophils # 9.9 H (1.3-7.7) k/uL Lymphocytes # 0.2 L (1.0-4.8) k/uL PT (10.0-12.5) sec INR (<1.2) ABG pCO2 (35-45) mmHg ABG pO2 (83-108) mmHg ABG O2 Saturation (94-97) % ABG Hematocrit (34.0-46.0) % ABG Sodium (135-146) mmol/L ABG Glucose (75-99) mg/dL Hemoglobin (11.4-16.0) gm/dL Sodium 127 L (137-145) mmol/L Carbon Dioxide 17 L (22-30) mmol/L Creatinine 0.51 L (0.52-1.04) mg/dL Glucose 136 H (74-99) mg/dL POC Glucose (mg/dL) 153 H (70-110) mg/dL Calcium 8.0 L (8.4-10.2) mg/dL Magnesium (1.6-2.3) mg/dL AST (14-36) U/L Total Protein 4.9 L (6.3-8.2) g/dL Albumin 3.2 L (3.5-5.0) g/dL Arterial Blood Glucose (75-99) mg/dL Crossmatch 11/18/23 11/18/23 11/18/23 Range/Units 04:59 07:03 08:16 WBC (3.8-10.6) k/uL RBC (3.80-5.40) m/uL Hgb (11.4-16.0) gm/dL Hct (34.0-46.0) % Plt Count (150-450) k/uL Neutrophils # (1.3-7.7) k/uL Lymphocytes # (1.0-4.8) k/uL PT (10.0-12.5) sec INR (<1.2) ABG pCO2 (35-45) mmHg ABG pO2 (83-108) mmHg ABG O2 Saturation (94-97) % ABG Hematocrit (34.0-46.0) % ABG Sodium (135-146) mmol/L ABG Glucose (75-99) mg/dL Hemoglobin (11.4-16.0) gm/dL Sodium (137-145) mmol/L Carbon Dioxide (22-30) mmol/L Creatinine (0.52-1.04) mg/dL Glucose (74-99) mg/dL POC Glucose (mg/dL) 118 H 151 H 142 H (70-110) mg/dL Calcium (8.4-10.2) mg/dL Magnesium (1.6-2.3) mg/dL AST (14-36) U/L Total Protein (6.3-8.2) g/dL Albumin (3.5-5.0) g/dL Arterial Blood Glucose (75-99) mg/dL Crossmatch - Imaging and Cardiology Chest x-ray: report reviewed, image reviewed Assessment and Plan Assessment: Coronary artery disease with unstable angina pectoralis, previous PCI, status post three-vessel off-pump CABG Bilateral internal carotid stenosis 50 to 69% History of hypertension, borderline hypotensive Hyperlipidemia, treated Type 2 diabetes, hemoglobin A1c 6.2% Previous tobacco dependence, FEV1 78% of predicted Chronic anemia Family history of coronary artery disease Postoperative acute blood loss anemia, expected given hemodilution and preoperative chronic anemia Plan: Continue to maximize medical therapy with aspirin, statin, Plavix. Will hold beta-leo this morning due to borderline blood pressures. Discontinue IV nitro. Will start IV dopamine for renal perfusion Continue amiodarone for A-fib prophylaxis, patient has not had any A-fib at this point. Will transition to oral Wean O2 as tolerated. Encourage incentive spirometry use 10 times every hour while awake. Bronchodilators per pulmonology Increase activity, ambulate as tolerated. PT/OT/cardiac rehab consulted Will monitor daily labs and x-rays. Electrolyte replacement per protocol GI/DVT prophylaxis Insulin management per internal medicine, patient should remain on IV insulin for 48 hours then may transition to subcutaneous per protocol Pain control with current medication regimen Will discontinue Brightwaters later this morning as long as cardiac index greater than 2, connect Cordis to continuous CVP monitoring Continue chest tubes for another 24 hours, monitor output Continue Taylor catheter for another 24 hours, continue to monitor and record strict accurate intake and output Daily weights More recommendations to follow
[2023-11-18 09:58] LABS: Glucose,Whole Blood 130 mg/dL (70-110)
[2023-11-18 10:54] LABS: Glucose,Whole Blood 107 mg/dL (70-110)
[2023-11-18 11:22] VITALS: BMI 22.7
[2023-11-18 12:02] LABS: Glucose,Whole Blood 150 mg/dL (70-110)
[2023-11-18 13:03] LABS: Glucose,Whole Blood 174 mg/dL (70-110)
[2023-11-18] MEDS: ALBUMIN HUMAN 25% 50 ML in EMPTY BAG 1 BAG IVPB ONE (13:29)
[2023-11-18 14:03] LABS: Glucose,Whole Blood 193 mg/dL (70-110)
[2023-11-18 14:59] LABS: Glucose,Whole Blood 206 mg/dL (70-110)
[2023-11-18] MEDS: ACETAMINOPHEN TAB 325 MG TAB PO PRN (15:52)
--- NOTE | 2023-11-18 15:53 | P.PN ---
Subjective Progress Note Date: 11/18/23 73-year-old female patient, underwent an off-pump three-vessel bypass surgery with PACHECO to LAD, SVG to first obtuse marginal and second obtuse marginal. Postop, the patient was brought into the intensive care unit. I saw the patient immediately after arrival to the intensive care unit. The patient was on propofol. The patient was on assist-control mode of mechanical ventilation at a rate of 14, tidal volume of 350, FiO2 of 100% and a PEEP of 5. Initial chest x- ray showed adequate expansion of both lungs. No evidence of any pneumothorax. The patient has mediastinal and left pleural chest tube. Postsurgical changes were noted on the chest x-ray and the tube was retracted by around 1 cm. There was no evidence of any pneumothorax. Holt-Bette catheter in place. The cardiac output was 3.7 with an index of 2.4. The patient was on amiodarone drip. Cardiac rhythm was sinus. The patient was on nitroglycerin drip running at 10 mcg/min and the patient was also on insulin drip at 3 units an hour. The FiO2 was gradually weaned off and subsequently, the patient was taken off sedation given a spontaneous breathing trial with a pressure support of 5 and a PEEP of 5 and subsequent blood gases were adequate and the patient was extubated accordingly. At this point in time, the patient is awake and alert, maintained on oxygen 2 L/min nasal cannula. No significant respiratory difficulties. Urine output is adequate. Hemodynamically stable. WBC count 11.3 hemoglobin 8.5 and a platelet count of 122 and the patient is afebrile. 11/18/2023, the patient is postop day #1 following her carotid bypass surgery. The patient was weaned off the mechanical ventilator and the patient was extub ated without any major difficulties. The patient is currently on 2 L of oxygen by nasal cannula. Earlier this morning, the patient is encountering some nausea. Cardiac rhythm remained sinus and the patient was taken off the amiodarone drip and the patient has been switched to oral amiodarone. The patient is also on insulin drip for blood sugar control running at 5 units an hour. Hemodynamically, the patient is a cardiac output of 5.3 with an index of 2.8. PA pressure 28/9. The left pleural chest tube was drained to 90 cc and the mediastinal chest tube is drained 370 cc over the past 12 to 24 hours. The patient has a urine output of 20 to 30 cc an hour. The patient is also on dopamine at 3 mcg/kg/min. Blood work from today showing a WBC count of 10 hemoglobin 7.8 and a platelet count of 130. BUN is 8 creatinine is 0.5 and a sodium levels at 127. No issues with pain. Chest x-ray shows essentially postsurgical changes. No evidence of any pneumothorax. Objective - Vital Signs Vital signs: Vital Signs Temp 100.2 F H 11/18/23 08:00 Pulse 72 11/18/23 10:00 Resp 18 11/18/23 10:00 BP 109/50 11/18/23 10:00 Pulse Ox 97 11/18/23 10:00 FiO2 40 11/17/23 16:00 Intake & Output 11/17/23 11/18/23 11/18/23 18:59 06:59 18:59 Intake Total 2013.279 1692.257 327.524 Output Total 1075 950 245 Balance 938.279 742.257 82.524 Weight 54.6 kg Intake: IV 1987 1658 281 ACETAMINOPHEN IV (For NPO 100 100 ) 1,000 mg In Empty Bag 1 bag @ 400 mls/hr IVPB Q6H ANAHI Rx#:[id number] Albumin Human 5% 250 ml 250 500 In Empty Bag 1 bag @ 250 mls/hr IVPB Q1HR PRN Rx#: [id number] CO/CI 330 300 40 Lactated Ringers 1,000 ml 750 600 155 @ 20 mls/hr IV .Q24H ANAHI Rx#:[id number] Magnesium Sulfate-D5w Pmx 400 1 gm In Dextrose/Water 1 100ml.bag @ 100 mls/hr IVPB Q1H ANAHI Rx#: [id number] Pressure bags 54 108 36 ceFAZolin 2 gm In Sodium 50 50 50 Chloride 0.9% 50 ml @ 100 mls/hr IVPB Q8HR ANAHI Rx# :[id number] Intake, IV Titration 26.279 34.257 46.524 Amount Insulin Regular 100 unit 9.847 34.257 14.224 In Sodium Chloride 0.9% 100 ml @ Per Protocol IV .Q0M ANA[facility] Rx#:[id number] Nitroglycerin-D5w Pmx 50 32.3 mg In Dextrose/Water 1 250ml.bag @ 5 MCG/MIN 1.5 mls/hr IV .Q24H ANAHI Rx#: [id number] propofoL 1,000 mg In 16.432 Empty Bag 1 bag @ Titrate IV .Q0M ANAHI Rx#: [id number] Output: Chest Tube Drainage 243 305 120 Chest Tube Left 98 140 50 Chest Tube Mediastinal 145 165 70 Drainage 50 25 Left Leg 50 25 Urine 482 585 100 Emesis 10 Estimated Blood Loss 350 Other: Voiding Method Indwelling Catheter Indwelling Catheter Indwelling Catheter ABP, PAP, CO, CI - Last Documented Arterial Blood Pressure 127/43 Pulmonary Artery Pressure 30/11 Cardiac Output 3.3 Cardiac Index 2.1 - Exam GENERAL EXAM: Alert, pleasant 73-year-old female, extubated on 2 L of oxygen by nasal cannula, calm and comfortable, no signs of any significant respiratory distress HEAD: Normocephalic. EYES: Normal reaction of pupils, equal size. NOSE: Clear with pink turbinates. THROAT: No erythema or exudates. NECK: No masses, no JVD. The patient has a right IJ Holt-Bette catheter in place CHEST: No chest wall deformity. LUNGS: Equal air entry with no crackles, wheeze, rhonchi or dullness. Thoracotomy scar is dry clean and intact and the patient has left lower chest tube and mediastinal chest tube and there is no evidence of any air leak and output is quite minimal at this point in time and this was serosanguineous/bloody. CVS: S1 and S2 normal with no audible murmur, regular rhythm. ABDOMEN: No hepatosplenomegaly, normal bowel sounds, no guarding or rigidity. SPINE: No scoliosis or deformity SKIN: No rashes CENTRAL NERVOUS SYSTEM: No focal deficits, tone is normal in all 4 extremities. EXTREMITIES: There is no peripheral edema. No clubbing, no cyanosis. Peripheral pulses are intact. - Labs CBC & Chem 7: 11/18/23 04:02 11/18/23 04:02 Labs: Abnormal Lab Results - Last 24 Hours (Table) 11/08/23 11/17/23 11/17/23 Range/Units 11:05 09:48 10:19 WBC (3.8-10.6) k/uL RBC (3.80-5.40) m/uL Hgb (11.4-16.0) gm/dL Hct (34.0-46.0) % Plt Count (150-450) k/uL Neutrophils # (1.3-7.7) k/uL Lymphocytes # (1.0-4.8) k/uL PT (10.0-12.5) sec INR (<1.2) ABG pCO2 (35-45) mmHg ABG pO2 309 H 298 H (83-108) mmHg ABG O2 Saturation 98.8 H 99.2 H (94-97) % ABG Hematocrit 28 L 23 L (34.0-46.0) % ABG Sodium 133 L 134 L (135-146) mmol/L ABG Glucose 141 H 133 H (75-99) mg/dL Hemoglobin 9.1 L 7.4 L (11.4-16.0) gm/dL Sodium (137-145) mmol/L Carbon Dioxide (22-30) mmol/L Creatinine (0.52-1.04) mg/dL Glucose (74-99) mg/dL POC Glucose (mg/dL) (70-110) mg/dL Calcium (8.4-10.2) mg/dL Magnesium (1.6-2.3) mg/dL AST (14-36) U/L Total Protein (6.3-8.2) g/dL Albumin (3.5-5.0) g/dL Arterial Blood Glucose 141 H 133 H (75-99) mg/dL Crossmatch See Detail 11/17/23 11/17/23 11/17/23 Range/Units 10:50 12:00 12:00 WBC (3.8-10.6) k/uL RBC (3.80-5.40) m/uL Hgb (11.4-16.0) gm/dL Hct (34.0-46.0) % Plt Count (150-450) k/uL Neutrophils # (1.3-7.7) k/uL Lymphocytes # (1.0-4.8) k/uL PT 13.1 H (10.0-12.5) sec INR 1.2 H (<1.2) ABG pCO2 34 L (35-45) mmHg ABG pO2 325 H (83-108) mmHg ABG O2 Saturation 98.9 H (94-97) % ABG Hematocrit 23 L (34.0-46.0) % ABG Sodium 133 L (135-146) mmol/L ABG Glucose 136 H (75-99) mg/dL Hemoglobin 7.5 L (11.4-16.0) gm/dL Sodium 131 L (137-145) mmol/L Carbon Dioxide 19 L (22-30) mmol/L Creatinine (0.52-1.04) mg/dL Glucose 119 H (74-99) mg/dL POC Glucose (mg/dL) (70-110) mg/dL Calcium 8.1 L (8.4-10.2) mg/dL Magnesium 1.2 L (1.6-2.3) mg/dL AST 37 H (14-36) U/L Total Protein 4.1 L (6.3-8.2) g/dL Albumin 2.4 L (3.5-5.0) g/dL Arterial Blood Glucose 136 H (75-99) mg/dL Crossmatch 11/17/23 11/17/23 11/17/23 Range/Units 12:19 12:44 12:51 WBC (3.8-10.6) k/uL RBC 2.49 L (3.80-5.40) m/uL Hgb 7.6 L D (11.4-16.0) gm/dL Hct 23.1 L (34.0-46.0) % Plt Count 104 L D (150-450) k/uL Neutrophils # (1.3-7.7) k/uL Lymphocytes # (1.0-4.8) k/uL PT (10.0-12.5) sec INR (<1.2) ABG pCO2 (35-45) mmHg ABG pO2 (83-108) mmHg ABG O2 Saturation (94-97) % ABG Hematocrit (34.0-46.0) % ABG Sodium (135-146) mmol/L ABG Glucose (75-99) mg/dL Hemoglobin (11.4-16.0) gm/dL Sodium (137-145) mmol/L Carbon Dioxide (22-30) mmol/L Creatinine (0.52-1.04) mg/dL Glucose (74-99) mg/dL POC Glucose (mg/dL) 140 H 126 H (70-110) mg/dL Calcium (8.4-10.2) mg/dL Magnesium (1.6-2.3) mg/dL AST (14-36) U/L Total Protein (6.3-8.2) g/dL Albumin (3.5-5.0) g/dL Arterial Blood Glucose (75-99) mg/dL Crossmatch 11/17/23 11/17/23 11/17/23 Range/Units 12:52 13:53 14:55 WBC (3.8-10.6) k/uL RBC (3.80-5.40) m/uL Hgb (11.4-16.0) gm/dL Hct (34.0-46.0) % Plt Count (150-450) k/uL Neutrophils # (1.3-7.7) k/uL Lymphocytes # (1.0-4.8) k/uL PT (10.0-12.5) sec INR (<1.2) ABG pCO2 (35-45) mmHg ABG pO2 >420 H (83-108) mmHg ABG O2 Saturation 100.6 H (94-97) % ABG Hematocrit (34.0-46.0) % ABG Sodium (135-146) mmol/L ABG Glucose (75-99) mg/dL Hemoglobin (11.4-16.0) gm/dL Sodium (137-145) mmol/L Carbon Dioxide (22-30) mmol/L Creatinine (0.52-1.04) mg/dL Glucose (74-99) mg/dL POC Glucose (mg/dL) 118 H 157 H (70-110) mg/dL Calcium (8.4-10.2) mg/dL Magnesium (1.6-2.3) mg/dL AST (14-36) U/L Total Protein (6.3-8.2) g/dL Albumin (3.5-5.0) g/dL Arterial Blood Glucose (75-99) mg/dL Crossmatch 11/17/23 11/17/23 11/17/23 Range/Units 15:54 15:59 16:25 WBC (3.8-10.6) k/uL RBC 2.48 L (3.80-5.40) m/uL Hgb 7.5 L (11.4-16.0) gm/dL Hct 23.1 L (34.0-46.0) % Plt Count 103 L (150-450) k/uL Neutrophils # (1.3-7.7) k/uL Lymphocytes # (1.0-4.8) k/uL PT (10.0-12.5) sec INR (<1.2) ABG pCO2 (35-45) mmHg ABG pO2 189 H (83-108) mmHg ABG O2 Saturation 100.0 H (94-97) % ABG Hematocrit (34.0-46.0) % ABG Sodium (135-146) mmol/L ABG Glucose (75-99) mg/dL Hemoglobin (11.4-16.0) gm/dL Sodium (137-145) mmol/L Carbon Dioxide (22-30) mmol/L Creatinine (0.52-1.04) mg/dL Glucose (74-99) mg/dL POC Glucose (mg/dL) 177 H (70-110) mg/dL Calcium (8.4-10.2) mg/dL Magnesium (1.6-2.3) mg/dL AST (14-36) U/L Total Protein (6.3-8.2) g/dL Albumin (3.5-5.0) g/dL Arterial Blood Glucose (75-99) mg/dL Crossmatch 11/17/23 11/17/23 11/17/23 Range/Units 16:59 17:59 18:56 WBC (3.8-10.6) k/uL RBC (3.80-5.40) m/uL Hgb (11.4-16.0) gm/dL Hct (34.0-46.0) % Plt Count (150-450) k/uL Neutrophils # (1.3-7.7) k/uL Lymphocytes # (1.0-4.8) k/uL PT (10.0-12.5) sec INR (<1.2) ABG pCO2 (35-45) mmHg ABG pO2 (83-108) mmHg ABG O2 Saturation (94-97) % ABG Hematocrit (34.0-46.0) % ABG Sodium (135-146) mmol/L ABG Glucose (75-99) mg/dL Hemoglobin (11.4-16.0) gm/dL Sodium (137-145) mmol/L Carbon Dioxide (22-30) mmol/L Creatinine (0.52-1.04) mg/dL Glucose (74-99) mg/dL POC Glucose (mg/dL) 165 H 131 H 173 H (70-110) mg/dL Calcium (8.4-10.2) mg/dL Magnesium (1.6-2.3) mg/dL AST (14-36) U/L Total Protein (6.3-8.2) g/dL Albumin (3.5-5.0) g/dL Arterial Blood Glucose (75-99) mg/dL Crossmatch 11/17/23 11/17/23 11/17/23 Range/Units 18:57 20:03 21:01 WBC 11.3 H (3.8-10.6) k/uL RBC 2.77 L (3.80-5.40) m/uL Hgb 8.5 L (11.4-16.0) gm/dL Hct 26.1 L (34.0-46.0) % Plt Count 122 L (150-450) k/uL Neutrophils # 10.1 H (1.3-7.7) k/uL Lymphocytes # 0.7 L (1.0-4.8) k/uL PT (10.0-12.5) sec INR (<1.2) ABG pCO2 (35-45) mmHg ABG pO2 (83-108) mmHg ABG O2 Saturation (94-97) % ABG Hematocrit (34.0-46.0) % ABG Sodium (135-146) mmol/L ABG Glucose (75-99) mg/dL Hemoglobin (11.4-16.0) gm/dL Sodium (137-145) mmol/L Carbon Dioxide (22-30) mmol/L Creatinine (0.52-1.04) mg/dL Glucose (74-99) mg/dL POC Glucose (mg/dL) 149 H 139 H (70-110) mg/dL Calcium (8.4-10.2) mg/dL Magnesium (1.6-2.3) mg/dL AST (14-36) U/L Total Protein (6.3-8.2) g/dL Albumin (3.5-5.0) g/dL Arterial Blood Glucose (75-99) mg/dL Crossmatch 11/17/23 11/17/23 11/17/23 Range/Units 22:01 23:00 23:58 WBC (3.8-10.6) k/uL RBC (3.80-5.40) m/uL Hgb (11.4-16.0) gm/dL Hct (34.0-46.0) % Plt Count (150-450) k/uL Neutrophils # (1.3-7.7) k/uL Lymphocytes # (1.0-4.8) k/uL PT (10.0-12.5) sec INR (<1.2) ABG pCO2 (35-45) mmHg ABG pO2 (83-108) mmHg ABG O2 Saturation (94-97) % ABG Hematocrit (34.0-46.0) % ABG Sodium (135-146) mmol/L ABG Glucose (75-99) mg/dL Hemoglobin (11.4-16.0) gm/dL Sodium (137-145) mmol/L Carbon Dioxide (22-30) mmol/L Creatinine (0.52-1.04) mg/dL Glucose (74-99) mg/dL POC Glucose (mg/dL) 147 H 155 H 147 H (70-110) mg/dL Calcium (8.4-10.2) mg/dL Magnesium (1.6-2.3) mg/dL AST (14-36) U/L Total Protein (6.3-8.2) g/dL Albumin (3.5-5.0) g/dL Arterial Blood Glucose (75-99) mg/dL Crossmatch 11/18/23 11/18/23 11/18/23 Range/Units 02:06 02:36 02:59 WBC (3.8-10.6) k/uL RBC (3.80-5.40) m/uL Hgb (11.4-16.0) gm/dL Hct (34.0-46.0) % Plt Count (150-450) k/uL Neutrophils # (1.3-7.7) k/uL Lymphocytes # (1.0-4.8) k/uL PT (10.0-12.5) sec INR (<1.2) ABG pCO2 (35-45) mmHg ABG pO2 (83-108) mmHg ABG O2 Saturation (94-97) % ABG Hematocrit (34.0-46.0) % ABG Sodium (135-146) mmol/L ABG Glucose (75-99) mg/dL Hemoglobin (11.4-16.0) gm/dL Sodium (137-145) mmol/L Carbon Dioxide (22-30) mmol/L Creatinine (0.52-1.04) mg/dL Glucose (74-99) mg/dL POC Glucose (mg/dL) 151 H 176 H 162 H (70-110) mg/dL Calcium (8.4-10.2) mg/dL Magnesium (1.6-2.3) mg/dL AST (14-36) U/L Total Protein (6.3-8.2) g/dL Albumin (3.5-5.0) g/dL Arterial Blood Glucose (75-99) mg/dL Crossmatch 11/18/23 11/18/23 11/18/23 Range/Units 04:02 04:02 04:03 WBC (3.8-10.6) k/uL RBC 2.62 L (3.80-5.40) m/uL Hgb 7.8 L (11.4-16.0) gm/dL Hct 24.8 L (34.0-46.0) % Plt Count 130 L (150-450) k/uL Neutrophils # 9.9 H (1.3-7.7) k/uL Lymphocytes # 0.2 L (1.0-4.8) k/uL PT (10.0-12.5) sec INR (<1.2) ABG pCO2 (35-45) mmHg ABG pO2 (83-108) mmHg ABG O2 Saturation (94-97) % ABG Hematocrit (34.0-46.0) % ABG Sodium (135-146) mmol/L ABG Glucose (75-99) mg/dL Hemoglobin (11.4-16.0) gm/dL Sodium 127 L (137-145) mmol/L Carbon Dioxide 17 L (22-30) mmol/L Creatinine 0.51 L (0.52-1.04) mg/dL Glucose 136 H (74-99) mg/dL POC Glucose (mg/dL) 153 H (70-110) mg/dL Calcium 8.0 L (8.4-10.2) mg/dL Magnesium (1.6-2.3) mg/dL AST (14-36) U/L Total Protein 4.9 L (6.3-8.2) g/dL Albumin 3.2 L (3.5-5.0) g/dL Arterial Blood Glucose (75-99) mg/dL Crossmatch 11/18/23 11/18/23 11/18/23 Range/Units 04:59 07:03 08:16 WBC (3.8-10.6) k/uL RBC (3.80-5.40) m/uL Hgb (11.4-16.0) gm/dL Hct (34.0-46.0) % Plt Count (150-450) k/uL Neutrophils # (1.3-7.7) k/uL Lymphocytes # (1.0-4.8) k/uL PT (10.0-12.5) sec INR (<1.2) ABG pCO2 (35-45) mmHg ABG pO2 (83-108) mmHg ABG O2 Saturation (94-97) % ABG Hematocrit (34.0-46.0) % ABG Sodium (135-146) mmol/L ABG Glucose (75-99) mg/dL Hemoglobin (11.4-16.0) gm/dL Sodium (137-145) mmol/L Carbon Dioxide (22-30) mmol/L Creatinine (0.52-1.04) mg/dL Glucose (74-99) mg/dL POC Glucose (mg/dL) 118 H 151 H 142 H (70-110) mg/dL Calcium (8.4-10.2) mg/dL Magnesium (1.6-2.3) mg/dL AST (14-36) U/L Total Protein (6.3-8.2) g/dL Albumin (3.5-5.0) g/dL Arterial Blood Glucose (75-99) mg/dL Crossmatch 11/18/23 11/18/23 Range/Units 08:59 09:58 WBC (3.8-10.6) k/uL RBC (3.80-5.40) m/uL Hgb (11.4-16.0) gm/dL Hct (34.0-46.0) % Plt Count (150-450) k/uL Neutrophils # (1.3-7.7) k/uL Lymphocytes # (1.0-4.8) k/uL PT (10.0-12.5) sec INR (<1.2) ABG pCO2 (35-45) mmHg ABG pO2 (83-108) mmHg ABG O2 Saturation (94-97) % ABG Hematocrit (34.0-46.0) % ABG Sodium (135-146) mmol/L ABG Glucose (75-99) mg/dL Hemoglobin (11.4-16.0) gm/dL Sodium (137-145) mmol/L Carbon Dioxide (22-30) mmol/L Creatinine (0.52-1.04) mg/dL Glucose (74-99) mg/dL POC Glucose (mg/dL) 147 H 130 H (70-110) mg/dL Calcium (8.4-10.2) mg/dL Magnesium (1.6-2.3) mg/dL AST (14-36) U/L Total Protein (6.3-8.2) g/dL Albumin (3.5-5.0) g/dL Arterial Blood Glucose (75-99) mg/dL Crossmatch Assessment and Plan Plan: Coronary artery disease. The patient was hospitalized back in October 2023 for chest pain in a patient found to have significant triple-vessel disease and the patient underwent three-vessel bypass surgery, off-pump, currently postop day # 1 hemodynamically stable, the patient is extubated and the patient is currently hemodynamically stable. The patient has lower filling pressures and the patient may benefit from additional fluids. Urine output is in order of 20 to 30 cc an hour. The patient is currently on dopamine at 3 mcg/kg/min. The patient is in normal sinus rhythm. Postthoracotomy, extubated currently on 2 L of oxygen by nasal cannula. The patient is a pleural and mediastinal chest tube. No evidence of any pneumothorax. Chest x-ray shows postsurgical changes. Output from the chest tubes are minimal and there is no evidence of any air leak. History of coronary disease with previous stent placement of the circumflex 2015 Former smoker of approximately 15 years at 1 pack/day. FEV1 value 1.48 L or 78% of predicted Hypertension Hyperlipidemia Diabetes mellitus type II, currently on insulin drip for blood sugar control Bilateral carotid artery stenosis in the order of 50 to 69%, asymptomatic Blood loss anemia which is an expected outcome of surgery Plan Patient currently on 2 L of oxygen by nasal cannula Provide adequate pain control Treat nausea with Zofran Incentive spirometer Monitor output from the chest tubes Monitor hemodynamic parameters Amiodarone p.o. for A-fib prophylaxis Continue dopamine drip Advised some IV fluids in the form of colloids and crystalloids and this will be discussed with the surgical team. Monitor urine output Insulin drip for blood sugar control, currently 5 units/h Will continue to follow-up postoperative care along with the rest of the consultants.
[2023-11-18 15:58] LABS: Glucose,Whole Blood 175 mg/dL (70-110)
[2023-11-18 16:55] LABS: Glucose,Whole Blood 121 mg/dL (70-110)
--- NOTE | 2023-11-18 18:05 | P.CRDCN ---
History of Present Illness Consult date: 11/18/23 History of present illness: HISTORY OF PRESENTING ILLNESS P 73-year-old with past medical history of multivessel CAD, hypertension hyperlipidemia presented 2 weeks ago to hospital with substernal chest pain and unstable angina. She was scheduled for CABG however this was postponed because patient's spouse recently . Patient underwent CABG yesterday with Dr. Schmitt. She received PACHECO to LAD, SVG to OM, SVG to second OM, left atrial appendage ligation. Postoperatively she is managed in ICU and is doing well. She denies any chest pain chest pressure. REVIEW OF SYSTEMS 14 point review of system is negative except what is mentioned above in HPI. PHYSICAL EXAMINATION Vital signs reviewed. Head: Normocephalic. Eyes: Sclerae nonicteric. Neck: Brisk carotid upstroke, no jugular venous distention. Lungs: Clear to auscultation. Heart: Regular rate and rhythm, S1-S2, no S3, no murmur or rub. Abdomen: Soft nontender, positive bowel sounds. Extremities: No edema, intact distal pulses. Neuro: Alert, oritented, no focal deficits. Detailed neuro exam was not performed. ASSESSMENT CAD s/p previous PCI. S/p CABG 11/17/2023. PACHECO to LAD, SVG to OM1 and OM 2. Atrial clip ligation Hypertension Type 2 diabetes Dyslipidemia Prior tobacco use Chronic anemia PLAN Right IJ [place], right radial arterial line, mediastinal and left pleural chest tubes are in place. She had 250 cc serosanguineous discharge from the chest tube. ECG does not show any concerns of atrial fibrillation at this time. She is in sinus rhythm. Hemodynamically stable. Good urine output Continue aspirin, statin, Plavix. Continue amiodarone for A-fib prophylaxis as per surgical recommendation We will continue to follow Esdras Wills MD, FACC, RPVI Thank you for allowing [facility] to participate in this patient's care. Feel free to reach out in case of any followup questions. Past Medical History Past Medical History: Coronary Artery Disease (CAD), Cancer, Chest Pain / Angina, Diabetes Mellitus, GERD/Reflux, Hyperlipidemia, Hypertension Additional Past Medical History / Comment(s): Hx tennis elbow, hx sciatica, beginnings of neuropathy in feet, seems improved at this time. HX OF BE[place] PALSY, hx anemia X1, frequent diarrhea recently, not as much recently, thinks might have a "blockage", hx skin cancer X1 2022 on right eyebrow. History of Any Multi-Drug Resistant Organisms: None Reported Past Surgical History: Section, Heart Catheterization With Stent, Hernia Repair, Hysterectomy Additional Past Surgical History / Comment(s): INCISIONAL HERNIA REPAIR, SKIN LESIONS REMOVED, COLOLOSCOPY, Bilateral cataract surgery 2017 Past Anesthesia/Blood Transfusion Reactions: No Reported Reaction Additional Past Anesthesia/Blood Transfusion Reaction / Comment(s): Pt has never received blood. Date of Last Stent Placement:: 05/07/2015 Past Psychological History: No Psychological Hx Reported Smoking Status: Former smoker Past Alcohol Use History: None Reported Additional Past Alcohol Use History / Comment(s): QUIT SMOKING APPROX 37 YRS AGO. SMOKED 10-15 YRS, 1 PPD OR LESS. Past Drug Use History: None Reported - Past Family History Brother(s) Family Medical History: Cancer Additional Family Medical History / Comment(s): COLON CANCER Sister(s) Family Medical History: Cancer Additional Family Medical History / Comment(s): COLON CANCER Father Family Medical History: Coronary Artery Disease (CAD), Myocardial Infarction (RI) Additional Family Medical History / Comment(s): Father at age 67yrs and pt thinks cause of was a RI. Mother Family Medical History: Coronary Artery Disease (CAD) Additional Family Medical History / Comment(s): Mother at age 78 or 79yrs of heart disease. Medications and Allergies Home Medications Medication Instructions Recorded Confirmed Type Raloxifene HCl [Evista] 60 mg PO DAILY 04/03/15 11/17/23 History atenoloL [Atenolol] 50 mg PO DAILY 04/03/15 11/17/23 History lisinopriL [Lisinopril] 20 mg PO DAILY 04/03/15 11/17/23 History sitaGLIPtin [Januvia] 50 mg PO DAILY 04/03/15 11/17/23 History Atorvastatin [Lipitor] 40 mg PO HS 08/31/16 11/17/23 History Clopidogrel Bisulfate [Plavix] 75 mg PO DAILY 08/31/16 11/17/23 History Ferrous Sulfate [Feosol] 325 mg PO DAILY 08/31/16 11/17/23 History Ergocalciferol [Vitamin D2 (1250 1,250 mcg PO COOK 01/01/21 11/17/23 History Mcg = 54658 Iu)] Aspirin 81 mg PO DAILY 10/18/23 11/17/23 History Fish Oil/Dha/Epa [Fish Oil 1,200 1 cap PO DAILY 10/18/23 11/17/23 History mg Fish Oil] Lactobacillus Acidophilus 1 cap PO DAILY 10/18/23 11/17/23 History [Acidophilus Probiotic] metFORMIN HCL 500 mg PO AC-BID 10/18/23 11/17/23 History Allergies Allergy/AdvReac Type Severity Reaction Status Date / Time codeine AdvReac Nausea & Verified 11/17/23 06:03 Vomiting Physical Exam Vitals: Vital Signs Temp Pulse Resp BP Pulse Ox 11/18/23 17:15 78 17 119/54 93 L 11/18/23 17:00 79 19 92/68 91 L 11/18/23 16:45 77 21 110/43 92 L 11/18/23 16:30 73 15 109/50 93 L 11/18/23 16:15 74 16 103/57 92 L 11/18/23 16:00 97.7 F 77 17 108/47 92 L 11/18/23 15:45 73 12 107/48 94 L 11/18/23 15:30 73 16 108/58 93 L 11/18/23 15:15 71 14 107/50 94 L 11/18/23 15:00 71 14 105/43 92 L 11/18/23 14:45 71 14 105/43 94 L 11/18/23 14:30 70 15 100/48 94 L 11/18/23 14:15 73 17 95/51 91 L 11/18/23 14:00 71 15 92/45 91 L 11/18/23 13:45 69 13 109/44 92 L 11/18/23 13:30 73 12 115/56 93 L 11/18/23 13:15 73 23 97/52 84 L 11/18/23 13:00 71 20 88/38 93 L 11/18/23 12:45 69 15 94/49 92 L 11/18/23 12:30 68 17 89/41 98 11/18/23 12:15 66 14 91/45 99 11/18/23 12:00 67 16 111/51 97 11/18/23 11:45 70 16 102/57 96 11/18/23 11:30 75 18 96 11/18/23 11:15 70 14 103/41 97 11/18/23 11:00 68 15 105/69 98 11/18/23 10:45 73 18 112/45 96 11/18/23 10:30 71 16 100/40 92 L 11/18/23 10:15 69 16 112/51 96 11/18/23 10:00 72 18 109/50 97 11/18/23 09:45 70 16 114/45 96 11/18/23 09:30 72 23 104/75 95 11/18/23 09:18 65 11/18/23 09:15 68 18 96/60 99 11/18/23 09:08 65 11/18/23 09:00 67 17 101/48 98 11/18/23 08:45 64 15 106/47 99 11/18/23 08:30 66 18 94/56 98 11/18/23 08:15 65 20 102/43 100 11/18/23 08:00 100.2 F H 66 21 96/43 99 11/18/23 07:45 65 21 98 11/18/23 07:30 66 20 98/45 98 11/18/23 07:15 65 16 99 11/18/23 07:00 64 22 95/48 97 11/18/23 06:45 63 15 119/53 98 11/18/23 06:30 75 24 11/18/23 06:15 69 16 105/57 11/18/23 06:00 70 14 105/56 97 11/18/23 05:45 70 13 105/56 97 11/18/23 05:30 66 17 113/58 97 11/18/23 05:15 66 22 97 11/18/23 05:00 65 15 112/55 98 11/18/23 04:45 68 16 93/52 97 11/18/23 04:30 65 15 96/49 98 11/18/23 04:15 65 12 98/48 98 11/18/23 04:01 98.1 F 66 15 85/46 98 11/18/23 03:45 65 12 90/47 99 11/18/23 03:30 65 15 97/46 99 11/18/23 03:15 65 13 97/46 99 11/18/23 03:00 66 17 90/44 98 11/18/23 02:45 64 15 83/46 99 11/18/23 02:30 64 16 102/48 99 11/18/23 02:15 63 16 102/48 98 11/18/23 02:00 68 18 97/57 97 11/18/23 01:45 75 13 99/52 97 11/18/23 01:30 67 17 92/49 98 11/18/23 01:15 68 12 93/51 98 11/18/23 01:00 66 12 98/55 94 L 11/18/23 00:45 64 12 98/53 95 11/18/23 00:30 65 11 L 96/49 99 11/18/23 00:15 65 14 99/51 99 11/18/23 00:00 97.8 F 68 12 94/47 98 11/17/23 23:45 68 12 91/48 99 11/17/23 23:30 70 14 93/46 98 11/17/23 23:15 73 15 94/49 99 11/17/23 23:00 98.1 F 67 12 91/45 98 11/17/23 22:45 66 11 L 94/53 99 11/17/23 22:30 66 11 L 94/51 99 11/17/23 22:15 67 12 92/51 99 11/17/23 22:00 67 13 95/54 99 11/17/23 21:30 69 10 L 97/54 99 11/17/23 21:00 64 12 98 11/17/23 20:50 63 11/17/23 20:39 66 11/17/23 20:30 65 10 L 99 11/17/23 20:00 66 10 L 99 11/17/23 19:30 65 13 11/17/23 19:00 65 9 L 11/17/23 18:30 68 10 L 116/72 99 Intake and Output 11/18/23 11/18/23 11/18/23 06:59 14:59 22:59 Intake Total 1007.924 606.266 153.469 Output Total 570 560 205 Balance 437.924 46.266 -51.531 Intake: IV 982 537 138 Albumin Human 5% 250 ml 250 In Empty Bag 1 bag @ 250 mls/hr IVPB Q1HR PRN Rx#: [id number] CO/CI 210 80 Lactated Ringers 1,000 ml 400 335 120 @ 20 mls/hr IV .Q24H [facility] Rx#:[id number] Pressure bags 72 72 18 ceFAZolin 2 gm In Sodium 50 50 Chloride 0.9% 50 ml @ 100 mls/hr IVPB Q8HR [facility] Rx# :[id number] Intake, IV Titration 25.924 69.266 15.469 Amount Insulin Regular 100 unit 25.924 36.966 15.469 In Sodium Chloride 0.9% 100 ml @ Per Protocol IV .Q0M [facility] Rx#:[id number] Nitroglycerin-D5w Pmx 50 32.3 mg In Dextrose/Water 1 250ml.bag @ 5 MCG/MIN 1.5 mls/hr IV .Q24H [facility] Rx#: [id number] Output: Chest Tube Drainage 190 280 70 Chest Tube Left 74 80 10 Chest Tube Mediastinal 116 200 60 Drainage 25 20 Left Leg 25 20 Urine 370 255 115 Emesis 10 Other: Voiding Method Indwelling Catheter Indwelling Catheter Indwelling Catheter Weight 54.6 kg 54.6 kg ABP, PAP, CO, CI - Last 8 Hours Arterial Blood Pressure 119/44 Arterial Blood Pressure 117/38 Arterial Blood Pressure 127/39 Arterial Blood Pressure 133/43 Arterial Blood Pressure 143/38 Arterial Blood Pressure 142/37 Arterial Blood Pressure 140/38 Arterial Blood Pressure 134/38 Arterial Blood Pressure 124/35 Arterial Blood Pressure 113/28 Arterial Blood Pressure 107/29 Arterial Blood Pressure 99/29 Arterial Blood Pressure 93/26 Arterial Blood Pressure 92/45 Arterial Blood Pressure 104/34 Arterial Blood Pressure 108/40 Arterial Blood Pressure 104/31 Arterial Blood Pressure 105/40 Arterial Blood Pressure 104/40 Arterial Blood Pressure 110/38 Arterial Blood Pressure 115/39 Arterial Blood Pressure 102/52 Arterial Blood Pressure 99/42 Pulmonary Artery Pressure 37/15 Pulmonary Artery Pressure 34/14 Pulmonary Artery Pressure 29/8 Pulmonary Artery Pressure 28/8 Pulmonary Artery Pressure 30/10 Pulmonary Artery Pressure 29/9 Pulmonary Artery Pressure 28/9 Cardiac Output 3.4 Cardiac Output 3.4 Cardiac Output 3.4 Cardiac Output 3.4 Cardiac Output 3.4 Cardiac Index 2.2 Cardiac Index 2.2 Cardiac Index 2.2 Cardiac Index 2.2 Cardiac Index 2.2 Results 11/18/23 04:02 11/18/23 04:02 Cardiac Enzymes 11/18/23 Range/Units 04:02 AST 33 (14-36) U/L CBC 11/17/23 11/18/23 Range/Units 18:57 04:02 WBC 11.3 H 10.4 (3.8-10.6) k/uL RBC 2.77 L 2.62 L (3.80-5.40) m/uL Hgb 8.5 L 7.8 L (11.4-16.0) gm/dL Hct 26.1 L 24.8 L (34.0-46.0) % Plt Count 122 L 130 L (150-450) k/uL Comprehensive Metabolic Panel 11/18/23 Range/Units 04:02 Sodium 127 L (137-145) mmol/L Potassium 3.8 (3.5-5.1) mmol/L Chloride 103 (98-107) mmol/L Carbon Dioxide 17 L (22-30) mmol/L BUN 8 (7-17) mg/dL Creatinine 0.51 L (0.52-1.04) mg/dL Glucose 136 H (74-99) mg/dL Calcium 8.0 L (8.4-10.2) mg/dL AST 33 (14-36) U/L ALT 20 (4-34) U/L Alkaline Phosphatase 42 (38-126) U/L Total Protein 4.9 L (6.3-8.2) g/dL Albumin 3.2 L (3.5-5.0) g/dL Current Medications Generic Name Dose Route Start Last Admin Trade Name Freq PRN Reason Stop Dose Admin Acetaminophen 650 mg 11/18/23 06:32 11/18/23 15:52 Acetaminophen Tab 325 Mg Tab PO 650 mg Q4HR PRN Administration Fever and/ or Pain Albuterol/Ipratropium 3 ml 11/17/23 12:04 Ipratropium-Albuterol 3 Ml Neb INHALATION RT-Q2H PRN Shortness Of Breath Or Wheezing Albuterol/Ipratropium 3 ml 11/17/23 20:00 11/18/23 15:48 Ipratropium-Albuterol 3 Ml Neb INHALATION Not Given RT-QID [facility] Amiodarone HCl 200 mg 11/18/23 09:00 11/18/23 08:47 Amiodarone 200 Mg Tab PO 200 mg BID ANAHI Administration Aspirin 325 mg 11/18/23 09:00 11/18/23 07:55 Aspirin 325 Mg Tab PO 325 mg DAILY [facility] Administration Atorvastatin Calcium 40 mg 11/18/23 09:00 11/18/23 07:55 Atorvastatin 40 Mg Tab PO 40 mg DAILY [facility] Administration Benzocaine/Menthol 1 each 11/17/23 12:04 Benzocaine/Menthol Lozeng 1 Each Lozenge MUCOUS MEM Q2H PRN Sore Throat Bisacodyl 10 mg 11/18/23 09:00 Bisacodyl 10 Mg Supp RECTAL DAILY PRN Constipation Clopidogrel Bisulfate 75 mg 11/18/23 09:00 11/18/23 07:55 Clopidogrel 75 Mg Tab PO 75 mg DAILY [facility] Administration Dextrose/Water 25 ml 11/17/23 12:04 Dextrose 50% Syringe 50 Ml IVP PER PROTOCOL PRN Hypoglycemia Protocol Dextrose/Water 50 ml 11/17/23 12:04 Dextrose 50% Syringe 50 Ml IVP PER PROTOCOL PRN Hypoglycemia Protocol Ergocalciferol 1,250 mcg 11/20/23 09:00 Ergocalciferol 1,250 Mcg (50,000 Iu) Capsule PO COOK [facility] Ferrous Sulfate 325 mg 11/18/23 09:00 11/18/23 07:55 Ferrous Sulfate 325 Mg Tab PO 325 mg DAILY [facility] Administration Heparin Sodium (Porcine) 5,000 unit 11/17/23 16:00 11/18/23 15:53 Heparin Sodium,Porcine 5,000 Unit/Ml 1 Ml Vial SQ 5,000 unit Q8HR [facility] Administration Amiodarone HCl 150 mg/ 103 mls @ 618 mls/hr 11/17/23 12:04 Dextrose/Water IV .Q10M PRN A.FIB/FLUTTER Albumin Human 250 ml/ IV 250 mls @ 250 mls/hr 11/17/23 12:04 11/18/23 07:07 Solution IVPB 11/19/23 12:05 250 mls/hr Q1HR PRN Administration For Volume Protocol Calcium Gluconate/Sodium 100 mls @ 100 mls/hr 11/17/23 12:04 Chloride 2 gm/ IV Solution IVPB 12/17/23 12:05 ONCE PRN Ionized Calcium less than 4.4 Insulin Human Regular 100 unit 101 mls @ 0 mls/hr 11/17/23 12:04 11/18/23 16:56 / Sodium Chloride IV 5 units/hr .Q0M [facility] 5.05 mls/hr Titration Protocol Per Protocol Lactated Ringer's 1,000 mls @ 20 mls/hr 11/17/23 12:04 11/18/23 13:10 Lactated Ringers IV 20 mls/hr .Q24H [facility] Administration Dopamine HCl/Dextrose 800 mg/ 250 mls @ 3.071 mls/hr 11/18/23 08:30 11/18/23 08:47 IV Solution IV 3 mcg/kg/min .Q24H ANA[facility] 3.071 mls/hr Administration 3 MCG/KG/MIN Magnesium Hydroxide 2,400 mg 11/18/23 09:00 Magnesium Hydroxide 2,400 Mg/30 Ml Cup PO BID PRN Constipation Metoclopramide HCl 10 mg 11/17/23 12:04 11/18/23 01:41 Metoclopramide 5 Mg/Ml 2 Ml Vial IVP 10 mg Q4H PRN Administration Nausea And Vomiting Metoprolol Tartrate 12.5 mg 11/18/23 21:00 Metoprolol Tartrate 12.5 Mg Tab PO BID [facility] Miscellaneous Information 1 each 11/17/23 12:04 Potassium Replacement Protocol 1 Each Misc MISCELLANE DAILY PRN Per Protocol Protocol Miscellaneous Information 1 each 11/17/23 12:04 Magnesium Replacement Protocol 1 Each Misc MISCELLANE DAILY PRN Per Protocol Protocol Ondansetron HCl 4 mg 11/17/23 12:04 11/18/23 10:45 Ondansetron 4 Mg/2 Ml Vial IVP 4 mg Q6HR PRN Administration Nausea And Vomiting Oxycodone HCl 5 mg 11/17/23 12:04 11/18/23 09:58 Oxycodone Hcl 5 Mg Tab PO 5 mg Q4HR PRN Administration Moderate Pain (Scale 4 to 6) Oxycodone HCl 10 mg 11/17/23 12:04 Oxycodone Hcl 5 Mg Tab PO Q4HR PRN Severe Pain (Scale 7 to 10) Pantoprazole Sodium 40 mg 11/19/23 07:30 Pantoprazole 40 Mg Tablet PO AC-BRKFST [facility]NA[facility] Senna/Docusate Sodium 2 each 11/17/23 21:00 11/17/23 20:23 Sennosides-Docusate Sodium 1 Each Tab PO 2 each HS ANA[facility] Administration Sodium Chloride 10 ml 11/17/23 21:00 06/14/24 08:04 Sodium Chloride 0.9% Flush 10 Ml Syringe IV Not Given BID [facility] Intake and Output 11/18/23 11/18/23 11/18/23 06:59 14:59 22:59 Intake Total 1007.924 606.266 153.469 Output Total 570 560 205 Balance 437.924 46.266 -51.531 Intake: IV 982 537 138 Albumin Human 5% 250 ml 250 In Empty Bag 1 bag @ 250 mls/hr IVPB Q1HR PRN Rx#: [id number] CO/CI 210 80 Lactated Ringers 1,000 ml 400 335 120 @ 20 mls/hr IV .Q24H [facility] Rx#:[id number] Pressure bags 72 72 18 ceFAZolin 2 gm In Sodium 50 50 Chloride 0.9% 50 ml @ 100 mls/hr IVPB Q8HR [facility] Rx# :[id number] Intake, IV Titration 25.924 69.266 15.469 Amount Insulin Regular 100 unit 25.924 36.966 15.469 In Sodium Chloride 0.9% 100 ml @ Per Protocol IV .Q0M [facility] Rx#:[id number] Nitroglycerin-D5w Pmx 50 32.3 mg In Dextrose/Water 1 250ml.bag @ 5 MCG/MIN 1.5 mls/hr IV .Q24H [facility] Rx#: [id number] Output: Chest Tube Drainage 190 280 70 Chest Tube Left 74 80 10 Chest Tube Mediastinal 116 200 60 Drainage 25 20 Left Leg 25 20 Urine 370 255 115 Emesis 10 Other: Voiding Method Indwelling Catheter Indwelling Catheter Indwelling Catheter Weight 54.6 kg 54.6 kg Patient Weight 11/19/23 06:59 Weight 54.6 kg 11/18/23 04:02 11/18/23 04:02
[2023-11-18 18:10] LABS: Glucose,Whole Blood 120 mg/dL (70-110)
[2023-11-18 19:06] LABS: Glucose,Whole Blood 92 mg/dL (70-110)
[2023-11-18 19:55] LABS: Glucose,Whole Blood 85 mg/dL (70-110)
[2023-11-18] MEDS: METOPROLOL TARTRATE 12.5 MG TAB PO SCH (21:03)
[2023-11-18 21:10] LABS: Glucose,Whole Blood 146 mg/dL (70-110)
[2023-11-18 22:05] LABS: Glucose,Whole Blood 147 mg/dL (70-110)
[2023-11-18 23:02] LABS: Glucose,Whole Blood 156 mg/dL (70-110)
--- NOTE | 2023-11-18 23:05 | P.CONS ---
History of Present Illness - Reason for Consult Consult date: 11/18/23 Medical management - Chief Complaint Status post coronary artery bypass graft - History of Present Illness Patient is a 73-year-old female with a past medical history of coronary artery disease, hypertension, hyperlipidemia, diabetes type 2 [id number] and history of skin cancer removal and prior history of smoking. Prior history of stent placement to volume branch of circumflex and groove branch of circumflex. Patient had cardiac catheterization on 10/19/2023 showed right dominant system with 50% tandem lesions in the mid and distal RCA left main has a 70% ostial and proximal lesion with 60% mid LAD lesion and a 60 to 70% mid circumflex lesion after the obtuse marginal branch. Patient underwent three-vessel coronary artery bypass graft PACHECO to LAD SVG to first obtuse marginal and second obtuse marginal on 11/17/2023. Postoperatively patient was transferred to MICU. Patient was intubated perioperatively and was gradually weaned off and subsequently extubated yesterday. Patient is currently lying in the bed. Complains of chest soreness. Denies any nausea or vomiting. Able to tolerate liquids. Chest x-ray this morning showed postsurgical changes with left-sided conso lidation small effusion slightly progressive from prior exam. No signs of pneumothorax. EKG showed sinus rhythm. Laboratory data showed WBC 10.1 hemoglobin 7.8 and platelets 130 sodium 127 potassium 3.8 chloride 103 bicarb is 13 BUN is 18 creatinine 0.51 and blood sugar 136 and calcium 8.0 liver enzymes not elevated. Albumin 3.0. Review of Systems Constitutional: Patient denies any fever or chills . No generalized weakness or weight loss. Abdomen: Patient denied nausea vomiting and diarrhea and abdominal pain. Cardiovascular: Patient denies any chest pain or short of breath. Chest soreness. No palpitations. No leg swelling Respiratory: patient denied any cough or sputum production. No shortness of breath Neurologic: Patient denied any numbness or tingling. no headache. Musculoskeletal: Patient denies any complaints of joint swelling or deformity. Skin: Negative Psychiatric: Negative Endocrine: No heat or cold intolerance. No recent weight gain. Genitourinary: No dysuria or hematuria. All other 14 point ROS negative except the above Past Medical History Past Medical History: Coronary Artery Disease (CAD), Cancer, Chest Pain / Angina, Diabetes Mellitus, GERD/Reflux, Hyperlipidemia, Hypertension Additional Past Medical History / Comment(s): Hx tennis elbow, hx sciatica, beginnings of neuropathy in feet, seems improved at this time. HX OF BELLS PALSY, hx anemia X1, frequent diarrhea recently, not as much recently, thinks might have a "blockage", hx skin cancer X1 2022 on right eyebrow. History of Any Multi-Drug Resistant Organisms: None Reported Past Surgical History: Section, Heart Catheterization With Stent, He rnia Repair, Hysterectomy Additional Past Surgical History / Comment(s): INCISIONAL HERNIA REPAIR, SKIN LESIONS REMOVED, COLOLOSCOPY, Bilateral cataract surgery 2017 Past Anesthesia/Blood Transfusion Reactions: No Reported Reaction Additional Past Anesthesia/Blood Transfusion Reaction / Comm: Pt has never received blood. Date of Last Stent Placement:: 05/07/2015 Past Psychological History: No Psychological Hx Reported Smoking Status: Former smoker Past Alcohol Use History: None Reported Additional Past Alcohol Use History / Comment(s): QUIT SMOKING APPROX 37 YRS AGO. SMOKED 10-15 YRS, 1 PPD OR LESS. Past Drug Use History: None Reported - Past Family History Brother(s) Family Medical History: Cancer Additional Family Medical History / Comment(s): COLON CANCER Sister(s) Family Medical History: Cancer Additional Family Medical History / Comment(s): COLON CANCER Father Family Medical History: Coronary Artery Disease (CAD), Myocardial Infarction (WI) Additional Family Medical History / Comment(s): Father at age 67yrs and pt thinks cause of was a [place]. Mother Family Medical History: Coronary Artery Disease (CAD) Additional Family Medical History / Comment(s): Mother at age 78 or 79yrs of heart disease. Medications and Allergies Home Medications Medication Instructions Recorded Confirmed Type Raloxifene HCl [Evista] 60 mg PO DAILY 04/03/15 11/17/23 History atenoloL [Atenolol] 50 mg PO DAILY 04/03/15 11/17/23 History lisinopriL [Lisinopril] 20 mg PO DAILY 04/03/15 11/17/23 History sitaGLIPtin [Januvia] 50 mg PO DAILY 04/03/15 11/17/23 History Atorvastatin [Lipitor] 40 mg PO HS 08/31/16 11/17/23 History Clopidogrel Bisulfate [Plavix] 75 mg PO DAILY 08/31/16 11/17/23 History Ferrous Sulfate [Feosol] 325 mg PO DAILY 08/31/16 11/17/23 History Ergocalciferol [Vitamin D2 (1250 1,250 mcg PO COOK 01/01/21 11/17/23 History Mcg = 65093 Iu)] Aspirin 81 mg PO DAILY 10/18/23 11/17/23 History Fish Oil/Dha/Epa [Fish Oil 1,200 1 cap PO DAILY 10/18/23 11/17/23 History mg Fish Oil] Lactobacillus Acidophilus 1 cap PO DAILY 10/18/23 11/17/23 History [Acidophilus Probiotic] metFORMIN HCL 500 mg PO AC-BID 10/18/23 11/17/23 History Allergies Allergy/AdvReac Type Severity Reaction Status Date / Time codeine AdvReac Nausea & Verified 11/17/23 06:03 Vomiting Physical Exam Vitals: Vital Signs Temp Pulse Resp BP Pulse Ox FiO2 11/18/23 10:00 72 18 109/50 97 11/18/23 09:45 70 16 114/45 96 11/18/23 09:30 72 23 104/75 95 11/18/23 09:18 65 11/18/23 09:15 68 18 96/60 99 11/18/23 09:08 65 11/18/23 09:00 67 17 101/48 98 11/18/23 08:45 64 15 106/47 99 11/18/23 08:30 66 18 94/56 98 11/18/23 08:15 65 20 102/43 100 11/18/23 08:00 100.2 F H 66 21 96/43 99 11/18/23 07:45 65 21 98 11/18/23 07:30 66 20 98/45 98 11/18/23 07:15 65 16 99 11/18/23 07:00 64 22 95/48 97 11/18/23 06:45 63 15 119/53 98 11/18/23 06:30 75 24 11/18/23 06:15 69 16 105/57 11/18/23 06:00 70 14 105/56 97 11/18/23 05:45 70 13 105/56 97 11/18/23 05:30 66 17 113/58 97 11/18/23 05:15 66 22 97 11/18/23 05:00 65 15 112/55 98 11/18/23 04:45 68 16 93/52 97 11/18/23 04:30 65 15 96/49 98 11/18/23 04:15 65 12 98/48 98 11/18/23 04:01 98.1 F 66 15 85/46 98 11/18/23 03:45 65 12 90/47 99 11/18/23 03:30 65 15 97/46 99 11/18/23 03:15 65 13 97/46 99 11/18/23 03:00 66 17 90/44 98 11/18/23 02:45 64 15 83/46 99 11/18/23 02:30 64 16 102/48 99 11/18/23 02:15 63 16 102/48 98 11/18/23 02:00 68 18 97/57 97 11/18/23 01:45 75 13 99/52 97 11/18/23 01:30 67 17 92/49 98 11/18/23 01:15 68 12 93/51 98 11/18/23 01:00 66 12 98/55 94 L 11/18/23 00:45 64 12 98/53 95 11/18/23 00:30 65 11 L 96/49 99 11/18/23 00:15 65 14 99/51 99 11/18/23 00:00 97.8 F 68 12 94/47 98 11/17/23 23:45 68 12 91/48 99 11/17/23 23:30 70 14 93/46 98 11/17/23 23:15 73 15 94/49 99 11/17/23 23:00 98.1 F 67 12 91/45 98 11/17/23 22:45 66 11 L 94/53 99 11/17/23 22:30 66 11 L 94/51 99 11/17/23 22:15 67 12 92/51 99 11/17/23 22:00 67 13 95/54 99 11/17/23 21:30 69 10 L 97/54 99 11/17/23 21:00 64 12 98 11/17/23 20:50 63 11/17/23 20:39 66 11/17/23 20:30 65 10 L 99 11/17/23 20:00 66 10 L 99 11/17/23 19:30 65 13 11/17/23 19:00 65 9 L 11/17/23 18:30 68 10 L 116/72 99 11/17/23 18:00 72 10 L 100 11/17/23 17:30 78 12 100 11/17/23 17:00 75 17 117/59 99 11/17/23 16:30 75 16 100 11/17/23 16:10 73 18 100 11/17/23 16:00 71 15 117/59 100 40 11/17/23 15:50 65 12 100 11/17/23 15:48 40 11/17/23 15:40 62 14 100 11/17/23 15:30 61 14 100 11/17/23 15:26 40 11/17/23 15:20 63 14 100 11/17/23 15:10 60 14 100 11/17/23 15:03 40 11/17/23 15:01 100 11/17/23 15:00 58 L 14 117/59 100 11/17/23 14:50 58 L 14 100 11/17/23 14:40 59 L 14 100 11/17/23 14:30 59 L 14 117/59 100 11/17/23 14:20 60 14 148/68 92 L 11/17/23 14:10 62 14 148/68 100 11/17/23 14:00 61 14 148/68 100 11/17/23 13:50 64 14 148/68 100 11/17/23 13:40 14 132/65 100 11/17/23 13:30 64 14 132/65 100 11/17/23 13:20 64 14 124/64 100 11/17/23 13:10 63 12 124/64 100 11/17/23 13:00 63 14 124/64 100 40 11/17/23 12:57 50 11/17/23 12:50 62 14 124/64 100 11/17/23 12:40 62 14 124/64 100 11/17/23 12:30 60 14 124/64 100 100 11/17/23 12:20 61 14 100 100 Intake and Output 11/17/23 11/18/23 11/18/23 22:59 06:59 14:59 Intake Total 2290.581 1007.924 327.524 Output Total 681 570 245 Balance 1609.581 437.924 82.524 Intake: IV 2272 982 281 ACETAMINOPHEN IV (For NPO 100 ) 1,000 mg In Empty Bag 1 bag @ 400 mls/hr IVPB Q6H ANAHI Rx#:[id number] Albumin Human 5% 250 ml 500 250 In Empty Bag 1 bag @ 250 mls/hr IVPB Q1HR PRN Rx#: [id number] CO/CI 300 210 40 Lactated Ringers 1,000 ml 850 400 155 @ 20 mls/hr IV .Q24H ANAHI Rx#:[id number] Magnesium Sulfate-D5w Pmx 400 1 gm In Dextrose/Water 1 100ml.bag @ 100 mls/hr IVPB Q1H ANAHI Rx#: [id number] Pressure bags 72 72 36 ceFAZolin 2 gm In Sodium 50 50 50 Chloride 0.9% 50 ml @ 100 mls/hr IVPB Q8HR ANAHI Rx# :[id number] Intake, IV Titration 18.581 25.924 46.524 Amount Insulin Regular 100 unit 16.438 25.924 14.224 In Sodium Chloride 0.9% 100 ml @ Per Protocol IV .Q0M ANAHI Rx#:[id number] Nitroglycerin-D5w Pmx 50 32.3 mg In Dextrose/Water 1 250ml.bag @ 5 MCG/MIN 1.5 mls/hr IV .Q24H ANAHI Rx#: [id number] propofoL 1,000 mg In 2.143 Empty Bag 1 bag @ Titrate IV .Q0M ANAHI Rx#: [id number] Output: Chest Tube Drainage 276 190 120 Chest Tube Left 137 74 50 Chest Tube Mediastinal 139 116 70 Drainage 50 25 Left Leg 50 25 Urine 355 370 100 Emesis 10 Other: Voiding Method Indwelling Catheter Indwelling Catheter Indwelling Catheter Weight 54.6 kg ABP, PAP, CO, CI - Last 8 Hours Arterial Blood Pressure 127/43 Arterial Blood Pressure 113/38 Arterial Blood Pressure 111/39 Arterial Blood Pressure 100/39 Arterial Blood Pressure 100/36 Arterial Blood Pressure 101/34 Arterial Blood Pressure 86/37 Arterial Blood Pressure 107/35 Arterial Blood Pressure 113/49 Arterial Blood Pressure 125/51 Arterial Blood Pressure 115/51 Arterial Blood Pressure 105/45 Pulmonary Artery Pressure 30/11 Pulmonary Artery Pressure 29/8 Pulmonary Artery Pressure 31/10 Pulmonary Artery Pressure 27/8 Pulmonary Artery Pressure 32/10 Pulmonary Artery Pressure 30/8 Pulmonary Artery Pressure 31/9 Pulmonary Artery Pressure 32/10 Pulmonary Artery Pressure 32/8 Pulmonary Artery Pressure 34/9 Pulmonary Artery Pressure 31/7 Pulmonary Artery Pressure 32/8 Pulmonary Artery Pressure 30/10 Pulmonary Artery Pressure 41/14 Pulmonary Artery Pressure 23/2 Pulmonary Artery Pressure 42/19 Pulmonary Artery Pressure 42/19 Pulmonary Artery Pressure 41/19 Pulmonary Artery Pressure 33/13 Pulmonary Artery Pressure 28/6 Pulmonary Artery Pressure 31/8 Pulmonary Artery Pressure 29/6 Pulmonary Artery Pressure 30/8 Pulmonary Artery Pressure 30/6 Pulmonary Artery Pressure 30/7 Pulmonary Artery Pressure 30/7 Pulmonary Artery Pressure 32/7 Pulmonary Artery Pressure 31/7 Cardiac Output 3.3 Cardiac Output 3.1 Cardiac Output 3.1 Cardiac Output 3.2 Cardiac Output 3.1 Cardiac Output 3.1 Cardiac Output 3.3 Cardiac Index 2.1 Cardiac Index 2 Cardiac Index 2 Cardiac Index 2.1 Cardiac Index 2 Cardiac Index 2 Cardiac Index 2.1 PHYSICAL EXAMINATION: Patient is lying in the bed. No acute distress, awake alert and oriented.. HEENT: Normocephalic. Neck is supple. Pupils reactive. Nostrils clear. Oral cavity is moist. Neck reveals no JVD, carotid bruits, or thyromegaly. CHEST EXAMINATION: Trachea is central. Symmetrical expansion. Bibasilar diminished sounds otherwise lung shaffer clear to auscultation and percussion. Mediastinal and left-sided chest tubes in place CARDIAC: Normal S1, S2 with no gallops. No murmurs ABDOMEN: Soft. Bowel sounds present. No organomegaly. No abdominal bruits. Extremities: reveal no edema. No clubbing or cyanosis Neurologically awake, alert, oriented x3 with well-coordinated movements. Gross no focal deficits noted Skin: No rash or skin lesions. Psychiatric: Coperative. Nonsuicidal Musculoskeletal: No joint swelling or deformity. Normal range of motion. Results CBC & Chem 7: 11/18/23 04:02 11/18/23 04:02 Labs: Abnormal Lab Results - Last 24 Hours (Table) 11/08/23 11/17/23 11/17/23 Range/Units 11:05 09:48 10:19 WBC (3.8-10.6) k/uL RBC (3.80-5.40) m/uL Hgb (11.4-16.0) gm/dL Hct (34.0-46.0) % Plt Count (150-450) k/uL Neutrophils # (1.3-7.7) k/uL Lymphocytes # (1.0-4.8) k/uL PT (10.0-12.5) sec INR (<1.2) ABG pCO2 (35-45) mmHg ABG pO2 309 H 298 H (83-108) mmHg ABG O2 Saturation 98.8 H 99.2 H (94-97) % ABG Hematocrit 28 L 23 L (34.0-46.0) % ABG Sodium 133 L 134 L (135-146) mmol/L ABG Glucose 141 H 133 H (75-99) mg/dL Hemoglobin 9.1 L 7.4 L (11.4-16.0) gm/dL Sodium (137-145) mmol/L Carbon Dioxide (22-30) mmol/L Creatinine (0.52-1.04) mg/dL Glucose (74-99) mg/dL POC Glucose (mg/dL) (70-110) mg/dL Calcium (8.4-10.2) mg/dL Magnesium (1.6-2.3) mg/dL AST (14-36) U/L Total Protein (6.3-8.2) g/dL Albumin (3.5-5.0) g/dL Arterial Blood Glucose 141 H 133 H (75-99) mg/dL Crossmatch See Detail 11/17/23 11/17/23 11/17/23 Range/Units 10:50 12:00 12:00 WBC (3.8-10.6) k/uL RBC (3.80-5.40) m/uL Hgb (11.4-16.0) gm/dL Hct (34.0-46.0) % Plt Count (150-450) k/uL Neutrophils # (1.3-7.7) k/uL Lymphocytes # (1.0-4.8) k/uL PT 13.1 H (10.0-12.5) sec INR 1.2 H (<1.2) ABG pCO2 34 L (35-45) mmHg ABG pO2 325 H (83-108) mmHg ABG O2 Saturation 98.9 H (94-97) % ABG Hematocrit 23 L (34.0-46.0) % ABG Sodium 133 L (135-146) mmol/L ABG Glucose 136 H (75-99) mg/dL Hemoglobin 7.5 L (11.4-16.0) gm/dL Sodium 131 L (137-145) mmol/L Carbon Dioxide 19 L (22-30) mmol/L Creatinine (0.52-1.04) mg/dL Glucose 119 H (74-99) mg/dL POC Glucose (mg/dL) (70-110) mg/dL Calcium 8.1 L (8.4-10.2) mg/dL Magnesium 1.2 L (1.6-2.3) mg/dL AST 37 H (14-36) U/L Total Protein 4.1 L (6.3-8.2) g/dL Albumin 2.4 L (3.5-5.0) g/dL Arterial Blood Glucose 136 H (75-99) mg/dL Crossmatch 11/17/23 11/17/23 11/17/23 Range/Units 12:19 12:44 12:51 WBC (3.8-10.6) k/uL RBC 2.49 L (3.80-5.40) m/uL Hgb 7.6 L D (11.4-16.0) gm/dL Hct 23.1 L (34.0-46.0) % Plt Count 104 L D (150-450) k/uL Neutrophils # (1.3-7.7) k/uL Lymphocytes # (1.0-4.8) k/uL PT (10.0-12.5) sec INR (<1.2) ABG pCO2 (35-45) mmHg ABG pO2 (83-108) mmHg ABG O2 Saturation (94-97) % ABG Hematocrit (34.0-46.0) % ABG Sodium (135-146) mmol/L ABG Glucose (75-99) mg/dL Hemoglobin (11.4-16.0) gm/dL Sodium (137-145) mmol/L Carbon Dioxide (22-30) mmol/L Creatinine (0.52-1.04) mg/dL Glucose (74-99) mg/dL POC Glucose (mg/dL) 140 H 126 H (70-110) mg/dL Calcium (8.4-10.2) mg/dL Magnesium (1.6-2.3) mg/dL AST (14-36) U/L Total Protein (6.3-8.2) g/dL Albumin (3.5-5.0) g/dL Arterial Blood Glucose (75-99) mg/dL Crossmatch 11/17/23 11/17/23 11/17/23 Range/Units 12:52 13:53 14:55 WBC (3.8-10.6) k/uL RBC (3.80-5.40) m/uL Hgb (11.4-16.0) gm/dL Hct (34.0-46.0) % Plt Count (150-450) k/uL Neutrophils # (1.3-7.7) k/uL Lymphocytes # (1.0-4.8) k/uL PT (10.0-12.5) sec INR (<1.2) ABG pCO2 (35-45) mmHg ABG pO2 >420 H (83-108) mmHg ABG O2 Saturation 100.6 H (94-97) % ABG Hematocrit (34.0-46.0) % ABG Sodium (135-146) mmol/L ABG Glucose (75-99) mg/dL Hemoglobin (11.4-16.0) gm/dL Sodium (137-145) mmol/L Carbon Dioxide (22-30) mmol/L Creatinine (0.52-1.04) mg/dL Glucose (74-99) mg/dL POC Glucose (mg/dL) 118 H 157 H (70-110) mg/dL Calcium (8.4-10.2) mg/dL Magnesium (1.6-2.3) mg/dL AST (14-36) U/L Total Protein (6.3-8.2) g/dL Albumin (3.5-5.0) g/dL Arterial Blood Glucose (75-99) mg/dL Crossmatch 11/17/23 11/17/23 11/17/23 Range/Units 15:54 15:59 16:25 WBC (3.8-10.6) k/uL RBC 2.48 L (3.80-5.40) m/uL Hgb 7.5 L (11.4-16.0) gm/dL Hct 23.1 L (34.0-46.0) % Plt Count 103 L (150-450) k/uL Neutrophils # (1.3-7.7) k/uL Lymphocytes # (1.0-4.8) k/uL PT (10.0-12.5) sec INR (<1.2) ABG pCO2 (35-45) mmHg ABG pO2 189 H (83-108) mmHg ABG O2 Saturation 100.0 H (94-97) % ABG Hematocrit (34.0-46.0) % ABG Sodium (135-146) mmol/L ABG Glucose (75-99) mg/dL Hemoglobin (11.4-16.0) gm/dL Sodium (137-145) mmol/L Carbon Dioxide (22-30) mmol/L Creatinine (0.52-1.04) mg/dL Glucose (74-99) mg/dL POC Glucose (mg/dL) 177 H (70-110) mg/dL Calcium (8.4-10.2) mg/dL Magnesium (1.6-2.3) mg/dL AST (14-36) U/L Total Protein (6.3-8.2) g/dL Albumin (3.5-5.0) g/dL Arterial Blood Glucose (75-99) mg/dL Crossmatch 11/17/23 11/17/23 11/17/23 Range/Units 16:59 17:59 18:56 WBC (3.8-10.6) k/uL RBC (3.80-5.40) m/uL Hgb (11.4-16.0) gm/dL Hct (34.0-46.0) % Plt Count (150-450) k/uL Neutrophils # (1.3-7.7) k/uL Lymphocytes # (1.0-4.8) k/uL PT (10.0-12.5) sec INR (<1.2) ABG pCO2 (35-45) mmHg ABG pO2 (83-108) mmHg ABG O2 Saturation (94-97) % ABG Hematocrit (34.0-46.0) % ABG Sodium (135-146) mmol/L ABG Glucose (75-99) mg/dL Hemoglobin (11.4-16.0) gm/dL Sodium (137-145) mmol/L Carbon Dioxide (22-30) mmol/L Creatinine (0.52-1.04) mg/dL Glucose (74-99) mg/dL POC Glucose (mg/dL) 165 H 131 H 173 H (70-110) mg/dL Calcium (8.4-10.2) mg/dL Magnesium (1.6-2.3) mg/dL AST (14-36) U/L Total Protein (6.3-8.2) g/dL Albumin (3.5-5.0) g/dL Arterial Blood Glucose (75-99) mg/dL Crossmatch 11/17/23 11/17/23 11/17/23 Range/Units 18:57 20:03 21:01 WBC 11.3 H (3.8-10.6) k/uL RBC 2.77 L (3.80-5.40) m/uL Hgb 8.5 L (11.4-16.0) gm/dL Hct 26.1 L (34.0-46.0) % Plt Count 122 L (150-450) k/uL Neutrophils # 10.1 H (1.3-7.7) k/uL Lymphocytes # 0.7 L (1.0-4.8) k/uL PT (10.0-12.5) sec INR (<1.2) ABG pCO2 (35-45) mmHg ABG pO2 (83-108) mmHg ABG O2 Saturation (94-97) % ABG Hematocrit (34.0-46.0) % ABG Sodium (135-146) mmol/L ABG Glucose (75-99) mg/dL Hemoglobin (11.4-16.0) gm/dL Sodium (137-145) mmol/L Carbon Dioxide (22-30) mmol/L Creatinine (0.52-1.04) mg/dL Glucose (74-99) mg/dL POC Glucose (mg/dL) 149 H 139 H (70-110) mg/dL Calcium (8.4-10.2) mg/dL Magnesium (1.6-2.3) mg/dL AST (14-36) U/L Total Protein (6.3-8.2) g/dL Albumin (3.5-5.0) g/dL Arterial Blood Glucose (75-99) mg/dL Crossmatch 11/17/23 11/17/23 11/17/23 Range/Units 22:01 23:00 23:58 WBC (3.8-10.6) k/uL RBC (3.80-5.40) m/uL Hgb (11.4-16.0) gm/dL Hct (34.0-46.0) % Plt Count (150-450) k/uL Neutrophils # (1.3-7.7) k/uL Lymphocytes # (1.0-4.8) k/uL PT (10.0-12.5) sec INR (<1.2) ABG pCO2 (35-45) mmHg ABG pO2 (83-108) mmHg ABG O2 Saturation (94-97) % ABG Hematocrit (34.0-46.0) % ABG Sodium (135-146) mmol/L ABG Glucose (75-99) mg/dL Hemoglobin (11.4-16.0) gm/dL Sodium (137-145) mmol/L Carbon Dioxide (22-30) mmol/L Creatinine (0.52-1.04) mg/dL Glucose (74-99) mg/dL POC Glucose (mg/dL) 147 H 155 H 147 H (70-110) mg/dL Calcium (8.4-10.2) mg/dL Magnesium (1.6-2.3) mg/dL AST (14-36) U/L Total Protein (6.3-8.2) g/dL Albumin (3.5-5.0) g/dL Arterial Blood Glucose (75-99) mg/dL Crossmatch 11/18/23 11/18/23 11/18/23 Range/Units 02:06 02:36 02:59 WBC (3.8-10.6) k/uL RBC (3.80-5.40) m/uL Hgb (11.4-16.0) gm/dL Hct (34.0-46.0) % Plt Count (150-450) k/uL Neutrophils # (1.3-7.7) k/uL Lymphocytes # (1.0-4.8) k/uL PT (10.0-12.5) sec INR (<1.2) ABG pCO2 (35-45) mmHg ABG pO2 (83-108) mmHg ABG O2 Saturation (94-97) % ABG Hematocrit (34.0-46.0) % ABG Sodium (135-146) mmol/L ABG Glucose (75-99) mg/dL Hemoglobin (11.4-16.0) gm/dL Sodium (137-145) mmol/L Carbon Dioxide (22-30) mmol/L Creatinine (0.52-1.04) mg/dL Glucose (74-99) mg/dL POC Glucose (mg/dL) 151 H 176 H 162 H (70-110) mg/dL Calcium (8.4-10.2) mg/dL Magnesium (1.6-2.3) mg/dL AST (14-36) U/L Total Protein (6.3-8.2) g/dL Albumin (3.5-5.0) g/dL Arterial Blood Glucose (75-99) mg/dL Crossmatch 11/18/23 11/18/23 11/18/23 Range/Units 04:02 04:02 04:03 WBC (3.8-10.6) k/uL RBC 2.62 L (3.80-5.40) m/uL Hgb 7.8 L (11.4-16.0) gm/dL Hct 24.8 L (34.0-46.0) % Plt Count 130 L (150-450) k/uL Neutrophils # 9.9 H (1.3-7.7) k/uL Lymphocytes # 0.2 L (1.0-4.8) k/uL PT (10.0-12.5) sec INR (<1.2) ABG pCO2 (35-45) mmHg ABG pO2 (83-108) mmHg ABG O2 Saturation (94-97) % ABG Hematocrit (34.0-46.0) % ABG Sodium (135-146) mmol/L ABG Glucose (75-99) mg/dL Hemoglobin (11.4-16.0) gm/dL Sodium 127 L (137-145) mmol/L Carbon Dioxide 17 L (22-30) mmol/L Creatinine 0.51 L (0.52-1.04) mg/dL Glucose 136 H (74-99) mg/dL POC Glucose (mg/dL) 153 H (70-110) mg/dL Calcium 8.0 L (8.4-10.2) mg/dL Magnesium (1.6-2.3) mg/dL AST (14-36) U/L Total Protein 4.9 L (6.3-8.2) g/dL Albumin 3.2 L (3.5-5.0) g/dL Arterial Blood Glucose (75-99) mg/dL Crossmatch 11/18/23 11/18/23 11/18/23 Range/Units 04:59 07:03 08:16 WBC (3.8-10.6) k/uL RBC (3.80-5.40) m/uL Hgb (11.4-16.0) gm/dL Hct (34.0-46.0) % Plt Count (150-450) k/uL Neutrophils # (1.3-7.7) k/uL Lymphocytes # (1.0-4.8) k/uL PT (10.0-12.5) sec INR (<1.2) ABG pCO2 (35-45) mmHg ABG pO2 (83-108) mmHg ABG O2 Saturation (94-97) % ABG Hematocrit (34.0-46.0) % ABG Sodium (135-146) mmol/L ABG Glucose (75-99) mg/dL Hemoglobin (11.4-16.0) gm/dL Sodium (137-145) mmol/L Carbon Dioxide (22-30) mmol/L Creatinine (0.52-1.04) mg/dL Glucose (74-99) mg/dL POC Glucose (mg/dL) 118 H 151 H 142 H (70-110) mg/dL Calcium (8.4-10.2) mg/dL Magnesium (1.6-2.3) mg/dL AST (14-36) U/L Total Protein (6.3-8.2) g/dL Albumin (3.5-5.0) g/dL Arterial Blood Glucose (75-99) mg/dL Crossmatch 11/18/23 11/18/23 Range/Units 08:59 09:58 WBC (3.8-10.6) k/uL RBC (3.80-5.40) m/uL Hgb (11.4-16.0) gm/dL Hct (34.0-46.0) % Plt Count (150-450) k/uL Neutrophils # (1.3-7.7) k/uL Lymphocytes # (1.0-4.8) k/uL PT (10.0-12.5) sec INR (<1.2) ABG pCO2 (35-45) mmHg ABG pO2 (83-108) mmHg ABG O2 Saturation (94-97) % ABG Hematocrit (34.0-46.0) % ABG Sodium (135-146) mmol/L ABG Glucose (75-99) mg/dL Hemoglobin (11.4-16.0) gm/dL Sodium (137-145) mmol/L Carbon Dioxide (22-30) mmol/L Creatinine (0.52-1.04) mg/dL Glucose (74-99) mg/dL POC Glucose (mg/dL) 147 H 130 H (70-110) mg/dL Calcium (8.4-10.2) mg/dL Magnesium (1.6-2.3) mg/dL AST (14-36) U/L Total Protein (6.3-8.2) g/dL Albumin (3.5-5.0) g/dL Arterial Blood Glucose (75-99) mg/dL Crossmatch Assessment and Plan Assessment: Coronary artery disease status post CABG triple vessel bypass on 11/17/2023. PACHECO to LAD SVG to OM1 and OM 2 and atrial clip ligation. Coronary artery disease history of prior stent placement Diabetes type 2 [id number] A1c 6.2 Acute blood loss anemia expected from surgery with hemoglobin 7.8. Baseline 11.3 on 11/08/2023 Hypertension Hyperlipidemia GERD History of skin cancer Prior history of smoking DVT prophylaxis and GI prophylaxis Plan: Patient will be continued on aspirin, statin, Plavix, metoprolol and amiodarone. Patient is extubated currently on oxygen at 2 L via nasal cannula. Patient was on insulin drip for better blood sugar control. Continue to monitor H&H Continue with incentive spirometry and PT OT. Will follow closely further recommendations based on the clinical course. Critical care team cardiology and CT surgery is on board. Time with Patient: Greater than 30
[2023-11-19 00:14] LABS: Glucose,Whole Blood 114 mg/dL (70-110)
[2023-11-19 00:47] LABS: Glucose,Whole Blood 102 mg/dL (70-110)
[2023-11-19 02:21] LABS: Glucose,Whole Blood 137 mg/dL (70-110)
[2023-11-19 03:06] LABS: Glucose,Whole Blood 141 mg/dL (70-110)
[2023-11-19 04:28] LABS: Glucose,Whole Blood 85 mg/dL (70-110)
[2023-11-19 04:52] LABS: Basophils % (A) 0 %; Eosinophils % (A) 0 %; HCT 23.6 % (34.0-46.0); HGB 7.3 gm/dL (11.4-16.0); Lymphocytes # (A) 0.6 k/uL (1.0-4.8); Lymphocytes % (A) 6 %; MCH 29.4 pg (25.0-35.0); MCHC 31.1 g/dL (31.0-37.0); MCV 94.5 fL (80.0-100.0); Mean Platelet Volume 7.7; Monocytes # (A) 0.3 k/uL (0-1.0); Monocytes % (A) 3 %; Neutrophils # (A) 8.7 k/uL (1.3-7.7); Neutrophils % (A) 90 %; Platelet Count 112 k/uL (150-450); RDW 13.9 % (11.5-15.5); WBC 9.7 k/uL (3.8-10.6)
[2023-11-19 05:02] LABS: Ionized Calcium 5.1 mg/dL (4.5-5.3)
[2023-11-19 05:12] LABS: ALT 15 U/L (4-34); AST 33 U/L (14-36); African American GFR (CKD) >90 (>60 ml/min/1.73 sqM); Albumin 3.4 g/dL (3.5-5.0); Alkaline Phosphatase 43 U/L (38-126); Anion Gap 7 mmol/L; Blood Urea Nitrogen 8 mg/dL (7-17); Calcium 8.9 mg/dL (8.4-10.2); Carbon Dioxide 18 mmol/L (22-30); Chloride 104 mmol/L (98-107); Glucose 96 mg/dL (74-99); Non-African American GFR(CKD) >90 (>60 ml/min/1.73 sqM); Potassium 3.9 mmol/L (3.5-5.1); Sodium 129 mmol/L (137-145); Total Bilirubin 0.5 mg/dL (0.2-1.3); Total Protein 5.2 g/dL (6.3-8.2)
[2023-11-19 05:38] LABS: Glucose,Whole Blood 112 mg/dL (70-110)
[2023-11-19 07:18] LABS: Glucose,Whole Blood 152 mg/dL (70-110)
[2023-11-19] MEDS: PANTOPRAZOLE 40 MG TABLET PO SCH (07:37)
[2023-11-19 08:03] LABS: Glucose,Whole Blood 161 mg/dL (70-110)
[2023-11-19] MEDS: POTASSIUM CHLORIDE ER 20 MEQ TAB.ER PO SCH (08:06)
--- NOTE | 2023-11-19 08:46 | XR ---
EXAM: XR chest 1V portable CLINICAL INDICATION:Female, 73 years old with history of Post Operative Cardiac Surgery; [facility] COMPARISON: 11/18/2023 TECHNIQUE: Chest single view. FINDINGS: Right IJ Malott-Bette catheter has been removed, with remaining sheath terminating over the SVC. Similar appearance of tubing along the right paraspinal region likely mediastinal drain. Redemonstration of left atrial appendage occlusion device. The left chest tube appears in essentially unchanged position . Monitor leads and other extraneous densities overlie the [id number]. Cardiomediastinal silhouette is stable. Heart size upper normal. Right lung appears stable relatively clear. Left basilar strandy opacity shows slightly improved inte rval aeration. Possible trace pleural effusion as before. There is no visualized pneumothorax. Osseous structures appear grossly unchanged. IMPRESSION: 1. Postoperative chest with interval removal of the Malott-Bette catheter. Other lines and tubes appear unchanged. 2. Interval improved aeration of the left lung base, with small residual infiltrate/atelectasis and possible trace effusion.
[2023-11-19 09:10] LABS: Glucose,Whole Blood 119 mg/dL (70-110)
[2023-11-19 10:01] LABS: Glucose,Whole Blood 136 mg/dL (70-110)
[2023-11-19 10:47] LABS: Glucose,Whole Blood 126 mg/dL (70-110)
[2023-11-19 11:52] LABS: Glucose,Whole Blood 138 mg/dL (70-110)
--- NOTE | 2023-11-19 12:50 | P.PN ---
Subjective Progress Note Date: 11/19/23 Principal diagnosis: Coronary artery disease, unstable angina pectoralis. 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 She is currently sitting up to the bedside chair, is awake, alert, oriented x 3 and is in no acute apparent distress. She denies any complaints of shortness of breath or pain at this time. Reports her pain is well-controlled on current pain medication regimen. Oxygen saturations are 97% on room air and she is achieving 750 mL on her incentive spirometry with encouragement. Bedside telemetry is showing normal sinus rhythm heart rate 77 bpm. Dopamine drip remains infusing per renal dose at 3 mcg/kg/min. Taylor catheter remains in place for accurate I's and O's with 235 mL of urine output in the last 8 hours. She remains hemodynamically stable at this time. Right IJ cordis remains in place with current hemodynamics showing a CVP of 6 mmHg. Mediastinal and left pleural chest tubes remain in place to low continuous wall suction -20 cm H2O. No air leak is present. Mediastinal chest tube drained 120 mL output in the last 8 hours and 350 mL output in the last 24 hours. Left pleural chest tube drained 70 mL of thin serosanguineous drainage in the last 8 hours and 130 mL output in the last 24 hours. Right radial arterial line remains in place. Chest x-ray and laboratory results were reviewed. Objective - Vital Signs Vital signs: Vital Signs Temp 97.7 F 11/19/23 08:00 Pulse 76 11/19/23 10:30 Resp 16 11/19/23 10:30 BP 112/48 11/19/23 10:30 Pulse Ox 95 11/19/23 10:30 FiO2 40 11/17/23 16:00 Intake & Output 11/18/23 11/19/23 11/19/23 18:59 06:59 18:59 Intake Total 805.735 586.273 292.507 Output Total 805 645 345 Balance 0.735 -58.727 -52.493 Weight 54.6 kg 63.7 kg Intake: IV 721 552 204 CO/CI 80 Lactated Ringers 1,000 ml 495 480 180 @ 20 mls/hr IV .Q24H ANAHI Rx#:[id number] Pressure bags 96 72 24 ceFAZolin 2 gm In Sodium 50 Chloride 0.9% 50 ml @ 100 mls/hr IVPB Q8HR ANAHI Rx# :[id number] Intake, IV Titration 84.735 34.273 88.507 Amount DOPamine DRIP 800 mg In 75.495 Dextrose/Water 1 250ml. bag @ 3 MCG/KG/MIN 3.071 mls/hr IV .Q24H ANAHI Rx#: [id number] Insulin Regular 100 unit 52.435 34.273 13.012 In Sodium Chloride 0.9% 100 ml @ Per Protocol IV .Q0M ANAHI Rx#:[id number] Nitroglycerin-D5w Pmx 50 32.3 mg In Dextrose/Water 1 250ml.bag @ 5 MCG/MIN 1.5 mls/hr IV .Q24H ANAHI Rx#: [id number] Output: Chest Tube Drainage 350 260 140 Chest Tube Left 90 100 60 Chest Tube Mediastinal 260 160 80 Drainage 45 30 Left Leg 45 30 Urine 410 385 175 Other: Voiding Method Indwelling Catheter Indwelling Catheter Indwelling Catheter ABP, PAP, CO, CI - Last Documented Arterial Blood Pressure 131/56 Pulmonary Artery Pressure 37/15 Cardiac Output 3.4 Cardiac Index 2.2 - Exam CONSTITUTIONAL: Appears comfortable, cooperative, no acute distress. RESPIRATORY: Lungs sounds diminished bilaterally. Respirations symmetrical, nonlabored. Currently on room air with oxygen saturation 97%. Able to achieve 750 mL on incentive spirometry. Strong cough. CARDIOVASCULAR: S1, S2 present. Regular rate and rhythm, sinus rhythm on telemetry. Sternum stable. Palpable peripheral pulses bilaterally. No edema present. No calf pain or tenderness noted. Heart hugger in place with patient demonstrating appropriate use. Antiembolism stockings, SCDs present. GASTROINTESTINAL: Abdomen soft, nontender, nondistended. Active bowel sounds present 4 quadrants. Tolerating clear liquids. Denies flatus GENITOURINARY: Taylor present draining clear, yellow urine. Output overnight 10-45 mL per hour INTEGUMENTARY: Skin is warm and dry with evidence of good perfusion. Anterior chest incision well approximated and covered with dry intact dressing. Left lower extremity EVH site well approximated without redness, minimal drainage in BOBBY drain NEUROLOGIC: Cranial nerves II through XII intact MUSKULOSKELETAL: Able to move all extremities, strength equal bilaterally PSYCHIATRIC: Alert and oriented to person place and time, appropriate affect, intact judgment and insight INVASIVE LINES AND TUBES: Mediastinal/left pleural chest tubes present and connected to wall suction, no air leaks present. Mediastinal tube with 120 mL serosanguineous drainage overnight, 350 mL in the last 24 hours. Left pleural chest tube with 70 mL serosanguineous drainage overnight, 130 mL in the last 24 hours. Right internal jugular Cordis, right radial arterial line present. Last CVP 6. - Allied health notes Allied health notes reviewed: nursing - Labs CBC & Chem 7: 11/19/23 03:50 11/19/23 03:50 Labs: Abnormal Lab Results - Last 24 Hours (Table) 11/18/23 11/18/23 11/18/23 Range/Units 12:01 13:02 14:02 RBC (3.80-5.40) m/uL Hgb (11.4-16.0) gm/dL Hct (34.0-46.0) % Plt Count (150-450) k/uL Neutrophils # (1.3-7.7) k/uL Lymphocytes # (1.0-4.8) k/uL Sodium (137-145) mmol/L Carbon Dioxide (22-30) mmol/L POC Glucose (mg/dL) 150 H 174 H 193 H (70-110) mg/dL Total Protein (6.3-8.2) g/dL Albumin (3.5-5.0) g/dL 11/18/23 11/18/23 11/18/23 Range/Units 14:57 15:57 16:54 RBC (3.80-5.40) m/uL Hgb (11.4-16.0) gm/dL Hct (34.0-46.0) % Plt Count (150-450) k/uL Neutrophils # (1.3-7.7) k/uL Lymphocytes # (1.0-4.8) k/uL Sodium (137-145) mmol/L Carbon Dioxide (22-30) mmol/L POC Glucose (mg/dL) 206 H 175 H 121 H (70-110) mg/dL Total Protein (6.3-8.2) g/dL Albumin (3.5-5.0) g/dL 11/18/23 11/18/23 11/18/23 Range/Units 18:09 21:08 22:04 RBC (3.80-5.40) m/uL Hgb (11.4-16.0) gm/dL Hct (34.0-46.0) % Plt Count (150-450) k/uL Neutrophils # (1.3-7.7) k/uL Lymphocytes # (1.0-4.8) k/uL Sodium (137-145) mmol/L Carbon Dioxide (22-30) mmol/L POC Glucose (mg/dL) 120 H 146 H 147 H (70-110) mg/dL Total Protein (6.3-8.2) g/dL Albumin (3.5-5.0) g/dL 11/18/23 11/19/23 11/19/23 Range/Units 23:01 00:07 02:20 RBC (3.80-5.40) m/uL Hgb (11.4-16.0) gm/dL Hct (34.0-46.0) % Plt Count (150-450) k/uL Neutrophils # (1.3-7.7) k/uL Lymphocytes # (1.0-4.8) k/uL Sodium (137-145) mmol/L Carbon Dioxide (22-30) mmol/L POC Glucose (mg/dL) 156 H 114 H 137 H (70-110) mg/dL Total Protein (6.3-8.2) g/dL Albumin (3.5-5.0) g/dL 11/19/23 11/19/23 11/19/23 Range/Units 03:05 03:50 03:50 RBC 2.50 L (3.80-5.40) m/uL Hgb 7.3 L (11.4-16.0) gm/dL Hct 23.6 L (34.0-46.0) % Plt Count 112 L (150-450) k/uL Neutrophils # 8.7 H (1.3-7.7) k/uL Lymphocytes # 0.6 L (1.0-4.8) k/uL Sodium 129 L (137-145) mmol/L Carbon Dioxide 18 L (22-30) mmol/L POC Glucose (mg/dL) 141 H (70-110) mg/dL Total Protein 5.2 L (6.3-8.2) g/dL Albumin 3.4 L (3.5-5.0) g/dL 11/19/23 11/19/23 11/19/23 Range/Units 05:36 07:16 08:02 RBC (3.80-5.40) m/uL Hgb (11.4-16.0) gm/dL Hct (34.0-46.0) % Plt Count (150-450) k/uL Neutrophils # (1.3-7.7) k/uL Lymphocytes # (1.0-4.8) k/uL Sodium (137-145) mmol/L Carbon Dioxide (22-30) mmol/L POC Glucose (mg/dL) 112 H 152 H 161 H (70-110) mg/dL Total Protein (6.3-8.2) g/dL Albumin (3.5-5.0) g/dL 11/19/23 11/19/23 11/19/23 Range/Units 09:08 10:00 10:45 RBC (3.80-5.40) m/uL Hgb (11.4-16.0) gm/dL Hct (34.0-46.0) % Plt Count (150-450) k/uL Neutrophils # (1.3-7.7) k/uL Lymphocytes # (1.0-4.8) k/uL Sodium (137-145) mmol/L Carbon Dioxide (22-30) mmol/L POC Glucose (mg/dL) 119 H 136 H 126 H (70-110) mg/dL Total Protein (6.3-8.2) g/dL Albumin (3.5-5.0) g/dL - Imaging and Cardiology Chest x-ray: report reviewed, image reviewed Assessment and Plan Assessment: Coronary artery disease with unstable angina pectoralis, previous PCI, status post three-vessel off-pump CABG Bilateral internal carotid stenosis 50 to 69% History of hypertension, borderline hypotensive Hyperlipidemia, treated Type 2 diabetes, hemoglobin A1c 6.2% Previous tobacco dependence, FEV1 78% of predicted Chronic anemia Family history of coronary artery disease Postoperative acute blood loss anemia, expected given hemodilution and pr eoperative chronic anemia Plan: Continue to maximize medical therapy with aspirin, statin, Plavix. Will increase beta-leo as tolerated. Will discontinue dopamine drip. Continue amiodarone for atrial fibrillation prophylaxis. Encourage incentive spirometry use 10 times every hour while awake. Bronchodilators per pulmonology Increase activity, ambulate as tolerated. PT/OT/cardiac rehab following. Will monitor daily labs and chest x-rays. Electrolyte replacement per protocol. GI/DVT prophylaxis. Insulin management per internal medicine, patient should remain on IV insulin for 48 hours then may transition to subcutaneous per protocol. Pain control with current medication regimen. Will discontinue right IJ cordis later this afternoon. Discontinue mediastinal chest tube and keep left pleural chest tube in place for another 24 hours. Continue to record strict output. Discontinue Taylor catheter. Continue to monitor and record strict accurate intake and output Daily weights. More recommendations to follow based on patient's clinical course. Time with Patient: Greater than 30
[2023-11-19 13:01] LABS: Glucose,Whole Blood 181 mg/dL (70-110)
[2023-11-19 14:51] LABS: Glucose,Whole Blood 157 mg/dL (70-110)
--- NOTE | 2023-11-19 16:12 | P.PN ---
Subjective Progress Note Date: 11/19/23 73-year-old female patient, underwent an off-pump three-vessel bypass surgery with PACHECO to LAD, SVG to first obtuse marginal and second obtuse marginal. Postop, the patient was brought into the intensive care unit. I saw the patient immediately after arrival to the intensive care unit. The patient was on propofol. The patient was on assist-control mode of mechanical ventilation at a rate of 14, tidal volume of 350, FiO2 of 100% and a PEEP of 5. Initial chest x- ray showed adequate expansion of both lungs. No evidence of any pneumothorax. The patient has mediastinal and left pleural chest tube. Postsurgical changes were noted on the chest x-ray and the tube was retracted by around 1 cm. There was no evidence of any pneumothorax. Newton-Bette catheter in place. The cardiac output was 3.7 with an index of 2.4. The patient was on amiodarone drip. Cardiac rhythm was sinus. The patient was on nitroglycerin drip running at 10 mcg/min and the patient was also on insulin drip at 3 units an hour. The FiO2 was gradually weaned off and subsequently, the patient was taken off sedation given a spontaneous breathing trial with a pressure support of 5 and a PEEP of 5 and subsequent blood gases were adequate and the patient was extubated accordingly. At this point in time, the patient is awake and alert, maintained on oxygen 2 L/min nasal cannula. No significant respiratory difficulties. Urine output is adequate. Hemodynamically stable. WBC count 11.3 hemoglobin 8.5 and a platelet count of 122 and the patient is afebrile. 11/18/2023, the patient is postop day #1 following her carotid bypass surgery. The patient was weaned off the mechanical ventilator and the patient was extub ated without any major difficulties. The patient is currently on 2 L of oxygen by nasal cannula. Earlier this morning, the patient is encountering some nausea. Cardiac rhythm remained sinus and the patient was taken off the amiodarone drip and the patient has been switched to oral amiodarone. The patient is also on insulin drip for blood sugar control running at 5 units an hour. Hemodynamically, the patient is a cardiac output of 5.3 with an index of 2.8. PA pressure 28/9. The left pleural chest tube was drained to 90 cc and the mediastinal chest tube is drained 370 cc over the past 12 to 24 hours. The patient has a urine output of 20 to 30 cc an hour. The patient is also on dopamine at 3 mcg/kg/min. Blood work from today showing a WBC count of 10 hemoglobin 7.8 and a platelet count of 130. BUN is 8 creatinine is 0.5 and a sodium levels at 127. No issues with pain. Chest x-ray shows essentially postsurgical changes. No evidence of any pneumothorax. On 11/20/2023, the patient is being seen for a follow-up. The patient remains on room air oxygen. She is recovering nicely from her cardiac surgery. The patient continues to have a mediastinal and left lower chest tube. Output from mediastinal chest tube was 120 cc over the past 8 hours, 356 over the past 24 hours and output from the left lower chest tube was 70 cc over the past 8 hours and 130s over the past 24 hours. Urine output is order of 30 cc an hour and the patient remains on dopamine at 3 mcg/kg/min. No cardiac arrhythmias. Newton-Bette catheter has been removed. Chest x-ray shows postsurgical changes. Hemoglobin 7.3 with a white cell count of 9.7, and a platelet count is at 112. Sodium levels at 129, potassium is at 3.9, BUN is at 8 with a creatinine of 0.5. Chest x-ray shows postsurgical stable findings and there is no evidence of any pneumothorax. Newton-Bette catheter has been removed. Cardiac rhythm remained sinus. There is improved aeration in the left lung base although there is some residual atelectatic changes bilaterally. The patient is currently on aspirin. Patient is on Plavix. The patient on dopamine. Metoprolol was started at low- dose of 12.5 mg p.o. twice a day. Objective - Vital Signs Vital signs: Vital Signs Temp 97.7 F 11/19/23 08:00 Pulse 77 11/19/23 08:15 Resp 22 11/19/23 08:15 BP 98/70 11/19/23 08:15 Pulse Ox 94 L 11/19/23 08:15 FiO2 40 11/17/23 16:00 Intake & Output 11/18/23 11/19/23 11/19/23 18:59 06:59 18:59 Intake Total 805.735 586.273 94.441 Output Total 805 645 175 Balance 0.735 -58.727 -80.559 Weight 54.6 kg 63.7 kg Intake: IV 721 552 92 CO/CI 80 Lactated Ringers 1,000 ml 495 480 80 @ 20 mls/hr IV .Q24H ANAHI Rx#:[id number] Pressure bags 96 72 12 ceFAZolin 2 gm In Sodium 50 Chloride 0.9% 50 ml @ 100 mls/hr IVPB Q8HR ANAHI Rx# :[id number] Intake, IV Titration 84.735 34.273 2.441 Amount Insulin Regular 100 unit 52.435 34.273 2.441 In Sodium Chloride 0.9% 100 ml @ Per Protocol IV .Q0M ANAHI Rx#:[id number] Nitroglycerin-D5w Pmx 50 32.3 mg In Dextrose/Water 1 250ml.bag @ 5 MCG/MIN 1.5 mls/hr IV .Q24H ANAHI Rx#: [id number] Output: Chest Tube Drainage 350 260 120 Chest Tube Left 90 100 40 Chest Tube Mediastinal 260 160 80 Drainage 45 Left Leg 45 Urine 410 385 55 Other: Voiding Method Indwelling Catheter Indwelling Catheter Indwelling Catheter ABP, PAP, CO, CI - Last Documented Arterial Blood Pressure 128/47 Pulmonary Artery Pressure 37/15 Cardiac Output 3.4 Cardiac Index 2.2 - Exam GENERAL EXAM: Alert, pleasant 73-year-old female, extubated on room air oxygen by nasal cannula, calm and comfortable, no signs of any significant respiratory distress HEAD: Normocephalic. EYES: Normal reaction of pupils, equal size. NOSE: Clear with pink turbinates. THROAT: No erythema or exudates. NECK: No masses, no JVD. The patient has a right IJ Newton-Bette catheter in place CHEST: No chest wall deformity. LUNGS: Equal air entry with no crackles, wheeze, rhonchi or dullness. Tho racotomy scar is dry clean and intact and the patient has left lower chest tube and mediastinal chest tube and there is no evidence of any air leak and output is quite minimal at this point in time and this was serosanguineous/bloody. CVS: S1 and S2 normal with no audible murmur, regular rhythm. ABDOMEN: No hepatosplenomegaly, normal bowel sounds, no guarding or rigidity. SPINE: No scoliosis or deformity SKIN: No rashes CENTRAL NERVOUS SYSTEM: No focal deficits, tone is normal in all 4 extremities. EXTREMITIES: There is no peripheral edema. No clubbing, no cyanosis. Peripheral pulses are intact. - Labs CBC & Chem 7: 11/19/23 03:50 11/19/23 03:50 Labs: Abnormal Lab Results - Last 24 Hours (Table) 11/18/23 11/18/23 11/18/23 Range/Units 09:58 12:01 13:02 RBC (3.80-5.40) m/uL Hgb (11.4-16.0) gm/dL Hct (34.0-46.0) % Plt Count (150-450) k/uL Neutrophils # (1.3-7.7) k/uL Lymphocytes # (1.0-4.8) k/uL Sodium (137-145) mmol/L Carbon Dioxide (22-30) mmol/L POC Glucose (mg/dL) 130 H 150 H 174 H (70-110) mg/dL Total Protein (6.3-8.2) g/dL Albumin (3.5-5.0) g/dL 11/18/23 11/18/23 11/18/23 Range/Units 14:02 14:57 15:57 RBC (3.80-5.40) m/uL Hgb (11.4-16.0) gm/dL Hct (34.0-46.0) % Plt Count (150-450) k/uL Neutrophils # (1.3-7.7) k/uL Lymphocytes # (1.0-4.8) k/uL Sodium (137-145) mmol/L Carbon Dioxide (22-30) mmol/L POC Glucose (mg/dL) 193 H 206 H 175 H (70-110) mg/dL Total Protein (6.3-8.2) g/dL Albumin (3.5-5.0) g/dL 11/18/23 11/18/23 11/18/23 Range/Units 16:54 18:09 21:08 RBC (3.80-5.40) m/uL Hgb (11.4-16.0) gm/dL Hct (34.0-46.0) % Plt Count (150-450) k/uL Neutrophils # (1.3-7.7) k/uL Lymphocytes # (1.0-4.8) k/uL Sodium (137-145) mmol/L Carbon Dioxide (22-30) mmol/L POC Glucose (mg/dL) 121 H 120 H 146 H (70-110) mg/dL Total Protein (6.3-8.2) g/dL Albumin (3.5-5.0) g/dL 11/18/23 11/18/23 11/19/23 Range/Units 22:04 23:01 00:07 RBC (3.80-5.40) m/uL Hgb (11.4-16.0) gm/dL Hct (34.0-46.0) % Plt Count (150-450) k/uL Neutrophils # (1.3-7.7) k/uL Lymphocytes # (1.0-4.8) k/uL Sodium (137-145) mmol/L Carbon Dioxide (22-30) mmol/L POC Glucose (mg/dL) 147 H 156 H 114 H (70-110) mg/dL Total Protein (6.3-8.2) g/dL Albumin (3.5-5.0) g/dL 11/19/23 11/19/23 11/19/23 Range/Units 02:20 03:05 03:50 RBC 2.50 L (3.80-5.40) m/uL Hgb 7.3 L (11.4-16.0) gm/dL Hct 23.6 L (34.0-46.0) % Plt Count 112 L (150-450) k/uL Neutrophils # 8.7 H (1.3-7.7) k/uL Lymphocytes # 0.6 L (1.0-4.8) k/uL Sodium (137-145) mmol/L Carbon Dioxide (22-30) mmol/L POC Glucose (mg/dL) 137 H 141 H (70-110) mg/dL Total Protein (6.3-8.2) g/dL Albumin (3.5-5.0) g/dL 11/19/23 11/19/23 11/19/23 Range/Units 03:50 05:36 07:16 RBC (3.80-5.40) m/uL Hgb (11.4-16.0) gm/dL Hct (34.0-46.0) % Plt Count (150-450) k/uL Neutrophils # (1.3-7.7) k/uL Lymphocytes # (1.0-4.8) k/uL Sodium 129 L (137-145) mmol/L Carbon Dioxide 18 L (22-30) mmol/L POC Glucose (mg/dL) 112 H 152 H (70-110) mg/dL Total Protein 5.2 L (6.3-8.2) g/dL Albumin 3.4 L (3.5-5.0) g/dL 11/19/23 Range/Units 08:02 RBC (3.80-5.40) m/uL Hgb (11.4-16.0) gm/dL Hct (34.0-46.0) % Plt Count (150-450) k/uL Neutrophils # (1.3-7.7) k/uL Lymphocytes # (1.0-4.8) k/uL Sodium (137-145) mmol/L Carbon Dioxide (22-30) mmol/L POC Glucose (mg/dL) 161 H (70-110) mg/dL Total Protein (6.3-8.2) g/dL Albumin (3.5-5.0) g/dL Assessment and Plan Plan: Coronary artery disease. The patient was hospitalized back in October 2023 for chest pain in a patient found to have significant triple-vessel disease and the patient underwent three-vessel bypass surgery, off-pump, currently postop day # 2 hemodynamically stable, the patient is extubated and the patient is currently hemodynamically stable. Urine output is in order of 20 to 30 cc an hour. The patient is currently on dopamine at 3 mcg/kg/min. The patient is in normal sinus rhythm. Postthoracotomy, extubated currently on room air oxygen by nasal cannula. The patient is a pleural and mediastinal chest tube. No evidence of any p neumothorax. Chest x-ray shows postsurgical changes. Output from the chest tubes are minimal and there is no evidence of any air leak. History of coronary disease with previous stent placement of the circumflex 2015 Former smoker of approximately 15 years at 1 pack/day. FEV1 value 1.48 L or 78% of predicted Hypertension Hyperlipidemia Diabetes mellitus type II, currently on insulin drip for blood sugar control Bilateral carotid artery stenosis in the order of 50 to 69%, asymptomatic Blood loss anemia which is an expected outcome of surgery Plan Patient currently on room air oxygen Provide adequate pain control Incentive spirometer Monitor output from the chest tubes, keep the chest tube in place for now Monitor hemodynamic parameters Amiodarone p.o. 200 mg twice a day for A-fib prophylaxis Continue dopamine drip and gradual weaning off based on blood pressure and urine output Monitor urine output Transition this patient to Levemir insulin for blood sugar control Will continue to follow-up postoperative care along with the rest of the consultants.
[2023-11-19 16:32] LABS: Glucose,Whole Blood 150 mg/dL (70-110)
[2023-11-19] MEDS: INSULIN ASPART (NovoLOG) 100 UNIT/ML VIAL SQ SCH (16:34)
--- NOTE | 2023-11-19 17:51 | P.PN ---
Subjective Progress Note Date: 11/19/23 Progress note November 19, 2023 Patient is doing well from cardiovascular standpoint. Her mediastinal tube is out. Her left chest tube is still in place. Her [place]-Bette catheter is out. She did not require any pressor support. No evidence of atrial fibrillation. Urine output is on the lower side. Adequate oral intake. HISTORY OF PRESENTING ILLNESS P 73-year-old with past medical history of multivessel CAD, hypertension hyperlipidemia presented 2 weeks ago to hospital with substernal chest pain and unstable angina. She was scheduled for CABG however this was postponed because patient's spouse recently . Patient underwent CABG yesterday with Dr. Schmitt. She received PACHECO to LAD, SVG to OM, SVG to second OM, left atrial appendage ligation. Postoperatively she is managed in ICU and is doing well. She denies any chest pain chest pressure. REVIEW OF SYSTEMS 14 point review of system is negative except what is mentioned above in HPI. PHYSICAL EXAMINATION Vital signs reviewed. Head: Normocephalic. Eyes: Sclerae nonicteric. Neck: Brisk carotid upstroke, no jugular venous distention. Lungs: Clear to auscultation. Heart: Regular rate and rhythm, S1-S2, no S3, no murmur or rub. Abdomen: Soft nontender, positive bowel sounds. Extremities: No edema, intact distal pulses. Neuro: Alert, oritented, no focal deficits. Detailed neuro exam was not performed. ASSESSMENT CAD s/p previous PCI. S/p CABG 11/17/2023. PACHECO to LAD, SVG to OM1 and OM 2. Atrial clip ligation Hypertension Type 2 diabetes Dyslipidemia Prior tobacco use Chronic anemia PLAN ECG does not show any concerns of atrial fibrillation at this time. She is in sinus rhythm. Hemodynamically stable. Good urine output Continue aspirin, statin, Plavix. Continue amiodarone for A-fib prophylaxis as per surgical recommendation We will continue to follow Objective - Vital Signs Vital signs: Vital Signs Temp 97.8 F 11/19/23 16:00 Pulse 79 11/19/23 16:15 Resp 25 H 11/19/23 16:00 BP 97/65 11/19/23 16:00 Pulse Ox 95 11/19/23 16:00 FiO2 40 11/17/23 16:00 Intake & Output 11/18/23 11/19/23 11/19/23 18:59 06:59 18:59 Intake Total 805.735 770.912 2540.272 Output Total 805 645 480 Balance 0.735 -58.727 684.272 Weight 54.6 kg 63.7 kg Intake: IV 721 552 369 CO/CI 80 Lactated Ringers 1,000 ml 495 480 330 @ 20 mls/hr IV .Q24H [facility] Rx#:[id number] Pressure bags 96 72 39 ceFAZolin 2 gm In Sodium 50 Chloride 0.9% 50 ml @ 100 mls/hr IVPB Q8HR [facility] Rx# :[id number] Intake, IV Titration 84.735 34.273 115.272 Amount DOPamine DRIP 800 mg In 75.495 Dextrose/Water 1 250ml. bag @ 3 MCG/KG/MIN 3.071 mls/hr IV .Q24H [facility] Rx#: [id number] Insulin Regular 100 unit 52.435 34.273 39.777 In Sodium Chloride 0.9% 100 ml @ Per Protocol IV .Q0M [facility] Rx#:[id number] Nitroglycerin-D5w Pmx 50 32.3 mg In Dextrose/Water 1 250ml.bag @ 5 MCG/MIN 1.5 mls/hr IV .Q24H [facility] Rx#: [id number] Oral 680 Output: Chest Tube Drainage 350 260 140 Chest Tube Left 90 100 60 Chest Tube Mediastinal 260 160 80 Drainage 45 30 Left Leg 45 30 Urine 410 385 310 Other: Voiding Method Indwelling Catheter Indwelling Catheter Indwelling Catheter ABP, PAP, CO, CI - Last Documented Arterial Blood Pressure 131/56 Pulmonary Artery Pressure 37/15 Cardiac Output 3.4 Cardiac Index 2.2 - Labs CBC & Chem 7: 11/19/23 03:50 11/19/23 03:50 Labs: Abnormal Lab Results - Last 24 Hours (Table) 11/18/23 11/18/23 11/18/23 Range/Units 18:09 21:08 22:04 RBC (3.80-5.40) m/uL Hgb (11.4-16.0) gm/dL Hct (34.0-46.0) % Plt Count (150-450) k/uL Neutrophils # (1.3-7.7) k/uL Lymphocytes # (1.0-4.8) k/uL Sodium (137-145) mmol/L Carbon Dioxide (22-30) mmol/L POC Glucose (mg/dL) 120 H 146 H 147 H (70-110) mg/dL Total Protein (6.3-8.2) g/dL Albumin (3.5-5.0) g/dL 11/18/23 11/19/23 11/19/23 Range/Units 23:01 00:07 02:20 RBC (3.80-5.40) m/uL Hgb (11.4-16.0) gm/dL Hct (34.0-46.0) % Plt Count (150-450) k/uL Neutrophils # (1.3-7.7) k/uL Lymphocytes # (1.0-4.8) k/uL Sodium (137-145) mmol/L Carbon Dioxide (22-30) mmol/L POC Glucose (mg/dL) 156 H 114 H 137 H (70-110) mg/dL Total Protein (6.3-8.2) g/dL Albumin (3.5-5.0) g/dL 11/19/23 11/19/23 11/19/23 Range/Units 03:05 03:50 03:50 RBC 2.50 L (3.80-5.40) m/uL Hgb 7.3 L (11.4-16.0) gm/dL Hct 23.6 L (34.0-46.0) % Plt Count 112 L (150-450) k/uL Neutrophils # 8.7 H (1.3-7.7) k/uL Lymphocytes # 0.6 L (1.0-4.8) k/uL Sodium 129 L (137-145) mmol/L Carbon Dioxide 18 L (22-30) mmol/L POC Glucose (mg/dL) 141 H (70-110) mg/dL Total Protein 5.2 L (6.3-8.2) g/dL Albumin 3.4 L (3.5-5.0) g/dL 11/19/23 11/19/23 11/19/23 Range/Units 05:36 07:16 08:02 RBC (3.80-5.40) m/uL Hgb (11.4-16.0) gm/dL Hct (34.0-46.0) % Plt Count (150-450) k/uL Neutrophils # (1.3-7.7) k/uL Lymphocytes # (1.0-4.8) k/uL Sodium (137-145) mmol/L Carbon Dioxide (22-30) mmol/L POC Glucose (mg/dL) 112 H 152 H 161 H (70-110) mg/dL Total Protein (6.3-8.2) g/dL Albumin (3.5-5.0) g/dL 11/19/23 11/19/23 11/19/23 Range/Units 09:08 10:00 10:45 RBC (3.80-5.40) m/uL Hgb (11.4-16.0) gm/dL Hct (34.0-46.0) % Plt Count (150-450) k/uL Neutrophils # (1.3-7.7) k/uL Lymphocytes # (1.0-4.8) k/uL Sodium (137-145) mmol/L Carbon Dioxide (22-30) mmol/L POC Glucose (mg/dL) 119 H 136 H 126 H (70-110) mg/dL Total Protein (6.3-8.2) g/dL Albumin (3.5-5.0) g/dL 11/19/23 11/19/23 11/19/23 Range/Units 11:51 12:59 14:49 RBC (3.80-5.40) m/uL Hgb (11.4-16.0) gm/dL Hct (34.0-46.0) % Plt Count (150-450) k/uL Neutrophils # (1.3-7.7) k/uL Lymphocytes # (1.0-4.8) k/uL Sodium (137-145) mmol/L Carbon Dioxide (22-30) mmol/L POC Glucose (mg/dL) 138 H 181 H 157 H (70-110) mg/dL Total Protein (6.3-8.2) g/dL Albumin (3.5-5.0) g/dL 11/19/23 Range/Units 16:31 RBC (3.80-5.40) m/uL Hgb (11.4-16.0) gm/dL Hct (34.0-46.0) % Plt Count (150-450) k/uL Neutrophils # (1.3-7.7) k/uL Lymphocytes # (1.0-4.8) k/uL Sodium (137-145) mmol/L Carbon Dioxide (22-30) mmol/L POC Glucose (mg/dL) 150 H (70-110) mg/dL Total Protein (6.3-8.2) g/dL Albumin (3.5-5.0) g/dL
[2023-11-19] MEDS: INSULIN DETEMIR (LEVEMIR) 100 UNIT/ML SYR SQ SCH (20:45)
[2023-11-19 20:46] LABS: Glucose,Whole Blood 223 mg/dL (70-110)
[2023-11-20 07:11] LABS: Glucose,Whole Blood 151 mg/dL (70-110)
--- NOTE | 2023-11-20 07:23 | XR ---
EXAMINATION TYPE: XR chest 1V portable DATE OF EXAM: 11/20/2023 3:49 AM CLINICAL INDICATION:Female, 73 years old with history of Postop CABG; COMPARISON: Chest radiographs from 11/19/2023 TECHNIQUE: XR chest 1V portable Frontal view of the chest. FINDINGS: Lungs/Pleura: There is no evidence of pleural effusion, focal consolidation, or pneumothorax. Pulmonary vascularity: Unremarkable. Heart/mediastinum: Cardiomediastinal silhouette is unremarkable. Left atrial appendage occlusion jaylin ce is present. Musculoskeletal: No acute osseous pathology. Other findings: None Left thoracotomy tube without evidence for pneumothorax. IMPRESSION: Left thoracotomy tube without evidence of pneumothorax. No acute cardiopulmonary disease/process.
[2023-11-20] MEDS: KETOROLAC 15 MG/ML 1 ML VIAL IVP SCH (07:28)
[2023-11-20 08:16] LABS: ALT 14 U/L (4-34); AST 32 U/L (14-36); African American GFR (CKD) >90 (>60 ml/min/1.73 sqM); Albumin 3.1 g/dL (3.5-5.0); Alkaline Phosphatase 61 U/L (38-126); Anion Gap 4 mmol/L; Basophils % (A) 0 %; Blood Urea Nitrogen 11 mg/dL (7-17); Calcium 8.6 mg/dL (8.4-10.2); Carbon Dioxide 22 mmol/L (22-30); Chloride 103 mmol/L (98-107); Eosinophils % (A) 0 %; Glucose 209 mg/dL (74-99); HCT 26.6 % (34.0-46.0); HGB 8.5 gm/dL (11.4-16.0); Lymphocytes # (A) 0.5 k/uL (1.0-4.8); Lymphocytes % (A) 3 %; MCH 30.6 pg (25.0-35.0); MCHC 31.8 g/dL (31.0-37.0); MCV 96.4 fL (80.0-100.0); Mean Platelet Volume 7.8; Monocytes # (A) 0.5 k/uL (0-1.0); Monocytes % (A) 3 %; Neutrophils # (A) 14.6 k/uL (1.3-7.7); Neutrophils % (A) 93 %; Non-African American GFR(CKD) >90 (>60 ml/min/1.73 sqM); Potassium 4.4 mmol/L (3.5-5.1); RBC 2.76 m/uL (3.80-5.40); RDW 14.1 % (11.5-15.5); Sodium 129 mmol/L (137-145); Total Bilirubin 0.7 mg/dL (0.2-1.3); Total Protein 5.2 g/dL (6.3-8.2); WBC 15.6 k/uL (3.8-10.6)
[2023-11-20 08:37] LABS: Platelet Count 184 k/uL (150-450)
[2023-11-20] MEDS: ERGOCALCIFEROL 1,250 MCG (50,000 IU) CAPSULE PO SCH (08:45)
--- NOTE | 2023-11-20 11:52 | P.PN ---
Subjective Progress Note Date: 11/20/23 Principal diagnosis: Coronary artery disease, unstable angina pectoralis. 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 of internal al carotid stenosis 50 to 69%, hypertension, hyperlipidemia, type 2 diabetes, chronic anemia, previous tobacco dependence and family history of coronary artery disease POD #3 off-pump CABG x 3 with PACHECO to LAD, saphenous vein graft to first obtuse marginal, saphenous vein graft to second obtuse marginal, endovascular vein harvest from the left thigh, ligation of the left atrial appendage with 35mm AtriCure clip Postoperative acute blood loss anemia, expected given hemodilution and preoperative chronic anemia Patient was seen and examined in follow-up today November 20, 2023 at her bedside in the intensive care unit. She is currently sitting up to the bedside chair, is awake, alert, oriented x 3 and is in no acute apparent distress. Denies any complaints of pain or shortness of breath at this time. Oxygen saturations are 96% on room air and she is achieving 750 on her incentive spirometry with much encouragement. Bedside telemetry is showing normal sinus rhythm heart rate 87 bpm. Left pleural chest tube remains in place to low continuous wall suction - 20 cm H2O. Draining thin serosanguineous drainage with 60 mL output in the last 8 hours and 150 mL output in the last 24 hours. Right IJ cordis remains in place with continuous CVP monitoring, current CVP pressure is 3 mmHg. She remains hemodynamically stable and is currently on no inotropic or pressor support. Laboratory and chest x-ray results reviewed. Objective - Vital Signs Vital signs: Vital Signs Temp 97.7 F 11/20/23 08:00 Pulse 77 11/20/23 11:47 Resp 23 11/20/23 10:39 BP 113/58 11/20/23 08:00 Pulse Ox 97 11/20/23 11:36 FiO2 40 11/17/23 16:00 Intake & Output 11/19/23 11/20/23 11/20/23 18:59 06:59 18:59 Intake Total 1263.272 363 99 Output Total 585 575 110 Balance 678.272 -212 -11 Weight 68.1 kg Intake: IV 468 363 99 Lactated Ringers 1,000 ml 420 330 90 @ 20 mls/hr IV .Q24H [facility] Rx#:[id number] Pressure bags 48 33 9 Intake, IV Titration 115.272 Amount DOPamine DRIP 800 mg In 75.495 Dextrose/Water 1 250ml. bag @ 3 MCG/KG/MIN 3.071 mls/hr IV .Q24H [facility] Rx#: [id number] Insulin Regular 100 unit 39.777 In Sodium Chloride 0.9% 100 ml @ Per Protocol IV .Q0M [facility] Rx#:[id number] Oral 680 Output: Chest Tube Drainage 160 90 20 Chest Tube Left 80 90 20 Chest Tube Mediastinal 80 Drainage 30 Left Leg 30 Urine 395 485 90 Other: Voiding Method Indwelling Catheter Indwelling Catheter # Bowel Movements 1 3 ABP, PAP, CO, CI - Last Documented Arterial Blood Pressure 131/56 Pulmonary Artery Pressure 37/15 Cardiac Output 3.4 Cardiac Index 2.2 - Exam CONSTITUTIONAL: Appears comfortable, cooperative, no acute distress. RESPIRATORY: Lungs sounds diminished bilaterally. Respirations symmetrical, nonlabored. Currently on room air with oxygen saturation 96%. Able to achieve 750 mL on incentive spirometry. Strong cough. CARDIOVASCULAR: S1, S2 present. Regular rate and rhythm, sinus rhythm on telemetry. Sternum stable. Palpable peripheral pulses bilaterally. No edema present. No calf pain or tenderness noted. Heart hugger in place with patient demonstrating appropriate use. Antiembolism stockings, SCDs present. GASTROINTESTINAL: Abdomen soft, nontender, nondistended. Active bowel sounds present 4 quadrants. Tolerating clear liquids. Passing flatus. Bowel movement today. GENITOURINARY: Taylor present draining clear, yellow urine. Urine output 350 mL output in the last 8 hours. INTEGUMENTARY: Skin is warm and dry with evidence of good perfusion. Anterior chest incision well approximated and covered with dry intact dressing. Left l ower extremity EVH site well approximated without redness, minimal drainage in BOBBY drain NEUROLOGIC: Cranial nerves II through XII intact. No focal deficit. MUSKULOSKELETAL: Able to move all extremities, strength equal bilaterally PSYCHIATRIC: Alert and oriented to person place and time, appropriate affect, intact judgment and insight INVASIVE LINES AND TUBES: Left pleural chest tubes present and connected to wall suction, no air leaks present. Left pleural chest tube with 60 mL serosanguineo us drainage overnight, 150 mL in the last 24 hours. Right internal jugular Cordis, right radial arterial line present. Last CVP 3. - Allied health notes Allied health notes reviewed: nursing - Labs CBC & Chem 7: 0616/24 07:45 11/20/23 07:45 Labs: Abnormal Lab Results - Last 24 Hours (Table) 11/19/23 11/19/23 11/19/23 Range/Units 11:51 12:59 14:49 WBC (3.8-10.6) k/uL RBC (3.80-5.40) m/uL Hgb (11.4-16.0) gm/dL Hct (34.0-46.0) % Neutrophils # (1.3-7.7) k/uL Lymphocytes # (1.0-4.8) k/uL Sodium (137-145) mmol/L Glucose (74-99) mg/dL POC Glucose (mg/dL) 138 H 181 H 157 H (70-110) mg/dL Total Protein (6.3-8.2) g/dL Albumin (3.5-5.0) g/dL 11/19/23 11/19/23 11/20/23 Range/Units 16:31 20:45 07:10 WBC (3.8-10.6) k/uL RBC (3.80-5.40) m/uL Hgb (11.4-16.0) gm/dL Hct (34.0-46.0) % Neutrophils # (1.3-7.7) k/uL Lymphocytes # (1.0-4.8) k/uL Sodium (137-145) mmol/L Glucose (74-99) mg/dL POC Glucose (mg/dL) 150 H 223 H 151 H (70-110) mg/dL Total Protein (6.3-8.2) g/dL Albumin (3.5-5.0) g/dL 11/20/23 11/20/23 Range/Units 07:45 07:45 WBC 15.6 H (3.8-10.6) k/uL RBC 2.76 L (3.80-5.40) m/uL Hgb 8.5 L (11.4-16.0) gm/dL Hct 26.6 L (34.0-46.0) % Neutrophils # 14.6 H (1.3-7.7) k/uL Lymphocytes # 0.5 L (1.0-4.8) k/uL Sodium 129 L (137-145) mmol/L Glucose 209 H (74-99) mg/dL POC Glucose (mg/dL) (70-110) mg/dL Total Protein 5.2 L (6.3-8.2) g/dL Albumin 3.1 L (3.5-5.0) g/dL - Imaging and Cardiology Chest x-ray: report reviewed, image reviewed Assessment and Plan Assessment: Coronary artery disease with unstable angina pectoralis, previous PCI, status post three-vessel off-pump CABG Bilateral internal carotid stenosis 50 to 69% History of hypertension, borderline hypotensive Hyperlipidemia, treated Type 2 diabetes, hemoglobin A1c 6.2% Previous tobacco dependence, FEV1 78% of predicted Chronic anemia Family history of coronary artery disease Postoperative acute blood loss anemia, expected given hemodilution and preoperative chronic anemia Plan: Continue to maximize medical therapy with aspirin, statin, Plavix. Will increase beta-leo as tolerated. Continue amiodarone for atrial fibrillation prophylaxis. Currently in normal sinus rhythm, no episodes of atrial fibrillation. Encourage incentive spirometry use 10 times every hour while awake. Bronchodilators per pulmonology Increase activity, ambulate as tolerated. PT/OT/cardiac rehab following. Will monitor daily labs and chest x-rays. Electrolyte replacement per protocol. GI/DVT prophylaxis. Insulin management per internal medicine. Pain control with current medication regimen. Discontinue oxycodone. Will discontinue right IJ cordis later this afternoon. Discontinue left pleural chest tube. Discontinue Taylor catheter. Continue to monitor and record strict accurate intake and output Daily weights. Transfer orders will be placed to the third floor cardiac stepdown unit, transferred to the stepdown unit when bed available. Discharge planning is in place, anticipate discharge home within the next 24 to 48 hours with home health care. More recommendations to follow based on patient's clinical course. Time with Patient: Greater than 30
[2023-11-20 12:02] LABS: Glucose,Whole Blood 198 mg/dL (70-110)
--- NOTE | 2023-11-20 12:04 | P.PN ---
Subjective Progress Note Date: 11/20/23 73-year-old female patient, underwent an off-pump three-vessel bypass surgery with PACHECO to LAD, SVG to first obtuse marginal and second obtuse marginal. Postop, the patient was brought into the intensive care unit. I saw the patient immediately after arrival to the intensive care unit. The patient was on propofol. The patient was on assist-control mode of mechanical ventilation at a rate of 14, tidal volume of 350, FiO2 of 100% and a PEEP of 5. Initial chest x- ray showed adequate expansion of both lungs. No evidence of any pneumothorax. The patient has mediastinal and left pleural chest tube. Postsurgical changes were noted on the chest x-ray and the tube was retracted by around 1 cm. There was no evidence of any pneumothorax. [place]Bette catheter in place. The cardiac output was 3.7 with an index of 2.4. The patient was on amiodarone drip. Cardiac rhythm was sinus. The patient was on nitroglycerin drip running at 10 mcg/min and the patient was also on insulin drip at 3 units an hour. The FiO2 was gradually weaned off and subsequently, the patient was taken off sedation given a spontaneous breathing trial with a pressure support of 5 and a PEEP of 5 and subsequent blood gases were adequate and the patient was extubated accordingly. At this point in time, the patient is awake and alert, maintained on oxygen 2 L/min nasal cannula. No significant respiratory difficulties. Urine output is adequate. Hemodynamically stable. WBC count 11.3 hemoglobin 8.5 and a platelet count of 122 and the patient is afebrile. 11/18/2023, the patient is postop day #1 following her carotid bypass surgery. The patient was weaned off the mechanical ventilator and the patient was extub ated without any major difficulties. The patient is currently on 2 L of oxygen by nasal cannula. Earlier this morning, the patient is encountering some nausea. Cardiac rhythm remained sinus and the patient was taken off the amiodarone drip and the patient has been switched to oral amiodarone. The patient is also on insulin drip for blood sugar control running at 5 units an hour. Hemodynamically, the patient is a cardiac output of 5.3 with an index of 2.8. PA pressure 28/9. The left pleural chest tube was drained to 90 cc and the mediastinal chest tube is drained 370 cc over the past 12 to 24 hours. The patient has a urine output of 20 to 30 cc an hour. The patient is also on dopamine at 3 mcg/kg/min. Blood work from today showing a WBC count of 10 hemoglobin 7.8 and a platelet count of 130. BUN is 8 creatinine is 0.5 and a sodium levels at 127. No issues with pain. Chest x-ray shows essentially postsurgical changes. No evidence of any pneumothorax. On 11/20/2023, the patient is being seen for a follow-up. The patient remains on room air oxygen. She is recovering nicely from her cardiac surgery. The patient continues to have a mediastinal and left lower chest tube. Output from mediastinal chest tube was 120 cc over the past 8 hours, 356 over the past 24 hours and output from the left lower chest tube was 70 cc over the past 8 hours and 130s over the past 24 hours. Urine output is order of 30 cc an hour and the patient remains on dopamine at 3 mcg/kg/min. No cardiac arrhythmias. [place] catheter has been removed. Chest x-ray shows postsurgical changes. Hemoglobin 7.3 with a white cell count of 9.7, and a platelet count is at 112. Sodium levels at 129, potassium is at 3.9, BUN is at 8 with a creatinine of 0.5. Chest x-ray shows postsurgical stable findings and there is no evidence of any pneumothorax. [place] catheter has been removed. Cardiac rhythm remained sinus. There is improved aeration in the left lung base although there is some residual atelectatic changes bilaterally. The patient is currently on aspirin. Patient is on Plavix. The patient on dopamine. Metoprolol was started at low- dose of 12.5 mg p.o. twice a day. 11/20/2023, the patient is being seen for a follow-up. The patient is awake and alert and communicating. Chest tubes are minimal. [place] catheter has been removed. Respiratory status is stable and today's chest x-ray showing postsurgical changes and postthoracotomy and there is no evidence of any p neumothorax. Cardiac rhythm is sinus. The hemoglobin is 8.5 with a white cell count of 15.6, sodium level of 129, BUN 11 with a creatinine of 0.55. The patient is currently on aspirin, Plavix, metoprolol 12.5 mg p.o. twice a day, the patient was switched to Levemir insulin 10 units daily plus a sliding scale coverage. Remains on statins. Remains on amiodarone 200 mg p.o. twice a day. Objective - Vital Signs Vital signs: Vital Signs Temp 98.4 F 11/20/23 04:00 Pulse 81 11/20/23 07:00 Resp 13 11/20/23 07:00 BP 120/54 11/20/23 06:00 Pulse Ox 96 11/20/23 07:00 FiO2 40 11/17/23 16:00 Intake & Output 11/19/23 11/20/23 11/20/23 18:59 06:59 18:59 Intake Total 1263.272 363 66 Output Total 585 575 60 Balance 678.272 -212 6 Weight 68.1 kg Intake: IV 468 363 66 Lactated Ringers 1,000 ml 420 330 60 @ 20 mls/hr IV .Q24H [facility] Rx#:[id number] Pressure bags 48 33 6 Intake, IV Titration 115.272 Amount DOPamine DRIP 800 mg In 75.495 Dextrose/Water 1 250ml. bag @ 3 MCG/KG/MIN 3.071 mls/hr IV .Q24H [facility] Rx#: [id number] Insulin Regular 100 unit 39.777 In Sodium Chloride 0.9% 100 ml @ Per Protocol IV .Q0M [facility] Rx#:[id number] Oral 680 Output: Chest Tube Drainage 160 90 Chest Tube Left 80 90 Chest Tube Mediastinal 80 Drainage 30 Left Leg 30 Urine 395 485 60 Other: Voiding Method Indwelling Catheter Indwelling Catheter # Bowel Movements 1 ABP, PAP, CO, CI - Last Documented Arterial Blood Pressure 131/56 Pulmonary Artery Pressure 37/15 Cardiac Output 3.4 Cardiac Index 2.2 - Exam GENERAL EXAM: Alert, pleasant 73-year-old female, extubated on room air oxygen by nasal cannula, calm and comfortable, no signs of any significant respiratory distress HEAD: Normocephalic. EYES: Normal reaction of pupils, equal size. NOSE: Clear with pink turbinates. THROAT: No erythema or exudates. NECK: No masses, no JVD. CHEST: No chest wall deformity. LUNGS: Equal air entry with no crackles, wheeze, rhonchi or dullness. Thoracotomy scar is dry clean and chest tubes have been removed evidence of any air leak and output is quite minimal at this point in time and this was serosanguineous/bloody. CVS: S1 and S2 normal with no audible murmur, regular rhythm. ABDOMEN: No hepatosplenomegaly, normal bowel sounds, no guarding or rigidity. SPINE: No scoliosis or deformity SKIN: No rashes CENTRAL NERVOUS SYSTEM: No focal deficits, tone is normal in all 4 extremities. EXTREMITIES: There is no peripheral edema. No clubbing, no cyanosis. Peripheral pulses are intact. - Labs CBC & Chem 7: 11/20/23 07:45 11/20/23 07:45 Labs: Abnormal Lab Results - Last 24 Hours (Table) 11/19/23 11/19/23 11/19/23 Range/Units 09:08 10:00 10:45 WBC (3.8-10.6) k/uL RBC (3.80-5.40) m/uL Hgb (11.4-16.0) gm/dL Hct (34.0-46.0) % Neutrophils # (1.3-7.7) k/uL Lymphocytes # (1.0-4.8) k/uL Sodium (137-145) mmol/L Glucose (74-99) mg/dL POC Glucose (mg/dL) 119 H 136 H 126 H (70-110) mg/dL Total Protein (6.3-8.2) g/dL Albumin (3.5-5.0) g/dL 11/19/23 11/19/23 11/19/23 Range/Units 11:51 12:59 14:49 WBC (3.8-10.6) k/uL RBC (3.80-5.40) m/uL Hgb (11.4-16.0) gm/dL Hct (34.0-46.0) % Neutrophils # (1.3-7.7) k/uL Lymphocytes # (1.0-4.8) k/uL Sodium (137-145) mmol/L Glucose (74-99) mg/dL POC Glucose (mg/dL) 138 H 181 H 157 H (70-110) mg/dL Total Protein (6.3-8.2) g/dL Albumin (3.5-5.0) g/dL 0611/19/23 11/20/23 Range/Units 16:31 20:45 07:10 WBC (3.8-10.6) k/uL RBC (3.80-5.40) m/uL Hgb (11.4-16.0) gm/dL Hct (34.0-46.0) % Neutrophils # (1.3-7.7) k/uL Lymphocytes # (1.0-4.8) k/uL Sodium (137-145) mmol/L Glucose (74-99) mg/dL POC Glucose (mg/dL) 150 H 223 H 151 H (70-110) mg/dL Total Protein (6.3-8.2) g/dL Albumin (3.5-5.0) g/dL 11/20/23 11/20/23 Range/Units 07:45 07:45 WBC 15.6 H (3.8-10.6) k/uL RBC 2.76 L (3.80-5.40) m/uL Hgb 8.5 L (11.4-16.0) gm/dL Hct 26.6 L (34.0-46.0) % Neutrophils # 14.6 H (1.3-7.7) k/uL Lymphocytes # 0.5 L (1.0-4.8) k/uL Sodium 129 L (137-145) mmol/L Glucose 209 H (74-99) mg/dL POC Glucose (mg/dL) (70-110) mg/dL Total Protein 5.2 L (6.3-8.2) g/dL Albumin 3.1 L (3.5-5.0) g/dL Assessment and Plan Plan: Coronary artery disease. The patient was hospitalized back in October 2023 for chest pain in a patient found to have significant triple-vessel disease and the patient underwent three-vessel bypass surgery, off-pump, currently postop day # 3 hemodynamically stable, and the patient is currently on room air, [place] catheter was removed. Chest tubes have been removed. Postthoracotomy, extubated currently on room air oxygen, or chest. Removed. History of coronary disease with previous stent placement of the circumflex 2015 Former smoker of approximately 15 years at 1 pack/day. FEV1 value 1.48 L or 78% of predicted Hypertension Hyperlipidemia Diabetes mellitus type II, currently on insulin drip for blood sugar control Bilateral carotid artery stenosis in the order of 50 to 69%, asymptomatic Blood loss anemia which is an expected outcome of surgery Plan Patient currently on room air oxygen Provide adequate pain control Incentive spirometer Chest tubes are minimal Monitor hemodynamic parameters Amiodarone p.o. 200 mg twice a day for A-fib prophylaxis Continue aspirin Plavix and beta-blockers Monitor urine output Transition this patient to Levemir insulin for blood sugar control, currently on 10 units Will continue to follow-up postoperative care along with the rest of the consultants.
[2023-11-20 16:55] LABS: Glucose,Whole Blood 188 mg/dL (70-110)
--- NOTE | 2023-11-20 17:37 | P.PN ---
Subjective Progress Note Date: 11/20/23 Progress note 11/20/2023 BP 140/60, heart rate 82 bpm Chest tubes have been removed, IJ catheter has been removed, Taylor catheter has been removed. Patient was able to ambulate in unit for times without any significant discomfort. Denies any chest pain chest pressure. Hemodynamically stable. No arrhythmias noticed on telemetry. November 19, 2023 Patient is doing well from cardiovascular standpoint. Her mediastinal tube is out. Her left chest tube is still in place. Her [place]-Bette catheter is out. Sh e did not require any pressor support. No evidence of atrial fibrillation. Urine output is on the lower side. Adequate oral intake. HISTORY OF PRESENTING ILLNESS P 73-year-old with past medical history of multivessel CAD, hypertension hyperlipidemia presented 2 weeks ago to hospital with substernal chest pain and unstable angina. She was scheduled for CABG however this was postponed because patient's spouse recently . Patient underwent CABG yesterday with Dr. Schmitt. She received PACHECO to LAD, SVG to OM, SVG to second OM, left atrial appendage ligation. Postoperatively she is managed in ICU and is doing well. She denies any chest pain chest pressure. REVIEW OF SYSTEMS 14 point review of system is negative except what is mentioned above in HPI. PHYSICAL EXAMINATION Vital signs reviewed. Head: Normocephalic. Eyes: Sclerae nonicteric. Neck: Brisk carotid upstroke, no jugular venous distention. Lungs: Clear to auscultation. Heart: Regular rate and rhythm, S1-S2, no S3, no murmur or rub. Abdomen: Soft nontender, positive bowel sounds. Extremities: No edema, intact distal pulses. Neuro: Alert, oritented, no focal deficits. Detailed neuro exam was not performed. ASSESSMENT CAD s/p previous PCI. S/p CABG 11/17/2023. PACHECO to LAD, SVG to OM1 and OM 2. Atrial clip ligation Hypertension Type 2 diabetes Dyslipidemia Prior tobacco use Chronic anemia PLAN ECG does not show any concerns of atrial fibrillation at this time. She is in sinus rhythm. Hemodynamically stable. Good urine output Continue aspirin, statin, Plavix, metoprolol. Continue amiodarone for A-fib prophylaxis as per surgical recommendation We will continue to follow Objective - Vital Signs Vital signs: Vital Signs Temp 97.8 F 11/20/23 16:00 Pulse 82 11/20/23 16:00 Resp 24 11/20/23 16:00 BP 140/60 11/20/23 16:00 Pulse Ox 98 11/20/23 16:00 FiO2 40 11/17/23 16:00 Intake & Output 11/19/23 11/20/23 11/20/23 18:59 06:59 18:59 Intake Total 1263.272 363 339 Output Total 585 575 110 Balance 678.272 -212 229 Weight 68.1 kg Intake: IV 468 363 99 Lactated Ringers 1,000 ml 420 330 90 @ 20 mls/hr IV .Q24H ANAHI Rx#:[id number] Pressure bags 48 33 9 Intake, IV Titration 115.272 Amount DOPamine DRIP 800 mg In 75.495 Dextrose/Water 1 250ml. bag @ 3 MCG/KG/MIN 3.071 mls/hr IV .Q24H ANAHI Rx#: [id number] Insulin Regular 100 unit 39.777 In Sodium Chloride 0.9% 100 ml @ Per Protocol IV .Q0M ANAHI Rx#:[id number] Oral 680 240 Output: Chest Tube Drainage 160 90 20 Chest Tube Left 80 90 20 Chest Tube Mediastinal 80 Drainage 30 Left Leg 30 Urine 395 485 90 Other: Voiding Method Indwelling Catheter Indwelling Catheter Toilet Bedside Commode # Bowel Movements 1 3 ABP, PAP, CO, CI - Last Documented Arterial Blood Pressure 131/56 Pulmonary Artery Pressure 37/15 Cardiac Output 3.4 Cardiac Index 2.2 - Labs CBC & Chem 7: 11/20/23 07:45 11/20/23 07:45 Labs: Abnormal Lab Results - Last 24 Hours (Table) 11/19/23 11/20/23 11/20/23 Range/Units 20:45 07:10 07:45 WBC 15.6 H (3.8-10.6) k/uL RBC 2.76 L (3.80-5.40) m/uL Hgb 8.5 L (11.4-16.0) gm/dL Hct 26.6 L (34.0-46.0) % Neutrophils # 14.6 H (1.3-7.7) k/uL Lymphocytes # 0.5 L (1.0-4.8) k/uL Sodium (137-145) mmol/L Glucose (74-99) mg/dL POC Glucose (mg/dL) 223 H 151 H (70-110) mg/dL Total Protein (6.3-8.2) g/dL Albumin (3.5-5.0) g/dL 11/20/23 11/20/23 11/20/23 Range/Units 07:45 12:00 16:54 WBC (3.8-10.6) k/uL RBC (3.80-5.40) m/uL Hgb (11.4-16.0) gm/dL Hct (34.0-46.0) % Neutrophils # (1.3-7.7) k/uL Lymphocytes # (1.0-4.8) k/uL Sodium 129 L (137-145) mmol/L Glucose 209 H (74-99) mg/dL POC Glucose (mg/dL) 198 H 188 H (70-110) mg/dL Total Protein 5.2 L (6.3-8.2) g/dL Albumin 3.1 L (3.5-5.0) g/dL
[2023-11-20 20:53] LABS: Glucose,Whole Blood 147 mg/dL (70-110)
[2023-11-20] MEDS: METOPROLOL TARTRATE 25 MG TAB PO SCH (21:03)
--- NOTE | 2023-11-20 21:18 | P.PN ---
Subjective Progress Note Date: 11/19/23 Patient is a 73-year-old female with a past medical history of coronary artery disease, hypertension, hyperlipidemia, diabetes type 2 [id number]-[id number] and history of skin cancer removal and prior history of smoking. Prior history of stent placement to volume branch of circumflex and groove branch of circumflex. Patient had cardiac catheterization on 10/19/2023 showed right dominant system with 50% tandem lesions in the mid and distal RCA left main has a 70% ostial and proximal lesion with 60% mid LAD lesion and a 60 to 70% mid circumflex lesion after the obtuse marginal branch. Patient underwent three-vessel coronary artery bypass graft PACHECO to LAD SVG to first obtuse marginal and second obtuse marginal on 11/17/2023. Postoperatively patient was transferred to MICU. Patient was intubated p erioperatively and was gradually weaned off and subsequently extubated yesterday. Patient is currently lying in the bed. Complains of chest soreness. Denies any nausea or vomiting. Able to tolerate liquids. Chest x-ray this morning showed postsurgical changes with left-sided consolidation small effusion slightly progressive from prior exam. No signs of pneumothorax. EKG showed sinus rhythm. Laboratory data showed WBC 10.1 hemoglobin 7.8 and platelets 130 sodium 127 potassium 3.8 chloride 103 bicarb is 13 BUN is 18 creatinine 0.51 and blood sugar 136 and calcium 8.0 liver enzymes not elevated. Albumin 3.0. 11/19/2023 Patient is currently sitting in the chair. Awake alert and oriented. Complains of chest soreness. Was able to participate in incentive spirometry. Currently requiring 2 L oxygen via nasal cannula. Chest x-ray today showed postoperative chest with interval removal of [place]-Bette catheter other lines and tubes appear unchanged. Interval improved aeration of the left lung base with small residual infiltrate/atelectasis and possible trace effusion. Laboratory data showed WBC 9.7 hemoglobin 7.3 and platelets 112 sodium 129 potassium 3.9 chloride 104 bicarb is 18 BUN 18 creatinine 0.59 and blood sugar 96 and albumin 3.4. Current medications reviewed. Objective - Vital Signs Vital signs: Vital Signs Temp 97.8 F 11/19/23 16:00 Pulse 80 11/19/23 20:40 Resp 16 11/19/23 20:00 BP 113/86 11/19/23 20:00 Pulse Ox 94 L 11/19/23 20:00 FiO2 40 11/17/23 16:00 Intake & Output 11/19/23 11/19/23 11/20/23 06:59 18:59 06:59 Intake Total 648.299 4536.272 33 Output Total 645 585 80 Balance -58.727 678.272 -47 Weight 63.7 kg Intake: IV 552 468 33 Lactated Ringers 1,000 ml 480 420 30 @ 20 mls/hr IV .Q24H ANAHI Rx#:[id number] Pressure bags 72 48 3 Intake, IV Titration 34.273 115.272 Amount DOPamine DRIP 800 mg In 75.495 Dextrose/Water 1 250ml. bag @ 3 MCG/KG/MIN 3.071 mls/hr IV .Q24H ANAHI Rx#: [id number] Insulin Regular 100 unit 34.273 39.777 In Sodium Chloride 0.9% 100 ml @ Per Protocol IV .Q0M ANAHI Rx#:[id number] Oral 680 Output: Chest Tube Drainage 260 160 30 Chest Tube Left 100 80 30 Chest Tube Mediastinal 160 80 Drainage 30 Left Leg 30 Urine 385 395 50 Other: Voiding Method Indwelling Catheter Indwelling Catheter ABP, PAP, CO, CI - Last Documented Arterial Blood Pressure 131/56 Pulmonary Artery Pressure 37/15 Cardiac Output 3.4 Cardiac Index 2.2 - Exam PHYSICAL EXAMINATION: Patient is lying in the bed. No acute distress, awake alert and oriented.. HEENT: Normocephalic. Neck is supple. Pupils reactive. Nostrils clear. Oral cavity is moist. Neck reveals no JVD, carotid bruits, or thyromegaly. CHEST EXAMINATION: Trachea is central. Symmetrical expansion. Mid chest incision is bandaged. Bibasilar diminished sounds otherwise lung shaffer clear to auscultation and percussion. Mediastinal and left-sided chest tubes in place CARDIAC: Normal S1, S2 with no gallops. No murmurs ABDOMEN: Soft. Bowel sounds present. No organomegaly. No abdominal bruits. Extremities: reveal no edema. No clubbing or cyanosis Neurologically awake, alert, oriented x3 with well-coordinated movements. Gross no focal deficits noted Skin: No rash or skin lesions. Psychiatric: Coperative. Nonsuicidal Musculoskeletal: No joint swelling or deformity. Normal range of motion. - Labs CBC & Chem 7: 11/20/23 07:45 11/20/23 07:45 Labs: Abnormal Lab Results - Last 24 Hours (Table) 11/18/23 11/18/23 11/18/23 Range/Units 21:08 22:04 23:01 RBC (3.80-5.40) m/uL Hgb (11.4-16.0) gm/dL Hct (34.0-46.0) % Plt Count (150-450) k/uL Neutrophils # (1.3-7.7) k/uL Lymphocytes # (1.0-4.8) k/uL Sodium (137-145) mmol/L Carbon Dioxide (22-30) mmol/L POC Glucose (mg/dL) 146 H 147 H 156 H (70-110) mg/dL Total Protein (6.3-8.2) g/dL Albumin (3.5-5.0) g/dL 11/19/23 11/19/23 11/19/23 Range/Units 00:07 02:20 03:05 RBC (3.80-5.40) m/uL Hgb (11.4-16.0) gm/dL Hct (34.0-46.0) % Plt Count (150-450) k/uL Neutrophils # (1.3-7.7) k/uL Lymphocytes # (1.0-4.8) k/uL Sodium (137-145) mmol/L Carbon Dioxide (22-30) mmol/L POC Glucose (mg/dL) 114 H 137 H 141 H (70-110) mg/dL Total Protein (6.3-8.2) g/dL Albumin (3.5-5.0) g/dL 11/19/23 11/19/23 11/19/23 Range/Units 03:50 03:50 05:36 RBC 2.50 L (3.80-5.40) m/uL Hgb 7.3 L (11.4-16.0) gm/dL Hct 23.6 L (34.0-46.0) % Plt Count 112 L (150-450) k/uL Neutrophils # 8.7 H (1.3-7.7) k/uL Lymphocytes # 0.6 L (1.0-4.8) k/uL Sodium 129 L (137-145) mmol/L Carbon Dioxide 18 L (22-30) mmol/L POC Glucose (mg/dL) 112 H (70-110) mg/dL Total Protein 5.2 L (6.3-8.2) g/dL Albumin 3.4 L (3.5-5.0) g/dL 11/19/23 11/19/23 11/19/23 Range/Units 07:16 08:02 09:08 RBC (3.80-5.40) m/uL Hgb (11.4-16.0) gm/dL Hct (34.0-46.0) % Plt Count (150-450) k/uL Neutrophils # (1.3-7.7) k/uL Lymphocytes # (1.0-4.8) k/uL Sodium (137-145) mmol/L Carbon Dioxide (22-30) mmol/L POC Glucose (mg/dL) 152 H 161 H 119 H (70-110) mg/dL Total Protein (6.3-8.2) g/dL Albumin (3.5-5.0) g/dL 11/19/23 11/19/23 11/19/23 Range/Units 10:00 10:45 11:51 RBC (3.80-5.40) m/uL Hgb (11.4-16.0) gm/dL Hct (34.0-46.0) % Plt Count (150-450) k/uL Neutrophils # (1.3-7.7) k/uL Lymphocytes # (1.0-4.8) k/uL Sodium (137-145) mmol/L Carbon Dioxide (22-30) mmol/L POC Glucose (mg/dL) 136 H 126 H 138 H (70-110) mg/dL Total Protein (6.3-8.2) g/dL Albumin (3.5-5.0) g/dL 11/19/23 11/19/23 11/19/23 Range/Units 12:59 14:49 16:31 RBC (3.80-5.40) m/uL Hgb (11.4-16.0) gm/dL Hct (34.0-46.0) % Plt Count (150-450) k/uL Neutrophils # (1.3-7.7) k/uL Lymphocytes # (1.0-4.8) k/uL Sodium (137-145) mmol/L Carbon Dioxide (22-30) mmol/L POC Glucose (mg/dL) 181 H 157 H 150 H (70-110) mg/dL Total Protein (6.3-8.2) g/dL Albumin (3.5-5.0) g/dL 11/19/23 Range/Units 20:45 RBC (3.80-5.40) m/uL Hgb (11.4-16.0) gm/dL Hct (34.0-46.0) % Plt Count (150-450) k/uL Neutrophils # (1.3-7.7) k/uL Lymphocytes # (1.0-4.8) k/uL Sodium (137-145) mmol/L Carbon Dioxide (22-30) mmol/L POC Glucose (mg/dL) 223 H (70-110) mg/dL Total Protein (6.3-8.2) g/dL Albumin (3.5-5.0) g/dL Assessment and Plan Assessment: Coronary artery disease status post CABG triple vessel bypass on 11/17/2023. PACHECO to LAD SVG to OM1 and OM 2 and atrial clip ligation. Coronary artery disease history of prior stent placement Diabetes type 2 [id number]-hheougryt A1c 6.2 Acute blood loss anemia expected from surgery with hemoglobin 7.8. Baseline 11.3 on 11/08/2023 Hypertension Hyperlipidemia GERD History of skin cancer Prior history of smoking DVT prophylaxis and GI prophylaxis Plan: Patient will be continued on aspirin, statin, Plavix, metoprolol and amiodarone. Patient is extubated currently on oxygen at 2 L via nasal cannula. Patient was on insulin drip for better blood sugar control. Changed to Levemir 10 units at bedtime and insulin sliding scale. Continue to monitor H&H Continue with incentive spirometry and PT OT. Will follow closely further recommendations based on the clinical course. Critical care team cardiology and CT surgery is on board. Time with Patient: Greater than 30
--- NOTE | 2023-11-20 21:22 | P.PN ---
Subjective Progress Note Date: 11/20/23 Patient is a 73-year-old female with a past medical history of coronary artery disease, hypertension, hyperlipidemia, diabetes type 2 vzi-gvvkreu-kbvgdyysa and history of skin cancer removal and prior history of smoking. Prior history of stent placement to volume branch of circumflex and groove branch of circumflex. Patient had cardiac catheterization on 10/19/2023 showed right dominant system with 50% tandem lesions in the mid and distal RCA left main has a 70% ostial and proximal lesion with 60% mid LAD lesion and a 60 to 70% mid circumflex lesion after the obtuse marginal branch. Patient underwent three-vessel coronary artery bypass graft PACHECO to LAD SVG to first obtuse marginal and second obtuse marginal on 11/17/2023. Postoperatively patient was transferred to MICU. Patient was intubated p erioperatively and was gradually weaned off and subsequently extubated yesterday. Patient is currently lying in the bed. Complains of chest soreness. Denies any nausea or vomiting. Able to tolerate liquids. Chest x-ray this morning showed postsurgical changes with left-sided consolidation small effusion slightly progressive from prior exam. No signs of pneumothorax. EKG showed sinus rhythm. Laboratory data showed WBC 10.1 hemoglobin 7.8 and platelets 130 sodium 127 potassium 3.8 chloride 103 bicarb is 13 BUN is 18 creatinine 0.51 and blood sugar 136 and calcium 8.0 liver enzymes not elevated. Albumin 3.0. 11/19/2023 Patient is currently sitting in the chair. Awake alert and oriented. Complains of chest soreness. Was able to participate in incentive spirometry. Currently requiring 2 L oxygen via nasal cannula. Chest x-ray today showed postoperative chest with interval removal of [place]-Bette catheter other lines and tubes appear unchanged. Interval improved aeration of the left lung base with small residual infiltrate/atelectasis and possible trace effusion. Laboratory data showed WBC 9.7 hemoglobin 7.3 and platelets 112 sodium 129 potassium 3.9 chloride 104 bicarb is 18 BUN 18 creatinine 0.59 and blood sugar 96 and albumin 3.4. 11/20/2023 Patient is in the MICU. Currently sitting in the chair. Awake alert and oriented x 3. Feels better today. Chest pain/soreness is better. Chest x-ray showed postsurgical changes and postthoracotomy and there is no evidence of pne umothorax. Remains in sinus rhythm. Titrate to room air. Blood sugars controlled. No complaints of nausea or vomiting. Able to tolerate oral diet slowly. Laboratory data showed WBC 15.6 hemoglobin 8.5 and platelets 184 sodium 129 potassium 4.4 chloride 103 bicarb is 22 BUN 11 and creatinine 0.55 and blood sugar 209 Patient is being continued on amiodarone, aspirin, Plavix, statins And beta-b lockers and also on DuoNebs. Pulmonary and cardiology is on board. Current medications reviewed. Objective - Vital Signs Vital signs: Vital Signs Temp 97.7 F 11/20/23 21:00 Pulse 80 11/20/23 21:00 Resp 16 11/20/23 21:00 BP 108/63 11/20/23 21:00 Pulse Ox 97 11/20/23 21:00 FiO2 40 11/17/23 16:00 Intake & Output 11/20/23 11/20/23 11/21/23 06:59 18:59 06:59 Intake Total 363 339 Output Total 575 110 Balance -212 229 Weight 68.1 kg Intake: IV 363 99 Lactated Ringers 1,000 ml 330 90 @ 20 mls/hr IV .Q24H ANAHI Rx#:[id number] Pressure bags 33 9 Oral 240 Output: Chest Tube Drainage 90 20 Chest Tube Left 90 20 Urine 485 90 Other: Voiding Method Indwelling Catheter Toilet Bedside Commode # Bowel Movements 1 3 ABP, PAP, CO, CI - Last Documented Arterial Blood Pressure 131/56 Pulmonary Artery Pressure 37/15 Cardiac Output 3.4 Cardiac Index 2.2 - Exam PHYSICAL EXAMINATION: Patient is lying in the bed. No acute distress, awake alert and oriented.. HEENT: Normocephalic. Neck is supple. Pupils reactive. Nostrils clear. Oral cavity is moist. Neck reveals no JVD, carotid bruits, or thyromegaly. CHEST EXAMINATION: Trachea is central. Symmetrical expansion. Mid chest incision is bandaged. Bibasilar diminished sounds otherwise lung shaffer clear to auscultation and percussion. Mediastinal and left-sided chest tubes in place CARDIAC: Normal S1, S2 with no gallops. No murmurs ABDOMEN: Soft. Bowel sounds present. No organomegaly. No abdominal bruits. Extremities: reveal no edema. No clubbing or cyanosis Neurologically awake, alert, oriented x3 with well-coordinated movements. Gross no focal deficits noted Skin: No rash or skin lesions. Psychiatric: Coperative. Nonsuicidal Musculoskeletal: No joint swelling or deformity. Normal range of motion. - Labs CBC & Chem 7: 11/20/23 07:45 11/20/23 07:45 Labs: Abnormal Lab Results - Last 24 Hours (Table) 11/20/23 11/20/23 11/20/23 Range/Units 07:10 07:45 07:45 WBC 15.6 H (3.8-10.6) k/uL RBC 2.76 L (3.80-5.40) m/uL Hgb 8.5 L (11.4-16.0) gm/dL Hct 26.6 L (34.0-46.0) % Neutrophils # 14.6 H (1.3-7.7) k/uL Lymphocytes # 0.5 L (1.0-4.8) k/uL Sodium 129 L (137-145) mmol/L Glucose 209 H (74-99) mg/dL POC Glucose (mg/dL) 151 H (70-110) mg/dL Total Protein 5.2 L (6.3-8.2) g/dL Albumin 3.1 L (3.5-5.0) g/dL 11/20/23 11/20/23 11/20/23 Range/Units 12:00 16:54 20:51 WBC (3.8-10.6) k/uL RBC (3.80-5.40) m/uL Hgb (11.4-16.0) gm/dL Hct (34.0-46.0) % Neutrophils # (1.3-7.7) k/uL Lymphocytes # (1.0-4.8) k/uL Sodium (137-145) mmol/L Glucose (74-99) mg/dL POC Glucose (mg/dL) 198 H 188 H 147 H (70-110) mg/dL Total Protein (6.3-8.2) g/dL Albumin (3.5-5.0) g/dL Assessment and Plan Assessment: Coronary artery disease status post CABG triple vessel bypass on 11/17/2023. PACHECO to LAD SVG to OM1 and OM 2 and atrial clip ligation. Coronary artery disease history of prior stent placement Diabetes type 2 gna-bshepgm-pdaiozorh A1c 6.2 Acute blood loss anemia expected from surgery with hemoglobin 7.8. Baseline 11.3 on 11/08/2023 Hypertension Hyperlipidemia GERD History of skin cancer Prior history of smoking DVT prophylaxis and GI prophylaxis Plan: Patient will be continued on aspirin, statin, Plavix, metoprolol and amiodarone. Patient is titrated down to room air.. Patient was on insulin drip for better blood sugar control. Changed to Levemir 10 units at bedtime and insulin sliding scale. Discontinue Taylor catheter and left pleural chest tube as per CT surgery recommendations. Continue to monitor H&H Continue with incentive spirometry and PT OT. Will follow closely further recommendations based on the clinical course. Critical care team cardiology and CT surgery is on board. Patient is being transferred to medical floor today. Time with Patient: Greater than 30
[2023-11-21 06:31] LABS: Glucose,Whole Blood 129 mg/dL (70-110)
--- NOTE | 2023-11-21 07:47 | XR ---
EXAMINATION TYPE: XR chest 2V DATE OF EXAM: 11/21/2023 COMPARISON: 11/20/2023 INDICATION: Postop CABG TECHNIQUE: Frontal and lateral views of the chest are obtained. FINDINGS: The heart size is normal. The pulmonary vasculature is normal. Minimal linear infiltrate along the left lung base can be compatible with atelectasis. Left-sided carolann st tube has been removed. No pneumothorax is evident. IMPRESSION: 1. There may be some mild atelectasis at the left lung base. Follow-up can be performed as clinically indicated
--- NOTE | 2023-11-21 09:19 | P.PN ---
Subjective Progress Note Date: 11/21/23 Principal diagnosis: Coronary artery disease, unstable angina pectoralis. 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%, hypertension, hyperlipidemia, type 2 diabetes, chronic anemia, previous tobacco dependence and family history of coronary artery disease POD #4 off-pump CABG x 3 with PACHECO to LAD, saphenous vein graft to first obtuse marginal, saphenous vein graft to second obtuse marginal, endovascular vein harvest from the left thigh, ligation of the left atrial appendage with 35mm AtriCure clip Postoperative acute blood loss anemia, expected given hemodilution and preoperative chronic anemia The patient was seen and examined in follow-up today November 21, 2023 at her bedside on the third floor cardiac stepdown unit. She is currently sitting up to the bedside chair, is awake, alert, oriented x 3 and is in no acute apparent distress. Denies any complaints of pain or shortness of breath at this time, although is complaining of some generalized weakness and feeling tired today. She remains hemodynamically stable and is currently on no inotropic or pressor support. Remote telemetry is showing normal sinus rhythm heart rate 68 bpm. Oxygen saturations are 97% on room air and she is achieving 750 mL on her incentive spirometry with encouragement. Left pleural chest tube was removed without incident yesterday. She reports she has been up ambulating in the hallway with standby assistance from nursing and therapy staff and tolerating well. Chest x-ray results reviewed, laboratory results remain pending. Objective - Vital Signs Vital signs: Vital Signs Temp 97.7 F 11/21/23 08:20 Pulse 84 11/21/23 08:58 Resp 17 11/21/23 08:20 BP 135/78 11/21/23 08:20 Pulse Ox 99 11/21/23 08:20 FiO2 40 11/17/23 16:00 Intake & Output 11/20/23 11/21/23 11/21/23 18:59 06:59 18:59 Intake Total 339 300 Output Total 110 300 Balance 229 0 Weight 64.3 kg Intake: IV 99 Lactated Ringers 1,000 ml 90 @ 20 mls/hr IV .Q24H [facility] Rx#:[id number] Pressure bags 9 Oral 240 300 Output: Chest Tube Drainage 20 Chest Tube Left 20 Urine 90 300 Other: Voiding Method Toilet Toilet Bedside Commode # Bowel Movements 3 1 ABP, PAP, CO, CI - Last Documented Arterial Blood Pressure 131/56 Pulmonary Artery Pressure 37/15 Cardiac Output 3.4 Cardiac Index 2.2 - Exam CONSTITUTIONAL: Appears comfortable, cooperative, no acute distress. RESPIRATORY: Lungs sounds diminished bilaterally. Respirations symmetrical, nonlabored. Currently on room air with oxygen saturation 97%. Able to achieve 750 mL on incentive spirometry. Strong cough. CARDIOVASCULAR: S1, S2 present. Regular rate and rhythm, sinus rhythm on remote telemetry, heart rate 68 bpm. Sternum stable. Palpable peripheral pulses bilaterally. No edema present. No calf pain or tenderness noted. Heart hugger in place with patient demonstrating appropriate use. Antiembolism stockings, SCDs present. GASTROINTESTINAL: Abdomen soft, nontender, nondistended. Active bowel sounds present 4 quadrants. Tolerating clear liquids. Passing flatus. Bowel movement today. GENITOURINARY: Continues to void. 300 mL of urine output in the last 8 hours. INTEGUMENTARY: Skin is warm and dry with evidence of good perfusion. Midline sternal incision well approximated and covered with dry intact dressing. Left lower extremity EVH site well approximated without redness. NEUROLOGIC: Cranial nerves II through XII intact. No focal deficit. MUSKULOSKELETAL: Able to move all extremities, strength equal bilaterally PSYCHIATRIC: Alert and oriented to person place and time, appropriate affect, intact judgment and insight - Allied health notes Allied health notes reviewed: nursing - Labs CBC & Chem 7: 11/20/23 07:45 11/20/23 07:45 Labs: Abnormal Lab Results - Last 24 Hours (Table) 11/20/23 11/20/23 11/20/23 Range/Units 12:00 16:54 20:51 POC Glucose (mg/dL) 198 H 188 H 147 H (70-110) mg/dL 11/21/23 Range/Units 06:28 POC Glucose (mg/dL) 129 H (70-110) mg/dL - Imaging and Cardiology Chest x-ray: report reviewed, image reviewed Assessment and Plan Assessment: Coronary artery disease with unstable angina pectoralis, previous PCI, status po st three-vessel off-pump CABG Bilateral internal carotid stenosis 50 to 69% History of hypertension Hyperlipidemia, treated Type 2 diabetes, hemoglobin A1c 6.2% Previous tobacco dependence, FEV1 78% of predicted Chronic anemia Family history of coronary artery disease Postoperative acute blood loss anemia, expected given hemodilution and preoperative chronic anemia Medical debility Plan: Continue to maximize medical therapy with aspirin, statin, Plavix and beta-leo. Metoprolol tartrate increased to 25 mg p.o. twice daily yesterday November 20, 2023. Continue amiodarone for atrial fibrillation prophylaxis. Currently in normal sinus rhythm, no episodes of atrial fibrillation. Encourage incentive spirometry use 10 times every hour while awake. Bronchodilators per pulmonology. Start lisinopril 2.5 mg p.o. daily at noon with hold parameters for afterload reduction. Increase activity, ambulate as tolerated. PT/OT/cardiac rehab following. Will monitor daily labs and chest x-rays. Electrolyte replacement per protocol. GI/DVT prophylaxis. Insulin management per internal medicine. Pain control with current medication regimen. Continue to monitor and record strict accurate intake and output Daily weights. Discharge planning is in place, inpatient rehab has been consulted for evaluation, anticipate discharge within the next 24 to 48 hours. More recommendations to follow based on patient's clinical course. Time with Patient: Greater than 30
[2023-11-21 09:36] LABS: HGB 7.9 gm/dL (11.4-16.0); MCH 30.6 pg (25.0-35.0); MCHC 31.8 g/dL (31.0-37.0); MCV 96.4 fL (80.0-100.0); Mean Platelet Volume 8.1; Platelet Count 175 k/uL (150-450); RDW 14.3 % (11.5-15.5); WBC 8.4 k/uL (3.8-10.6)
[2023-11-21 09:51] LABS: African American GFR (CKD) >90 (>60 ml/min/1.73 sqM); Anion Gap 7 mmol/L; Blood Urea Nitrogen 18 mg/dL (7-17); Calcium 8.9 mg/dL (8.4-10.2); Carbon Dioxide 19 mmol/L (22-30); Chloride 101 mmol/L (98-107); Glucose 148 mg/dL (74-99); Non-African American GFR(CKD) 88 (>60 ml/min/1.73 sqM); Potassium 4.7 mmol/L (3.5-5.1); Sodium 127 mmol/L (137-145)
--- NOTE | 2023-11-21 10:45 | P.PN ---
Subjective Progress Note Date: 11/21/23 HISTORY OF PRESENTING ILLNESS P 73-year-old with past medical history of multivessel CAD, hypertension hyp erlipidemia presented 2 weeks ago to hospital with substernal chest pain and unstable angina. She was scheduled for CABG however this was postponed because patient's spouse recently . Patient underwent CABG yesterday with Dr. Schmitt. She received PACHECO to LAD, SVG to OM, SVG to second OM, left atrial appendage ligation. Postoperatively she is managed in ICU and is doing well. She denies any chest pain chest pressure. BP 140/60, heart rate 82 bpm Chest tubes have been removed, IJ catheter has been removed, Taylor catheter has been removed. Patient was able to ambulate in unit for times without any significant discomfort. Denies any chest pain chest pressure. Hemodynamically stable. No arrhythmias noticed on telemetry. November 19, 2023 Patient is doing well from cardiovascular standpoint. Her mediastinal tube is out. Her left chest tube is still in place. Her Veneta-Bette catheter is out. She did not require any pressor support. No evidence of atrial fibrillation. Urine output is on the lower side. Adequate oral intake. 11/20 Patient states that she slept okay overnight. Her breathing is okay. She denies having any true chest pain but has some chest discomfort at the surgical site. She has minimal cough. Incentive spirometry she is reaching 750 mL. Blood pressure 135/78, heart rate 84, pulse ox 99% on room air. Repeat blood work reveals hemoglobin 7.9, BUN 18, creatinine 0.64, potassium 4.7, sodium 127. Plan is for possible discharge to inpatient rehab. PHYSICAL EXAMINATION Vital signs reviewed. Head: Normocephalic. Eyes: Sclerae nonicteric. Neck: Brisk carotid upstroke, no jugular venous distention. Lungs: Clear to auscultation. Heart: Regular rate and rhythm, S1-S2, no S3, no murmur or rub. Abdomen: Soft nontender, positive bowel sounds. Extremities: No edema, intact distal pulses. Neuro: Alert, oritented, no focal deficits. Detailed neuro exam was not performed. ASSESSMENT CAD s/p previous PCI. S/p CABG 11/17/2023. PACHECO to LAD, SVG to OM1 and OM 2. Atrial clip ligation Hypertension Type 2 diabetes Dyslipidemia Prior tobacco use Chronic anemia PLAN Continue aspirin, statin, Plavix, metoprolol. We will continue to follow Nurse practitioner note has been reviewed, I agree with documented findings and plan of care. Patient was seen and examined. Objective - Vital Signs Vital signs: Vital Signs Temp 97.7 F 11/21/23 08:20 Pulse 84 11/21/23 08:43 Resp 17 11/21/23 08:20 BP 135/78 11/21/23 08:20 Pulse Ox 99 11/21/23 08:20 FiO2 40 11/17/23 16:00 Intake & Output 11/20/23 11/21/23 11/21/23 18:59 06:59 18:59 Intake Total 339 300 Output Total 110 300 Balance 229 0 Weight 64.3 kg Intake: IV 99 Lactated Ringers 1,000 ml 90 @ 20 mls/hr IV .Q24H [facility] Rx#:[id number] Pressure bags 9 Oral 240 300 Output: Chest Tube Drainage 20 Chest Tube Left 20 Urine 90 300 Other: Voiding Method Toilet Toilet Bedside Commode # Bowel Movements 3 1 ABP, PAP, CO, CI - Last Documented Arterial Blood Pressure 131/56 Pulmonary Artery Pressure 37/15 Cardiac Output 3.4 Cardiac Index 2.2 - Labs CBC & Chem 7: 11/21/23 08:52 11/21/23 08:52 Labs: Abnormal Lab Results - Last 24 Hours (Table) 11/20/23 11/20/23 11/20/23 Range/Units 12:00 16:54 20:51 POC Glucose (mg/dL) 198 H 188 H 147 H (70-110) mg/dL 11/21/23 Range/Units 06:28 POC Glucose (mg/dL) 129 H (70-110) mg/dL
[2023-11-21 11:24] LABS: Glucose,Whole Blood 185 mg/dL (70-110)
--- NOTE | 2023-11-21 13:54 | P.PN ---
Subjective Progress Note Date: 11/21/23 Principal diagnosis: POD #4 off-pump CABG x 3 with PACHECO to LAD, saphenous vein graft to first obtuse marginal, saphenous vein graft to second obtuse marginal, 73-year-old female patient, underwent an off-pump three-vessel bypass surgery with PACHECO to LAD, SVG to first obtuse marginal and second obtuse marginal. Postop, the patient was brought into the intensive care unit. I saw the patient immediately after arrival to the intensive care unit. The patient was on propofol. The patient was on assist-control mode of mechanical ventilation at a rate of 14, tidal volume of 350, FiO2 of 100% and a PEEP of 5. Initial chest x- ray showed adequate expansion of both lungs. No evidence of any pneumothorax. The patient has mediastinal and left pleural chest tube. Postsurgical changes were noted on the chest x-ray and the tube was retracted by around 1 cm. There was no evidence of any pneumothorax. Waddell-Bette catheter in place. The cardiac output was 3.7 with an index of 2.4. The patient was on amiodarone drip. Cardiac rhythm was sinus. The patient was on nitroglycerin drip running at 10 mcg/min and the patient was also on insulin drip at 3 units an hour. The FiO2 was gradually weaned off and subsequently, the patient was taken off sedation given a spontaneous breathing trial with a pressure support of 5 and a PEEP of 5 and subsequent blood gases were adequate and the patient was extubated accordingly. At this point in time, the patient is awake and alert, maintained on oxygen 2 L/min nasal cannula. No significant respiratory difficulties. Urine output is adequate. Hemodynamically stable. WBC count 11.3 hemoglobin 8.5 and a platelet count of 122 and the patient is afebrile. 11/18/2023, the patient is postop day #1 following her carotid bypass surgery. The patient was weaned off the mechanical ventilator and the patient was extubated without any major difficulties. The patient is currently on 2 L of oxygen by nasal cannula. Earlier this morning, the patient is encountering some nausea. Cardiac rhythm remained sinus and the patient was taken off the amiodarone drip and the patient has been switched to oral amiodarone. The patient is also on insulin drip for blood sugar control running at 5 units an hour. Hemodynamically, the patient is a cardiac output of 5.3 with an index of 2.8. PA pressure 28/9. The left pleural chest tube was drained to 90 cc and the mediastinal chest tube is drained 370 cc over the past 12 to 24 hours. The patient has a urine output of 20 to 30 cc an hour. The patient is also on dopamine at 3 mcg/kg/min. Blood work from today showing a WBC count of 10 hemoglobin 7.8 and a platelet count of 130. BUN is 8 creatinine is 0.5 and a sodium levels at 127. No issues with pain. Chest x-ray shows essentially postsurgical changes. No evidence of any pneumothorax. On 11/20/2023, the patient is being seen for a follow-up. The patient remains on room air oxygen. She is recovering nicely from her cardiac surgery. The patient continues to have a mediastinal and left lower chest tube. Output from mediastinal chest tube was 120 cc over the past 8 hours, 356 over the past 24 hours and output from the left lower chest tube was 70 cc over the past 8 hours and 130s over the past 24 hours. Urine output is order of 30 cc an hour and the patient remains on dopamine at 3 mcg/kg/min. No cardiac arrhythmias. Waddell-Bette catheter has been removed. Chest x-ray shows postsurgical changes. Hemoglobin 7.3 with a white cell count of 9.7, and a platelet count is at 112. Sodium levels at 129, potassium is at 3.9, BUN is at 8 with a creatinine of 0.5. Chest x-ray shows postsurgical stable findings and there is no evidence of any pneumothorax. Waddell-Bette catheter has been removed. Cardiac rhythm remained sinus. There is improved aeration in the left lung base although there is some residual atelectatic changes bilaterally. The patient is currently on aspirin. Patient is on Plavix. The patient on dopamine. Metoprolol was started at low- dose of 12.5 mg p.o. twice a day. 11/20/2023, the patient is being seen for a follow-up. The patient is awake and alert and communicating. Chest tubes are minimal. Waddell-Bette catheter has been removed. Respiratory status is stable and today's chest x-ray showing postsurgical changes and postthoracotomy and there is no evidence of any pneumothorax. Cardiac rhythm is sinus. The hemoglobin is 8.5 with a white cell count of 15.6, sodium level of 129, BUN 11 with a creatinine of 0.55. The patient is currently on aspirin, Plavix, metoprolol 12.5 mg p.o. twice a day, the patient was switched to Levemir insulin 10 units daily plus a sliding scale coverage. Remains on statins. Remains on amiodarone 200 mg p.o. twice a day. Patient was evaluated today on 11/21/2023, patient is doing well, basically asymptomatic, patient is on room air, does not seem to be symptomatic. Chest x- ray showed minimal left basilar atelectasis WBC count is 8.4 hemoglobin 7.9 sodium is a bit low at 127 renal profile is normal bicarb is 19. Blood sugar is 148 with Objective - Vital Signs Vital signs: Vital Signs Temp 97.7 F 11/21/23 08:20 Pulse 85 11/21/23 13:08 Resp 17 11/21/23 08:20 BP 135/78 11/21/23 08:20 Pulse Ox 99 11/21/23 08:20 FiO2 40 11/17/23 16:00 Intake & Output 11/20/23 11/21/23 11/21/23 18:59 06:59 18:59 Intake Total 339 300 Output Total 110 300 100 Balance 229 0 -100 Weight 64.3 kg Intake: IV 99 Lactated Ringers 1,000 ml 90 @ 20 mls/hr IV .Q24H [facility] Rx#:[id number] Pressure bags 9 Oral 240 300 Output: Chest Tube Drainage 20 Chest Tube Left 20 Urine 90 300 100 Other: Voiding Method Toilet Toilet Bedside Commode # Voids 1 # Bowel Movements 3 1 1 ABP, PAP, CO, CI - Last Documented Arterial Blood Pressure 131/56 Pulmonary Artery Pressure 37/15 Cardiac Output 3.4 Cardiac Index 2.2 - Exam GENERAL EXAM: 73-year-old white female in no distress, on room air. HEAD: Normocephalic. EYES: Normal reaction of pupils, equal size. NOSE: Clear with pink turbinates. THROAT: No erythema or exudates. NECK: No masses, no JVD. CHEST: No chest wall deformity. LUNGS: Symmetrical chest expansion, clear bilaterally no crackles rhonchi or wheezes CVS: Distant S1-S2, no S3 gallop, no murmur ABDOMEN: No hepatosplenomegaly, normal bowel sounds, no guarding or rigidity. SKIN: No rashes CENTRAL NERVOUS SYSTEM alert oriented x 3 no gross focal deficit EXTREMITIES: No clubbing edema or cyanosis - Labs CBC & Chem 7: 11/21/23 08:52 11/21/23 08:52 Labs: Abnormal Lab Results - Last 24 Hours (Table) 11/20/23 11/20/23 11/21/23 Range/Units 16:54 20:51 06:28 RBC (3.80-5.40) m/uL Hgb (11.4-16.0) gm/dL Hct (34.0-46.0) % Sodium (137-145) mmol/L Carbon Dioxide (22-30) mmol/L BUN (7-17) mg/dL Glucose (74-99) mg/dL POC Glucose (mg/dL) 188 H 147 H 129 H (70-110) mg/dL 11/21/23 11/21/23 11/21/23 Range/Units 08:52 08:52 11:22 RBC 2.60 L (3.80-5.40) m/uL Hgb 7.9 L (11.4-16.0) gm/dL Hct 25.0 L (34.0-46.0) % Sodium 127 L (137-145) mmol/L Carbon Dioxide 19 L (22-30) mmol/L BUN 18 H (7-17) mg/dL Glucose 148 H (74-99) mg/dL POC Glucose (mg/dL) 185 H (70-110) mg/dL Assessment and Plan Assessment: Impression: Status post three-vessel bypass surgery, off-pump, currently postop day # 4 History of coronary disease with previous stent placement of the circumflex 2014 Former smoker of approximately 15 years at 1 pack/day. FEV1 value 1.48 L or 78% of predicted Hypertension Hyperlipidemia Diabetes mellitus type II Family history of coronary artery disease History of chronic anemia Bilateral carotid artery stenosis in the order of 50 to 69%, asymptomatic Blood loss anemia which is an expected outcome of surgery Recommendation: Continue maximal medical therapy including beta-blockers Plavix statin and aspirin Continue amiodarone Continue GI and DVT prophylaxis Increase activity as tolerated Pain control management Daily x-rays of the chest and daily labs and address accordingly Continue incentive spirometry Continue close monitoring of blood pressure and address accordingly Will continue to follow Time with Patient: Less than 30
--- NOTE | 2023-11-21 15:41 | P.PN ---
Subjective Progress Note Date: 11/21/23 This is a 73-year-old female status post CABG, currently on the stepdown unit with significant clinical improvement. Telemetry sinus rhythm ,maintaining O2 sats in the mid to high 90s on room air. Chest x-ray repeated this morning reporting some mild atelectasis at the left lung base. Afebrile, WBC 8.4, hemoglobin 7.9, platelets 175, sodium 127, bicarb 19, renal function stable. Blood sugars elevated, currently 185. Reports ambulating in the dahl, tolerating exertion well. Surgical tenderness, otherwise denies chest pain, palpitations or increase in shortness of breath. Objective - Vital Signs Vital signs: Vital Signs Temp 97.5 F L 11/21/23 12:05 Pulse 74 11/21/23 14:00 Resp 17 11/21/23 14:00 BP 118/49 11/21/23 12:05 Pulse Ox 95 11/21/23 12:05 FiO2 40 11/17/23 16:00 Intake & Output 11/20/23 11/21/23 11/21/23 18:59 06:59 18:59 Intake Total 339 300 358 Output Total 110 300 100 Balance 229 0 258 Weight 64.3 kg Intake: IV 99 Lactated Ringers 1,000 ml 90 @ 20 mls/hr IV .Q24H [facility] Rx#:[id number] Pressure bags 9 Oral 240 300 358 Output: Chest Tube Drainage 20 Chest Tube Left 20 Urine 90 300 100 Other: Voiding Method Toilet Toilet Toilet Bedside Commode # Voids 1 # Bowel Movements 3 1 1 ABP, PAP, CO, CI - Last Documented Arterial Blood Pressure 131/56 Pulmonary Artery Pressure 37/15 Cardiac Output 3.4 Cardiac Index 2.2 - Exam PHYSICAL EXAM: VITAL SIGNS: [As above ] GENERAL: Alert and oriented x 3, sitting up in bed, no acute distress HEENT: Normocephalic, conjunctivae normal. eyes normal. MMM. NECK: Supple, no JVD. CARDIOVASCULAR: S1, S2 regular. No murmur RESPIRATION: Unlabored, equal air entry, CTA,breath sounds diminished in the bases. ABDOMEN: Soft, nontender . No guarding. +BS. LEGS: No edema. no swelling. No cyanosis, no clubbing. NERVOUS SYSTEM: Cranial N 2-12 grossly normal. No focal deficits. Strength and sensation grossly intact.. Skin: Warm and dry, no rash - Labs CBC & Chem 7: 11/21/23 08:52 11/21/23 08:52 Labs: Abnormal Lab Results - Last 24 Hours (Table) 11/20/23 11/20/23 11/21/23 Range/Units 16:54 20:51 06:28 RBC (3.80-5.40) m/uL Hgb (11.4-16.0) gm/dL Hct (34.0-46.0) % Sodium (137-145) mmol/L Carbon Dioxide (22-30) mmol/L BUN (7-17) mg/dL Glucose (74-99) mg/dL POC Glucose (mg/dL) 188 H 147 H 129 H (70-110) mg/dL 11/21/23 11/21/23 11/21/23 Range/Units 08:52 08:52 11:22 RBC 2.60 L (3.80-5.40) m/uL Hgb 7.9 L (11.4-16.0) gm/dL Hct 25.0 L (34.0-46.0) % Sodium 127 L (137-145) mmol/L Carbon Dioxide 19 L (22-30) mmol/L BUN 18 H (7-17) mg/dL Glucose 148 H (74-99) mg/dL POC Glucose (mg/dL) 185 H (70-110) mg/dL Assessment and Plan Assessment: Coronary artery disease status post CABG triple vessel bypass on 11/17/2023. PACHECO to LAD SVG to OM1 and OM 2 and atrial clip ligation. Coronary artery disease history of prior stent placement Diabetes type 2 [id number] A1c 6.2 Acute blood loss anemia expected from surgery with hemoglobin 7.8. Baseline 11.3 on 11/08/2023 Hypertension Hyperlipidemia GERD History of skin cancer Prior history of smoking Plan: Continue on current medication regimen ,monitoring and symptomatic treat ment. Small a.m. dose of Levemir added to med regime for tighter blood sugar control, close monitoring of Accu-Cheks. Aggressive pulmonary toileting with incentive spirometer reinforced, currently up to 750. The impression and plan of care has been dictated as directed. : I performed a history and examination of this patient, discussed the same with the dictator. I agree with the dictator's note ,documented as a scribe. Any additional findings or plans will be noted.
--- NOTE | 2023-11-21 16:16 | P.CONS ---
History of Present Illness - Reason for Consult Consult date: 11/21/23 Rehab Needs - History of Present Illness PMR Consult Mrs. Reid is a 73 yo right-handed, (as of last month), woman who lives with her granddaughter (teenager) in a ranch home with 4 JER. 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 POD #4 off-pump CABG x 3 with PACHECO to LAD, saphenous vein graft to first obtuse marginal, saphenous vein graft to second obtuse marginal, 73-year-old female patient, underwent an off-pump three-vessel bypass surgery with PACHECO to LAD, SVG to first obtuse marginal and second obtuse marginal. Postop, the patient was brought into the intensive care unit. The patient was on assist-control mode of mechanical ventilation at a rate of 14, tidal volume of 350, FiO2 of 100% and a PEEP of 5. Initial chest x-ray showed adequate expansion of both lungs. No evidence of any pneumothorax. The patient has mediastinal and left pleural chest tube. Postsurgical changes were noted on the chest x-ray and the tube was retracted by around 1 cm. There was no evidence of any pneumothorax. [place]-Bette catheter in place. The cardiac output was 3.7 with an index of 2.4. The patient was on amiodarone drip. Cardiac rhythm was sinus. The patient was on nitroglycerin drip running at 10 mcg/min and the patient was also on insulin drip at 3 units an hour. No significant respiratory di fficulties. Urine output is adequate. Hemodynamically stable. WBC count 11.3 hemoglobin 8.5 and a platelet count of 122 and the patient is afebrile. 11/18/2023, the patient is postop day #1 following her carotid bypass surgery. The patient was weaned off the mechanical ventilator and the patient was extubated without any major difficulties. The patient is currently on 2 L of oxygen by nasal cannula. Earlier this morning, the patient is encountering some nausea. Cardiac rhythm remained sinus and the patient was taken off the amiodarone drip and the patient has been switched to oral amiodarone. On 11/19/2023, the patient is being seen for a follow-up. The patient remains on room air oxygen. She is recovering nicely from her cardiac surgery. The patient continues to have a mediastinal and left lower chest tube. Output from mediastinal chest tube was 120 cc over the past 8 hours, 356 over the past 24 hours and output from the left lower chest tube was 70 cc over the past 8 hours and 130s over the past 24 hours. Urine output is order of 30 cc an hour and the patient remains on dopamine at 3 mcg/kg/min. No cardiac arrhythmias. [place]-Bette catheter has been removed. Chest x-ray shows postsurgical changes. Hemoglobin 7.3 with a white cell count of 9.7, and a platelet count is at 112. Sodium levels at 129, potassium is at 3.9, BUN is at 8 with a creatinine of 0.5. Chest x-ray shows postsurgical stable findings and there is no evidence of any pneumothorax. [place]-Bette catheter has been removed. Cardiac rhythm remained sinus. There is improved aeration in the left lung base although there is some residual atelectatic changes bilaterally. The patient is currently on aspirin. Patient is on Plavix. The patient on dopamine. Metoprolol was started at low- dose of 12.5 mg p.o. twice a day. 11/20/2023, the patient is being seen for a follow-up. The patient is awake and alert and communicating. Chest tubes are minimal. [place]-Bette catheter has been removed. Respiratory status is stable and today's chest x-ray showing postsurgical changes and postthoracotomy and there is no evidence of any pneumothorax. Cardiac rhythm is sinus. The hemoglobin is 8.5 with a white cell count of 15.6, sodium level of 129, BUN 11 with a creatinine of 0.55. The patient is currently on aspirin, Plavix, metoprolol 12.5 mg p.o. twice a day, the patient was switched to Levemir insulin 10 units daily plus a sliding scale coverage. Remains on statins. Remains on amiodarone 200 mg p.o. twice a day. Patient was evaluated on 11/21/2023, patient is doing well, basically asympto matic, patient is on room air, does not seem to be symptomatic. Chest x-ray showed minimal left basilar atelectasis WBC count is 8.4 hemoglobin 7.9 sodium is a bit low at 127 renal profile is normal bicarb is 19. Blood sugar is 148 PMR Consulted for therapy needs. Currently, is very tired, has decreased appetite, occasional palpitaions, incisional CP, tingling in toes. LBM am, loose. With therapy on 11/17, 1 day post-op, was Min A transfers, ambulate 64', Dep sit to supine, Mod A UE/Dep LE ADL, toileting DEP Review of Systems + per above, o/w all systems reviewed negative. Past Medical History Past Medical History: Coronary Artery Disease (CAD), Cancer, Chest Pain / Angina, Diabetes Mellitus, GERD/Reflux, Hyperlipidemia, Hypertension Additional Past Medical History / Comment(s): Hx tennis elbow, hx sciatica, beginnings of neuropathy in feet, seems improved at this time. HX OF BELLS PALSY , hx anemia X1, frequent diarrhea recently, not as much recently, thinks might have a "blockage", hx skin cancer X1 2022 on right eyebrow. History of Any Multi-Drug Resistant Organisms: None Reported Past Surgical History: Section, Heart Catheterization With Stent, Hernia Repair, Hysterectomy Additional Past Surgical History / Comment(s): INCISIONAL HERNIA REPAIR, SKIN LESIONS REMOVED, COLOLOSCOPY, Bilateral cataract surgery 2016 Past Anesthesia/Blood Transfusion Reactions: No Reported Reaction Additional Past Anesthesia/Blood Transfusion Reaction / Comm: Pt has never received blood. Date of Last Stent Placement:: 05/07/2015 Past Psychological History: No Psychological Hx Reported Smoking Status: Former smoker Past Alcohol Use History: None Reported Additional Past Alcohol Use History / Comment(s): QUIT SMOKING APPROX 37 YRS AGO. SMOKED 10-15 YRS, 1 PPD OR LESS. Past Drug Use History: None Reported - Past Family History Brother(s) Family Medical History: Cancer Additional Family Medical History / Comment(s): COLON CANCER Sister(s) Family Medical History: Cancer Additional Family Medical History / Comment(s): COLON CANCER Father Family Medical History: Coronary Artery Disease (CAD), Myocardial Infarction (OK) Additional Family Medical History / Comment(s): Father at age 67yrs and pt thinks cause of was a OK. Mother Family Medical History: Coronary Artery Disease (CAD) Additional Family Medical History / Comment(s): Mother at age 78 or 79yrs of heart disease. Medications and Allergies Home Medications Medication Instructions Recorded Confirmed Type Raloxifene HCl [Evista] 60 mg PO DAILY 04/03/15 11/17/23 History atenoloL [Atenolol] 50 mg PO DAILY 04/03/15 11/17/23 History lisinopriL [Lisinopril] 20 mg PO DAILY 04/03/15 11/17/23 History sitaGLIPtin [Januvia] 50 mg PO DAILY 04/03/15 11/17/23 History Atorvastatin [Lipitor] 40 mg PO HS 08/31/16 11/17/23 History Clopidogrel Bisulfate [Plavix] 75 mg PO DAILY 08/31/16 11/17/23 History Ferrous Sulfate [Feosol] 325 mg PO DAILY 08/31/16 11/17/23 History Ergocalciferol [Vitamin D2 (1250 1,250 mcg PO COOK 01/01/21 11/17/23 History Mcg = 00706 Iu)] Aspirin 81 mg PO DAILY 10/18/23 11/17/23 History Fish Oil/Dha/Epa [Fish Oil 1,200 1 cap PO DAILY 10/18/23 11/17/23 History mg Fish Oil] Lactobacillus Acidophilus 1 cap PO DAILY 10/18/23 11/17/23 History [Acidophilus Probiotic] metFORMIN HCL 500 mg PO AC-BID 10/18/23 11/17/23 History Allergies Allergy/AdvReac Type Severity Reaction Status Date / Time codeine AdvReac Nausea & Verified 11/17/23 06:03 Vomiting Physical Exam Vitals: Vital Signs Temp Pulse Pulse Resp BP BP Pulse Ox 11/21/23 13:08 85 11/21/23 12:58 82 11/21/23 08:58 84 11/21/23 08:43 84 11/21/23 08:20 97.7 F 74 17 135/78 99 11/21/23 03:04 97.6 F 69 18 134/80 99 11/20/23 23:12 97.8 F 71 18 122/74 97 11/20/23 21:00 97.7 F 80 16 108/63 97 11/20/23 18:50 98.2 F 90 16 128/72 97 11/20/23 16:00 97.8 F 82 24 140/60 98 11/20/23 15:56 86 11/20/23 15:47 80 Intake and Output 11/20/23 11/21/23 11/21/23 22:59 06:59 14:59 Intake Total 300 358 Output Total 0 300 100 Balance 0 0 258 Intake: Oral 300 358 Output: Urine 0 300 100 Other: Voiding Method Toilet Toilet # Voids 1 # Bowel Movements 1 1 Weight 64.3 kg GENERAL: NAD, alert, pleasant HEAD: Normocephalic, atraumatic EYES: PERRLA, EOMI NECK: No masses, no JVD. LUNGS: Symmetrical chest expansion, good air exchange. Heart: Regular rate. ABDOMEN: Soft NT/NT NEURO: A&O x4. Speech fluent Follows 3 step commands MMT 5/5 bilateral LE, production grip/EE/EF, shoulders not tested. SILT bilateral UE/LE DTR symmetric UE/LE SKIN: No rashes; chest incision with dressing in place. EXTREMITIES: No calf TTP, negative homans, pedal edema; SCD in place. Results CBC & Chem 7: 11/21/23 08:52 11/21/23 08:52 Labs: Abnormal Lab Results - Last 24 Hours (Table) 11/20/23 11/20/23 11/21/23 Range/Units 16:54 20:51 06:28 RBC (3.80-5.40) m/uL Hgb (11.4-16.0) gm/dL Hct (34.0-46.0) % Sodium (137-145) mmol/L Carbon Dioxide (22-30) mmol/L BUN (7-17) mg/dL Glucose (74-99) mg/dL POC Glucose (mg/dL) 188 H 147 H 129 H (70-110) mg/dL 11/21/23 11/21/23 11/21/23 Range/Units 08:52 08:52 11:22 RBC 2.60 L (3.80-5.40) m/uL Hgb 7.9 L (11.4-16.0) gm/dL Hct 25.0 L (34.0-46.0) % Sodium 127 L (137-145) mmol/L Carbon Dioxide 19 L (22-30) mmol/L BUN 18 H (7-17) mg/dL Glucose 148 H (74-99) mg/dL POC Glucose (mg/dL) 185 H (70-110) mg/dL Assessment and Plan Assessment: # Gait Impairment/decline in function s/p CABG - continue therapies # Status post three-vessel bypass surgery, off-pump 11/17/23 # History of coronary disease with previous stent placement of the circumflex 2014 # Former smoker of approximately 15 years at 1 pack/day. FEV1 value 1.48 L or 78% of predicted # Hypertension # Hyperlipidemia # Diabetes mellitus type II # Bilateral carotid artery stenosis in the order of 50 to 69%, asymptomatic # Blood loss anemia which is an expected outcome of surgery Recommendations: - per your medical management - continue PT/OT - need updated therapy notes Will continue to follow and reassess as improves medically. Do need updated therapy notes to determine assess current function
[2023-11-21 16:33] LABS: Glucose,Whole Blood 165 mg/dL (70-110)
[2023-11-21] MEDS: INSULIN DETEMIR (LEVEMIR) 100 UNIT/ML SYR SQ SCH (16:47)
[2023-11-21 19:47] LABS: Glucose,Whole Blood 195 mg/dL (70-110)
[2023-11-22 06:11] LABS: Glucose,Whole Blood 72 mg/dL (70-110)
[2023-11-22 09:25] LABS: Basophils % (A) 0 %; Eosinophils # (A) 0.1 k/uL (0-0.7); Eosinophils % (A) 2 %; HGB 7.6 gm/dL (11.4-16.0); Lymphocytes # (A) 1.1 k/uL (1.0-4.8); Lymphocytes % (A) 16 %; MCH 30.2 pg (25.0-35.0); MCHC 31.6 g/dL (31.0-37.0); MCV 95.6 fL (80.0-100.0); Mean Platelet Volume 7.9; Monocytes # (A) 0.3 k/uL (0-1.0); Monocytes % (A) 5 %; Neutrophils # (A) 5.2 k/uL (1.3-7.7); Neutrophils % (A) 77 %; Platelet Count 202 k/uL (150-450); RBC 2.51 m/uL (3.80-5.40); RDW 14.4 % (11.5-15.5); WBC 6.7 k/uL (3.8-10.6)
[2023-11-22 09:36] LABS: African American GFR (CKD) >90 (>60 ml/min/1.73 sqM); Anion Gap 7 mmol/L; Blood Urea Nitrogen 15 mg/dL (7-17); Carbon Dioxide 21 mmol/L (22-30); Chloride 101 mmol/L (98-107); Glucose 115 mg/dL (74-99); Non-African American GFR(CKD) 87 (>60 ml/min/1.73 sqM); Potassium 4.5 mmol/L (3.5-5.1); Sodium 129 mmol/L (137-145)
--- NOTE | 2023-11-22 10:49 | P.PN ---
Subjective Progress Note Date: 11/22/23 HISTORY OF PRESENTING ILLNESS P 73-year-old with past medical history of multivessel CAD, hypertension hyp erlipidemia presented 2 weeks ago to hospital with substernal chest pain and unstable angina. She was scheduled for CABG however this was postponed because patient's spouse recently . Patient underwent CABG yesterday with Dr. Schmitt. She received PACHECO to LAD, SVG to OM, SVG to second OM, left atrial appendage ligation. Postoperatively she is managed in ICU and is doing well. She denies any chest pain chest pressure. BP 140/60, heart rate 82 bpm Chest tubes have been removed, IJ catheter has been removed, [place] catheter has been removed. Patient was able to ambulate in unit for times without any significant discomfort. Denies any chest pain chest pressure. Hemodynamically stable. No arrhythmias noticed on telemetry. November 19, 2023 Patient is doing well from cardiovascular standpoint. Her mediastinal tube is out. Her left chest tube is still in place. Her [place]-Bette catheter is out. She did not require any pressor support. No evidence of atrial fibrillation. Urine output is on the lower side. Adequate oral intake. 11/20 Patient states that she slept okay overnight. Her breathing is okay. She denies having any true chest pain but has some chest discomfort at the surgical site. She has minimal cough. Incentive spirometry she is reaching 750 mL. Blood pressure 135/78, heart rate 84, pulse ox 99% on room air. Repeat blood work reveals hemoglobin 7.9, BUN 18, creatinine 0.64, potassium 4.7, sodium 127. Plan is for possible discharge to inpatient rehab. 11/21 Patient states she is feeling a little bit stronger today but she has been getting up to the bathroom. Vital signs have been stable with blood pressure 134/74, heart rate is in the 60s, pulse ox 99% on room air. She has been evaluated by inpatient rehab services. PHYSICAL EXAMINATION Vital signs reviewed. Head: Normocephalic. Eyes: Sclerae nonicteric. Neck: Brisk carotid upstroke, no jugular venous distention. Lungs: Clear to auscultation. Heart: Regular rate and rhythm, S1-S2, no S3, no murmur or rub. Abdomen: Soft nontender, positive bowel sounds. Extremities: No edema, intact distal pulses. Neuro: Alert, oritented, no focal deficits. Detailed neuro exam was not performed. ASSESSMENT CAD s/p previous PCI. S/p CABG 11/17/2023. PACHECO to LAD, SVG to OM1 and OM 2. Atrial clip ligation Hypertension Type 2 diabetes Dyslipidemia Prior tobacco use Chronic anemia PLAN Continue aspirin, statin, Plavix, metoprolol. We will continue to follow Nurse practitioner note has been reviewed, I agree with documented findings and plan of care. Patient was seen and examined. Objective - Vital Signs Vital signs: Vital Signs Temp 97.5 F L 11/21/23 23:19 Pulse 68 11/22/23 08:19 Resp 17 11/22/23 03:11 BP 134/74 11/22/23 03:11 Pulse Ox 99 11/22/23 03:11 FiO2 40 11/17/23 16:00 Intake & Output 11/21/23 11/22/23 11/22/23 18:59 06:59 18:59 Intake Total 358 780 Output Total 100 750 Balance 258 30 Weight 63.6 kg Intake: Oral 358 780 Output: Urine 100 750 Other: Voiding Method Toilet Toilet # Voids 1 # Bowel Movements 1 1 ABP, PAP, CO, CI - Last Documented Arterial Blood Pressure 131/56 Pulmonary Artery Pressure 37/15 Cardiac Output 3.4 Cardiac Index 2.2 - Labs CBC & Chem 7: 11/22/23 08:25 11/22/23 08:25 Labs: Abnormal Lab Results - Last 24 Hours (Table) 11/21/23 11/21/23 11/21/23 Range/Units 08:52 08:52 11:22 RBC 2.60 L (3.80-5.40) m/uL Hgb 7.9 L (11.4-16.0) gm/dL Hct 25.0 L (34.0-46.0) % Sodium 127 L (137-145) mmol/L Carbon Dioxide 19 L (22-30) mmol/L BUN 18 H (7-17) mg/dL Glucose 148 H (74-99) mg/dL POC Glucose (mg/dL) 185 H (70-110) mg/dL 11/21/23 11/21/23 Range/Units 16:32 19:45 RBC (3.80-5.40) m/uL Hgb (11.4-16.0) gm/dL Hct (34.0-46.0) % Sodium (137-145) mmol/L Carbon Dioxide (22-30) mmol/L BUN (7-17) mg/dL Glucose (74-99) mg/dL POC Glucose (mg/dL) 165 H 195 H (70-110) mg/dL
[2023-11-22 11:14] LABS: Glucose,Whole Blood 123 mg/dL (70-110)
--- NOTE | 2023-11-22 12:14 | XR ---
EXAMINATION TYPE: XR chest 1V portable DATE OF EXAM: 11/22/2023 COMPARISON: 11/21/2023 INDICATION: Postop CABG TECHNIQUE: Single frontal view of the chest is obtained. FINDINGS: The heart size is normal. The pulmonary vasculature is normal. Small left pleural effusion may be present. IMPRESSION: 1. Small left pleural effusion
--- NOTE | 2023-11-22 12:41 | P.PN ---
Subjective Progress Note Date: 11/22/23 Principal diagnosis: POD 5 off-pump CABG x 3 with PACHECO to LAD, saphenous vein graft to first obtuse marginal, saphenous vein graft to second obtuse marginal, 73-year-old female patient, underwent an off-pump three-vessel bypass surgery with PACHECO to LAD, SVG to first obtuse marginal and second obtuse marginal. Postop, the patient was brought into the intensive care unit. I saw the patient immediately after arrival to the intensive care unit. The patient was on propofol. The patient was on assist-control mode of mechanical ventilation at a rate of 14, tidal volume of 350, FiO2 of 100% and a PEEP of 5. Initial chest x- ray showed adequate expansion of both lungs. No evidence of any pneumothorax. The patient has mediastinal and left pleural chest tube. Postsurgical changes were noted on the chest x-ray and the tube was retracted by around 1 cm. There was no evidence of any pneumothorax. [place]-Bette catheter in place. The cardiac output was 3.7 with an index of 2.4. The patient was on amiodarone drip. Cardiac rhythm was sinus. The patient was on nitroglycerin drip running at 10 mcg/min and the patient was also on insulin drip at 3 units an hour. The FiO2 was gradually weaned off and subsequently, the patient was taken off sedation given a spontaneous breathing trial with a pressure support of 5 and a PEEP of 5 and subsequent blood gases were adequate and the patient was extubated accordingly. At this point in time, the patient is awake and alert, maintained on oxygen 2 L/min nasal cannula. No significant respiratory difficulties. Urine output is adequate. Hemodynamically stable. WBC count 11.3 hemoglobin 8.5 and a platelet count of 122 and the patient is afebrile. 11/18/2023, the patient is postop day #1 following her carotid bypass surgery. The patient was weaned off the mechanical ventilator and the patient was extubated without any major difficulties. The patient is currently on 2 L of oxygen by nasal cannula. Earlier this morning, the patient is encountering some nausea. Cardiac rhythm remained sinus and the patient was taken off the amiodarone drip and the patient has been switched to oral amiodarone. The patient is also on insulin drip for blood sugar control running at 5 units an hour. Hemodynamically, the patient is a cardiac output of 5.3 with an index of 2.8. PA pressure 28/9. The left pleural chest tube was drained to 90 cc and the mediastinal chest tube is drained 370 cc over the past 12 to 24 hours. The patient has a urine output of 20 to 30 cc an hour. The patient is also on dopamine at 3 mcg/kg/min. Blood work from today showing a WBC count of 10 hemoglobin 7.8 and a platelet count of 130. BUN is 8 creatinine is 0.5 and a sodium levels at 127. No issues with pain. Chest x-ray shows essentially postsurgical changes. No evidence of any pneumothorax. On 11/20/2023, the patient is being seen for a follow-up. The patient remains on room air oxygen. She is recovering nicely from her cardiac surgery. The patient continues to have a mediastinal and left lower chest tube. Output from mediastinal chest tube was 120 cc over the past 8 hours, 356 over the past 24 hours and output from the left lower chest tube was 70 cc over the past 8 hours and 130s over the past 24 hours. Urine output is order of 30 cc an hour and the patient remains on dopamine at 3 mcg/kg/min. No cardiac arrhythmias. [place]-Bette catheter has been removed. Chest x-ray shows postsurgical changes. Hemoglobin 7.3 with a white cell count of 9.7, and a platelet count is at 112. Sodium levels at 129, potassium is at 3.9, BUN is at 8 with a creatinine of 0.5. Chest x-ray shows postsurgical stable findings and there is no evidence of any pneumothorax. [place]-Bette catheter has been removed. Cardiac rhythm remained sinus. There is improved aeration in the left lung base although there is some residual atelectatic changes bilaterally. The patient is currently on aspirin. Patient is on Plavix. The patient on dopamine. Metoprolol was started at low- dose of 12.5 mg p.o. twice a day. 11/20/2023, the patient is being seen for a follow-up. The patient is awake and alert and communicating. Chest tubes are minimal. [place]-Bette catheter has been removed. Respiratory status is stable and today's chest x-ray showing postsurgical changes and postthoracotomy and there is no evidence of any pneumothorax. Cardiac rhythm is sinus. The hemoglobin is 8.5 with a white cell count of 15.6, sodium level of 129, BUN 11 with a creatinine of 0.55. The patient is currently on aspirin, Plavix, metoprolol 12.5 mg p.o. twice a day, the patient was switched to Levemir insulin 10 units daily plus a sliding scale coverage. Remains on statins. Remains on amiodarone 200 mg p.o. twice a day. Patient was evaluated today on 11/21/2023, patient is doing well, basically asymptomatic, patient is on room air, does not seem to be symptomatic. Chest x- ray showed minimal left basilar atelectasis WBC count is 8.4 hemoglobin 7.9 sodium is a bit low at 127 renal profile is normal bicarb is 19. Blood sugar is 148 Patient was evaluated today on 11/22/2023, patient is on the cardiac floor, doing well, being evaluated for possible rehab placement at [facility] rehab. Patient is comfortable, on room air, but she does look frail. Patient is not in any distress. Chest x-ray showed small tiny left-sided pleural effusion, not large enough to consider thoracentesis. Patient is hemodynamically stable, not in any distress. However she looks generally weak Objective - Vital Signs Vital signs: Vital Signs Temp 97.5 F L 11/21/23 23:19 Pulse 70 11/22/23 11:37 Resp 17 11/22/23 03:11 BP 134/74 11/22/23 03:11 Pulse Ox 99 11/22/23 03:11 FiO2 40 11/17/23 16:00 Intake & Output 11/21/23 11/22/23 11/22/23 18:59 06:59 18:59 Intake Total 358 780 Output Total 100 750 300 Balance 258 30 -300 Weight 63.6 kg Intake: Oral 358 780 Output: Urine 100 750 300 Other: Voiding Method Toilet Toilet # Voids 1 # Bowel Movements 1 1 1 ABP, PAP, CO, CI - Last Documented Arterial Blood Pressure 131/56 Pulmonary Artery Pressure 37/15 Cardiac Output 3.4 Cardiac Index 2.2 - Exam GENERAL EXAM: 73-year-old white female in no distress, on room air., Looks generally weak HEAD: Normocephalic. EYES: Normal reaction of pupils, equal size. NOSE: Clear with pink turbinates. THROAT: No erythema or exudates. NECK: No masses, no JVD. CHEST: No chest wall deformity. LUNGS: Symmetrical chest expansion, clear bilaterally no crackles rhonchi or wheezes CVS: Distant S1-S2, no S3 gallop, no murmur ABDOMEN: No hepatosplenomegaly, normal bowel sounds, no guarding or rigidity. SKIN: No rashes CENTRAL NERVOUS SYSTEM alert oriented x 3 no gross focal deficit EXTREMITIES: No clubbing edema or cyanosis - Labs CBC & Chem 7: 11/22/23 08:25 11/22/23 08:25 Labs: Abnormal Lab Results - Last 24 Hours (Table) 11/21/23 11/21/23 11/22/23 Range/Units 16:32 19:45 08:25 RBC 2.51 L (3.80-5.40) m/uL Hgb 7.6 L (11.4-16.0) gm/dL Hct 24.0 L (34.0-46.0) % Sodium (137-145) mmol/L Carbon Dioxide (22-30) mmol/L Glucose (74-99) mg/dL POC Glucose (mg/dL) 165 H 195 H (70-110) mg/dL 11/22/23 11/22/23 Range/Units 08:25 11:12 RBC (3.80-5.40) m/uL Hgb (11.4-16.0) gm/dL Hct (34.0-46.0) % Sodium 129 L (137-145) mmol/L Carbon Dioxide 21 L (22-30) mmol/L Glucose 115 H (74-99) mg/dL POC Glucose (mg/dL) 123 H (70-110) mg/dL Assessment and Plan Assessment: Impression: Status post three-vessel bypass surgery, off-pump, currently postop day #5 History of coronary disease with previous stent placement of the circumflex 2015 Former smoker of approximately 15 years at 1 pack/day. FEV1 value 1.48 L or 78% of predicted Hypertension Hyperlipidemia Diabetes mellitus type II Family history of coronary artery disease History of chronic anemia Bilateral carotid artery stenosis in the order of 50 to 69%, asymptomatic Blood loss anemia which is an expected outcome of surgery Recommendation: Continue maximal medical therapy including beta-blockers Plavix statin and aspirin Continue oral amiodarone Continue GI and DVT prophylaxis Being considered for rehab placement This x-ray was reviewed by myself, and the pleural effusion is too small to consider thoracentesis Continue incentive spirometry Will continue to follow Time with Patient: Less than 30
[2023-11-22] MEDS: lisinopriL 10 MG TAB PO SCH (12:56)
--- NOTE | 2023-11-22 15:06 | P.PN ---
Subjective Progress Note Date: 11/22/23 Principal diagnosis: Coronary artery disease, unstable angina pectoralis. 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 Postoperative acute blood loss anemia, expected given hemodilution and preoperative chronic anemia. The patient was seen and examined in follow-up today November 22, 2023 at her bedside on the third floor cardiac stepdown unit. She is currently sitting up to the bedside chair, is awake, alert, oriented x 3 and is in no acute apparent distress. She denies any complaints of pain or shortness of breath at this time, continues to complain of some generalized weakness but reports she feels like she getting stronger daily. Inpatient rehab has been consulted and is being evaluated for IPR at [facility]. Oxygen saturations are 99% on room air and she is achieving 1000 mL on her incentive spirometry with encouragement. She has been afebrile in the last 24 hours. Remote telemetry is showing normal sinus rhythm heart rate 68 bpm. She remains hemodynamically stab le and is currently on no inotropic or pressor support. Chest x-ray and laboratory results have been reviewed. Objective - Vital Signs Vital signs: Vital Signs Temp 97.5 F L 11/21/23 23:19 Pulse 70 11/22/23 11:37 Resp 17 11/22/23 03:11 BP 134/74 11/22/23 03:11 Pulse Ox 99 11/22/23 03:11 FiO2 40 11/17/23 16:00 Intake & Output 11/21/23 11/22/23 11/22/23 18:59 06:59 18:59 Intake Total 358 780 480 Output Total 100 750 300 Balance 258 30 180 Weight 63.6 kg Intake: Oral 358 780 480 Output: Urine 100 750 300 Other: Voiding Method Toilet Toilet # Voids 1 # Bowel Movements 1 1 1 ABP, PAP, CO, CI - Last Documented Arterial Blood Pressure 131/56 Pulmonary Artery Pressure 37/15 Cardiac Output 3.4 Cardiac Index 2.2 - Exam CONSTITUTIONAL: Appears comfortable, cooperative, no acute distress. RESPIRATORY: Lungs sounds diminished bilaterally. Respirations symmetrical, nonlabored. Currently on room air with oxygen saturation 99%. Able to achieve 1000 mL on her incentive spirometry. Strong cough. CARDIOVASCULAR: S1, S2 present. Regular rate and rhythm, sinus rhythm on remote telemetry, heart rate 68 bpm. Sternum stable. Palpable peripheral pulses bilaterally. No edema present. No calf pain or tenderness noted. Heart hugger in place with patient demonstrating appropriate use. Antiembolism stockings, SCDs present. GASTROINTESTINAL: Abdomen soft, nontender, nondistended. Active bowel sounds present 4 quadrants. Tolerating clear liquids. Passing flatus. Bowel move ment today. GENITOURINARY: Continues to void. 305 mL of urine output in the last 8 hours. INTEGUMENTARY: Skin is warm and dry with evidence of good perfusion. Midline sternal incision well approximated and covered with dry intact dressing. Left lower extremity EVH site well approximated without redness. NEUROLOGIC: Cranial nerves II through XII intact. No focal deficit. MUSKULOSKELETAL: Able to move all extremities, strength equal bilaterally PSYCHIATRIC: Alert and oriented to person place and time, appropriate affect, intact judgment and insight - Labs CBC & Chem 7: 11/22/23 08:25 11/22/23 08:25 Labs: Abnormal Lab Results - Last 24 Hours (Table) 11/21/23 11/21/23 11/22/23 Range/Units 16:32 19:45 08:25 RBC 2.51 L (3.80-5.40) m/uL Hgb 7.6 L (11.4-16.0) gm/dL Hct 24.0 L (34.0-46.0) % Sodium (137-145) mmol/L Carbon Dioxide (22-30) mmol/L Glucose (74-99) mg/dL POC Glucose (mg/dL) 165 H 195 H (70-110) mg/dL 11/22/23 11/22/23 Range/Units 08:25 11:12 RBC (3.80-5.40) m/uL Hgb (11.4-16.0) gm/dL Hct (34.0-46.0) % Sodium 129 L (137-145) mmol/L Carbon Dioxide 21 L (22-30) mmol/L Glucose 115 H (74-99) mg/dL POC Glucose (mg/dL) 123 H (70-110) mg/dL - Imaging and Cardiology Chest x-ray: report reviewed, image reviewed Assessment and Plan Assessment: Coronary artery disease with unstable angina pectoralis, previous PCI, status post three-vessel off-pump CABG Bilateral internal carotid stenosis 50 to 69% History of hypertension Hyperlipidemia, treated Type 2 diabetes, hemoglobin A1c 6.2% Previous tobacco dependence, FEV1 78% of predicted Chronic anemia Family history of coronary artery disease Postoperative acute blood loss anemia, expected given hemodilution and preoperative chronic anemia Medical debility Plan: Continue to maximize medical therapy with aspirin, statin, Plavix and beta- leo. Will increase metoprolol to tartrate as tolerated. Continue amiodarone for atrial fibrillation prophylaxis. Currently in normal sinus rhythm, no episodes of atrial fibrillation. Encourage incentive spirometry use 10 times every hour while awake. Bronchodilators per pulmonology. Increase lisinopril 10 mg p.o. daily at noon with hold parameters for afterload reduction. Increase activity, ambulate as tolerated. PT/OT/cardiac rehab following. Will monitor daily labs and chest x-rays. Electrolyte replacement per protocol. GI/DVT prophylaxis. Insulin management per internal medicine. Pain control with current medication regimen. Continue to monitor and record strict accurate intake and output Daily weights. Discharge planning is in place, inpatient rehab has been consulted for ev aluation, anticipate discharge within the next 24 hours. Inpatient rehab consult noted and appreciated More recommendations to follow based on patient's clinical course. Time with Patient: Greater than 30
--- NOTE | 2023-11-22 15:48 | P.PN ---
Subjective Progress Note Date: 11/22/23 This is a 73-year-old female status post CABG, currently on the stepdown unit with significant clinical improvement. Telemetry sinus rhythm ,maintaining O2 sats in the mid to high 90s on room air. Chest x-ray repeated this morning reporting some mild atelectasis at the left lung base. Afebrile, WBC 8.4, hemoglobin 7.9, platelets 175, sodium 127, bicarb 19, renal function stable. Blood sugars elevated, currently 185. Reports ambulating in the dahl, tolerating exertion well. Surgical tenderness, otherwise denies chest pain, palpitations or increase in shortness of breath. 11/22/2023 telemetry sinus rhythm, vital signs stable .reports exertional shortness of breath. Maintaining O2 sats in the high 90s on room air. Chest x- ray reported small left-sided pleural effusion. Sodium 129, renal function stable. Afebrile. Objective - Vital Signs Vital signs: Vital Signs Temp 97.5 F L 11/21/23 23:19 Pulse 68 11/22/23 08:19 Resp 17 11/22/23 03:11 BP 134/74 11/22/23 03:11 Pulse Ox 99 11/22/23 03:11 FiO2 40 11/17/23 16:00 Intake & Output 11/21/23 11/22/23 11/22/23 18:59 06:59 18:59 Intake Total 358 780 Output Total 100 750 Balance 258 30 Weight 63.6 kg Intake: Oral 358 780 Output: Urine 100 750 Other: Voiding Method Toilet Toilet # Voids 1 # Bowel Movements 1 1 ABP, PAP, CO, CI - Last Documented Arterial Blood Pressure 131/56 Pulmonary Artery Pressure 37/15 Cardiac Output 3.4 Cardiac Index 2.2 - Exam PHYSICAL EXAM: VITAL SIGNS: [As above ] GENERAL: Alert and oriented x 3, sitting up in a chair., no acute distress HEENT: Normocephalic, conjunctivae normal. eyes normal. MMM. NECK: Supple, no JVD. CARDIOVASCULAR: S1, S2 regular. No murmur RESPIRATION: Unlabored, equal air entry, CTA ABDOMEN: Soft, nontender . No guarding. +BS. LEGS: No edema. no swelling. No cyanosis, no clubbing. NERVOUS SYSTEM: Cranial N 2-12 grossly normal. No focal deficits. Strength and sensation grossly intact. Skin: Warm and dry, no rash - Labs CBC & Chem 7: 11/22/23 08:25 11/22/23 08:25 Labs: Abnormal Lab Results - Last 24 Hours (Table) 11/21/23 11/21/23 11/21/23 Range/Units 11:22 16:32 19:45 RBC (3.80-5.40) m/uL Hgb (11.4-16.0) gm/dL Hct (34.0-46.0) % Sodium (137-145) mmol/L Carbon Dioxide (22-30) mmol/L Glucose (74-99) mg/dL POC Glucose (mg/dL) 185 H 165 H 195 H (70-110) mg/dL 11/22/23 11/22/23 Range/Units 08:25 08:25 RBC 2.51 L (3.80-5.40) m/uL Hgb 7.6 L (11.4-16.0) gm/dL Hct 24.0 L (34.0-46.0) % Sodium 129 L (137-145) mmol/L Carbon Dioxide 21 L (22-30) mmol/L Glucose 115 H (74-99) mg/dL POC Glucose (mg/dL) (70-110) mg/dL Assessment and Plan Assessment: Coronary artery disease status post CABG triple vessel bypass on 11/17/2023. PACHECO to LAD SVG to OM1 and OM 2 and atrial clip ligation. Coronary artery disease history of prior stent placement Diabetes type 2 [id number] A1c 6.2 Acute blood loss anemia expected from surgery with hemoglobin 7.8. Baseline 11.3 on 11/08/2023 Hypertension Hyperlipidemia GERD History of skin cancer Prior history of smoking Plan: Continue on current medication regimen ,monitoring and symptomatic treatment. Antiarrhythmics as per CTS. maximizing medical therapy with beta- leo, statin ,aspirin, Plavix.close monitoring of Accu-Cheks. Aggressive pulmonary toileting with incentive spirometer reinforced. Pain management, DVT prophylaxis as per CTS .discharge planning in progress, patient being worked up currently for [facility] rehab. The impression and plan of care has been dictated as directed. : I performed a history and examination of this patient, discussed the same with the dictator. I agree with the dictator's note ,documented as a scribe. Any additional findings or plans will be noted.
[2023-11-22 16:32] LABS: Glucose,Whole Blood 151 mg/dL (70-110)
[2023-11-22 20:22] LABS: Glucose,Whole Blood 187 mg/dL (70-110)
[2023-11-23 06:19] LABS: Glucose,Whole Blood 141 mg/dL (70-110)
--- NOTE | 2023-11-23 07:34 | XR ---
EXAMINATION TYPE: XR chest 1V portable DATE OF EXAM: 11/23/2023 HISTORY: Postop CABG COMPARISON: 11/22/2023 TECHNIQUE: Single view of the chest is submitted. FINDINGS: Demonstrated are scattered senescent parenchymal change. Left basilar pleural-parenchymal density persists. The remainder of the lungs are clear and stable in appearance. The heart is stable. Hilar and mediastinal structures are within normal limits. Degenerative changes are seen of the dorsal spine. IMPRESSION: 1. Left basilar pleural-parenchymal density persists. The remainder of the lungs are clear and stabl e in appearance.
--- NOTE | 2023-11-23 08:29 | P.PN ---
Subjective Progress Note Date: 11/23/23 Principal diagnosis: Coronary artery disease, unstable angina pectoralis. 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 50 to 69%, hypertension, hyperlipidemia, type 2 diabetes, chronic anemia, previous tobacco dependence and family history of coronary artery disease POD #6 off-pump CABG x 3 with PACHECO to LAD, saphenous vein graft to first obtuse marginal, saphenous vein graft to second obtuse marginal, endovascular vein harvest from the left thigh, ligation of the left atrial appendage with 35mm AtriCure clip Postoperative acute blood loss anemia, expected given hemodilution and preoperative chronic anemia The patient was seen and examined sitting up in recliner on the cardiac stepdown unit in no acute distress. Remains in sinus rhythm, hemodynamically stable. Does endorse expected postoperative pain which is mostly controlled on current medication regimen, denies shortness of breath. Patient has been ambulating in the hallway with staff. She is hoping to go to inpatient rehab for a little strength training prior to going home. Chest x-ray, labs reviewed. No other new concerns. Objective - Vital Signs Vital signs: Vital Signs Temp 98.2 F 11/23/23 04:00 Pulse 72 11/23/23 08:00 Resp 18 11/23/23 04:00 BP 139/66 11/23/23 04:00 Pulse Ox 96 11/23/23 04:00 FiO2 40 11/17/23 16:00 Intake & Output 11/22/23 11/23/23 11/23/23 18:59 06:59 18:59 Intake Total 480 240 Output Total 300 400 Balance 180 -400 240 Weight 64.6 kg Intake: Oral 480 240 Output: Urine 300 400 Other: Voiding Method Toilet Toilet # Bowel Movements 1 ABP, PAP, CO, CI - Last Documented Arterial Blood Pressure 131/56 Pulmonary Artery Pressure 37/15 Cardiac Output 3.4 Cardiac Index 2.2 - Exam CONSTITUTIONAL: Appears comfortable, cooperative, no acute distress RESPIRATORY: Lungs sounds diminished bilaterally. Respirations even, nonlabored. Currently on room air with oxygen saturation 96%. Able to achieve 1000 mL on incentive spirometry. Strong cough. CARDIOVASCULAR: S1, S2 present. Regular rate and rhythm, sinus rhythm on telemetry. Sternum stable. Palpable peripheral pulses bilaterally. No edema present. No calf pain or tenderness noted. Heart hugger in place with patient demonstrating appropriate use. Antiembolism stockings, SCDs present. GASTROINTESTINAL: Abdomen soft, nontender, nondistended. Active bowel sounds present 4 quadrants. Tolerating diet. Positive bowel movement 11/21 GENITOURINARY: Continues to void INTEGUMENTARY: Skin is warm and dry with evidence of good perfusion. Anterior chest incision well approximated. Left lower extremity EVH site well approximated without redness or drainage NEUROLOGIC: Cranial nerves II through XII intact MUSKULOSKELETAL: Able to move all extremities, strength equal bilaterally PSYCHIATRIC: Alert and oriented to person place and time, appropriate affect, intact judgment and insight - Allied health notes Allied health notes reviewed: nursing - Labs CBC & Chem 7: 11/22/23 08:25 11/22/23 08:25 Labs: Abnormal Lab Results - Last 24 Hours (Table) 11/22/23 11/22/23 11/22/23 Range/Units 08:25 08:25 11:12 RBC 2.51 L (3.80-5.40) m/uL Hgb 7.6 L (11.4-16.0) gm/dL Hct 24.0 L (34.0-46.0) % Sodium 129 L (137-145) mmol/L Carbon Dioxide 21 L (22-30) mmol/L Glucose 115 H (74-99) mg/dL POC Glucose (mg/dL) 123 H (70-110) mg/dL 11/22/23 11/22/23 11/23/23 Range/Units 16:31 20:20 06:18 RBC (3.80-5.40) m/uL Hgb (11.4-16.0) gm/dL Hct (34.0-46.0) % Sodium (137-145) mmol/L Carbon Dioxide (22-30) mmol/L Glucose (74-99) mg/dL POC Glucose (mg/dL) 151 H 187 H 141 H (70-110) mg/dL - Imaging and Cardiology Chest x-ray: report reviewed, image reviewed Assessment and Plan Assessment: Coronary artery disease with unstable angina pectoralis, previous PCI, status post three-vessel off-pump CABG Bilateral internal carotid stenosis 50 to 69% History of hypertension, borderline hypotensive Hyperlipidemia, treated Type 2 diabetes, hemoglobin A1c 6.2% Previous tobacco dependence, FEV1 78% of predicted Chronic anemia Family history of coronary artery disease Postoperative acute blood loss anemia, expected given hemodilution and preoperative chronic anemia Plan: Continue to maximize medical therapy with aspirin, statin, Plavix, beta-leo. Continue lisinopril for afterload reduction Continue amiodarone for A-fib prophylaxis, patient has not had any A-fib at this point Encourage incentive spirometry use 10 times every hour while awake. Bronchodilators per pulmonology Increase activity, ambulate as tolerated. PT/OT/cardiac rehab consulted Will monitor daily labs and x-rays. Electrolyte replacement per protocol GI/DVT prophylaxis Insulin management per internal medicine Pain control with current medication regimen Continue to monitor and record strict accurate intake and output Daily weights Discharge planning in progress, anticipate discharge to home with home care versus IPR within 24 hours More recommendations to follow
[2023-11-23] MEDS: ASCORBIC ACID 500 MG TAB PO SCH (08:54)
--- NOTE | 2023-11-23 10:45 | P.PN ---
Subjective Progress Note Date: 11/23/23 HISTORY OF PRESENTING ILLNESS P 73-year-old with past medical history of multivessel CAD, hypertension hyp erlipidemia presented 2 weeks ago to hospital with substernal chest pain and unstable angina. She was scheduled for CABG however this was postponed because patient's spouse recently . Patient underwent CABG yesterday with Dr. Schmitt. She received PACHECO to LAD, SVG to OM, SVG to second OM, left atrial appendage ligation. Postoperatively she is managed in ICU and is doing well. She denies any chest pain chest pressure. BP 140/60, heart rate 82 bpm Chest tubes have been removed, IJ catheter has been removed, Taylor catheter has been removed. Patient was able to ambulate in unit for times without any significant discomfort. Denies any chest pain chest pressure. Hemodynamically stable. No arrhythmias noticed on telemetry. November 19, 2023 Patient is doing well from cardiovascular standpoint. Her mediastinal tube is out. Her left chest tube is still in place. Her [place] catheter is out. She did not require any pressor support. No evidence of atrial fibrillation. Urine output is on the lower side. Adequate oral intake. 11/20 Patient states that she slept okay overnight. Her breathing is okay. She denies having any true chest pain but has some chest discomfort at the surgical site. She has minimal cough. Incentive spirometry she is reaching 750 mL. Blood pressure 135/78, heart rate 84, pulse ox 99% on room air. Repeat blood work reveals hemoglobin 7.9, BUN 18, creatinine 0.64, potassium 4.7, sodium 127. Plan is for possible discharge to inpatient rehab. 11/21 Patient states she is feeling a little bit stronger today but she has been getting up to the bathroom. Vital signs have been stable with blood pressure 134/74, heart rate is in the 60s, pulse ox 99% on room air. She has been evaluated by inpatient rehab services. 11/12 Patient is seen today in follow-up. Vital signs have been stable. Blood pressure 145/68, heart rate 84, pulse ox 97% on room air. No repeat blood work available at the time of this dictation. Patient states that she is waiting for discharge planning for possible inpatient rehab. PHYSICAL EXAMINATION Vital signs reviewed. Head: Normocephalic. Eyes: Sclerae nonicteric. Neck: Brisk carotid upstroke, no jugular venous distention. Lungs: Clear to auscultation. Heart: Regular rate and rhythm, S1-S2, no S3, no murmur or rub. Abdomen: Soft nontender, positive bowel sounds. Extremities: No edema, intact distal pulses. Neuro: Alert, oritented, no focal deficits. Detailed neuro exam was not performed. ASSESSMENT CAD s/p previous PCI. S/p CABG 11/17/2023. PACHECO to LAD, SVG to OM1 and OM 2. Atrial clip ligation Hypertension Type 2 diabetes Dyslipidemia Prior tobacco use Chronic anemia PLAN Continue aspirin, statin, Plavix, metoprolol. We will continue to follow Nurse practitioner note has been reviewed, I agree with documented findings and plan of care. Patient was seen and examined. Objective - Vital Signs Vital signs: Vital Signs Temp 97.8 F 11/23/23 08:44 Pulse 84 11/23/23 08:44 Resp 18 11/23/23 08:44 BP 145/68 11/23/23 08:44 Pulse Ox 97 11/23/23 08:44 FiO2 40 11/17/23 16:00 Intake & Output 11/22/23 11/23/23 11/23/23 18:59 06:59 18:59 Intake Total 480 240 Output Total 300 400 Balance 180 -400 240 Weight 64.6 kg Intake: Oral 480 240 Output: Urine 300 400 Other: Voiding Method Toilet Toilet # Bowel Movements 1 ABP, PAP, CO, CI - Last Documented Arterial Blood Pressure 131/56 Pulmonary Artery Pressure 37/15 Cardiac Output 3.4 Cardiac Index 2.2 - Labs CBC & Chem 7: 11/22/23 08:25 11/22/23 08:25 Labs: Abnormal Lab Results - Last 24 Hours (Table) 11/22/23 11/22/23 11/22/23 Range/Units 11:12 16:31 20:20 POC Glucose (mg/dL) 123 H 151 H 187 H (70-110) mg/dL 11/23/23 Range/Units 06:18 POC Glucose (mg/dL) 141 H (70-110) mg/dL
--- NOTE | 2023-11-23 10:52 | P.PN ---
Subjective Progress Note Date: 11/23/23 This is a 73-year-old female status post CABG, currently on the stepdown unit with significant clinical improvement. Telemetry sinus rhythm ,maintaining O2 sats in the mid to high 90s on room air. Chest x-ray repeated this morning reporting some mild atelectasis at the left lung base. Afebrile, WBC 8.4, hemoglobin 7.9, platelets 175, sodium 127, bicarb 19, renal function stable. Blood sugars elevated, currently 185. Reports ambulating in the dahl, tolerating exertion well. Surgical tenderness, otherwise denies chest pain, palpitations or increase in shortness of breath. 11/22/2023 telemetry sinus rhythm, vital signs stable .reports exertional shortness of breath. Maintaining O2 sats in the high 90s on room air. Chest x- ray reported small left-sided pleural effusion. Sodium 129, renal function stable. Afebrile. 11/23/2023 sitting up in chair, telemetry sinus rhythm. There is mild congested cough reports minimal clear sputum production, lungs remain clear to auscultation. Reports exertional shortness of breath when walking, requires her to pause to regain her breath. Maintaining O2 sats of 97% on room air. Incentive spirometer 600. Labs pending; hemoglobin 7.6 yesterday. Blood sugars controlled. Denies chest pain, palpitations or shortness of breath. Objective - Vital Signs Vital signs: Vital Signs Temp 97.8 F 11/23/23 08:44 Pulse 84 11/23/23 08:44 Resp 18 11/23/23 08:44 BP 145/68 11/23/23 08:44 Pulse Ox 97 11/23/23 08:44 FiO2 40 11/17/23 16:00 Intake & Output 11/22/23 11/23/23 11/23/23 18:59 06:59 18:59 Intake Total 480 240 Output Total 300 400 Balance 180 -400 240 Weight 64.6 kg Intake: Oral 480 240 Output: Urine 300 400 Other: Voiding Method Toilet Toilet # Bowel Movements 1 ABP, PAP, CO, CI - Last Documented Arterial Blood Pressure 131/56 Pulmonary Artery Pressure 37/15 Cardiac Output 3.4 Cardiac Index 2.2 - Exam PHYSICAL EXAM: VITAL SIGNS: [As above ] GENERAL: Alert and oriented x 3, sitting up in a chair, no acute distress HEENT: Normocephalic, conjunctivae normal. eyes normal. MMM. NECK: Supple, no JVD. CARDIOVASCULAR: S1, S2 regular. No murmur RESPIRATION: Unlabored, equal air entry, CTA, mild loose congested cough ABDOMEN: Soft, nontender . No guarding. +BS. LEGS: No edema. no swelling. No cyanosis, no clubbing. Positive DP pulses. NERVOUS SYSTEM: Cranial N 2-12 grossly normal. No focal deficits. Strength and sensation grossly intact. Skin: Warm and dry, no rash - Labs CBC & Chem 7: 11/22/23 08:25 11/22/23 08:25 Labs: Abnormal Lab Results - Last 24 Hours (Table) 11/22/23 11/22/23 11/22/23 Range/Units 08:25 08:25 11:12 RBC 2.51 L (3.80-5.40) m/uL Hgb 7.6 L (11.4-16.0) gm/dL Hct 24.0 L (34.0-46.0) % Sodium 129 L (137-145) mmol/L Carbon Dioxide 21 L (22-30) mmol/L Glucose 115 H (74-99) mg/dL POC Glucose (mg/dL) 123 H (70-110) mg/dL 11/22/23 11/22/23 11/23/23 Range/Units 16:31 20:20 06:18 RBC (3.80-5.40) m/uL Hgb (11.4-16.0) gm/dL Hct (34.0-46.0) % Sodium (137-145) mmol/L Carbon Dioxide (22-30) mmol/L Glucose (74-99) mg/dL POC Glucose (mg/dL) 151 H 187 H 141 H (70-110) mg/dL Assessment and Plan Assessment: Coronary artery disease status post CABG triple vessel bypass on 11/17/2023. PACHECO to LAD SVG to OM1 and OM 2 and atrial clip ligation. Coronary artery disease history of prior stent placement Diabetes type 2 [id number] A1c 6.2 Acute blood loss anemia , postoperative ,expected outcome of surgery, Baseline 11.3 on 11/08/2023. Hypertension Hyperlipidemia GERD History of skin cancer Prior history of smoking Plan: Continue on current medication regimen ,monitoring and symptomatic treatment. Maintain aggressive pulmonary toileting with incentive spirometer reinforced. Discussed with RN, obtaining O2 sat on room air immediately post ambulation. Labs pending .Maximizing medical therapy with beta-leo, statin ,aspirin, Plavix.Tight blood sugar control with close monitoring of Accu-Cheks. Pain management, DVT prophylaxis as per CTS .Discharge planning in progress, PT/OT. The impression and plan of care has been dictated as directed. : I performed a history and examination of this patient, discussed the same with the dictator. I agree with the dictator's note ,documented as a scribe. Any additional findings or plans will be noted.
--- NOTE | 2023-11-23 11:30 | P.PN ---
Subjective Progress Note Date: 11/23/23 Principal diagnosis: POD #6 off-pump CABG x 3 with PACHECO to LAD, saphenous vein graft to first obtuse marginal, saphenous vein graft to second obtuse marginal, 73-year-old female patient, underwent an off-pump three-vessel bypass surgery with PACHECO to LAD, SVG to first obtuse marginal and second obtuse marginal. Postop, the patient was brought into the intensive care unit. I saw the patient immediately after arrival to the intensive care unit. The patient was on propofol. The patient was on assist-control mode of mechanical ventilation at a rate of 14, tidal volume of 350, FiO2 of 100% and a PEEP of 5. Initial chest x- ray showed adequate expansion of both lungs. No evidence of any pneumothorax. The patient has mediastinal and left pleural chest tube. Postsurgical changes were noted on the chest x-ray and the tube was retracted by around 1 cm. There was no evidence of any pneumothorax. Ivanhoe-Bette catheter in place. The cardiac output was 3.7 with an index of 2.4. The patient was on amiodarone drip. Cardiac rhythm was sinus. The patient was on nitroglycerin drip running at 10 mcg/min and the patient was also on insulin drip at 3 units an hour. The FiO2 was gradually weaned off and subsequently, the patient was taken off sedation given a spontaneous breathing trial with a pressure support of 5 and a PEEP of 5 and subsequent blood gases were adequate and the patient was extubated accordingly. At this point in time, the patient is awake and alert, maintained on oxygen 2 L/min nasal cannula. No significant respiratory difficulties. Urine output is adequate. Hemodynamically stable. WBC count 11.3 hemoglobin 8.5 and a platelet count of 122 and the patient is afebrile. 11/18/2023, the patient is postop day #1 following her carotid bypass surgery. The patient was weaned off the mechanical ventilator and the patient was extubated without any major difficulties. The patient is currently on 2 L of oxygen by nasal cannula. Earlier this morning, the patient is encountering some nausea. Cardiac rhythm remained sinus and the patient was taken off the amiodarone drip and the patient has been switched to oral amiodarone. The patient is also on insulin drip for blood sugar control running at 5 units an hour. Hemodynamically, the patient is a cardiac output of 5.3 with an index of 2.8. PA pressure 28/9. The left pleural chest tube was drained to 90 cc and the mediastinal chest tube is drained 370 cc over the past 12 to 24 hours. The patient has a urine output of 20 to 30 cc an hour. The patient is also on dopamine at 3 mcg/kg/min. Blood work from today showing a WBC count of 10 hemoglobin 7.8 and a platelet count of 130. BUN is 8 creatinine is 0.5 and a sodium levels at 127. No issues with pain. Chest x-ray shows essentially postsurgical changes. No evidence of any pneumothorax. On 11/20/2023, the patient is being seen for a follow-up. The patient remains on room air oxygen. She is recovering nicely from her cardiac surgery. The patient continues to have a mediastinal and left lower chest tube. Output from mediastinal chest tube was 120 cc over the past 8 hours, 356 over the past 24 hours and output from the left lower chest tube was 70 cc over the past 8 hours and 130s over the past 24 hours. Urine output is order of 30 cc an hour and the patient remains on dopamine at 3 mcg/kg/min. No cardiac arrhythmias. Ivanhoe-Bette catheter has been removed. Chest x-ray shows postsurgical changes. Hemoglobin 7.3 with a white cell count of 9.7, and a platelet count is at 112. Sodium levels at 129, potassium is at 3.9, BUN is at 8 with a creatinine of 0.5. Chest x-ray shows postsurgical stable findings and there is no evidence of any pneumothorax. Ivanhoe-Bette catheter has been removed. Cardiac rhythm remained sinus. There is improved aeration in the left lung base although there is some residual atelectatic changes bilaterally. The patient is currently on aspirin. Patient is on Plavix. The patient on dopamine. Metoprolol was started at low- dose of 12.5 mg p.o. twice a day. 11/20/2023, the patient is being seen for a follow-up. The patient is awake and alert and communicating. Chest tubes are minimal. Ivanhoe-Bette catheter has been removed. Respiratory status is stable and today's chest x-ray showing postsurgical changes and postthoracotomy and there is no evidence of any pneumothorax. Cardiac rhythm is sinus. The hemoglobin is 8.5 with a white cell count of 15.6, sodium level of 129, BUN 11 with a creatinine of 0.55. The patient is currently on aspirin, Plavix, metoprolol 12.5 mg p.o. twice a day, the patient was switched to Levemir insulin 10 units daily plus a sliding scale coverage. Remains on statins. Remains on amiodarone 200 mg p.o. twice a day. Patient was evaluated today on 11/21/2023, patient is doing well, basically asymptomatic, patient is on room air, does not seem to be symptomatic. Chest x- ray showed minimal left basilar atelectasis WBC count is 8.4 hemoglobin 7.9 sodium is a bit low at 127 renal profile is normal bicarb is 19. Blood sugar is 148 Patient was evaluated today on 11/22/2023, patient is on the cardiac floor, doing well, being evaluated for possible rehab placement at [facility] rehab. Patient is comfortable, on room air, but she does look frail. Patient is not in any distress. Chest x-ray showed small tiny left-sided pleural effusion, not large enough to consider thoracentesis. Patient is hemodynamically stable, not in any distress. However she looks generally weak Reevaluated today on 11/23/2023, patient is sitting at the bedside chair, on room air, not in any distress, patient is being evaluated for possible transfer to rehab. Discharge planning is in progress, patient is relatively asymptomatic except for generalized weakness, chest x-ray today showed minimal left basilar atelectasis and possibly a small tiny left pleural effusion. Otherwise unremarkable. Objective - Vital Signs Vital signs: Vital Signs Temp 97.8 F 11/23/23 08:44 Pulse 80 11/23/23 11:14 Resp 18 11/23/23 08:45 BP 145/68 11/23/23 08:44 Pulse Ox 97 11/23/23 08:44 FiO2 40 11/17/23 16:00 Intake & Output 11/22/23 11/23/23 11/23/23 18:59 06:59 18:59 Intake Total 480 240 Output Total 300 400 Balance 180 -400 240 Weight 64.6 kg Intake: Oral 480 240 Output: Urine 300 400 Other: Voiding Method Toilet Toilet Toilet # Bowel Movements 1 ABP, PAP, CO, CI - Last Documented Arterial Blood Pressure 131/56 Pulmonary Artery Pressure 37/15 Cardiac Output 3.4 Cardiac Index 2.2 - Exam GENERAL EXAM: 73-year-old white female in no distress, on room air HEAD: Normocephalic. EYES: Normal reaction of pupils, equal size. NOSE: Clear with pink turbinates. THROAT: No erythema or exudates. NECK: No masses, no JVD. CHEST: No chest wall deformity. LUNGS: Symmetrical chest expansion, diminished breath sounds at the left base no crackles rhonchi or wheezes CVS: Distant S1-S2, no S3 gallop, no murmur ABDOMEN: No hepatosplenomegaly, normal bowel sounds, no guarding or rigidity. SKIN: No rashes CENTRAL NERVOUS SYSTEM alert oriented x 3 no gross focal deficit EXTREMITIES: No clubbing edema or cyanosis - Labs CBC & Chem 7: 11/22/23 08:25 11/22/23 08:25 Labs: Abnormal Lab Results - Last 24 Hours (Table) 11/22/23 11/22/23 11/23/23 Range/Units 16:31 20:20 06:18 POC Glucose (mg/dL) 151 H 187 H 141 H (70-110) mg/dL Assessment and Plan Assessment: Impression: Status post three-vessel bypass surgery, off-pump, currently postop day #6 History of coronary disease with previous stent placement of the circumflex 2014 Former smoker of approximately 15 years at 1 pack/day. FEV1 value 1.48 L or 78% of predicted Hypertension Hyperlipidemia Diabetes mellitus type II Family history of coronary artery disease History of chronic anemia Bilateral carotid artery stenosis in the order of 50 to 69%, asymptomatic Blood loss anemia which is an expected outcome of surgery Recommendation: Continue maximal medical therapy including beta-blockers Plavix statin and aspirin Continue oral amiodarone Continue GI and DVT prophylaxis Placement is in progress, patient may be sent to rehab once a bed is available and approved by her insurance. Continue incentive spirometry Will continue to follow Time with Patient: Less than 30
[2023-11-23 11:49] LABS: Glucose,Whole Blood 139 mg/dL (70-110)
[2023-11-23 11:50] LABS: HCT 23.7 % (34.0-46.0); HGB 7.5 gm/dL (11.4-16.0); MCHC 31.5 g/dL (31.0-37.0); MCV 95.2 fL (80.0-100.0); Mean Platelet Volume 8.7; Platelet Count 254 k/uL (150-450); RDW 14.8 % (11.5-15.5); WBC 6.6 k/uL (3.8-10.6)
[2023-11-23 12:08] LABS: African American GFR (CKD) >90 (>60 ml/min/1.73 sqM); Anion Gap 5 mmol/L; Blood Urea Nitrogen 13 mg/dL (7-17); Calcium 8.7 mg/dL (8.4-10.2); Carbon Dioxide 23 mmol/L (22-30); Chloride 101 mmol/L (98-107); Glucose 122 mg/dL (74-99); Non-African American GFR(CKD) 86 (>60 ml/min/1.73 sqM); Potassium 4.5 mmol/L (3.5-5.1); Sodium 129 mmol/L (137-145)
[2023-11-23 16:50] LABS: Glucose,Whole Blood 153 mg/dL (70-110)
[2023-11-23 20:13] LABS: Glucose,Whole Blood 263 mg/dL (70-110)
[2023-11-23 22:57] VITALS: TEMP 98.3
[2023-11-24 06:18] LABS: Glucose,Whole Blood 115 mg/dL (70-110)
--- NOTE | 2023-11-24 08:26 | XR ---
EXAMINATION TYPE: XR chest 2V DATE OF EXAM: 11/24/2023 COMPARISON: 11/23/2023 HISTORY: Cardiac surgery. TECHNIQUE: Frontal and lateral views of the chest are obtained. FINDINGS: Scattered senescent parenchymal changes noted. Mild residual basilar pleural-parenchymal density whic h may reflect atelectasis. Diminished lung volumes. No evidence for pneumothorax. Heart size is stable. Mediastinal structures are stable and grossly unremarkable. No evidence for hilar prominence. Degenerative changes dorsal spine. IMPRESSION: 1. Mild residual basilar pleural-parenchymal density which may reflect atelectasis. Diminished lung v olumes.
--- NOTE | 2023-11-24 08:59 | P.PN ---
Subjective Progress Note Date: 11/24/23 Principal diagnosis: Coronary artery disease, unstable angina pectoralis. History of coronary artery disease/left main disease with previous PCI on chronic Plavix, bilateral r d internship al carotid stenosis 50 to 69%, hypertension, hyperlipidemia, type 2 diabetes, chronic anemia, previous tobacco dependence and family history of coronary artery disease POD #7 off-pump CABG x 3 with PACHECO to LAD, saphenous vein graft to first obtuse marginal, saphenous vein graft to second obtuse marginal, endovascular vein harvest from the left thigh, ligation of the left atrial appendage with 35mm AtriCure clip Postoperative acute blood loss anemia, expected given hemodilution and preoperative chronic anemia The patient was seen and examined sitting up in recliner on the cardiac stepdown unit in no acute distress. Remains in sinus rhythm, hemodynamically stable. Does endorse expected postoperative pain which is mostly controlled on current medication regimen, complains of occasional shortness of breath with activity which is to be expected. Patient has been ambulating in the hallway with staff. Chest x-ray, labs reviewed. Initially patient preferred to go to rehab as she is scared to go home, however she is ambulating independently, recommendations were made from PT and OT for home with home care, and inpatient rehab felt she is doing too good to go home. Likely she is doing too good to go to subacute rehab as well. Discussed discharge plans with patient and she is agreeable to home with home care, anticipate discharge to home today with first home care visit tomorrow, she will follow-up in the surgery office on Tuesday. This was discussed with the patient and she is agreeable. No other new concerns. Objective - Vital Signs Vital signs: Vital Signs Temp 98.3 F 11/23/23 20:10 Pulse 84 11/24/23 08:02 Resp 18 11/24/23 03:50 BP 144/82 11/24/23 03:50 Pulse Ox 97 11/24/23 03:50 FiO2 40 11/17/23 16:00 Intake & Output 11/23/23 11/24/23 11/24/23 18:59 06:59 18:59 Intake Total 240 240 Output Total 600 Balance 240 -600 240 Weight 64.7 kg Intake: Oral 240 240 Output: Urine 600 Other: Voiding Method Urinal Urinal # Voids 1 ABP, PAP, CO, CI - Last Documented Arterial Blood Pressure 131/56 Pulmonary Artery Pressure 37/15 Cardiac Output 3.4 Cardiac Index 2.2 - Exam CONSTITUTIONAL: Appears comfortable, cooperative, no acute distress RESPIRATORY: Lungs sounds diminished bilaterally. Respirations even, nonlabored. Currently on room air with oxygen saturation 97%. Able to achieve 1000 mL on incentive spirometry. Strong cough. CARDIOVASCULAR: S1, S2 present. Regular rate and rhythm, sinus rhythm on telemetry. Sternum stable. Palpable peripheral pulses bilaterally. No edema present. No calf pain or tenderness noted. Heart hugger in place with patient demonstrating appropriate use. Antiembolism stockings, SCDs present. GASTROINTESTINAL: Abdomen soft, nontender, nondistended. Active bowel sounds present 4 quadrants. Tolerating diet. Positive bowel movement 11/21 GENITOURINARY: Continues to void INTEGUMENTARY: Skin is warm and dry with evidence of good perfusion. Anterior chest incision well approximated. Left lower extremity EVH site well approximated without redness or drainage NEUROLOGIC: Cranial nerves II through XII intact MUSKULOSKELETAL: Able to move all extremities, strength equal bilaterally PSYCHIATRIC: Alert and oriented to person place and time, appropriate affect, intact judgment and insight - Allied health notes Allied health notes reviewed: nursing - Labs CBC & Chem 7: 11/23/23 11:36 11/23/23 11:36 Labs: Abnormal Lab Results - Last 24 Hours (Table) 11/23/23 11/23/23 11/23/23 Range/Units 11:36 11:36 11:48 RBC 2.50 L (3.80-5.40) m/uL Hgb 7.5 L (11.4-16.0) gm/dL Hct 23.7 L (34.0-46.0) % Sodium 129 L (137-145) mmol/L Glucose 122 H (74-99) mg/dL POC Glucose (mg/dL) 139 H (70-110) mg/dL 11/23/23 11/23/23 11/24/23 Range/Units 16:47 20:11 06:14 RBC (3.80-5.40) m/uL Hgb (11.4-16.0) gm/dL Hct (34.0-46.0) % Sodium (137-145) mmol/L Glucose (74-99) mg/dL POC Glucose (mg/dL) 153 H 263 H 115 H (70-110) mg/dL - Imaging and Cardiology Chest x-ray: report reviewed, image reviewed Assessment and Plan Assessment: Coronary artery disease with unstable angina pectoralis, previous PCI, status post three-vessel off-pump CABG Bilateral internal carotid stenosis 50 to 69% History of hypertension, borderline hypotensive Hyperlipidemia, treated Type 2 diabetes, hemoglobin A1c 6.2% Previous tobacco dependence, FEV1 78% of predicted Chronic anemia Family history of coronary artery disease Postoperative acute blood loss anemia, expected given hemodilution and preoperative chronic anemia Plan: Continue to maximize medical therapy with aspirin, statin, Plavix, beta-leo. Continue lisinopril for afterload reduction Continue amiodarone for A-fib prophylaxis, patient has not had any A-fib at this point Encourage incentive spirometry use 10 times every hour while awake. Broncho dilators per pulmonology Increase activity, ambulate as tolerated. PT/OT/cardiac rehab consulted Will monitor daily labs and x-rays. Electrolyte replacement per protocol GI/DVT prophylaxis Insulin management per internal medicine Pain control with current medication regimen Continue to monitor and record strict accurate intake and output Daily weights Discharge planning in progress, anticipate discharge to home with home care today More recommendations to follow
[2023-11-24 09:00] LABS: HCT 24.8 % (34.0-46.0); HGB 7.6 gm/dL (11.4-16.0); Hypochromasia Slight; MCH 29.6 pg (25.0-35.0); MCHC 30.5 g/dL (31.0-37.0); MCV 96.8 fL (80.0-100.0); Mean Platelet Volume 7.5; Platelet Count 280 k/uL (150-450); RBC 2.56 m/uL (3.80-5.40); RDW 15.2 % (11.5-15.5); WBC 7.3 k/uL (3.8-10.6)
[2023-11-24 09:17] LABS: African American GFR (CKD) 87 (>60 ml/min/1.73 sqM); Anion Gap 6 mmol/L; Blood Urea Nitrogen 15 mg/dL (7-17); Carbon Dioxide 22 mmol/L (22-30); Chloride 101 mmol/L (98-107); Glucose 145 mg/dL (74-99); Magnesium 1.4 mg/dL (1.6-2.3); Non-African American GFR(CKD) 75 (>60 ml/min/1.73 sqM); Potassium 4.7 mmol/L (3.5-5.1); Sodium 129 mmol/L (137-145)
--- NOTE | 2023-11-24 11:18 | P.PN ---
Subjective Progress Note Date: 11/24/23 This is a 73-year-old female status post CABG, currently on the stepdown unit with significant clinical improvement. Telemetry sinus rhythm ,maintaining O2 sats in the mid to high 90s on room air. Chest x-ray repeated this morning reporting some mild atelectasis at the left lung base. Afebrile, WBC 8.4, hemoglobin 7.9, platelets 175, sodium 127, bicarb 19, renal function stable. Blood sugars elevated, currently 185. Reports ambulating in the dahl, tolerating exertion well. Surgical tenderness, otherwise denies chest pain, palpitations or increase in shortness of breath. 11/22/2023 telemetry sinus rhythm, vital signs stable .reports exertional shortness of breath. Maintaining O2 sats in the high 90s on room air. Chest x- ray reported small left-sided pleural effusion. Sodium 129, renal function stable. Afebrile. 11/23/2023 sitting up in chair, telemetry sinus rhythm. There is mild congested cough reports minimal clear sputum production, lungs remain clear to auscultation. Reports exertional shortness of breath when walking, requires her to pause to regain her breath. Maintaining O2 sats of 97% on room air. Incentive spirometer 600. Labs pending; hemoglobin 7.6 yesterday. Blood sugars controlled. Denies chest pain, palpitations or shortness of breath. 11/24/2023 sitting up in shower, tolerating exertion well. Denies chest pain, palpitations or shortness of breath. Maintaining O2 sats in the high 90s on room air. Hemoglobin 7.6, platelets 280. Sodium 129, renal function stable. Blood sugars controlled. Magnesium 1.4, supplements ordered. Consumed 50% of breakfast this morning. Positive bowel movement. Objective - Vital Signs Vital signs: Vital Signs Temp 98.3 F 11/23/23 20:10 Pulse 94 11/24/23 09:58 Resp 16 11/24/23 09:58 BP 153/80 11/24/23 09:58 Pulse Ox 97 11/24/23 09:58 FiO2 40 11/17/23 16:00 Intake & Output 11/23/23 11/24/23 11/24/23 18:59 06:59 18:59 Intake Total 240 240 Output Total 600 Balance 240 -600 240 Weight 64.7 kg Intake: Oral 240 240 Output: Urine 600 Other: Voiding Method Urinal Urinal # Voids 1 1 # Bowel Movements 1 ABP, PAP, CO, CI - Last Documented Arterial Blood Pressure 131/56 Pulmonary Artery Pressure 37/15 Cardiac Output 3.4 Cardiac Index 2.2 - Exam PHYSICAL EXAM: VITAL SIGNS: [As above ] GENERAL: Alert and oriented x 3, no acute distress HEENT: Normocephalic, conjunctivae normal. eyes normal. MMM. NECK: Supple, no JVD. CARDIOVASCULAR: S1, S2 regular. No murmur RESPIRATION: Unlabored, equal air entry, CTA. ABDOMEN: Soft, nontender . No guarding. +BS. LEGS: No edema. no swelling. NERVOUS SYSTEM: Cranial N 2-12 grossly normal. No focal deficits. Strength and sensation grossly intact. Skin: Warm and dry, no rash - Labs CBC & Chem 7: 11/24/23 07:58 11/24/23 07:58 Labs: Abnormal Lab Results - Last 24 Hours (Table) 11/23/23 11/23/23 11/23/23 Range/Units 11:36 11:36 11:48 RBC 2.50 L (3.80-5.40) m/uL Hgb 7.5 L (11.4-16.0) gm/dL Hct 23.7 L (34.0-46.0) % MCHC (31.0-37.0) g/dL Sodium 129 L (137-145) mmol/L Glucose 122 H (74-99) mg/dL POC Glucose (mg/dL) 139 H (70-110) mg/dL Magnesium (1.6-2.3) mg/dL 11/23/23 11/23/23 11/24/23 Range/Units 16:47 20:11 06:14 RBC (3.80-5.40) m/uL Hgb (11.4-16.0) gm/dL Hct (34.0-46.0) % MCHC (31.0-37.0) g/dL Sodium (137-145) mmol/L Glucose (74-99) mg/dL POC Glucose (mg/dL) 153 H 263 H 115 H (70-110) mg/dL Magnesium (1.6-2.3) mg/dL 11/24/23 11/24/23 Range/Units 07:58 07:58 RBC 2.56 L (3.80-5.40) m/uL Hgb 7.6 L (11.4-16.0) gm/dL Hct 24.8 L (34.0-46.0) % MCHC 30.5 L (31.0-37.0) g/dL Sodium 129 L (137-145) mmol/L Glucose 145 H (74-99) mg/dL POC Glucose (mg/dL) (70-110) mg/dL Magnesium 1.4 L (1.6-2.3) mg/dL Assessment and Plan Assessment: Coronary artery disease status post CABG triple vessel bypass on 11/17/2023. PACHECO to LAD SVG to OM1 and OM 2 and atrial clip ligation. Coronary artery disease history of prior stent placement Diabetes type 2 ,A1c 6.2 Acute blood loss anemia , postoperative ,expected outcome of surgery, Baseline 11.3 on 11/08/2023. Hemoglobin 7.6 currently. Close monitoring outpatient. Hypertension Hyperlipidemia GERD History of skin cancer Prior history of smoking Plan: Continue on current medication regimen ,monitoring and symptomatic treatment. Maximizing medical therapy with beta-leo, statin ,aspirin, Plavix. Discharge planning in progress for home with home care. Hemoglobin A1c 6.2, resume patient's home medication metformin and Januvia at discharge, with close monitoring of Accu-Cheks. patient reports her granddaughter will be staying with her to assist. Continue aggressive pulmonary toileting with incentive spirometer reinforced. The impression and plan of care has been dictated as directed. : I performed a history and examination of this patient, discussed the same with the dictator. I agree with the dictator's note ,documented as a scribe. Any additional findings or plans will be noted.
[2023-11-24 12:57] VITALS: BP 122/74; PULSE 78; RESP 15
[2023-11-24] MEDS: MAGNESIUM OXIDE 400 MG TAB PO STA (12:57)
--- NOTE | 2023-11-24 13:38 | P.PN ---
Subjective Progress Note Date: 11/24/23 Principal diagnosis: POD # 7 off-pump CABG x 3 with PACHECO to LAD, saphenous vein graft to first obtuse marginal, saphenous vein graft to second obtuse marginal, 73-year-old female patient, underwent an off-pump three-vessel bypass surgery with PACHECO to LAD, SVG to first obtuse marginal and second obtuse marginal. Postop, the patient was brought into the intensive care unit. I saw the patient immediately after arrival to the intensive care unit. The patient was on propofol. The patient was on assist-control mode of mechanical ventilation at a rate of 14, tidal volume of 350, FiO2 of 100% and a PEEP of 5. Initial chest x- ray showed adequate expansion of both lungs. No evidence of any pneumothorax. The patient has mediastinal and left pleural chest tube. Postsurgical changes were noted on the chest x-ray and the tube was retracted by around 1 cm. There was no evidence of any pneumothorax. Willard-Bette catheter in place. The cardiac output was 3.7 with an index of 2.4. The patient was on amiodarone drip. Cardiac rhythm was sinus. The patient was on nitroglycerin drip running at 10 mcg/min and the patient was also on insulin drip at 3 units an hour. The FiO2 was gradually weaned off and subsequently, the patient was taken off sedation given a spontaneous breathing trial with a pressure support of 5 and a PEEP of 5 and subsequent blood gases were adequate and the patient was extubated accordingly. At this point in time, the patient is awake and alert, maintained on oxygen 2 L/min nasal cannula. No significant respiratory difficulties. Urine output is adequate. Hemodynamically stable. WBC count 11.3 hemoglobin 8.5 and a platelet count of 122 and the patient is afebrile. 11/18/2023, the patient is postop day #1 following her carotid bypass surgery. The patient was weaned off the mechanical ventilator and the patient was extubated without any major difficulties. The patient is currently on 2 L of oxygen by nasal cannula. Earlier this morning, the patient is encountering some nausea. Cardiac rhythm remained sinus and the patient was taken off the amiodarone drip and the patient has been switched to oral amiodarone. The patient is also on insulin drip for blood sugar control running at 5 units an hour. Hemodynamically, the patient is a cardiac output of 5.3 with an index of 2.8. PA pressure 28/9. The left pleural chest tube was drained to 90 cc and the mediastinal chest tube is drained 370 cc over the past 12 to 24 hours. The patient has a urine output of 20 to 30 cc an hour. The patient is also on dopamine at 3 mcg/kg/min. Blood work from today showing a WBC count of 10 hemoglobin 7.8 and a platelet count of 130. BUN is 8 creatinine is 0.5 and a sodium levels at 127. No issues with pain. Chest x-ray shows essentially postsurgical changes. No evidence of any pneumothorax. On 11/20/2023, the patient is being seen for a follow-up. The patient remains on room air oxygen. She is recovering nicely from her cardiac surgery. The patient continues to have a mediastinal and left lower chest tube. Output from mediastinal chest tube was 120 cc over the past 8 hours, 356 over the past 24 hours and output from the left lower chest tube was 70 cc over the past 8 hours and 130s over the past 24 hours. Urine output is order of 30 cc an hour and the patient remains on dopamine at 3 mcg/kg/min. No cardiac arrhythmias. Willard-Bette catheter has been removed. Chest x-ray shows postsurgical changes. Hemoglobin 7.3 with a white cell count of 9.7, and a platelet count is at 112. Sodium levels at 129, potassium is at 3.9, BUN is at 8 with a creatinine of 0.5. Chest x-ray shows postsurgical stable findings and there is no evidence of any pneumothorax. Willard-Bette catheter has been removed. Cardiac rhythm remained sinus. There is improved aeration in the left lung base although there is some residual atelectatic changes bilaterally. The patient is currently on aspirin. Patient is on Plavix. The patient on dopamine. Metoprolol was started at low- dose of 12.5 mg p.o. twice a day. 11/20/2023, the patient is being seen for a follow-up. The patient is awake and alert and communicating. Chest tubes are minimal. Willard-Bette catheter has been removed. Respiratory status is stable and today's chest x-ray showing postsurgical changes and postthoracotomy and there is no evidence of any pneumothorax. Cardiac rhythm is sinus. The hemoglobin is 8.5 with a white cell count of 15.6, sodium level of 129, BUN 11 with a creatinine of 0.55. The patient is currently on aspirin, Plavix, metoprolol 12.5 mg p.o. twice a day, the patient was switched to Levemir insulin 10 units daily plus a sliding scale coverage. Remains on statins. Remains on amiodarone 200 mg p.o. twice a day. Patient was evaluated today on 11/21/2023, patient is doing well, basically asymptomatic, patient is on room air, does not seem to be symptomatic. Chest x- ray showed minimal left basilar atelectasis WBC count is 8.4 hemoglobin 7.9 sodium is a bit low at 127 renal profile is normal bicarb is 19. Blood sugar is 148 Patient was evaluated today on 11/22/2023, patient is on the cardiac floor, doing well, being evaluated for possible rehab placement at [facility] rehab. Patient is comfortable, on room air, but she does look frail. Patient is not in any distress. Chest x-ray showed small tiny left-sided pleural effusion, not large enough to consider thoracentesis. Patient is hemodynamically stable, not in any distress. However she looks generally weak Reevaluated today on 11/23/2023, patient is sitting at the bedside chair, on room air, not in any distress, patient is being evaluated for possible transfer to rehab. Discharge planning is in progress, patient is relatively asymptomatic except for generalized weakness, chest x-ray today showed minimal left basilar atelectasis and possibly a small tiny left pleural effusion. Otherwise unremarkable. Reevaluate today on 11/24/2023, patient is the same, no changes over the last few days, patient is awaiting placement, however she was told today that she may end up being discharged home and could not get into rehab. Currently she did not qualify for inpatient rehab. Patient is asymptomatic, no cough no wheezing no shortness of breath, she is on room air, seems to be quite comfortable. BC is relatively normal WBC count is 7.3 hemoglobin 7.6 sodium is a bit low at 129 otherwise the rest of the labs are unremarkable. Objective - Vital Signs Vital signs: Vital Signs Temp 98.3 F 11/23/23 20:10 Pulse 78 11/24/23 12:55 Resp 15 11/24/23 12:55 BP 122/74 11/24/23 12:55 Pulse Ox 100 11/24/23 12:55 FiO2 40 11/17/23 16:00 Intake & Output 11/23/23 11/24/23 11/24/23 18:59 06:59 18:59 Intake Total 240 240 Output Total 600 Balance 240 -600 240 Weight 64.7 kg Intake: Oral 240 240 Output: Urine 600 Other: Voiding Method Urinal Urinal Urinal # Voids 1 1 # Bowel Movements 1 ABP, PAP, CO, CI - Last Documented Arterial Blood Pressure 131/56 Pulmonary Artery Pressure 37/15 Cardiac Output 3.4 Cardiac Index 2.2 - Exam GENERAL EXAM: 73-year-old white female in no distress, on room air HEAD: Normocephalic. EYES: Normal reaction of pupils, equal size. NOSE: Clear with pink turbinates. THROAT: No erythema or exudates. NECK: No masses, no JVD. CHEST: No chest wall deformity. LUNGS: Symmetrical chest expansion, diminished breath sounds at the left base no crackles rhonchi or wheezes CVS: Distant S1-S2, no S3 gallop, no murmur ABDOMEN: No hepatosplenomegaly, normal bowel sounds, no guarding or rigidity. SKIN: No rashes CENTRAL NERVOUS SYSTEM alert oriented x 3 no gross focal deficit EXTREMITIES: No clubbing edema or cyanosis - Labs CBC & Chem 7: 11/24/23 07:58 11/24/23 07:58 Labs: Abnormal Lab Results - Last 24 Hours (Table) 11/23/23 11/23/23 11/24/23 Range/Units 16:47 20:11 06:14 RBC (3.80-5.40) m/uL Hgb (11.4-16.0) gm/dL Hct (34.0-46.0) % MCHC (31.0-37.0) g/dL Sodium (137-145) mmol/L Glucose (74-99) mg/dL POC Glucose (mg/dL) 153 H 263 H 115 H (70-110) mg/dL Magnesium (1.6-2.3) mg/dL 11/24/23 11/24/23 Range/Units 07:58 07:58 RBC 2.56 L (3.80-5.40) m/uL Hgb 7.6 L (11.4-16.0) gm/dL Hct 24.8 L (34.0-46.0) % MCHC 30.5 L (31.0-37.0) g/dL Sodium 129 L (137-145) mmol/L Glucose 145 H (74-99) mg/dL POC Glucose (mg/dL) (70-110) mg/dL Magnesium 1.4 L (1.6-2.3) mg/dL Assessment and Plan Assessment: Impression: Status post three-vessel bypass surgery, off-pump, currently postop day #7 History of coronary disease with previous stent placement of the circumflex 2014 Former smoker of approximately 15 years at 1 pack/day. FEV1 value 1.48 L or 78% of predicted Hypertension Hyperlipidemia Diabetes mellitus type II Family history of coronary artery disease History of chronic anemia Bilateral carotid artery stenosis in the order of 50 to 69%, asymptomatic Blood loss anemia which is an expected outcome of surgery Recommendation: Continue maximal medical therapy including beta-blockers Plavix statin and aspirin Continue oral amiodarone Continue GI and DVT prophylaxis cleared from my perspective for discharge planning if cleared by other consultants Continue incentive spirometry Will continue to follow Time with Patient: Less than 30
--- NOTE | 2023-11-24 14:08 | P.DS ---
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 Do you want consulting provider notified?: Yes Consult Physician Routine Consulting Provider: Esdras Wills Consult Reason/Comments: Glue Maker Bone Consult: post cardiac surgery Do you want consulting provider notified?: Yes Consult Physician Routine Consulting Provider: Drew Zamora Consult Reason/Comments: med cisco; catie patient Do you want consulting provider notified?: Yes 11/21/23 08:18 Consult Physician Routine Consulting Provider: Pardeep Santoyo Consult Reason/Comments: Evaluation for inpatient rehab Do you want consulting provider notified?: Yes Primary care physician: Dariela Sofia [facility] Course: FINAL DIAGNOSIS: Coronary artery disease with unstable angina pectoralis, previous PCI, status post three-vessel off-pump CABG Bilateral internal carotid stenosis 50 to 69% History of hypertension, borderline hypotensive Hyperlipidemia, treated Type 2 diabetes, hemoglobin A1c 6.2% Previous tobacco dependence, FEV1 78% of predicted Chronic anemia Family history of coronary artery disease Postoperative acute blood loss anemia, expected given hemodilution and preoperative chronic anemia PRINCIPAL PROCEDURE: Off-pump CABG x 3 with PACHECO to LAD, saphenous vein graft to first obtuse marginal, saphenous vein graft to second obtuse marginal Endovascular vein harvest from the left thigh Ligation of the left atrial appendage with 35mm AtriCure clip HISTORY OF PRESENT ILLNESS: This is a 73-year-old female who follows outpatient with nurse practitioner Jaelyn Maciel for primary care and Dr. Flores for cardiology. [facility] with complaints of midsternal intermittent chest pain with radiation to her back. Denied shortness of breath, nausea, lightheadedness, or any other associated aggravating or alleviating symptoms. Chest x-ray demonstrated no acute cardiopulmonary process. EKG demonstrated sinus rhythm, rate 65 bpm. Lab work on admission was unremarkable except magnesium 1.4 and sodium 132. Troponins were negative x 3. She was admitted for evaluation and treatment with consultation placed to cardiology. Stress test was completed which demonstrated a small area of reversible ischemia on the apical septal wall. In addition she had an echocardiogram which revealed normal left ventricular systolic function with EF 55 to 60%, mild mitral regurgitation and mild tricuspid regurgitation. She was recommended to undergo heart catheterization which was completed by Dr. Flores and which revealed ostial and proximal left main stenosis 70%, mid LAD stenosis 60% after the diagonal branch, posterolateral branch of the circumflex with 66% stenosis, OM branch stent from 9 years ago was widely patent, and mid and distal RCA lesions of 50%. Due to the significant finding of left main disease consultation was placed to Dr. Schmitt from cardiothoracic surgery for surgical revascularization recommendations. She was recommended to undergo coronary artery bypass surgery. The usual perioperative course was discussed in detail with the patient and her family, all risks and benefits were explained, all questions were answered, and consent was obtained to proceed with surgery. The patient was scheduled for inpatient surgery, however her was hospitalized at the same time and . The patient was allowed to be discharged home on maximized medical therapy to make arrangements and she subsequently followed up in the office with Dr. Schmitt once that was completed. Upon follow-up she was scheduled for elective open heart surgery. HOSPITAL COURSE: The patient was brought to the hospital on 11/17/23, taken to the preoperative area, prepared in the usual fashion, and subsequently taken to the operating room where Dr. Schmitt performed three-vessel off-pump CABG. Upon completion of surgery the patient was transferred to the cardiovascular intensive care unit where she was recovered and monitored hemodynamically. She was extubated, all lines, tubes, and drips were discontinued when appropriate, and she was transferred to 3 S. cardiac stepdown unit for further monitoring and rehabilitation. Her oxygen was titrated down, she continued to work with physical and occupational therapy, she was tolerating oral diet, her pain was controlled, and she was ready to be discharged to home with [facility] home care on postoperative day #7. She received written and verbal instruction regarding her medications, activity restrictions, signs and symptoms requiring physician notification, and follow-up appointments. Patient Condition at Discharge: Stable Plan - Discharge Summary Discharge Rx Participant: No New Discharge Prescriptions: New Amiodarone [Cordarone] 200 mg PO DAILY #7 tab Pantoprazole [Protonix] 40 mg PO AC-BRKFST #30 tab Acetaminophen Tab [Tylenol] 650 mg PO Q4HR PRN tab PRN Reason: Fever And/ Or Pain Metoprolol Tartrate [Lopressor] 25 mg PO BID #60 tab Sennosides-Docusate Sodium [Senokot-S] 2 each PO HS PRN tab PRN Reason: Constipation lisinopriL [Zestril] 20 mg PO 1200 tab Continue sitaGLIPtin [Januvia] 50 mg PO DAILY Atorvastatin [Lipitor] 40 mg PO HS Ferrous Sulfate [Feosol] 325 mg PO DAILY Clopidogrel Bisulfate [Plavix] 75 mg PO DAILY Ergocalciferol [Vitamin D2 (1250 Mcg = 35156 Iu)] 1,250 mcg PO COOK Lactobacillus Acidophilus [Acidophilus Probiotic] 1 cap PO DAILY metFORMIN HCL 500 mg PO AC-BID Aspirin 81 mg PO DAILY Fish Oil/Dha/Epa [Fish Oil 1,200 mg Fish Oil] 1 cap PO DAILY Discontinued Raloxifene HCl [Evista] 60 mg PO DAILY lisinopriL [Lisinopril] 20 mg PO DAILY atenoloL [Atenolol] 50 mg PO DAILY Discharge Medication List sitaGLIPtin [Januvia] 50 mg PO DAILY 04/03/15 [History] Atorvastatin [Lipitor] 40 mg PO HS 08/31/16 [History] Clopidogrel Bisulfate [Plavix] 75 mg PO DAILY 08/31/16 [History] Ferrous Sulfate [Feosol] 325 mg PO DAILY 08/31/16 [History] Ergocalciferol [Vitamin D2 (1250 Mcg = 79866 Iu)] 1,250 mcg PO COOK 01/01/21 [History] Aspirin 81 mg PO DAILY 10/18/23 [History] Fish Oil/Dha/Epa [Fish Oil 1,200 mg Fish Oil] 1 cap PO DAILY 10/18/23 [History] Lactobacillus Acidophilus [Acidophilus Probiotic] 1 cap PO DAILY 10/18/23 [History] metFORMIN HCL 500 mg PO AC-BID 10/18/23 [History] Acetaminophen Tab [Tylenol] 650 mg PO Q4HR PRN tab 11/24/23 [Rx] Amiodarone [Cordarone] 200 mg PO DAILY #7 tab 11/24/23 [Rx] Metoprolol Tartrate [Lopressor] 25 mg PO BID #60 tab 11/24/23 [Rx] Pantoprazole [Protonix] 40 mg PO AC-BRKFST #30 tab 11/24/23 [Rx] Sennosides-Docusate Sodium [Senokot-S] 2 each PO HS PRN tab 11/24/23 [Rx] lisinopriL [Zestril] 20 mg PO 1200 tab 11/24/23 [Rx] Follow up Appointment(s)/Referral(s): Other, other [Other] - 11/25/23 ([facility] - will contact you for a start of care visit on Tuesday11/25/23) Lurdes Ybarra NPC [Nurse Practitioner] - 11/28/23 11:00 am (You will be seen in the surgeon's office behind the hospital in [facility], [address] Office phone number is ) Finesse Flores MD [STAFF PHYSICIAN] - 12/05/23 10:00 am Rehab Raz LUEVANO,Cardiac [NON-STAFF] - 4 Weeks (You will receive a phone call in approximately 4-6 weeks for evaluation for cardiac rehab) Richard Schmitt MD [STAFF PHYSICIAN] - 12/15/23 2:15 pm Riley Lopez DO [Doctor of Osteopathic Medicine] - 12/13/23 9:30 am Dariela Sofia DO [Primary Care Provider] - 12/02/23 2:45 pm (Appt is with TECHNOLOGY INTERN Jaelyn Maciel) Ambulatory/Diagnostic Orders: Complete Blood Count w/diff [LAB.AMB] Time Frame: 3 Days, Location: None Selected Comprehensive Metabolic Panel [LAB.AMB] Time Frame: 3 Days, Location: None Selected Activity/Diet/Wound Care/Special Instructions: DISCHARGE INSTRUCTIONS: 1. No driving for 4 weeks, or until physician gives their ok. 2. The patient should sleep in their own bed, no medical bed needed. 3. Stairs are not an issue. If the bedroom is upstairs, it is advised that the patient go up at night and down in the morning for the first week. Go slowly, using handrail and take 1 step at a time. 4. BEV hose are to be worn for 30 days post surgery or until physician discontinues. 5. Heart hugger is to be worn 100% of the time until physician discontinues.(except when showering) 6. No lifting, pushing, or pulling more than 10 pounds for 12 weeks. The physician will advise of any restriction changes. 7. The patient is expected to continue the prescribed walking program. 8. Continue pain control per as needed orders. 9. Continue with incentive spirometry and splinting/heart hugger until otherwise directed by the physician. 10. Must shower daily using liquid antibacterial soap 11. Routine sternal incision care. No powders, lotions, ointments on incisions. No dressings are necessary on incisions unless they are draining. Dermabond tape is to remain on sternal incision until surgeon follow-up. 12. Please call surgeon/TECHNOLOGY INTERN for temp greater than 101 F or purulent drainage from incisions. 13. You should weigh yourself daily, record and bring log with you to follow up appointments. 14. All prescriptions given by surgeon for 30 days. Refills need to be filled through pattern weaver/primary care physician. 15. A Red armband has been placed on the patient. It should be worn for 30 days post discharge from surgery and will be removed by the cardiac surgeons. If an ER visit is necessary, please make sure the number on the Red armband is called before going to ER. 16. You have been referred to and are expected to begin Cardiac Rehab in approximately 4-6 weeks. 17. Quitting smoking is the most important step you can take to improve your health. For additional information and assistance to quit smoking, please call the [place] tobacco quit line (9-912-IQLP-NOW/ ) or online: [email or web address].gov/[email or web address]-to-[email or web address] it-[email or web address] HOME HEALTH SERVICES TO PROVIDE: RN SKILLED HOME CARE SERVICES FOR POST-OP SURGICAL PATIENTS WITH THE FOLLOWING: Coronary Artery Bypass Surgery (CABG), Mitral Valve Replacement/Repair ( MVR), Aortic Valve Replacement/Repair (AVR) RN TO CONTINUE EDUCATION FROM ``ROAD TO A HEALTH HEART PATIENT EDUCATION MANUAL (GIVEN TO PATIENT IN THE HOSPITAL) MEDICATION RECONCILIATION WITH EDUCATION NEEDED ON FIRST HOME VISIT EMPHASIZE IMPORTANCE OF WEARING BREAST SUPPORT/HEART HUGGER ENCOURAGE USE OF INCENTIVE SPIROMETER 10 X EVERY HOUR WHILE AWAKE ENCOURAGE UTILIZATION OF LOWER EXTREMITY COMPRESSION STOCKINGS/BEV HOSE and ELEVATE LEGS ABOVE LEVEL OF HEART WHILE AT REST. ENCOURAGE AMBULATION 3-5x/day INCREASING TOLERATES, WHILE AVOIDING EXTREMES IN TEMPERATURE FREQUENCY: RN TO OPEN THE PATIENT WITHIN 24 HOURS OF DISCHARGE FROM THE HOSPITAL WITH TELEHEALTH INSTALLED AT SOC, RN TO VISIT 2-3 X A WEEK FOR 4 WEEKS ESTABLISHED BY PATIENT NEEDS. LABORATORY: CBC, CMP TO BE DRAWN ON THE THIRD DAY HOME, (RAN STAT) FAX RESULTS TO [phone]. TELEHEALTH PARAMETERS: WEIGHT: NOTIFY MD OF WEIGHT GAIN OF 2 LBS IN 24 HOURS OR 5 LBS IN ONE WEEK HR: NOTIFY MD OF HR <55 BPM OR HR>100 BPM BP: NOTIFY MD IF BP <90/55 OR BP>140/100 O2 SAT: NOTIFY MD IF PO2<93% ON ROOM AIR SEND TELEHEALTH REPORT TO STATION ENGINEER AND CARDIOVASCULAR SURGEON THE FIRST WEEK OF CARE AND THEN BI-WEEKLY. PLEASE ADDITIONALLY COMMUNICATE ANY ABNORMALS AND NEW FINDINGS TO THE SURGEONS OFFICE. Discharge Disposition: HOME WITH HOME HEALTH SERVICES
--- NOTE | 2023-11-24 15:34 | P.PN ---
Subjective Progress Note Date: 11/24/23 HISTORY OF PRESENTING ILLNESS P 73-year-old with past medical history of multivessel CAD, hypertension hyp erlipidemia presented 2 weeks ago to hospital with substernal chest pain and unstable angina. She was scheduled for CABG however this was postponed because patient's spouse recently . Patient underwent CABG yesterday with Dr. Schmitt. She received PACHECO to LAD, SVG to OM, SVG to second OM, left atrial appendage ligation. Postoperatively she is managed in ICU and is doing well. She denies any chest pain chest pressure. BP 140/60, heart rate 82 bpm Chest tubes have been removed, IJ catheter has been removed, Taylor catheter has been removed. Patient was able to ambulate in unit for times without any significant discomfort. Denies any chest pain chest pressure. Hemodynamically stable. No arrhythmias noticed on telemetry. November 19, 2023 Patient is doing well from cardiovascular standpoint. Her mediastinal tube is out. Her left chest tube is still in place. Her Thornton-Bette catheter is out. She did not require any pressor support. No evidence of atrial fibrillation. Urine output is on the lower side. Adequate oral intake. 11/20 Patient states that she slept okay overnight. Her breathing is okay. She denies having any true chest pain but has some chest discomfort at the surgical site. She has minimal cough. Incentive spirometry she is reaching 750 mL. Blood pressure 135/78, heart rate 84, pulse ox 99% on room air. Repeat blood work reveals hemoglobin 7.9, BUN 18, creatinine 0.64, potassium 4.7, sodium 127. Plan is for possible discharge to inpatient rehab. 11/21 Patient states she is feeling a little bit stronger today but she has been getting up to the bathroom. Vital signs have been stable with blood pressure 134/74, heart rate is in the 60s, pulse ox 99% on room air. She has been evaluated by inpatient rehab services. 11/12 Patient is seen today in follow-up. Vital signs have been stable. Blood pressure 145/68, heart rate 84, pulse ox 97% on room air. No repeat blood work available at the time of this dictation. Patient states that she is waiting for discharge planning for possible inpatient rehab. 11/23 Patient states that she feels that she is ready for discharge today. She has been utilizing incentive spirometry and encouraged to continue this at discharge. Blood pressure 153/80, heart rate 94, pulse ox 97% on room air. Repeat blood work reveals hemoglobin 7.6. Creatinine 0.78. Sodium 129. PHYSICAL EXAMINATION Vital signs reviewed. Head: Normocephalic. Eyes: Sclerae nonicteric. Neck: Brisk carotid upstroke, no jugular venous distention. Lungs: Clear to auscultation. Heart: Regular rate and rhythm, S1-S2, no S3, no murmur or rub. Abdomen: Soft nontender, positive bowel sounds. Extremities: No edema, intact distal pulses. Neuro: Alert, oritented, no focal deficits. Detailed neuro exam was not performed. ASSESSMENT CAD s/p previous PCI. S/p CABG 11/17/2023. PACHECO to LAD, SVG to OM1 and OM 2. Atrial clip ligation Hypertension Type 2 diabetes Dyslipidemia Prior tobacco use Chronic anemia PLAN Continue aspirin, statin, Plavix, metoprolol. Follow-up with Dr. JT Flores as an outpatient Nurse practitioner note has been reviewed, I agree with documented findings and plan of care. Patient was seen and examined. Objective - Vital Signs Vital signs: Vital Signs Temp 98.3 F 11/23/23 20:10 Pulse 94 11/24/23 09:58 Resp 16 11/24/23 09:58 BP 153/80 11/24/23 09:58 Pulse Ox 97 11/24/23 09:58 FiO2 40 11/17/23 16:00 Intake & Output 11/23/23 11/24/23 11/24/23 18:59 06:59 18:59 Intake Total 240 240 Output Total 600 Balance 240 -600 240 Weight 64.7 kg Intake: Oral 240 240 Output: Urine 600 Other: Voiding Method Urinal Urinal Urinal # Voids 1 1 # Bowel Movements 1 ABP, PAP, CO, CI - Last Documented Arterial Blood Pressure 131/56 Pulmonary Artery Pressure 37/15 Cardiac Output 3.4 Cardiac Index 2.2 - Labs CBC & Chem 7: 11/24/23 07:58 11/24/23 07:58 Labs: Abnormal Lab Results - Last 24 Hours (Table) 11/23/23 11/23/23 11/24/23 Range/Units 16:47 20:11 06:14 RBC (3.80-5.40) m/uL Hgb (11.4-16.0) gm/dL Hct (34.0-46.0) % MCHC (31.0-37.0) g/dL Sodium (137-145) mmol/L Glucose (74-99) mg/dL POC Glucose (mg/dL) 153 H 263 H 115 H (70-110) mg/dL Magnesium (1.6-2.3) mg/dL 11/24/23 11/24/23 Range/Units 07:58 07:58 RBC 2.56 L (3.80-5.40) m/uL Hgb 7.6 L (11.4-16.0) gm/dL Hct 24.8 L (34.0-46.0) % MCHC 30.5 L (31.0-37.0) g/dL Sodium 129 L (137-145) mmol/L Glucose 145 H (74-99) mg/dL POC Glucose (mg/dL) (70-110) mg/dL Magnesium 1.4 L (1.6-2.3) mg/dL
== END 2023-11-24 14:36 | disposition home health service (06) | DRG 236 ==
LOC: 2ORMAIN 05:42 → 2SICU 12:22 → 3SCARD 11-20 18:49
PROVIDERS: ADMIT Thoracic Surgery (Cardiothoracic Vascular Surgery); ATTEND Thoracic Surgery (Cardiothoracic Vascular Surgery)
PROC: 02HV33Z Insertion of Infusion Device into Superior Vena Cava, Percutaneous Approach (ICD-10-PCS; 2023-11-17)
PROC: 02L70CK Occlusion of Left Atrial Appendage with Extraluminal Device, Open Approach (ICD-10-PCS; 2023-11-17)
PROC: 5A1221Z Performance of Cardiac Output, Continuous (ICD-10-PCS; 2023-11-17)
PROC: 03HY32Z Insertion of Monitoring Device into Upper Artery, Percutaneous Approach (ICD-10-PCS; 2023-11-17)
PROC: 4A133B1 Monitoring of Arterial Pressure, Peripheral, Percutaneous Approach (ICD-10-PCS; 2023-11-17)
PROC: 4A133J1 Monitoring of Arterial Pulse, Peripheral, Percutaneous Approach (ICD-10-PCS; 2023-11-17)
PROC: B246ZZ4 Ultrasonography of Right and Left Heart, Transesophageal (ICD-10-PCS; 2023-11-17)
PROC: 02100Z9 Bypass Coronary Artery, One Artery from Left Internal Mammary, Open Approach (ICD-10-PCS; principal; 2023-11-17 08:00)
PROC: 021109W Bypass Coronary Artery, Two Arteries from Aorta with Autologous Venous Tissue, Open Approach (ICD-10-PCS; 2023-11-17 08:00)
PROC: 06BQ4ZZ Excision of Left Saphenous Vein, Percutaneous Endoscopic Approach (ICD-10-PCS; 2023-11-17 08:00)
DX: I25.110 Atherosclerotic heart disease of native coronary artery with unstable angina pectoris (principal); D62 Acute posthemorrhagic anemia; J98.11 Atelectasis; J90 Pleural effusion, not elsewhere classified; E11.9 Type 2 diabetes mellitus without complications; E78.5 Hyperlipidemia, unspecified; I10 Essential (primary) hypertension; K21.9 Gastro-esophageal reflux disease without esophagitis; I65.23 Occlusion and stenosis of bilateral carotid arteries; Z79.899 Other long term (current) drug therapy; Z79.84 Long term (current) use of oral hypoglycemic drugs; Z79.82 Long term (current) use of aspirin; G51.0 Bell's palsy; Z79.02 Long term (current) use of antithrombotics/antiplatelets; Z82.49 Family history of ischemic heart disease and other diseases of the circulatory system; Z85.828 Personal history of other malignant neoplasm of skin; Z87.891 Personal history of nicotine dependence; Z90.710 Acquired absence of both cervix and uterus; Z95.5 Presence of coronary angioplasty implant and graft; Z88.5 Allergy status to narcotic agent
CPT/HCPCS: 71045; 71046; 80048; 80053; 82330; 82805; 83735; 85025; 85027; 85520; 85610; 85730; 86850; 86891; 86900; 86901; 86920; 94002; 94640

== ENCOUNTER → 2024-04-25 | Outpatient (CLI) | payer MEDICARE ==
--- NOTE | 2024-04-26 13:22 | NM ---
EXAMINATION TYPE: NM thyroid image w uptake DATE OF EXAM: 04/26/2024 COMPARISON: NONE CLINICAL INDICATION: Female, 73 years old with history of R94.6 ABNORMAL RESULTS OF THYROID FUNCTION S R22.0; TECHNIQUE: Thyroid iodine uptake is calculated and images performed after the oral administration of 315 uCi 1-123 Capsule. FINDINGS: There is normal distribution of activity throughout the gland. The 4 hour iodine uptake is calculated at 5.7% (normal range 8-14%). The 24-hour iodine uptake is calculated at 15.7% (normal ra nge 15-35%). IMPRESSION: Low uptake at 4 and borderline low uptake at 24 hours. Findings suggest hypothyroid. [facility], , 04/26/2024 1:19 PM [facility], , 04/26/2024 1:19 PM
== END | disposition home or self-care (01) ==
LOC: RADNMMAIN 08:35
PROVIDERS: ATTEND Family Medicine
DX: R94.6 Abnormal results of thyroid function studies (principal); R22.0 Localized swelling, mass and lump, head
CPT/HCPCS: 78014; A9516

== ENCOUNTER 2024-09-15 16:56 | Observation (INO) | payer MEDICARE ==
[2024-09-15 17:28] LABS: Basophils # (A) 0.06 10*3/uL (0.00-0.10); Basophils % (A) 0.7 %; Eosinophils # (A) 0.05 10*3/uL (0.04-0.35); Eosinophils % (A) 0.6 %; HCT 39.8 % (37.2-46.3); HGB 13.8 g/dL (12.0-15.0); Lymphocytes # (A) 2.12 10*3/uL (0.90-5.00); Lymphocytes % (A) 26.2 %; MCH 30.3 pg (27.0-32.0); MCHC 34.7 g/dL (32.0-37.0); MCV 87.3 fL (80.0-97.0); Mean Platelet Volume 8.6 fL (9.5-12.2); Monocytes # (A) 0.56 10*3/uL (0.20-1.00); Monocytes % (A) 6.9 %; Neutrophils # (A) 5.27 10*3/uL (1.80-7.70); Neutrophils % (A) 65.2 %; Platelet Count 246 10*3/uL (140-440); RBC 4.56 10*6/uL (4.10-5.20); RDW 12.6 % (11.5-14.5); WBC 8.09 10*3/uL (4.50-10.00)
--- NOTE | 2024-09-15 17:38 | ED ---
General Adult HPI - General Chief complaint: Chest Pain Stated complaint: chest pain Time Seen by Provider: 09/15/24 17:05 Source: patient Mode of arrival: ambulatory Limitations: no limitations - History of Present Illness Initial comments: Dictation was produced using [employer] dictation software. please excuse any grammatical, word or spelling errors. Chief Complaint: 73-year-old female presents with sharp chest pain History of Present Illness: Patient 73-year-old female sharp chest pain states that the pain is sharp to her substernal chest. States that it feels like a heart attack she has had in the past. Except that it does not radiate to her back. Not associate diaphoresis or nausea no radiation to the jaw or arm. The ROS documented in this emergency department record has been reviewed and confirmed by me. Those systems with pertinent positive or negative responses have been documented in the HPI. All other systems are other negative and/or noncontributory. - Related Data Home Medications Medication Instructions Recorded Confirmed Clopidogrel Bisulfate [Plavix] 75 mg PO DAILY 08/31/16 09/15/24 Ferrous Sulfate [Feosol] 325 mg PO DAILY 08/31/16 09/15/24 Ergocalciferol [Vitamin D2 (1250 1,250 mcg PO COOK 01/01/21 09/15/24 Mcg = 49594 Iu)] Aspirin 81 mg PO DAILY 10/18/23 09/15/24 Lactobacillus Acidophilus 1 cap PO DAILY 10/18/23 09/15/24 [Acidophilus Probiotic] metFORMIN HCL 500 mg PO BID 10/18/23 09/15/24 Atorvastatin [Lipitor] 40 mg PO HS 09/15/24 09/15/24 Empagliflozin [Jardiance] 10 mg PO DAILY 09/15/24 09/15/24 Levothyroxine Sodium [Synthroid] 50 mcg PO DAILY 09/15/24 09/15/24 Raloxifene [Evista] 60 mg PO DAILY 09/15/24 09/15/24 amLODIPine [Norvasc] 5 mg PO HS 09/15/24 09/15/24 lisinopriL 40 mg PO DAILY 09/15/24 09/15/24 Previous Rx's Medication Instructions Recorded Metoprolol Tartrate [Lopressor] 25 mg PO BID #60 tab 11/24/23 Allergies Allergy/AdvReac Type Severity Reaction Status Date / Time codeine AdvReac Nausea & Verified 09/15/24 18:14 Vomiting Review of Systems ROS Statement: Those systems with pertinent positive or pertinent negative responses have been documented in the HPI. ROS Other: All systems not noted in ROS Statement are negative. Past Medical History Past Medical History: Coronary Artery Disease (CAD), Chest Pain / Angina, Diabetes Mellitus, Eye Disorder, Hyperlipidemia, Hypertension, Osteoarthritis (OA) Additional Past Medical History / Comment(s): HX OF BELLS PALSY, anemia, frequent diarrhea recently, not as much recently, thinks might have a "blockage" History of Any Multi-Drug Resistant Organisms: None Reported Past Surgical History: Heart Catheterization With Stent, Hernia Repair, Hysterectomy Additional Past Surgical History / Comment(s): INCISIONAL HERNIA REPAIR, SKIN LESIONS REMOVED, COLOLOSCOPY, Bilateral cataract surgery 2017 Past Anesthesia/Blood Transfusion Reactions: No Reported Reaction Additional Past Anesthesia/Blood Transfusion Reaction / Comment(s): Pt has never received blood. Date of Last Stent Placement:: 05/07/2015 Past Psychological History: No Psychological Hx Reported Smoking Status: Former smoker Past Alcohol Use History: None Reported Past Drug Use History: None Reported - Past Family History Brother(s) Family Medical History: Cancer Additional Family Medical History / Comment(s): COLON CANCER Sister(s) Family Medical History: Cancer Additional Family Medical History / Comment(s): COLON CANCER Father Family Medical History: Coronary Artery Disease (CAD), Myocardial Infarction ([place]) Additional Family Medical History / Comment(s): Father at age 67yrs and pt thinks cause of was a [place]. Mother Family Medical History: Coronary Artery Disease (CAD) Additional Family Medical History / Comment(s): Mother at age 78 or 79yrs of heart disease. General Exam - General Exam Comments Initial Comments: PHYSICAL EXAM: General Impression: Alert and oriented x3, not in acute distress HEENT: Normocephalic atraumatic, extra-ocular movements intact, pupils equal and reactive to light bilaterally, mucous membranes moist. Cardiovascular: Heart regular rate and rhythm Chest: Able to complete full sentences, no retractions, no tachypnea Abdomen: abdomen soft, non-tender, non-distended, no organomegaly Musculoskeletal: Pulses present and equal in all extremities, no peripheral edema Motor: no focal deficits noted Neurological: CN II-XII grossly intact, no focal motor or sensory deficits noted Skin: Intact with no visualized rashes Psych: Normal affect and mood Limitations: no limitations Course Vital Signs 09/15/24 09/15/24 09/15/24 17:00 17:24 19:02 Temperature 97.8 F Pulse Rate 75 75 73 Respiratory 18 16 16 Rate Blood Pressure 138/74 120/55 119/64 O2 Sat by Pulse 98 99 98 Oximetry EKG Findings - EKG Comments: EKG Findings:: My EKG interpretation: Ventricular rate 72, sinus rhythm, OK 160, QRS 135, QTc 413. No OK prolongation, no QTC prolongation, no ST or T-wave changes noted. Overall, this EKG is unremarkable Medical Decision Making - Medical Decision Making Was pt. sent in by a medical professional or institution (, PA, INDUSTRIAL PSYCHOLOGY TEACHER, urgent care, hospital, or jail...) When possible be specific @ -[No] Did you speak to anyone other than the patient for history (EMS, parent, family, police, friend...)? What history was obtained from this source @ -[No] Did you review nursing and triage notes (agree or disagree)? Why? @ -[I reviewed and agree with nursing and triage notes] Were old charts reviewed (outside hosp., previous admission, EMS record, old EKG, old radiological studies, urgent care reports/EKG's, jail records)? Report findings @ -[No old charts were reviewed] Differential Diagnosis (chest pain, altered mental status, abdominal pain women, abdominal pain men, vaginal bleeding, musculoskeletal, weakness, fever, dyspnea, syncope, headache, dizziness, GI bleed, back pain, seizure, CVA, palpatations, mental health)? @ -Differential Chest Pain: Stable Angina, Unstable Angina, STEMI, NSTEMI Aortic Dissection, Pneumothorax, Musculoskeletal, Esophageal Spasm GERD, Cholecystitis, Pancreatitis, Zoster, this is not meant to be an all-inclusive list. EKG interpreted by me (3pts min.). @ -See above X-rays interpreted by me (1pt min.). @ -Chest x-ray is nonacute CT interpreted by me (1pt min.). @ -[None done] U/S interpreted by me (1pt. min.). @ -[None done] What testing was considered but not performed or refused? (CT, X-rays, U/S, labs)? Why? @ -[None] What meds were considered but not given or refused? Why? @ -[None] Was smoking cessation discussed for >3mins.? @ -[No] Were there social determinants of health that impacted care today? How? (Homelessness, low income, unemployed, alcoholism, drug addiction, transportation, low edu. Level, literacy, decrease access to med. care, detention, rehab)? @ -[No] Was there de-escalation of care discussed even if they declined (Discuss DNR or withdrawal of care, Hospice)? DNR status @ -[No] What co-morbidities impacted this encounter? (DM, HTN, Smoking, COPD, CAD, Cancer, CVA, ARF, Chemo, Hep., AIDS, mental health diagnosis, sleep apnea, morbid obesity)? @ -Coronary artery disease Was patient admitted / discharged? Hospital course, mention meds given and route, prescriptions, significant lab abnormalities, going to OR and other per tinent info. @ -73-year-old female with atypical chest pain typical features. She has history of coronary artery disease states that her symptoms today feel like previous heart attack. Vital signs stable. EKG is unremarkable. Labs and imaging shows findings within acceptable limits. Slightly hyponatremic however. Hypomagnesemic slightly. Patient given fluids and magnesium. Patient given a spirin will be admitted observation cardiology consultation. Case discussed with hospitalist for admission Did you discuss the management of the patient with other professionals (professionals i.e. , PA, INDUSTRIAL PSYCHOLOGY TEACHER, lab, RT, psych nurse, rn social services, transcribing operators supervisor, teacher, police officer crime prevention, social work case manager)? Give summary @ -[No] Was critical care preformed (if so, how long)? @ -[No] Undiagnosed new problem with uncertain prognosis? @ -[No] Drug Therapy requiring intensive monitoring for toxicity (Heparin, Nitro, Insulin, Cardizem)? @ -[No] Were any procedures done? @ -[No] Diagnosis/symptom? Acute, or Chronic, or Acute on Chronic? Uncomplicated (without systemic symptoms) or Complicated (systemic symptoms)? @ -Chest pain Side effects of treatment? @ -[No] Exacerbation, Progression, or Severe Exacerbation? @ -[No] Poses a threat to life or bodily function? How? (Chest pain, [place], [place], pneumonia, PE, COPD, DKA, ARF, appy, cholecystitis, CVA, Diverticulitis, Homicidal, Suicidal, threat to staff... and all critical care pts) @ -yes - Lab Data Result diagrams: 09/15/24 17:20 09/15/24 17:20 Lab Results 09/15/24 09/15/24 09/15/24 Range/Units 17:20 17:20 17:20 WBC 8.09 (4.50-10.00) 10*3/uL RBC 4.56 (4.10-5.20) 10*6/uL Hgb 13.8 (12.0-15.0) g/dL Hct 39.8 (37.2-46.3) % MCV 87.3 (80.0-97.0) fL MCH 30.3 (27.0-32.0) pg MCHC 34.7 (32.0-37.0) g/dL Plt Count 246 (140-440) 10*3/uL MPV 8.6 L (9.5-12.2) fL Immature Gran % (Auto) 0.4 % Neutrophils % 65.2 % Lymphocytes % 26.2 % Monocytes % 6.9 % Eosinophils % 0.6 % Basophils % 0.7 % Immature Gran # 0.03 (0.00-0.04) 10*3/uL Neutrophils # 5.27 (1.80-7.70) 10*3/uL Lymphocytes # 2.12 (0.90-5.00) 10*3/uL Monocytes # 0.56 (0.20-1.00) 10*3/uL Eosinophils # 0.05 (0.04-0.35) 10*3/uL Basophils # 0.06 (0.00-0.10) 10*3/uL PT 10.9 (10.0-12.5) sec INR 1.0 (<1.2) APTT 23.4 (22.0-30.0) sec Sodium 127 L (137-145) mmol/L Potassium 4.0 (3.5-5.1) mmol/L Chloride 94 L (98-107) mmol/L Carbon Dioxide 21 L (22-30) mmol/L Anion Gap 12 mmol/L BUN 8 (7-17) mg/dL Creatinine 0.69 (0.52-1.04) mg/dL Est GFR (CKD-EPI)AfAm >90 (>60 ml/min/1.73 sqM) Est GFR (CKD-EPI)NonAf 86 (>60 ml/min/1.73 sqM) Glucose 89 (74-99) mg/dL Calcium 9.8 (8.4-10.2) mg/dL Magnesium 1.4 L (1.6-2.3) mg/dL Total Bilirubin 0.9 (0.2-1.3) mg/dL AST 30 (14-36) U/L ALT 21 (4-34) U/L Alkaline Phosphatase 66 (38-126) U/L Troponin I (0.000-0.034) ng/mL Total Protein 7.2 (6.3-8.2) g/dL Albumin 4.3 (3.5-5.0) g/dL 09/15/24 Range/Units 17:20 WBC (4.50-10.00) 10*3/uL RBC (4.10-5.20) 10*6/uL Hgb (12.0-15.0) g/dL Hct (37.2-46.3) % MCV (80.0-97.0) fL MCH (27.0-32.0) pg MCHC (32.0-37.0) g/dL Plt Count (140-440) 10*3/uL MPV (9.5-12.2) fL Immature Gran % (Auto) % Neutrophils % % Lymphocytes % % Monocytes % % Eosinophils % % Basophils % % Immature Gran # (0.00-0.04) 10*3/uL Neutrophils # (1.80-7.70) 10*3/uL Lymphocytes # (0.90-5.00) 10*3/uL Monocytes # (0.20-1.00) 10*3/uL Eosinophils # (0.04-0.35) 10*3/uL Basophils # (0.00-0.10) 10*3/uL PT (10.0-12.5) sec INR (<1.2) APTT (22.0-30.0) sec Sodium (137-145) mmol/L Potassium (3.5-5.1) mmol/L Chloride (98-107) mmol/L Carbon Dioxide (22-30) mmol/L Anion Gap mmol/L BUN (7-17) mg/dL Creatinine (0.52-1.04) mg/dL Est GFR (CKD-EPI)AfAm (>60 ml/min/1.73 sqM) Est GFR (CKD-EPI)NonAf (>60 ml/min/1.73 sqM) Glucose (74-99) mg/dL Calcium (8.4-10.2) mg/dL Magnesium (1.6-2.3) mg/dL Total Bilirubin (0.2-1.3) mg/dL AST (14-36) U/L ALT (4-34) U/L Alkaline Phosphatase (38-126) U/L Troponin I <0.012 (0.000-0.034) ng/mL Total Protein (6.3-8.2) g/dL Albumin (3.5-5.0) g/dL Disposition Clinical Impression: Chest pain Disposition: ADMITTED IP TO THIS [facility] Condition: Fair Referrals: Drew Zamora MD [Primary Care Provider] - 1-2 days Decision Time: 19:11
[2024-09-15 17:44] LABS: ALT 21 U/L (4-34); AST 30 U/L (14-36); African American GFR (CKD) >90 (>60 ml/min/1.73 sqM); Albumin 4.3 g/dL (3.5-5.0); Alkaline Phosphatase 66 U/L (38-126); Anion Gap 12 mmol/L; Blood Urea Nitrogen 8 mg/dL (7-17); Calcium 9.8 mg/dL (8.4-10.2); Carbon Dioxide 21 mmol/L (22-30); Chloride 94 mmol/L (98-107); Glucose 89 mg/dL (74-99); Magnesium 1.4 mg/dL (1.6-2.3); Non-African American GFR(CKD) 86 (>60 ml/min/1.73 sqM); Partial Thromboplastin Time 23.4 sec (22.0-30.0); Prothrombin Time 10.9 sec (10.0-12.5); Sodium 127 mmol/L (137-145); Total Bilirubin 0.9 mg/dL (0.2-1.3); Total Protein 7.2 g/dL (6.3-8.2)
--- NOTE | 2024-09-15 18:36 | XR ---
EXAMINATION TYPE: XR chest 2V DATE OF EXAM: 09/15/2024 6:21 PM COMPARISON: 11/24/2023 CLINICAL INDICATION: Female, 73 years old with history of Chest Pain, TECHNIQUE: XR chest 2V view(s) obtained. FINDINGS: The heart size is normal. The pulmonary vasculature is normal. The lungs are clear. There is some elevation of the left diaphragm. Some minimal posterior pleural e ffusion may be present on the left. IMPRESSION: 1. Elevation left diaphragm. Minimal posterior left pleural effusion may be present. 2. No acute pulmonary process otherwise. [facility], , 09/15/2024 6:34 PM
[2024-09-15] MEDS: ASPIRIN 81 MG PO STA (19:01)
[2024-09-15] MEDS: SODIUM CHLORIDE 0.9% 1,000 ML IV STA (19:02)
[2024-09-15] MEDS ORDERED: NITROGLYCERIN SL TABS 0.4 MG TAB SUBLINGUAL PRN (19:08)
[2024-09-15] MEDS: MAGNESIUM OXIDE 400 MG TAB PO STA (19:15)
[2024-09-16] MEDS: LEVOTHYROXINE 50 MCG TAB PO SCH (06:23)
[2024-09-16 06:30] LABS: Glucose,Whole Blood 75 mg/dL (70-110)
[2024-09-16 09:36] LABS: Blood Urea Nitrogen 5.4 mg/dL (9.0-27.0); Calcium 8.6 mg/dL (8.7-10.3); Carbon Dioxide 22.4 mmol/L (21.6-31.8); Chloride 102 mmol/L (96-109); Chol/HDL Ratio 2.34 Ratio; Glucose 75 mg/dL (70-110); LDL Cholesterol,Calculated 39.6 mg/dL (0.0-131.0); Sodium 132 mmol/L (135-145); VLDL Calculation 13.72 mg/dL (5.00-40.00)
[2024-09-16 10:01] LABS: Basophils # (A) 0.04 X 10*3/uL (0.00-0.10); Basophils % (A) 0.8 %; Eosinophils # (A) 0.06 X 10*3/uL (0.04-0.35); Eosinophils % (A) 1.2 %; HCT 36.6 % (37.2-46.3); HGB 12.2 g/dL (12.0-15.0); Lymphocytes # (A) 1.83 X 10*3/uL (0.90-5.00); Lymphocytes % (A) 35.1 %; MCH 29.6 pg (27.0-32.0); MCHC 33.3 g/dL (32.0-37.0); MCV 88.8 FL (80.0-97.0); Mean Platelet Volume 9.1 FL (9.5-12.2); Monocytes # (A) 0.45 X 10*3/uL (0.20-1.00); Monocytes % (A) 8.6 %; NRBC Per 100 WBC 0 X 10*3/uL (0.00-0.01); Neutrophils # (A) 2.81 X 10*3/uL (1.80-7.70); Neutrophils % (A) 53.9 %; Platelet Count 211 X 10*3/uL (140-440); RBC 4.12 X 10*6/uL (4.10-5.20); RDW 12.8 % (11.5-14.5); WBC 5.21 X 10*3/uL (4.50-10.00)
[2024-09-16] MEDS: ASPIRIN 325 MG TAB PO SCH (10:07)
[2024-09-16] MEDS: RALOXIFENE 60 MG TAB PO SCH (10:07)
[2024-09-16] MEDS: METOPROLOL TARTRATE 25 MG TAB PO SCH (10:07)
[2024-09-16] MEDS: metFORMIN 500 MG TAB PO SCH (10:07)
[2024-09-16] MEDS: DAPAGLIFLOZIN PROPANEDIOL 5 MG TABLET PO SCH (10:07)
[2024-09-16] MEDS: lisinopriL 20 MG TAB PO SCH (10:07)
[2024-09-16] MEDS: CLOPIDOGREL 75 MG TAB PO SCH (10:07)
--- NOTE | 2024-09-16 10:55 | P.HPIM ---
History of Present Illness H&P Date: 09/15/24 Chief Complaint: Chest pain 73-year-old female, history of hypertension, hyperlipidemia, diabetes mellitus, coronary artery disease, presents to ED with complaint of sharp chest pain states that the pain is sharp to her substernal chest. States that it feels like a heart attack she has had in the past. Except that it does not radiate to her back. Not associate diaphoresis or nausea no radiation to the jaw or arm. Blood work completed in ED revealed sodium level of 127, potassium 4.2, BUNs/creatinine of 8/0.69, blood glucose of 89, WBC 8.09, hemoglobin of 13.8 and platelet count of 246, troponin less than 0.012 EKG reveals normal sinus rhythm with right bundle branch block with no acute ST or T wave changes Chest x-ray is negative for any acute pulmonary process Review of Systems REVIEW OF SYSTEMS: CONSTITUTIONAL: No fever, no malaise, no fatigue. HEENT: No recent visual problems or hearing problems. Denied any sore throat. CARDIOVASCULAR: No chest pain, orthopnea, PND, no palpitations, no syncope. PULMONARY: No shortness of breath, no cough, no hemoptysis. GASTROINTESTINAL: No diarrhea, no nausea, no vomiting, no abdominal pain. NEUROLOGICAL: No headaches, no weakness, no numbness. HEMATOLOGICAL: Denies any bleeding or petechiae. GENITOURINARY: Denies any burning micturition, frequency, or urgency. MUSCULOSKELETAL/RHEUMATOLOGICAL: Denies any joint pain, swelling, or any muscle pain. ENDOCRINE: Denies any polyuria or polydipsia. The rest of the 14-point review of systems is negative. Past Medical History Past Medical History: Coronary Artery Disease (CAD), Chest Pain / Angina, Diabetes Mellitus, Eye Disorder, Hyperlipidemia, Hypertension, Osteoarthritis (OA) Additional Past Medical History / Comment(s): HX OF BELLS PALSY, anemia, delia quent diarrhea recently, not as much recently, thinks might have a "blockage" History of Any Multi-Drug Resistant Organisms: None Reported Past Surgical History: Heart Catheterization With Stent, Hernia Repair, Hysterectomy Additional Past Surgical History / Comment(s): INCISIONAL HERNIA REPAIR, SKIN LESIONS REMOVED, COLOLOSCOPY, Bilateral cataract surgery 2017 Past Anesthesia/Blood Transfusion Reactions: No Reported Reaction Additional Past Anesthesia/Blood Transfusion Reaction / Comment(s): Pt has never received blood. Date of Last Stent Placement:: 05/07/2015 Past Psychological History: No Psychological Hx Reported Smoking Status: Former smoker Past Alcohol Use History: None Reported Past Drug Use History: None Reported - Past Family History Brother(s) Family Medical History: Cancer Additional Family Medical History / Comment(s): COLON CANCER Sister(s) Family Medical History: Cancer Additional Family Medical History / Comment(s): COLON CANCER Father Family Medical History: Coronary Artery Disease (CAD), Myocardial Infarction ([place]) Additional Family Medical History / Comment(s): Father at age 67yrs and pt thinks cause of was a [place]. Mother Family Medical History: Coronary Artery Disease (CAD) Additional Family Medical History / Comment(s): Mother at age 78 or 79yrs o f heart disease. Medications and Allergies Home Medications Medication Instructions Recorded Confirmed Type Clopidogrel Bisulfate [Plavix] 75 mg PO DAILY 08/31/16 09/15/24 History Ferrous Sulfate [Feosol] 325 mg PO DAILY 08/31/16 09/15/24 History Ergocalciferol [Vitamin D2 (1250 1,250 mcg PO COOK 01/01/21 09/15/24 History Mcg = 78914 Iu)] Aspirin 81 mg PO DAILY 10/18/23 09/15/24 History Lactobacillus Acidophilus 1 cap PO DAILY 10/18/23 09/15/24 History [Acidophilus Probiotic] metFORMIN HCL 500 mg PO BID 10/18/23 09/15/24 History Metoprolol Tartrate [Lopressor] 25 mg PO BID #60 tab 11/24/23 09/15/24 Rx Atorvastatin [Lipitor] 40 mg PO HS 09/15/24 09/15/24 History Empagliflozin [Jardiance] 10 mg PO DAILY 09/15/24 09/15/24 History Levothyroxine Sodium [Synthroid] 50 mcg PO DAILY 09/15/24 09/15/24 History Raloxifene [Evista] 60 mg PO DAILY 09/15/24 09/15/24 History amLODIPine [Norvasc] 5 mg PO HS 09/15/24 09/15/24 History lisinopriL 40 mg PO DAILY 09/15/24 09/15/24 History Allergies Allergy/AdvReac Type Severity Reaction Status Date / Time codeine AdvReac Nausea & Verified 09/15/24 18:14 Vomiting Physical Exam Vitals: Vital Signs Temp Pulse Resp BP Pulse Ox 09/15/24 19:16 75 16 128/71 99 09/15/24 19:02 73 16 119/64 98 09/15/24 17:24 75 16 120/55 99 09/15/24 17:00 97.8 F 75 18 138/74 98 Intake and Output 09/15/24 09/15/24 09/15/24 06:59 14:59 22:59 Other: Weight 63.049 kg General Impression: Alert and oriented x3, not in acute distress HEENT: Normocephalic atraumatic, extra-ocular movements intact, pupils equal and reactive to light bilaterally, mucous membranes moist. Cardiovascular: Heart regular rate and rhythm Chest: Able to complete full sentences, no retractions, no tachypnea Abdomen: abdomen soft, non-tender, non-distended, no organomegaly Musculoskeletal: Pulses present and equal in all extremities, no peripheral edema Motor: no focal deficits noted Neurological: CN II-XII grossly intact, no focal motor or sensory deficits noted Skin: Intact with no visualized rashes Psych: Normal affect and mood Results CBC & Chem 7: 09/16/24 05:37 09/16/24 05:37 Labs: Abnormal Lab Results - Last 24 Hours (Table) 09/15/24 09/15/24 Range/Units 17:20 17:20 MPV 8.6 L (9.5-12.2) fL Sodium 127 L (137-145) mmol/L Chloride 94 L (98-107) mmol/L Carbon Dioxide 21 L (22-30) mmol/L Magnesium 1.4 L (1.6-2.3) mg/dL Assessment and Plan Assessment: 1. Chest; history of CAD -Initial troponin completed in ED is unremarkable; EKG does not reveal any acute ST or T wave changes - Will admit to telemetry; monitor EKG and trend troponin -Patient is currently on aspirin 325 mg daily, Lipitor 40 mg nightly, Plavix 75 mg daily and metoprolol 25 mg twice daily - Recommend 2D echo - Consult cardiology 2. Hyponatremia; sodium at 127; patient received 1 L IV fluid bolus in ED; will order serum and urine osmolality along with serum and urine sodium level; monitor electrolytes - We will hold off on IV fluids at this time 3. Hypertension; amlodipine 5 mg daily; lisinopril 40 mg daily; metoprolol 25 mg twice daily 4. Hyperlipidemia; Lipitor 40 mg p.o. nightly 5. Hypothyroidism; levothyroxine 50 mcg daily 6. Diabetes mellitus type 2; metformin 500 mg twice daily; Jardiance 10 mg daily; monitor Accu-Cheks before every meal and at bedtime with insulin sliding scale DVT prophylaxis; SCDs/subcu heparin CODE STATUS; full code
[2024-09-16 11:28] LABS: Sodium 133 mmol/L (137-145)
--- NOTE | 2024-09-16 12:15 | P.CRDCN ---
History of Present Illness Consult date: 09/16/24 Requesting physician: Sandra Perdue Reason for Consult (text): Chest pain Chief complaint: Chest pain History of present illness: This is a pleasant 73-year-old female patient of Dr. Flores with past medical history of multivessel CAD, status post CABG in November 2023 with PACHECO to LAD, SVG to OM, SVG to second OM and left atrial appendage ligation, hypertension, hyperlipidemia, diabetes mellitus type 2. Presented to the hospital with complaints of chest discomfort. Since the surgery she has been having discomfort in the incision. For the past 2 days the discomfort has become more frequent occurring when putting her seatbelt on or coughing. She has been attending cardiac rehab without issue. Patient has tenderness to the distal portion of the surgical site. She denies any shortness of breath, orthopnea, PND or edema. She has had no palpitations. She has been under an increased amount of stress since her last spring. She denies any exertional chest pain. Diagnostics -EKG: Sinus rhythm with right bundle branch block -Chest x-ray: Elevated left diaphragm, minimal posterior left pleural effusion may be present, no acute pulmonary process otherwise -Laboratory studies: White blood cell count 8.09, hemoglobin 13.8, sodium 127, potassium 4.0, BUN 8, creatinine 0.69, troponin negative x 3 -Home cardiac medications: Lisinopril 40 mg p.o. daily, metoprolol tartrate 25 mg p.o. twice daily, clopidogrel 75 mg daily, amlodipine 5 mg p.o. nightly, atorvastatin 40 mg p.o. nightly, aspirin 81 mg daily -Prior stress test: October 2023 showed small area of reversible ischemia in the apical septal wall -Echocardiogram: October 2023, preoperative, normal LV systolic function with mild MR and mild TR -Cardiac catheterization: October 2023: right dominant system with 50% tandem lesion in the mid and distal RCA, left main with 70% ostial and proximal lesion 60% mid LAD lesion and a 60 to 70% mid circumflex lesion after the obtuse marginal branch Review Of Systems: At the time of my exam: CONSTITUTIONAL: Denies fever or chills. HEENT: Denies blurred vision, vision changes. CARDIOVASCULAR: Complains of chest pain to the distal quarter of surgical site with palpation. Denies orthopnea. Denies PND. Denies palpitations, dizziness, or syncope. RESPIRATORY: Denies shortness of breath, wheezing, or cough. Denies hemoptysis. GASTROINTESTINAL: Denies abdominal pain. Denies nausea or vomiting. Denies bleeding. HEMATOLOGIC: Denies bleeding disorders. GENITOURINARY: Denies hematuria. SKIN: Denies puritis. Denies rash. PHYSICAL EXAMINATION: This is a 73-year-old female in no apparent distress at the time of my examination. VITAL SIGNS: Reviewed. HEENT: Head is atraumatic, normocephalic. Pupils are equal, round. Sclerae anicteric. Conjunctivae are clear. Mucous membranes of the mouth are moist. Neck is supple. There is no elevated jugular venous pressure. No carotid bruit is heard. CHEST EXAMINATION: Clear to auscultation bilaterally. No wheezes rales or rho nchi. Respirations even and nonlabored. Tenderness to the distal one fourth of the sternum near the xiphoid process HEART EXAMINATION: Heart regular, positive S1 and S2. No S3. No S4. No clicks, rubs or murmurs. ABDOMEN: Soft, nontender. Bowel sounds are heard. No organomegaly noted. EXTREMITIES: 2+ peripheral pulses with no evidence of peripheral edema and no calf tenderness noted. NEUROLOGIC EXAMINATION: Patient is awake, alert and oriented x3. Assessment: 1. Chest pain, acute coronary event has been ruled out, appears to be musculoskeletal 2. CAD with prior CABG in November 2023 3. Hyponatremia, chronic 4. Hypertension 5. Hyperlipidemia 6. Diabetes mellitus type 2 Plan: From cardiology's perspective no further cardiac workup at this time. She will follow-up in the office with Dr. Flores. Thank you kindly for this consultation. Nurse practitioner note has been reviewed, I agree with documented findings and plan of care. Patient was seen and examined. Past Medical History Past Medical History: Coronary Artery Disease (CAD), Chest Pain / Angina, Diabetes Mellitus, Eye Disorder, Hyperlipidemia, Hypertension, Osteoarthritis (OA) Additional Past Medical History / Comment(s): HX OF [place], anemia, frequ ent diarrhea recently, not as much recently, thinks might have a "blockage" History of Any Multi-Drug Resistant Organisms: None Reported Past Surgical History: Coronary Bypass/CABG, Heart Catheterization With Stent, Hernia Repair, Hysterectomy Additional Past Surgical History / Comment(s): INCISIONAL HERNIA REPAIR, SKIN LESIONS REMOVED, COLOLOSCOPY, Bilateral cataract surgery 2017 Past Anesthesia/Blood Transfusion Reactions: No Reported Reaction Additional Past Anesthesia/Blood Transfusion Reaction / Comment(s): Pt has never received blood. Date of Last Stent Placement:: 05/07/2015 Past Psychological History: No Psychological Hx Reported Additional Psychological History / Comment(s): . Smoking Status: Former smoker Past Alcohol Use History: None Reported Additional Past Alcohol Use History / Comment(s): QUIT SMOKING APPROX 30 YRS AGO. SMOKED 10-15 YRS, 1 PPD OR LESS. Past Drug Use History: None Reported - Past Family History Brother(s) Family Medical History: Cancer Additional Family Medical History / Comment(s): COLON CANCER Sister(s) Family Medical History: Cancer Additional Family Medical History / Comment(s): COLON CANCER Father Family Medical History: Coronary Artery Disease (CAD), Myocardial Infarction (LA) Additional Family Medical History / Comment(s): Father at age 67yrs and pt thinks cause of was a LA. Mother Family Medical History: Coronary Artery Disease (CAD) Additional Family Medical History / Comment(s): Mother at age 78 or 79yrs of heart disease. Medications and Allergies Home Medications Medication Instructions Recorded Confirmed Type Clopidogrel Bisulfate [Plavix] 75 mg PO DAILY 08/31/16 09/15/24 History Ferrous Sulfate [Feosol] 325 mg PO DAILY 08/31/16 09/15/24 History Ergocalciferol [Vitamin D2 (1250 1,250 mcg PO COOK 01/01/21 09/15/24 History Mcg = 39320 Iu)] Aspirin 81 mg PO DAILY 10/18/23 09/15/24 History Lactobacillus Acidophilus 1 cap PO DAILY 10/18/23 09/15/24 History [Acidophilus Probiotic] metFORMIN HCL 500 mg PO BID 10/18/23 09/15/24 History Metoprolol Tartrate [Lopressor] 25 mg PO BID #60 tab 11/24/23 09/15/24 Rx Atorvastatin [Lipitor] 40 mg PO HS 09/15/24 09/15/24 History Empagliflozin [Jardiance] 10 mg PO DAILY 09/15/24 09/15/24 History Levothyroxine Sodium [Synthroid] 50 mcg PO DAILY 09/15/24 09/15/24 History Raloxifene [Evista] 60 mg PO DAILY 09/15/24 09/15/24 History amLODIPine [Norvasc] 5 mg PO HS 09/15/24 09/15/24 History lisinopriL 40 mg PO DAILY 09/15/24 09/15/24 History Allergies Allergy/AdvReac Type Severity Reaction Status Date / Time codeine AdvReac Nausea & Verified 09/15/24 18:14 Vomiting Physical Exam Vitals: Vital Signs Temp Pulse Pulse Resp BP BP Pulse Ox 09/16/24 07:00 97.7 F 68 16 132/80 99 09/16/24 02:00 73 09/16/24 01:34 97.8 F 73 18 106/64 99 09/15/24 22:14 71 09/15/24 20:43 97.4 F L 71 18 106/71 98 09/15/24 20:21 97.8 F 78 18 129/61 98 09/15/24 20:15 97.8 F 78 16 129/61 98 09/15/24 19:16 75 16 128/71 99 09/15/24 19:02 73 16 119/64 98 09/15/24 17:24 75 16 120/55 99 09/15/24 17:00 97.8 F 75 18 138/74 98 Intake and Output 09/15/24 09/16/24 09/16/24 22:59 06:59 14:59 Other: Voiding Method Toilet # Voids 1 2 Weight 63.049 kg Results 09/16/24 05:37 09/16/24 11:03 Cardiac Enzymes 09/15/24 09/15/24 09/15/24 Range/Units 17:20 17:20 21:01 AST 30 (14-36) U/L Troponin I <0.012 <0.012 (0.000-0.034) ng/mL 09/15/24 Range/Units 22:51 AST (14-36) U/L Troponin I <0.012 (0.000-0.034) ng/mL Coagulation 09/15/24 Range/Units 17:20 PT 10.9 (10.0-12.5) sec APTT 23.4 (22.0-30.0) sec CBC 09/15/24 Range/Units 17:20 WBC 8.09 (4.50-10.00) 10*3/uL RBC 4.56 (4.10-5.20) 10*6/uL Hgb 13.8 (12.0-15.0) g/dL Hct 39.8 (37.2-46.3) % Plt Count 246 (140-440) 10*3/uL Comprehensive Metabolic Panel 09/15/24 Range/Units 17:20 Sodium 127 L (137-145) mmol/L Potassium 4.0 (3.5-5.1) mmol/L Chloride 94 L (98-107) mmol/L Carbon Dioxide 21 L (22-30) mmol/L BUN 8 (7-17) mg/dL Creatinine 0.69 (0.52-1.04) mg/dL Glucose 89 (74-99) mg/dL Calcium 9.8 (8.4-10.2) mg/dL AST 30 (14-36) U/L ALT 21 (4-34) U/L Alkaline Phosphatase 66 (38-126) U/L Total Protein 7.2 (6.3-8.2) g/dL Albumin 4.3 (3.5-5.0) g/dL Current Medications Generic Name Dose Route Start Last Admin Trade Name Freq PRN Reason Stop Dose Admin Amlodipine Besylate 5 mg 09/16/24 21:00 Amlodipine 5 Mg Tab PO HS [facility] Aspirin 325 mg 09/16/24 09:00 Aspirin 325 Mg Tab PO DAILY [facility] Atorvastatin Calcium 40 mg 09/16/24 21:00 Atorvastatin 40 Mg Tab PO HS [facility] Clopidogrel Bisulfate 75 mg 09/16/24 09:00 Clopidogrel 75 Mg Tab PO DAILY [facility] Dapagliflozin 5 mg 09/16/24 09:00 Dapagliflozin Propanediol 5 Mg Tablet PO DAILY [facility] Levothyroxine Sodium 50 mcg 09/16/24 06:30 09/16/24 06:23 Levothyroxine 50 Mcg Tab PO 50 mcg DAILY@0630 [facility] Administration Lisinopril 40 mg 09/16/24 09:00 Lisinopril 20 Mg Tab PO DAILY [facility] Metformin HCl 500 mg 09/16/24 09:00 Metformin 500 Mg Tab PO BID [facility] Metoprolol Tartrate 25 mg 09/16/24 09:00 Metoprolol Tartrate 25 Mg Tab PO BID [facility] Nitroglycerin 0.4 mg 09/15/24 19:08 Nitroglycerin Sl Tabs 0.4 Mg Tab SUBLINGUAL Q5M PRN Chest Pain Raloxifene HCl 60 mg 09/16/24 09:00 Raloxifene 60 Mg Tab PO DAILY [facility] Intake and Output 09/15/24 09/16/24 09/16/24 22:59 06:59 14:59 Other: Voiding Method Toilet # Voids 1 2 Weight 63.049 kg 09/15/24 17:20 09/15/24 17:20
[2024-09-16 12:18] LABS: Glucose,Whole Blood 138 mg/dL (70-110)
[2024-09-16 14:48] VITALS: BP 105/62; PULSE 75; RESP 15; TEMP 98.3
[2024-09-16 17:27] LABS: Glucose,Whole Blood 93 mg/dL (70-110)
[2024-09-16] MEDS: HEPARIN SODIUM,PORCINE 5,000 UNIT/ML 1 ML VIAL SQ SCH (17:34)
[2024-09-16] MEDS ORDERED: ATORVASTATIN 40 MG TAB PO SCH (21:00)
[2024-09-16] MEDS ORDERED: amLODIPine 5 MG TAB PO SCH (21:00)
[2024-09-17] MEDS ORDERED: ASPIRIN 81 MG PO SCH (09:00)
== END 2024-09-16 18:00 | disposition home or self-care (01) ==
LOC: EC 16:56 → 6NMEDSUR 19:08
PROVIDERS: ADMIT Hospitalist; ATTEND Hospitalist
DX: R07.89 Other chest pain (principal); I25.10 Atherosclerotic heart disease of native coronary artery without angina pectoris; I45.10 Unspecified right bundle-branch block; E87.1 Hypo-osmolality and hyponatremia; E83.42 Hypomagnesemia; I10 Essential (primary) hypertension; E78.5 Hyperlipidemia, unspecified; E11.9 Type 2 diabetes mellitus without complications; R07.2 Precordial pain; I08.1 Rheumatic disorders of both mitral and tricuspid valves; F43.9 Reaction to severe stress, unspecified; Z63.4 Disappearance and death of family member; I25.2 Old myocardial infarction; Z79.02 Long term (current) use of antithrombotics/antiplatelets; Z79.82 Long term (current) use of aspirin; Z79.84 Long term (current) use of oral hypoglycemic drugs; Z79.890 Hormone replacement therapy; Z79.899 Other long term (current) drug therapy; Z88.5 Allergy status to narcotic agent; Z87.891 Personal history of nicotine dependence; Z95.1 Presence of aortocoronary bypass graft
CPT/HCPCS: 96361 ×2; 96360; 99285; 36415; 93005; 83930; 80061; 80053; 80048; 83735; 84295; 84484; 85025 ×2; 85610; 85730; 71046; G0378 ×2